=== PATIENT | male | born 1955 | race Caucasian/White ===

== ENCOUNTER → 2016-03-26 | Outpatient (CLI) | payer MEDICARE, MEDICAID ==
[~2016-03-26] MED LIST: /AMLO25TA PO; ADV250INH INH; ASPI81CH32 PO; ASPI81TA7 PO; ASPI81TA85 PO; ATOR40TA PO; AUGM875T27 PO; CEPH500C PO; CLOP75TA2 PO; FURO40TA2 PO; HYDR50TA PO; IMDU30TA PO; LISI10TA4 PO; LOPR100T PO; METF-414 PO; METF1000 PO; METO100T PO; NICO21DI26 TOP; NO HISTORICAL MEDS; NORCOTAB PO; TRAD5TAB PO; ZITH500T PO
--- NOTE | 2016-03-26 12:11 | REP ---
URINARY TRACT SONOGRAPHY: HISTORY: Chronic kidney disease. Comparison sonography April 24, 2014. Comparison CT study of the abdomen is from the same date. SONOGRAPHIC FINDINGS: Scanning at the level of the urinary bladder shows smooth bladder hernandez. No extravesical pelvic lesion is seen. Renal cortical echogenicity pattern is increased consistent with chronic medical renal disease. There is no evidence of hydronephrosis on either side. No mass is seen. Bilateral cysts are observed. There is a 1.4 cm cyst in the mid polar level of the right kidney. In the lower pole there is a 4.4 x 3.1 x 3.1 cm cyst. In the lower pole of the left kidney, there is a 2.4 x 1.9 x 2.1 cm cyst. In the upper pole of the left kidney, there is a 1.5 x 2.2 x 1.3 cm cyst. Right renal dimensions are 12.7 x 6.0 x 4.9 cm. The left kidney measures 13.0 x 5.8 x 6.1 cm. IMPRESSION: Increased renal cortical echogenicity pattern consistent with chronic medical renal disease. Small simple cyst bilaterally, the largest is in the lower pole on the right measuring 4.4 cm in greatest diameter. No other abnormality. Signed by Americo Arriaga MD 03/26/2016 01:19 P
== END ==
LOC: M RAD 10:58
PROVIDERS: ATTEND Physician Assistant Medical
DX: N18.3 Chronic kidney disease, stage 3 (moderate) (principal)

== ENCOUNTER 2016-04-24 22:03 | Emergency (ER) | payer MEDICARE, MEDICAID ==
--- NOTE | 2016-04-24 23:02 | EDDOCDS ---
Nurse's Notes [facility] Name: Shaji Cruz Age: 61 yrs Sex: Male : 1955 Arrival Date: 04/24/2016 Time: 22:03 Bed Triage 1 Private MD: Flor Beltran N. Diagnosis: Allergic rhinitis, unspecified Presentation: 04/24 22:07 Presenting complaint: Patient states: per pt about 1800 tonight after he ate dinner he tm5 checked his blood glucose & it was 114, he states that he ate some more & fingerstick was 125, but he states that his blood glucose should be doubled after he eats, denies any complaints. Adult Sepsis Screening: The patient does not have new or worsening altered mentation. Patient's respiratory rate is less than 22. Systolic blood pressure is greater than 100. Patient has a qSOFA score of 0- Negative Sepsis Screen. Suicide/Homicide risk assessment- the patient denies having any suicidal and/or homicidal ideations and does not present with any other emotional, behavioral or mental health complaints. 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 Transition of care: patient was not received from another setting of care. 22:07 Acuity: ANUPAM Level 4 tm5 22:07 Method Of Arrival: Walkin/Carried/Asstd tm5 Triage Assessment: 22:12 General: Appears in no apparent distress, Behavior is appropriate for age, cooperative. tm5 Pain: Denies pain. Pt Declines HIV testing. Neurological: Level of Consciousness is awake, alert, Oriented to person, place, time. Respiratory: Airway is patent Respiratory effort is even, unlabored, Respiratory pattern is regular, symmetrical. Derm: Skin is pink, warm & dry. Historical: - Allergies: no known allergies; - Home Meds: 1. aspirin 81 mg Oral TbEC once daily 2. atorvastatin 40 mg oral tab 1 tab once daily 3. lisinopril 10 mg Oral tab once daily 4. Lasix 20 mg Oral tab once daily 5. carvedilol 25 mg oral tab 2 times per day 6. digoxin 125 mcg Oral tab 1 tab once daily 7. Protonix 40 mg Oral TbEC once daily 8. Lantus 100 unit/mL Sub-Q soln 20 unit daily 9. nitroglycerin 0.4 mg SL subl as needed 10. Breo Ellipta 100-25 mcg/dose inhalation dsdv 2 puff once daily 11. Gabapentin Unknown Oral 3 times per day - PMHx: COPD; Diabetes - IDDM: controlled; Hypercholesterolemia; Hypertension; - PSHx: defibrillator; Cardiac stents; - Social history: Smoking status: Patient uses tobacco products, current every day smoker. No barriers to communication noted, The patient speaks fluent Mauritanian. - Family history: Not pertinent. - : The pt / caregiver states he / she is not on anticoagulants. Home medication list is obtained from [employer] import data. - Exposure Risk Screening:: None identified. Screenin:07 Infection Control. gr2 22:13 Screening information is obtained from the patient. Fall risk: No risks identified. tm5 Assistance ADL's: requires no assistance with activities of daily living. Abuse/DV Screen: The patient / caregiver reports he/she is: not in a situation that causes fear, pain or injury. Nutritional screening: No deficits noted. Advance Directives: Currently, there is a health care proxy, children . There is no active DNR order. home support is adequate. Assessment: 22:40 Adult Sepsis Screening: The patient does not have new or worsening altered mentation. lf1 Patient's respiratory rate is less than 22. Systolic blood pressure is greater than 100. Patient has a qSOFA score of 0- Negative Sepsis Screen. General: Appears in no apparent distress, comfortable, Behavior is cooperative. Pain: Denies pain. Neurological: Level of Consciousness is awake, alert, obeys commands, Oriented to person, place, time, Speech is normal. EENT: No deficits noted. Cardiovascular: Chest pain is denied. Respiratory: Respiratory effort is even, unlabored, Denies cough, shortness of breath. GI: Denies nausea, vomiting. Derm: Skin is normal. 22:42 General: Pt reports he checked his blood sugar numerous times tonight and it isn't as lf1 high as he thinks it should be in the evening. States he normally runs 177-250 at night and tonight it has been 125-140 and he is very concerned.. Vital Signs: 22:05 BP 188 / 110; Pulse 65; Resp 18 S; Temp 96.6(O); Pulse Ox 100% on R/A; Weight 89.36 kg gr2 (R); Height 5 ft. 11 in. (180.34 cm) (R); Pain 0/10; 22:14 BP 170 / 96 RA (man/); tm5 22:05 Body Mass Index 27.48 (89.36 kg, 180.34 cm) gr2 Vitals: 22:05 Log In Time: April 24, 2016 at 22:05. gr2 ED Course: 22:04 Patient visited by Alhaji Soto. gr2 22:04 Patient moved to Waiting gr2 22:05 Flor Beltran is Private Physician. gr2 22:06 Patient visited by Alhaji Soto. gr2 22:06 Patient moved to Pre RCE gr2 22:10 Triage Initiated tm5 22:19 Patient moved to Triage 1 lf1 22:40 Patient visited by Nieves Jay RN. lf1 22:40 The patient / caregiver is instructed regarding the plan of care and ED course. lf1 22:41 Miguel [facility]intosh [facility] cc10 22:42 Nicole Barfield MD is Attending Physician. cc10 22:42 Patient visited by Miguel Mcintosh PA-C. cc10 22:42 Patient visited by Miguel Mcintosh PA-C. cc10 22:57 Flor Beltran is Referral Physician. cc10 23:01 No IV's were initiated during this patient's visit. No procedures done that require lf1 assistance. Order Results: There are currently no results for this order. Outcome: 22:57 Discharge ordered by Provider. cc10 23:01 Discharge Assessment: Patient awake, alert and oriented x 3. No cognitive and/or lf1 functional deficits noted. Patient verbalized understanding of disposition instructions. Patient awake and alert. Oriented to person, place and time. Patient verbalized understanding of disposition instructions. Patient has no functional deficits. patient administered narcotics - no. The following High Risk Discharge criteria are identified: None. Discharged to home ambulatory. Condition: unchanged. Discharge instructions given to patient, Instructed on discharge instructions, follow up and referral plans. medication usage, Demonstrated understanding of instructions, medications, Pt was receptive of discharge instructions/ teaching. Prescriptions given X 1. No special radiology studies were completed. Property :Personal belongings accompany Pt. 23:02 Patient left the ED. lf1 Signatures: Nieves Jay RN RN lf1 Alhaji Soto gr2 Miguel Mcintosh PA-C PA-C cc10 Darryl,Diane,RN RN tm5 MTDD
--- NOTE | 2016-04-24 23:02 | EDDOCDS ---
Physician Documentation [facility] Name: Shaji Cruz Age: 61 yrs Sex: Male : 1955 Arrival Date: 04/24/2016 Time: 22:03 Bed Triage 1 Private MD: Flor Beltran N. Disposition: 04/24/16 22:57 Discharged to Home/Self Care. Impression: Allergic rhinitis, unspecified. - Condition is Stable. - Discharge Instructions: Allergies. - Prescriptions for Claritin 10 mg Oral Tablet - take 1 tablet by ORAL route once daily As needed; 30 tablet. - Medication Reconciliation form. - Follow up: Flor Beltran; When: Call to arrange an appointment; Reason: Wound/Symptom Recheck, Recheck today's complaints, Worsening of conditions, Continuance of care. - Problem is an ongoing problem. - Symptoms have improved. Historical: - Allergies: no known allergies; - Home Meds: 1. aspirin 81 mg Oral TbEC once daily 2. atorvastatin 40 mg oral tab 1 tab once daily 3. lisinopril 10 mg Oral tab once daily 4. Lasix 20 mg Oral tab once daily 5. carvedilol 25 mg oral tab 2 times per day 6. digoxin 125 mcg Oral tab 1 tab once daily 7. Protonix 40 mg Oral TbEC once daily 8. Lantus 100 unit/mL Sub-Q soln 20 unit daily 9. nitroglycerin 0.4 mg SL subl as needed 10. Breo Ellipta 100-25 mcg/dose inhalation dsdv 2 puff once daily 11. Gabapentin Unknown Oral 3 times per day - PMHx: COPD; Diabetes - IDDM: controlled; Hypercholesterolemia; Hypertension; - PSHx: defibrillator; Cardiac stents; - Social history: Smoking status: Patient uses tobacco products, current every day smoker. No barriers to communication noted, The patient speaks fluent French. - Family history: Not pertinent. - : The pt / caregiver states he / she is not on anticoagulants. Home medication list is obtained from [employer] import data. - Exposure Risk Screening:: None identified. Vital Signs: 04/24 22:05 BP 188 / 110; Pulse 65; Resp 18 S; Temp 96.6(O); Pulse Ox 100% on R/A; Weight 89.36 kg gr2 / 197.01 lbs (R); Height 5 ft. 11 in. (180.34 cm) (R); Pain 0/10; 22:14 BP 170 / 96 RA (man/); tm5 22:05 Body Mass Index 27.48 (89.36 kg, 180.34 cm) gr2 Signatures: Nieves Jay,RN RN lf1 Miguel Mcintosh, PA-C PA-C cc10 Diane Andrews RN RN tm5 MTDD
--- NOTE | 2016-04-27 00:02 | EDDOCDS ---
Physician Documentation [facility] Name: Shaji Cruz Age: 61 yrs Sex: Male : 1955 Arrival Date: 04/24/2016 Time: 22:03 Bed Triage 1 Private MD: Flor Beltran N. Disposition: 04/24/16 22:57 Discharged to Home/Self Care. Impression: Allergic rhinitis, unspecified. - Condition is Stable. - Discharge Instructions: Allergies. - Prescriptions for Claritin 10 mg Oral Tablet - take 1 tablet by ORAL route once daily As needed; 30 tablet. - Medication Reconciliation form. - Follow up: Flor Beltran; When: Call to arrange an appointment; Reason: Wound/Symptom Recheck, Recheck today's complaints, Worsening of conditions, Continuance of care. - Problem is an ongoing problem. - Symptoms have improved. Historical: - Allergies: no known allergies; - Home Meds: 1. aspirin 81 mg Oral TbEC once daily 2. atorvastatin 40 mg oral tab 1 tab once daily 3. lisinopril 10 mg Oral tab once daily 4. Lasix 20 mg Oral tab once daily 5. carvedilol 25 mg oral tab 2 times per day 6. digoxin 125 mcg Oral tab 1 tab once daily 7. Protonix 40 mg Oral TbEC once daily 8. Lantus 100 unit/mL Sub-Q soln 20 unit daily 9. nitroglycerin 0.4 mg SL subl as needed 10. Breo Ellipta 100-25 mcg/dose inhalation dsdv 2 puff once daily 11. Gabapentin Unknown Oral 3 times per day - PMHx: COPD; Diabetes - IDDM: controlled; Hypercholesterolemia; Hypertension; - PSHx: defibrillator; Cardiac stents; - Social history: Smoking status: Patient uses tobacco products, current every day smoker. No barriers to communication noted, The patient speaks fluent Kazakh. - Family history: Not pertinent. - : The pt / caregiver states he / she is not on anticoagulants. Home medication list is obtained from [employer] import data. - Exposure Risk Screening:: None identified. Vital Signs: 04/24 22:05 BP 188 / 110; Pulse 65; Resp 18 S; Temp 96.6(O); Pulse Ox 100% on R/A; Weight 89.36 kg gr2 / 197.01 lbs (R); Height 5 ft. 11 in. (180.34 cm) (R); Pain 0/10; 22:14 BP 170 / 96 RA (man/); tm5 22:05 Body Mass Index 27.48 (89.36 kg, 180.34 cm) gr2 MDM: 23:05 [facility] Payment Agreement was scanned into [employer] and attached to record. 5 23:05 Financial registration complete. 5 04/25 18:06 T-Sheet-- Draft Copy was scanned into [employer] and attached to record. klr Signatures: Nieves Jay,RN RN lf1 Miguel Mcintosh PAIngrisC PA-C cc10 Jace Albarado jp5 Tammi Merrillr Diane Andrews,RN RN tm5 The chart was reviewed and I authenticate all verbal orders and agree with the evaluation and treatment provided.Attachments: 04/24 23:05 [facility] Payment Agreement jp5 04/25 18:06 T-Sheet-- Draft Copy klr Chart Complete GIO
--- NOTE | 2016-04-27 00:02 | EDDOCDS ---
Nurse's Notes [facility] Name: Shaji Cruz Age: 61 yrs Sex: Male : 1955 Arrival Date: 04/24/2016 Time: 22:03 Bed Triage 1 Private MD: Flor Beltran N. Diagnosis: Allergic rhinitis, unspecified Presentation: 04/24 22:07 Presenting complaint: Patient states: per pt about 1800 tonight after he ate dinner he tm5 checked his blood glucose & it was 114, he states that he ate some more & fingerstick was 125, but he states that his blood glucose should be doubled after he eats, denies any complaints. Adult Sepsis Screening: The patient does not have new or worsening altered mentation. Patient's respiratory rate is less than 22. Systolic blood pressure is greater than 100. Patient has a qSOFA score of 0- Negative Sepsis Screen. Suicide/Homicide risk assessment- the patient denies having any suicidal and/or homicidal ideations and does not present with any other emotional, behavioral or mental health complaints. 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 Transition of care: patient was not received from another setting of care. 22:07 Acuity: ANUPAM Level 4 tm5 22:07 Method Of Arrival: Walkin/Carried/Asstd tm5 Triage Assessment: 22:12 General: Appears in no apparent distress, Behavior is appropriate for age, cooperative. tm5 Pain: Denies pain. Pt Declines HIV testing. Neurological: Level of Consciousness is awake, alert, Oriented to person, place, time. Respiratory: Airway is patent Respiratory effort is even, unlabored, Respiratory pattern is regular, symmetrical. Derm: Skin is pink, warm & dry. Historical: - Allergies: no known allergies; - Home Meds: 1. aspirin 81 mg Oral TbEC once daily 2. atorvastatin 40 mg oral tab 1 tab once daily 3. lisinopril 10 mg Oral tab once daily 4. Lasix 20 mg Oral tab once daily 5. carvedilol 25 mg oral tab 2 times per day 6. digoxin 125 mcg Oral tab 1 tab once daily 7. Protonix 40 mg Oral TbEC once daily 8. Lantus 100 unit/mL Sub-Q soln 20 unit daily 9. nitroglycerin 0.4 mg SL subl as needed 10. Breo Ellipta 100-25 mcg/dose inhalation dsdv 2 puff once daily 11. Gabapentin Unknown Oral 3 times per day - PMHx: COPD; Diabetes - IDDM: controlled; Hypercholesterolemia; Hypertension; - PSHx: defibrillator; Cardiac stents; - Social history: Smoking status: Patient uses tobacco products, current every day smoker. No barriers to communication noted, The patient speaks fluent Qatari. - Family history: Not pertinent. - : The pt / caregiver states he / she is not on anticoagulants. Home medication list is obtained from [employer] import data. - Exposure Risk Screening:: None identified. Screenin:07 Infection Control. gr2 22:13 Screening information is obtained from the patient. Fall risk: No risks identified. tm5 Assistance ADL's: requires no assistance with activities of daily living. Abuse/DV Screen: The patient / caregiver reports he/she is: not in a situation that causes fear, pain or injury. Nutritional screening: No deficits noted. Advance Directives: Currently, there is a health care proxy, children . There is no active DNR order. home support is adequate. Assessment: 22:40 Adult Sepsis Screening: The patient does not have new or worsening altered mentation. lf1 Patient's respiratory rate is less than 22. Systolic blood pressure is greater than 100. Patient has a qSOFA score of 0- Negative Sepsis Screen. General: Appears in no apparent distress, comfortable, Behavior is cooperative. Pain: Denies pain. Neurological: Level of Consciousness is awake, alert, obeys commands, Oriented to person, place, time, Speech is normal. EENT: No deficits noted. Cardiovascular: Chest pain is denied. Respiratory: Respiratory effort is even, unlabored, Denies cough, shortness of breath. GI: Denies nausea, vomiting. Derm: Skin is normal. 22:42 General: Pt reports he checked his blood sugar numerous times tonight and it isn't as lf1 high as he thinks it should be in the evening. States he normally runs 177-250 at night and tonight it has been 125-140 and he is very concerned.. Vital Signs: 22:05 BP 188 / 110; Pulse 65; Resp 18 S; Temp 96.6(O); Pulse Ox 100% on R/A; Weight 89.36 kg gr2 (R); Height 5 ft. 11 in. (180.34 cm) (R); Pain 0/10; 22:14 BP 170 / 96 RA (man/); tm5 22:05 Body Mass Index 27.48 (89.36 kg, 180.34 cm) gr2 Vitals: 22:05 Log In Time: April 24, 2016 at 22:05. gr2 ED Course: 22:04 Patient visited by Alhaji Soto. gr2 22:04 Patient moved to Waiting gr2 22:05 Flor Beltran is Private Physician. gr2 22:06 Patient visited by Alhaji Soto. gr2 22:06 Patient moved to Pre RCE gr2 22:10 Triage Initiated tm5 22:19 Patient moved to Triage 1 lf1 22:40 Patient visited by Nieves Jay RN. lf1 22:40 The patient / caregiver is instructed regarding the plan of care and ED course. lf1 22:41 Miguel Mcintosh PA-C is PHCP. cc10 22:42 Nicole Barfield MD is Attending Physician. cc10 22:42 Patient visited by Miguel Mcintosh PA-C. cc10 22:42 Patient visited by Miguel Mcintosh PA-C. cc10 22:57 Flor Beltran is Referral Physician. cc10 23:01 No IV's were initiated during this patient's visit. No procedures done that require lf1 assistance. 23:05 [facility] Payment Agreement was scanned into [employer] and attached to record. jp5 04/25 18:06 T-Sheet-- Draft Copy was scanned into [employer] and attached to record. klr Order Results: There are currently no results for this order. Outcome: 04/24 22:57 Discharge ordered by Provider. cc10 23:01 Discharge Assessment: Patient awake, alert and oriented x 3. No cognitive and/or lf1 functional deficits noted. Patient verbalized understanding of disposition instructions. Patient awake and alert. Oriented to person, place and time. Patient verbalized understanding of disposition instructions. Patient has no functional deficits. patient administered narcotics - no. The following High Risk Discharge criteria are identified: None. Discharged to home ambulatory. Condition: unchanged. Discharge instructions given to patient, Instructed on discharge instructions, follow up and referral plans. medication usage, Demonstrated understanding of instructions, medications, Pt was receptive of discharge instructions/ teaching. Prescriptions given X 1. No special radiology studies were completed. Property :Personal belongings accompany Pt. 23:02 Patient left the ED. lf1 Signatures: Nieves JayRN RN lf1 Alhaji Soto gr2 Miguel Mcintosh PA-C PAMeg cc10 Jace Albarado jp5 Tammi Merrill Tonya, RN RN tm5 Chart Complete MTDD
--- NOTE | 2016-04-27 00:02 | EDDOCDS ---
Physician Documentation [facility] Name: Shaji Cruz Age: 61 yrs Sex: Male : 1955 Arrival Date: 04/24/2016 Time: 22:03 Bed Triage 1 Private MD: Flor Beltran N. Disposition: 04/24/16 22:57 Discharged to Home/Self Care. Impression: Allergic rhinitis, unspecified. - Condition is Stable. - Discharge Instructions: Allergies. - Prescriptions for Claritin 10 mg Oral Tablet - take 1 tablet by ORAL route once daily As needed; 30 tablet. - Medication Reconciliation form. - Follow up: Flor Beltran; When: Call to arrange an appointment; Reason: Wound/Symptom Recheck, Recheck today's complaints, Worsening of conditions, Continuance of care. - Problem is an ongoing problem. - Symptoms have improved. Historical: - Allergies: no known allergies; - Home Meds: 1. aspirin 81 mg Oral TbEC once daily 2. atorvastatin 40 mg oral tab 1 tab once daily 3. lisinopril 10 mg Oral tab once daily 4. Lasix 20 mg Oral tab once daily 5. carvedilol 25 mg oral tab 2 times per day 6. digoxin 125 mcg Oral tab 1 tab once daily 7. Protonix 40 mg Oral TbEC once daily 8. Lantus 100 unit/mL Sub-Q soln 20 unit daily 9. nitroglycerin 0.4 mg SL subl as needed 10. Breo Ellipta 100-25 mcg/dose inhalation dsdv 2 puff once daily 11. Gabapentin Unknown Oral 3 times per day - PMHx: COPD; Diabetes - IDDM: controlled; Hypercholesterolemia; Hypertension; - PSHx: defibrillator; Cardiac stents; - Social history: Smoking status: Patient uses tobacco products, current every day smoker. No barriers to communication noted, The patient speaks fluent Vietnamese. - Family history: Not pertinent. - : The pt / caregiver states he / she is not on anticoagulants. Home medication list is obtained from [employer] import data. - Exposure Risk Screening:: None identified. Vital Signs: 04/24 22:05 BP 188 / 110; Pulse 65; Resp 18 S; Temp 96.6(O); Pulse Ox 100% on R/A; Weight 89.36 kg gr2 / 197.01 lbs (R); Height 5 ft. 11 in. (180.34 cm) (R); Pain 0/10; 22:14 BP 170 / 96 RA (man/); tm5 22:05 Body Mass Index 27.48 (89.36 kg, 180.34 cm) gr2 MDM: 23:05 [facility] Payment Agreement was scanned into [employer] and attached to record. 5 23:05 Financial registration complete. 5 04/25 18:06 T-Sheet-- Draft Copy was scanned into [employer] and attached to record. klr Signatures: Nieves Jay,RN RN lf1 Miguel Mcintosh PAIngrisC PA-C cc10 Jace Albarado jp5 Tammi Merrillr Daine Andrews,RN RN tm5 The chart was reviewed and I authenticate all verbal orders and agree with the evaluation and treatment provided.Attachments: 04/24 23:05 [facility] Payment Agreement jp5 04/25 18:06 T-Sheet-- Draft Copy klr Chart Complete GIO
== END 2016-04-24 23:02 | disposition home or self-care (01) ==
LOC: M ED 22:03
DX: J30.9 Allergic rhinitis, unspecified (principal); E11.9 Type 2 diabetes mellitus without complications; J44.9 Chronic obstructive pulmonary disease, unspecified; E78.00 Pure hypercholesterolemia, unspecified; I10 Essential (primary) hypertension; Z79.82 Long term (current) use of aspirin; Z79.4 Long term (current) use of insulin; Z79.899 Other long term (current) drug therapy; F17.210 Nicotine dependence, cigarettes, uncomplicated

== ENCOUNTER → 2016-04-29 | Outpatient (CLI) | payer MEDICARE, MEDICAID | LOC: M SLEEP 19:34 | PROVIDERS: ATTEND Internal Medicine Pulmonary Disease | DX: R40.0 Somnolence (principal) ==

== ENCOUNTER → 2016-06-13 | Outpatient (REF) | payer MEDICARE, MEDICAID ==
[2016-06-13 19:31] LABS: COMPLEMENT C4 30.7 MG/DL (10-40)
== END ==
LOC: M LAB REF 10:07
PROVIDERS: ATTEND Internal Medicine Nephrology
DX: N18.3 Chronic kidney disease, stage 3 (moderate) (principal); R80.9 Proteinuria, unspecified; R31.9 Hematuria, unspecified

== ENCOUNTER → 2016-07-09 | Outpatient (REF) | payer MEDICARE ==
[2016-07-09 20:37] LABS: BASO # 0.1 K/mm3 (0.0-0.2); BASO % 1.1 % (0.0-1.0); EOS # 0.3 K/mm3 (0.0-0.50); EOS % 2.8 % (0.0-3.0); LARGE UNSTAINED CELL # 0.2 K/mm3 (0.0-0.4); LARGE UNSTAINED CELL % 1.6 % (0.0-4.0); LYMPH # 1.6 K/mm3 (1.5-4.5); LYMPH % 14.8 % (24.0-44.0); MEAN CORPUSCULAR HEMOGLOBIN 29.1 pg (27.0-33.0); MEAN CORPUSCULAR HGB CONC 31.7 g/dl (32.0-36.5); MEAN CORPUSCULAR VOLUME 91.8 fl (80.0-96.0); MONO # 0.6 K/mm3 (0.0-0.8); MONO % 6.1 % (0.0-5.0); NEUTROPHILS # 7.4 K/mm3 (1.8-7.7); NEUTROPHILS % 73.6 % (36.0-66.0); PLATELET COUNT, AUTOMATED 177 k/mm3 (150-450); RED CELL DISTRIBUTION WIDTH 16.2 % (11.5-14.5)
[2016-07-09 21:13] LABS: ALBUMIN 3.4 GM/DL (3.2-5.2); ALBUMIN/GLOBULIN RATIO 0.92 (1.00-1.93); BILIRUBIN,TOTAL 0.6 MG/DL (0.2-1.0); CALCIUM LEVEL 8.7 MG/DL (8.8-10.2); CREATININE FOR GFR 1.58 MG/DL (0.70-1.30); GLOMERULAR FILTRATION RATE 47.9 (>49); POTASSIUM SERUM 4.4 MEQ/L (3.5-5.1); TOTAL PROTEIN 7.1 GM/DL (6.4-8.2)
== END ==
LOC: M SFHCADAM 12:59
PROVIDERS: ATTEND Physician Assistant Medical
DX: R31.9 Hematuria, unspecified (principal); E11.65 Type 2 diabetes mellitus with hyperglycemia; E78.4 Other hyperlipidemia; I12.9 Hypertensive chronic kidney disease with stage 1 through stage 4 chronic kidney disease, or unspecified chronic kidney disease; N18.3 Chronic kidney disease, stage 3 (moderate); I50.22 Chronic systolic (congestive) heart failure

== ENCOUNTER → 2016-07-16 | Outpatient (REF) | payer MEDICARE, MEDICAID | LOC: M SMT 13:21 | PROVIDERS: ATTEND Nurse Practitioner Family | DX: R31.9 Hematuria, unspecified (principal) | CPT/HCPCS: 81001; 87086; 88108; G0463 ==

== ENCOUNTER → 2016-07-31 | Outpatient (CLI) | payer MEDICARE, MEDICAID ==
[~2016-07-31] MED LIST changes: +ISOVUE-370 76% 100ML VIAL (Q9967) As Ordered ONE
--- NOTE | 2016-07-31 15:04 | REP ---
CT abdomen pelvis multiphase scanning for hematuria: Scanning is initially performed without IV contrast. This is followed by IV contrast enhanced scanning initially during the arterial phase of enhancement. This is followed by delayed equilibrium phase scanning. Comparison is 04/24/2014. There is a 9 mm renal cortical cyst in the mid pole right kidney there is an exophytic 5 cm renal cortical cyst arising from the lower pole of the right kidney. These are not significantly changed. There is an exophytic 13 mm cyst arising from the upper pole of the left kidney posteriorly. There is an exophytic cyst arising from the lower pole left kidney measuring 2.5 cm. These are not significantly changed. There is no hydronephrosis. There are no renal or ureteral calculi. No renal masses are identified. No bladder masses are identified. The visualized lung mulligan are unremarkable. The hepatic parenchyma is homogeneous on all phases of the study. The gallbladder is unremarkable. The pancreas and spleen are normal size unremarkable. The adrenals are unremarkable. Abdominal aorta is unremarkable except for occasional calcified atheroma. There is no bowel distension. The mesentery is unremarkable. Pelvis: The pelvic bowel loops are unremarkable. The appendix is unremarkable. There is no adenopathy or ascites. Impression: There are bilateral renal cysts as described. There is no hydronephrosis. There are no renal calculi or masses. 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 Otherwise, negative CT study of the abdomen and pelvis. Signed by Richi Allison MD 07/31/2016 02:56 P
== END ==
LOC: M RAD 13:25
PROVIDERS: ATTEND Nurse Practitioner Family
DX: R31.9 Hematuria, unspecified (principal); N28.1 Cyst of kidney, acquired; M51.36 Other intervertebral disc degeneration, lumbar region; M46.88 Other specified inflammatory spondylopathies, sacral and sacrococcygeal region
CPT/HCPCS: 74178; Q9967

== ENCOUNTER → 2016-08-20 | Outpatient (CLI) | payer MEDICARE, MEDICAID ==
[~2016-08-20] MED LIST changes: -ATOR40TA PO; +ATOR40TA75 PO; +AUGM875T28 PO; +BREO1INH PO; +BUME2TAB PO; +CARV25TA PO; +DIGO0.12 PO; +DOCQ100C PO; +GABA-282 PO; +HUMA100I3 SC; +INSULANT SQ; -ISOVUE-370 76% 100ML VIAL (Q9967) As Ordered ONE; -METO100T PO; +METO100T5 PO; +PANT40TA2 PO; +VITA1CAP40 PO
--- NOTE | 2016-08-20 15:45 | REP ---
HISTORY: Bladder disorder. COMPARISON: Innumerable round calcifications are seen throughout the lung mulligan most consistent with calcified granulomas. There is a dual chamber bipolar pacemaker device in place. There is mild cardiomegaly. There are no patchy opacities or pleural effusions. Chronic changes are seen involving the imaged spine. IMPRESSION: Findings and suspected findings as described above. There is no definite plain film evidence of acute cardiopulmonary disease. Signed by Memo Willoughby DO 08/20/2016 04:03 P
== END ==
LOC: M ADAMS 14:34
PROVIDERS: ATTEND Urology
DX: Z01.818 Encounter for other preprocedural examination (principal); N32.89 Other specified disorders of bladder; I25.10 Atherosclerotic heart disease of native coronary artery without angina pectoris; I12.9 Hypertensive chronic kidney disease with stage 1 through stage 4 chronic kidney disease, or unspecified chronic kidney disease; N18.3 Chronic kidney disease, stage 3 (moderate); E11.65 Type 2 diabetes mellitus with hyperglycemia; F17.210 Nicotine dependence, cigarettes, uncomplicated; E55.9 Vitamin D deficiency, unspecified; Z79.4 Long term (current) use of insulin; Z79.51 Long term (current) use of inhaled steroids; Z79.82 Long term (current) use of aspirin; Z79.899 Other long term (current) drug therapy

== ENCOUNTER → 2016-08-20 | Outpatient (REF) | payer MEDICARE, MEDICAID ==
[~2016-08-20] MED LIST changes: +ATOR40TA PO; -ATOR40TA75 PO; -AUGM875T28 PO; -HUMA100I3 SC; +METO100T PO; -METO100T5 PO; -VITA1CAP40 PO; +VITA50003 PO
[2016-08-20 20:53] LABS: MEAN CORPUSCULAR HEMOGLOBIN 29.7 pg (27.0-33.0); MEAN CORPUSCULAR HGB CONC 32.5 g/dl (32.0-36.5); MEAN CORPUSCULAR VOLUME 91.6 fl (80.0-96.0); RED CELL DISTRIBUTION WIDTH 16.6 % (11.5-14.5); WHITE BLOOD COUNT 9.9 K/mm3 (4.0-10.0)
[2016-08-20 21:08] LABS: CALCIUM LEVEL 8.7 MG/DL (8.8-10.2); CREATININE FOR GFR 1.77 MG/DL (0.70-1.30); INR 1.01; POTASSIUM SERUM 4.4 MEQ/L (3.5-5.1)
== END ==
LOC: M LABSMT 14:31
PROVIDERS: ATTEND Urology
DX: Z01.818 Encounter for other preprocedural examination (principal); N32.89 Other specified disorders of bladder; E11.65 Type 2 diabetes mellitus with hyperglycemia; Z79.4 Long term (current) use of insulin; Z79.51 Long term (current) use of inhaled steroids; Z79.82 Long term (current) use of aspirin; Z79.899 Other long term (current) drug therapy

== ENCOUNTER → 2016-09-18 | Day surgery (SDC) | payer MEDICAID, MEDICARE ==
[~2016-09-18] VITALS: Ht 180.3 cm; Wt 91.2 kg
[~2016-09-18] MED LIST changes: +ACETAMINOPHEN TAB 650MG DOSE (2X325MG) PO PRN; -ATOR40TA PO; +ATOR40TA75 PO; +AUGM875T28 PO; +GLYCOPYRROLATE INJ 0.2 MG/ML 2 ML VIAL As Ordered ONE; +HUMA100I3 SC; +HumaLOG INSULIN (NovoLOG) PER UNIT As Ordered ONE; +HumaLOG INSULIN (NovoLOG) PER UNIT SC ONE; +KETOROLAC 60 MG/2 ML VIAL (J1885) As Ordered ONE; +LIDOCAINE 2% INJ 100 MG/5 ML SDV (FOR ANES.) As Ordered ONE; +LR 1,000 ML IV ONE; +LR 1,000 ML IV SCH; +MEPERIDINE INJ 25 MG/ML VIAL (J2175) IV PRN; -METO100T PO; +METO100T5 PO; +METOCLOPRAMIDE INJ 10MG/2ML VIAL (J2765) IV PRN; +MIDAZOLAM INJ 2 MG/2 ML VIAL (J2250) As Ordered ONE; +NEOSTIGMINE 1MG/ML 5 ML SYRINGE (J2710) As Ordered ONE; +ONDANSETRON 4MG/2ML VIAL (J2405) As Ordered ONE; +ONDANSETRON 4MG/2ML VIAL (J2405) IV PRN; +PERCOCET 5MG/325MG TAB PO PRN; +PROPOFOL 200 MG/20 ML VIAL As Ordered ONE; +ROCURONIUM BROMIDE 50 MG/5 ML VIAL/SYRINGE As Ordered ONE; +VITA1CAP40 PO; -VITA50003 PO; +fentaNYL 100 MCG/2 ML INJECTION (J3010) As Ordered ONE; +fentaNYL 100 MCG/2 ML INJECTION (J3010) IV PRN
[2016-09-18 17:00] VITALS: BP 165/82
--- NOTE | 2016-09-19 11:36 | RO ---
DATE OF PROCEDURE: 09/18/2016 PREPROCEDURE DIAGNOSIS: Bladder mass. POSTPROCEDURE DIAGNOSIS: Bladder mass. OPERATIVE PROCEDURE: Cystoscopy, transurethral resection of bladder tumor (less than 2 cm), urethral meatal dilation, examination under anesthesia. SURGEON: Thierno Peterson MD STATE GAME WARDEN: None. ANESTHESIA: General. OPERATIVE INDICATIONS: This is a 61-year-old male who on recent cystoscopy was found to have an abnormal appearing mass on the posterior wall of his bladder. He was brought to the operating room today for the above listed procedure. DESCRIPTION OF PROCEDURE: The patient was brought to the operating room and general anesthesia was induced. Prophylactic antibiotics were infused. He was then placed in dorsal lithotomy position and a bimanual digital rectal examination under anesthesia was performed. It was negative for palpable prostate or bladder masses. The bladder was freely mobile. The patient was then prepped and draped in the usual sterile fashion. I then tried to insert a resectoscope into the urethral meatus. Of note, the ureteral meatus was too narrow. I therefore had to dilate the ureteral meatus to 30 [place]. After that point, I was able to insert the resectoscope using the digital obturator. Once within the bladder, it was thoroughly examined and the only abnormality seen was the small abnormal appearing mass on the posterior wall of the bladder. The resectoscope was then utilized to resect the mass completely. No other abnormalities were seen. The coagulation current was then utilized to obtain hemostasis. At this point, hemostasis was excellent. The specimen was then handed off and sent for pathologic analysis. The bladder was emptied of all fluid and this concluded the procedure. The patient was then taken out of the dorsal lithotomy position, awakened from anesthesia, and transported to the recovery room in stable condition. ESTIMATED BLOOD LOSS: 5 mL. COMPLICATIONS: None. SPECIMENS: Bladder mass. PLAN: The patient will followup in the clinic next week to discuss pathology results. GIO
== END | disposition home or self-care (01) ==
LOC: M SDC 12:40
PROVIDERS: ATTEND Urology
DX: N32.9 Bladder disorder, unspecified (principal); I25.10 Atherosclerotic heart disease of native coronary artery without angina pectoris; I25.2 Old myocardial infarction; I10 Essential (primary) hypertension; E11.9 Type 2 diabetes mellitus without complications; J44.9 Chronic obstructive pulmonary disease, unspecified; E78.5 Hyperlipidemia, unspecified; R06.83 Snoring; M19.049 Primary osteoarthritis, unspecified hand; M19.079 Primary osteoarthritis, unspecified ankle and foot; F17.200 Nicotine dependence, unspecified, uncomplicated; Z95.5 Presence of coronary angioplasty implant and graft; Z95.810 Presence of automatic (implantable) cardiac defibrillator; Z79.899 Other long term (current) drug therapy; Z79.82 Long term (current) use of aspirin; Z79.52 Long term (current) use of systemic steroids; Z79.4 Long term (current) use of insulin
CPT/HCPCS: 52234; 88307; J0690; J1885; J2250; J2405; J2710; J3010

== ENCOUNTER 2016-09-22 15:22 | Emergency (ER) | payer MEDICARE, MEDICAID ==
[~2016-09-22] VITALS: Ht 180.3 cm; Wt 92.8 kg
[~2016-09-22 15:22] MED LIST changes: -ACETAMINOPHEN TAB 650MG DOSE (2X325MG) PO PRN; -GLYCOPYRROLATE INJ 0.2 MG/ML 2 ML VIAL As Ordered ONE; -HUMA100I3 SC; -HumaLOG INSULIN (NovoLOG) PER UNIT As Ordered ONE; -HumaLOG INSULIN (NovoLOG) PER UNIT SC ONE; -KETOROLAC 60 MG/2 ML VIAL (J1885) As Ordered ONE; -LIDOCAINE 2% INJ 100 MG/5 ML SDV (FOR ANES.) As Ordered ONE; -LR 1,000 ML IV ONE; -LR 1,000 ML IV SCH; -MEPERIDINE INJ 25 MG/ML VIAL (J2175) IV PRN; -METOCLOPRAMIDE INJ 10MG/2ML VIAL (J2765) IV PRN; -MIDAZOLAM INJ 2 MG/2 ML VIAL (J2250) As Ordered ONE; -NEOSTIGMINE 1MG/ML 5 ML SYRINGE (J2710) As Ordered ONE; -ONDANSETRON 4MG/2ML VIAL (J2405) As Ordered ONE; -ONDANSETRON 4MG/2ML VIAL (J2405) IV PRN; -PERCOCET 5MG/325MG TAB PO PRN; -PROPOFOL 200 MG/20 ML VIAL As Ordered ONE; -ROCURONIUM BROMIDE 50 MG/5 ML VIAL/SYRINGE As Ordered ONE; -fentaNYL 100 MCG/2 ML INJECTION (J3010) As Ordered ONE; -fentaNYL 100 MCG/2 ML INJECTION (J3010) IV PRN
[2016-09-22] MEDS ORDERED: HUMA100I3 SC (15:35)
[2016-09-22 17:58] VITALS: BP 136/70
--- NOTE | 2016-09-22 21:19 | REP ---
BLADDER ULTRASOUND: Real-time sonographic evaluation of the urinary bladder is performed. Bladder is well distended with no mass or calculus. Volume is 454 mL. Ureteral jets could not be seen in the urinary bladder with Doppler color evaluation. There is post void residual of 141 mL which is 31% of the original volume. IMPRESSION: No bladder mass, calculus or clot. Signed by Richi Mejia MD 09/23/2016 01:07 P
== END 2016-09-22 18:19 | disposition home or self-care (01) ==
LOC: M ED 15:22
DX: N99.820 Postprocedural hemorrhage of a genitourinary system organ or structure following a genitourinary system procedure (principal); R33.8 Other retention of urine; R31.9 Hematuria, unspecified; I25.10 Atherosclerotic heart disease of native coronary artery without angina pectoris; I50.9 Heart failure, unspecified; E11.9 Type 2 diabetes mellitus without complications; I11.0 Hypertensive heart disease with heart failure; F32.9 Major depressive disorder, single episode, unspecified; Z98.61 Coronary angioplasty status; F17.210 Nicotine dependence, cigarettes, uncomplicated; Z79.82 Long term (current) use of aspirin; Z79.4 Long term (current) use of insulin; Z79.899 Other long term (current) drug therapy

== ENCOUNTER → 2017-02-03 | Outpatient (REF) | payer MEDICARE ==
[~2017-02-03] MED LIST changes: +ASPI1TAB15 PO; +HUMA100I3 SC; +SPIR25TA2 PO
[2017-02-03 19:40] LABS: ALBUMIN 3.5 GM/DL (3.2-5.2); ALBUMIN/GLOBULIN RATIO 0.9 (1.00-1.93); BILIRUBIN,TOTAL 0.9 MG/DL (0.2-1.0); CALCIUM LEVEL 8.8 MG/DL (8.8-10.2); CREATININE FOR GFR 1.91 MG/DL (0.70-1.30); GLOMERULAR FILTRATION RATE 38.5 (>49); MAGNESIUM LEVEL 2.2 MG/DL (1.8-2.4); POTASSIUM SERUM 4.4 MEQ/L (3.5-5.1); TOTAL PROTEIN 7.4 GM/DL (6.4-8.2)
[2017-02-03 19:43] LABS: FOLATE 12.6 NG/ML
[2017-02-03 20:04] LABS: BASO # 0.1 10^3/uL (0.0-0.2); BASO % 1.2 % (0.0-1.0); EOS # 0.3 10^3/uL (0.0-0.50); EOS % 2.8 % (0.0-3.0); IMMATURE GRANULOCYTE % 0.9 % (0-0); LYMPH # 1.6 10^3/uL (1.5-4.5); MEAN CORPUSCULAR HEMOGLOBIN 30.5 pg (27.0-33.0); MEAN CORPUSCULAR HGB CONC 32.9 g/dl (32.0-36.5); MEAN CORPUSCULAR VOLUME 92.9 fl (80.0-96.0); MONO # 0.8 10^3/uL (0.0-0.8); MONO % 7.6 % (0.0-5.0); NEUTROPHILS # 7.5 10^3/uL (1.8-7.7); NEUTROPHILS % 72.5 % (36.0-66.0); PLATELET COUNT, AUTOMATED 168 10^3/uL (150-450); RED CELL DISTRIBUTION WIDTH 13.9 % (11.5-14.5); WHITE BLOOD COUNT 10.4 10^3/uL (4.0-10.0)
== END ==
LOC: M SFHCADAM 13:22
PROVIDERS: ATTEND Physician Assistant Medical
DX: E11.65 Type 2 diabetes mellitus with hyperglycemia (principal); I12.9 Hypertensive chronic kidney disease with stage 1 through stage 4 chronic kidney disease, or unspecified chronic kidney disease; N18.3 Chronic kidney disease, stage 3 (moderate); Z23 Encounter for immunization
CPT/HCPCS: 80053; 80061; 82306; 82607; 82746; 83036; 83735; 84443; 85025; 90686; G0008; G0463

== ENCOUNTER → 2017-02-05 | Outpatient (CLI) | payer MEDICAID, MEDICARE ==
[~2017-02-05] MED LIST changes: -ASPI1TAB15 PO; -SPIR25TA2 PO
--- NOTE | 2017-02-05 19:14 | REP ---
Bilateral lower extremity arterial Doppler: 02/05/2017. I do not have prior studies. Clinical history: Peripheral artery disease, right femoral popliteal bypass in 2016. Right lower extremity: Brachial artery velocity 160 cm/s Dorsalis pedis 170 cm cm/s CUSTOMS COMPLIANCE ANALYST 190 cm/s. RACHELLE 1.2. Right LE peak systole phasicity. CIVIL ENGINEERING TEACHER proximal to bypass 105 cm/s triphasic Profunda 50 cm/s biphasic SFA occluded. SFA bypass proximal 116 cm/s triphasic SFA mid bypass 84 cm/s triphasic SFA distal bypass 88 cm/S triphasic Popliteal 64 cm/S triphasic SIMONA proximal 73 cm/S triphasic Tibioperoneal trunk 54 cm/S biphasic CUSTOMS COMPLIANCE ANALYST proximal 42 cm/S triphasic CUSTOMS COMPLIANCE ANALYST distal 36 cm/S biphasic SIMONA distal 57 cm/S biphasic Left LE peak systole phasicity. CIVIL ENGINEERING TEACHER 68 cm/s Profunda 100 cm/s SFA proximal occluded. SFA mid occluded. SFA distal 8 cm/s monophasic Popliteal 12 cm/s monophasic AT proximal 12 cm/S monophasic Tibioperoneal trunk 16 cm/S monophasic CUSTOMS COMPLIANCE ANALYST proximal 14 cm/S monophasic CUSTOMS COMPLIANCE ANALYST distal 12 cm/S monophasic SIMONA distal 12 cm/S monophasic. Study suggest patent well-functioning right femoral popliteal bypass graft. There is a SFA occlusion proximally with revascularization distally by collaterals most likely trabecular arteries. Very slow flow in the lower leg and distally from the popliteal artery down to the ankle. Some plaque visible there. The ankle brachial index suggests adequate collateral flow. Signed by Cipriano Ruano MD 02/05/2017 08:03 P
== END ==
LOC: M RAD 11:36
PROVIDERS: ATTEND Surgery Vascular Surgery
DX: I73.9 Peripheral vascular disease, unspecified (principal)

== ENCOUNTER → 2017-02-07 | Outpatient (CLI) | payer MEDICARE ==
--- NOTE | 2017-02-07 14:01 | REP ---
Low-dose lung screening CT: Comparison is 02/06/2016. The studies performed without IV contrast and presented at lung windows only. There are multiple calcified granulomas as previously. There are no noncalcified lung nodules. This is unchanged. There are no infiltrates or effusions. There are calcified granulomas in mediastinal and hilar nodes. This is unchanged. Impression: There are no noncalcified nodules. Calcified granulomas are again identified, as previously, unchanged. Category 1 low-dose screening chest CT. Probability malignancy is less than 1%. Routine annual low-dose screening chest CT is recommended for follow up. Signed by Richi Allison MD 02/07/2017 01:52 P
== END ==
LOC: M RAD 10:38
PROVIDERS: ATTEND Internal Medicine Pulmonary Disease
DX: F17.218 Nicotine dependence, cigarettes, with other nicotine-induced disorders (principal)

== ENCOUNTER 2017-02-20 15:03 | Inpatient (IN) | payer MEDICARE ==
[~2017-02-20] VITALS: Ht 180.3 cm; Wt 88.6 kg
[2017-02-20 16:16] LABS: BASO # 0.1 10^3/uL (0.0-0.2); BASO % 1.1 % (0.0-1.0); EOS # 0.4 10^3/uL (0.0-0.50); EOS % 3.6 % (0.0-3.0); IMMATURE GRANULOCYTE % 0.4 % (0-0); LYMPH # 1.5 10^3/uL (1.5-4.5); LYMPH % 12.8 % (24.0-44.0); MEAN CORPUSCULAR HEMOGLOBIN 30.6 pg (27.0-33.0); MEAN CORPUSCULAR HGB CONC 33.3 g/dl (32.0-36.5); MEAN CORPUSCULAR VOLUME 91.9 fl (80.0-96.0); MONO % 8.9 % (0.0-5.0); NEUTROPHILS # 8.6 10^3/uL (1.8-7.7); NEUTROPHILS % 73.2 % (36.0-66.0); PLATELET COUNT, AUTOMATED 165 10^3/uL (150-450); RED CELL DISTRIBUTION WIDTH 13.9 % (11.5-14.5); WHITE BLOOD COUNT 11.7 10^3/uL (4.0-10.0)
--- NOTE | 2017-02-20 16:19 | REP ---
Head CT without contrast: History: Trauma. No comparison study. Findings: Preliminary digital signal manager radiograph is unremarkable. Bone window settings demonstrate an intact bony calvarium. No fractures seen. No bony destructive lesion is noted. Visualized paranasal sinuses are clear. No intraorbital abnormality is observed. Vascular calcification is noted in the distal carotid arteries bilaterally. No significant scalp hematoma is seen. On soft tissue window settings, there is diffuse mild cerebral atrophy. There are minimal small vessel changes. No hemorrhage, mass, extra-axial fluid collection or midline shift is seen. There is a zone of low-density in the anterior limb of the internal capsule on the right which may be a tiny lacunar infarct. This is age indeterminate. No other evidence of acute infarction is appreciated. Impression: No skull fracture or intracranial injury seen. A 6 mm area of low density in the anterior limb of the right internal capsule may be a lacunar infarct, age indeterminate. Vascular calcification and diffuse atrophy. Some small vessel changes. Otherwise negative. Signed by Americo Arriaga MD 02/20/2017 05:11 P
--- NOTE | 2017-02-20 16:20 | REP ---
CT cervical spine without contrast: History: Trauma. Technique: Helical scanning is acquired. 2 mm axial images are generated and viewed at bone and soft tissue algorithms. Coronal and sagittal multiplanar reformation images are generated and reviewed. CT findings: Digital lateral shrimper radiograph is unremarkable. Axial CT images show no evidence of skull base fracture. Vascular calcification is noted. There is no evidence of cervical spine element fracture on axial high resolution images. There are degenerative spondylosis changes, moderate in degree diffusely. Degenerative disc disease is most pronounced at C6-7 and C7-T1. Discogenic spurring is seen at C4-5 and C5-6 and to a lesser extent C3-4. There is osteoarthritic facet hypertrophy bilaterally at multiple levels. No malalignment is seen. There is an area of dystrophic ossification in the posterior extra spinal soft tissues at mid cervical spine level. No intraspinal or paraspinal hematoma is appreciated. Impression: Degenerative spondylosis changes. Vascular calcification. No traumatic abnormality. Signed by Americo Arriaga MD 02/20/2017 05:12 P
[2017-02-20 16:27] LABS: INR 0.99
[2017-02-20 16:30] LABS: SPECIFIC GRAVITY UR AUTO RFX 1.006 (1.002-1.035); SQUAM EPITHELIAL CELL UR AURFX 0 /HPF (0-6)
[2017-02-20 16:46] LABS: METHADONE URINE NEGATIVE (NEGATIVE)
[2017-02-20 16:50] LABS: CALCIUM LEVEL 8.3 MG/DL (8.8-10.2); CREATININE FOR GFR 2.01 MG/DL (0.70-1.30); FREE T4 1.41 NG/DL (0.76-1.46); GLOMERULAR FILTRATION RATE 36.3 (>49); MAGNESIUM LEVEL 2.1 MG/DL (1.8-2.4); PHOSPHORUS LEVEL 3.3 MG/DL (2.5-4.9); POTASSIUM SERUM 4.6 MEQ/L (3.5-5.1)
--- NOTE | 2017-02-20 16:59 | REP ---
Chest x-ray: Three views presented. History: Syncope. Comparison chest x-ray: August 20, 2016. Findings: The lungs are well inflated and free of infiltrate. A multi lead pacemaker is seen in the right heart via the left side. There are numerous pulmonary parenchymal granulomatous calcifications again seen unchanged. Heart is not enlarged. The aorta is somewhat tortuous. Pulmonary vasculature is not increased. There are degenerative changes in the thoracic spine as before. No acute infiltrate is seen. No evidence of pleural effusion or pulmonary edema is seen. Impression: Old granulomatous calcifications. A multi lead pacemaker. Otherwise no acute disease. Signed by Americo Arriaga MD 02/20/2017 05:13 P
[2017-02-20] MEDS ORDERED: NS 500 ML IV ONE (18:00)
[2017-02-20] MEDS ORDERED: SPIR25TA2 PO (18:06)
[2017-02-20] MEDS ORDERED: ASPI1TAB15 PO (18:06)
[2017-02-20 19:07] LABS: DIGOXIN LEVEL 1.3 NG/ML (0.5-2.0)
[2017-02-20] MEDS ORDERED: NS 1,000 ML IV SCH (20:29)
[2017-02-20] MEDS ORDERED: ONDANSETRON 4MG/2ML VIAL (J2405) IV PRN (20:30)
[2017-02-20] MEDS ORDERED: ACETAMINOPHEN TAB 650MG DOSE (2X325MG) PO PRN (20:30)
[2017-02-20] MEDS ORDERED: DEXTROSE 50% 50 ML SYRINGE IV PRN (20:45)
[2017-02-20] MEDS ORDERED: DOCUSATE SODIUM 100 MG CAP PO PRN (20:45)
[2017-02-20] MEDS ORDERED: GLUCOSE 4 GM CHEW TABLET PO PRN (20:45)
[2017-02-20] MEDS ORDERED: GLUCAGON FOR INJ 1 MG VIAL (J1610) SC PRN (20:45)
[2017-02-20] MEDS ORDERED: NICOTINE 21MG/24HR 1 EA TRANSDERMAL TD PRN (21:00)
[2017-02-20] MEDS ORDERED: HumaLOG INSULIN (NovoLOG) PER UNIT SC SCH (21:00)
[2017-02-20] MEDS ORDERED: ALBUTEROL SULFATE 2.5 MG/0.5 ML INH NEB SOLN INH PRN (21:00)
[2017-02-20] MEDS ORDERED: LEVEMIR (INSULIN DETEMIR) 1 UNITS/0.01ML SQ SCH (21:00)
[2017-02-20 21:53] VITALS: BP 181/84
[2017-02-20 21:54] VITALS: BP 158/60
[2017-02-20] MEDS: GABAPENTIN 300 MG CAP PO SCH (22:22)
[2017-02-20] MEDS: ATORVASTATIN 20 MG TAB PO SCH (22:22)
[2017-02-20] MEDS: DIGOXIN 0.125 MG TAB PO SCH (22:22)
[2017-02-21 04:00] VITALS: BP 151/82
[2017-02-21 05:43] LABS: MEAN CORPUSCULAR HEMOGLOBIN 30.6 pg (27.0-33.0); MEAN CORPUSCULAR HGB CONC 32.9 g/dl (32.0-36.5); MEAN CORPUSCULAR VOLUME 93.1 fl (80.0-96.0); PLATELET COUNT, AUTOMATED 163 10^3/uL (150-450); RED CELL DISTRIBUTION WIDTH 13.7 % (11.5-14.5); WHITE BLOOD COUNT 10.2 10^3/uL (4.0-10.0)
[2017-02-21 06:12] LABS: CALCIUM LEVEL 8.2 MG/DL (8.8-10.2); CREATININE FOR GFR 1.81 MG/DL (0.70-1.30); GLOMERULAR FILTRATION RATE 40.9 (>49); MAGNESIUM LEVEL 2.3 MG/DL (1.8-2.4); POTASSIUM SERUM 4.3 MEQ/L (3.5-5.1)
[2017-02-21] MEDS: HumaLOG INSULIN (NovoLOG) PER UNIT SC SCH ×2 (07:30→08:28)
[2017-02-21] MEDS: IPRATROPIUM 0.5MG/ALBUTEROL 2.5MG INH SOL UD 3ML (DUONEB)(J7620) NEB SCH ×4 (07:31→20:46)
--- NOTE | 2017-02-21 07:41 | HPE ---
DATE OF ADMISSION: 02/20/2017 This is a patient of Flor Beltran. Bar Useful Or Busser is from [facility] on [facility]. CHIEF COMPLAINT: "I passed out." SUMMARY OF PRESENTATION: This is a 61-year-old who was shopping in [place] today. He was walking toward the bank, and he developed generalized shaking in both arms. He became vertiginous but not lightheaded. [place] as though the room was spinning and fell onto his lady friend and did end up hitting the floor. Hit the back of his head. Apparently was on the floor and unresponsive for 2 minutes, according to his clothing presser. He woke up slowly. He had no incontinence of bowel or bladder. He did not bite his tongue. He has recently had no medication changes. No chest pain. No shortness of breath. He has been feeling well. Fingersticks at the scene was apparently in the 170s. Right now he feels fantastic and feels as though he could jump out of bed. There is no family history of seizures. He has had no history of seizures. He does have an extensive cardiac history though. PAST MEDICAL HISTORY: Notable for: 1. Coronary artery disease with an anterior wall myocardial infarction (LA). 2. Type 2 diabetes. 3. Hypertension. 4. Hyperlipidemia. 5. Tobacco use, ongoing. 6. Echocardiogram showing large anterior apical infarct, ejection fraction less than 30%. He has an automatic implantable cardioverter-defibrillator (AICD). 7. Bilateral lower extremity diabetic neuropathy. 8. Ischemic cardiomyopathy. 9. Peripheral arterial disease. 10. Gastroesophageal reflux disease (GERD). 11. Chronic kidney disease, stage III. 12. Vitamin D deficiency. 13. Chronic obstructive pulmonary disease (COPD). ALLERGIES: He has no known drug allergies. SURGICAL HISTORY: Notable for: 1. Cardiac catheterization. 2. Amputation of a toe on the right foot. 3. Thrombectomy from stent thrombosis. 4. Defibrillator placement. 5. Femoral-popliteal bypass. SOCIAL HISTORY: He continues to smoke. He does not use any alcohol. He lives by himself. FAMILY HISTORY: Notable for no history of seizure disorder. HOME MEDICATIONS: Listed as: - Coreg 25 mg by mouth twice a day - insulin - lisinopril 10 mg by mouth twice a day - spironolactone 25 mg daily - 81 mg daily - atorvastatin 40 mg by mouth every evening - bumetanide 2 mg by mouth daily - Plavix 75 mg daily - digoxin 0.125 mg by mouth every evening - Colace 100 mg twice daily - Neurontin 300 mg three times a day - Lantus 20 units subcutaneous at bedtime - Protonix 40 mg by mouth daily REVIEW OF SYSTEMS: Notable for no visual changes, no runny nose, no sore throat. He does have some tenderness at the posterior aspect of his head. No neck pain. No chest pain. No orthopnea. No paroxysmal nocturnal dyspnea . No lower extremity edema. He says that his medications have been keeping his edema down. No abdominal pain. No change in bowel or bladder habits. PHYSICAL EXAMINATION: Temperature is 97.5, pulse 68, respiratory rate 16, blood pressure 177/93, 93% on room air. Body mass index 27.5. He is awake appropriately interactive. A good historian. Sinuses are nontender. Posterior left occiput has a small area of swelling, which is mildly tender. There is no bleeding. Neck is supple. There is full range of motion. Nontender to palpation. He is edentulous. Mucous membranes are moist. Breathing is symmetrical. Inspiratory to expiratory (I-to-E) ratio is 1:4. Coarse airway sounds throughout. No wheezes, rales, or rhonchi. No costovertebral angle (CVA) tenderness. No sacral edema. Heart is in a regular rate and rhythm. Abdomen soft, doughy, nontender. There is a relatively large AICD in the left upper chest. There is no lower extremity edema. He is moving all four extremities. Cranial nerves II-XII are grossly intact. He has normal mood and somewhat variable affect. White cell count 11.7, hemoglobin 15.5, and platelets of 165. INR 0.99. BUN 38, creatinine 2.01, which appears to be close to his baseline. CK 220, troponin I 0.09. TSH 3.39, free T4 of 1.41. Toxicology screen negative. Urinalysis (UA) is notable for 25 red cells. Chest x-ray shows no acute disease. CT of the cervical spine shows no traumatic abnormality. Head CT showed no skull fracture. Intracranial imaging: There is a 6 mm area of low density in the anterior limb of right internal capsule, which may be a cranial infarct, age indeterminate. ASSESSMENT: This is a 61-year-old with syncopal event. Patient will be admitted to the family medicine service for further workup. PLAN: 1. Syncope. Possibility of orthostasis occurs to me, as the patient is orthostatic in the emergency department. He had shaking activity, which he was aware of prior to his fall. He did, although, have a relatively slow recovery and was unresponsive for 2 minutes, if bystanders can be believed. Will order an inpatient electroencephalogram (EEG), repeat CT scan tomorrow, as he does have a finding in the internal capsule, which is probably old. Neurology has been made aware of the case in the emergency department. Patient may benefit from . 2. Patient has significant cardiac illness. Will cycle troponins. Monitor the patient on telemetry. Continue his home medications with the exception of his Coreg, lisinopril, spironolactone this evening. Can reassess orthostatics in the morning. It may be that he requires a medication change. 3. Patient has diabetes. He will be maintained on insulin during his stay, long acting with sliding scale. 4. Patient has hyperlipidemia. 5. Patient has ongoing tobacco use. Will make a nicotine patch available to him. 6. Deep vein thrombosis (DVT) prophylaxis is ordered. 7. Patient has chronic kidney disease, stage III. Appears to be at about baseline.
[2017-02-21] MEDS: GABAPENTIN 300 MG CAP PO SCH ×3 (08:27→20:37)
[2017-02-21] MEDS: ASPIRIN 81 MG ENTERIC TAB PO SCH (08:27)
[2017-02-21] MEDS: CLOPIDOGREL 75 MG TAB PO SCH (08:27)
[2017-02-21] MEDS: ENOXAPARIN 40 MG/0.4 ML SYRINGE (J1650) SC SCH (08:28)
[2017-02-21] MEDS: PANTOPRAZOLE 40MG TAB (PROTONIX) PO SCH (08:28)
--- NOTE | 2017-02-21 08:32 | REP ---
CT BRAIN WITHOUT CONTRAST: HISTORY: Syncope. Comparison study February 20, 2017. FINDINGS: There is no evidence of intracranial hemorrhage. No new infarction is seen. Mild small vessel changes and diffuse atrophy are again noted. There is a tiny area of low density in the anterior limb of the right internal capsule again noted unchanged. No extra-axial fluid collection or mass is seen. Vascular calcification is again noted. IMPRESSION: Stable findings unchanged from the February 20, 2017 study. Vascular calcification, mild diffuse atrophy, and small vessel changes. Small area of low density in the anterior limb of the right internal capsule again seen unchanged. Signed by Americo Arriaga MD 02/21/2017 08:49 A
[2017-02-21] MEDS ORDERED: BUMETANIDE 1 MG TAB PO SCH (09:00)
--- NOTE | 2017-02-21 09:07 | IPNPDOC ---
Subjective Date Seen The patient was seen on 02/21/17. Subjective Chief Complaint/HPI The patient is a 61-year-old male admitted with a reason for visit of Syncope. Events since last encounter Pt this morning states that he is feeling fine. He isn't sure what led to his syncopal event yesterday. He was feeling well up until just a moment before it occurred. He states that he did eat just before going to the store at [facility]. He has been feeling tired and worn down, states that he has been doing a lot for other people in the last few days, and not really taking care of himself. General: Denies: Fatigue Constitutional: Denies: Chills, Fever ENT: Denies: Head Aches Pulmonary: Denies: Dyspnea, Cough Cardiovascular: Denies: Chest Pain, Palpitations, Lt Headedness Gastrointestinal: Denies: Nausea, Vomiting, Diarrhea Genitourinary: Denies: Dysuria Musculoskeletal: Denies: Neck Pain Neurological: Denies: Weakness Psych: Denies: Mood Normal Objective Physical Examination General Exam: Positive: Alert, Cooperative, No Acute Distress ENT Exam: Positive: Mucous membr. moist/pink Neck Exam: Positive: Supple Chest Exam: Positive: Clear to auscultation, Diminished Heart Exam: Positive: Rate Normal, Normal S1, Normal S2 Abdomen Exam: Positive: Normal bowel sounds, Soft, Negative: Tenderness Extremity Exam: Negative: Edema Psych Exam: Positive: Mental status NL, Mood NL Assessment /Plan Problems (1) Syncope Status: Acute Response to Treatment: Stable Problem Specific Plan: Monitor Clinically Problem Text: CT suggests possible lacunar infarct. EEG pending. (he continues to have systolic hypertension that will likely require restarting some of his BP control meds. with his creatinine hovering near 2, consider permanent discontinuation of JARRELL-i. might tolerate ARB better with respect to preservation of creatinine. beta blockers (with labetalol and carvedilol as possible exceptions) are less likely to provoke orthostatic hypotension events, but can decrease renal blood flow which is already compromised. dihydropyridine class calcium channel antagonists are particularly useful for systolic pressure control but may be more likely to worsen orthostasis) Pt was orthostatic on presentation to the ER, and this certainly could have contributed to his syncopal event. Consider MRI brain. (2) CAD S/P percutaneous coronary angioplasty Status: Chronic Response to Treatment: Stable Problem Specific Plan: Monitor Clinically Problem Text: Trop 0.09 on admission, peaked at 0.25, then trended back down to 0.20. Cont telemetry. Asked nursing to repeat orthostatics this morning. Cont home meds, except Spironolactone held on admission. (3) Diabetes Status: Chronic Response to Treatment: Stable Problem Specific Plan: Monitor Clinically Problem Text: Pt has in the last 4-6 weeks, made significant changes to his diet, which has helped bring his sugars down into control. He should cont on SSI while inpt, he refused Levemir last night, and his FSBS was 154 this morning , will therefore d/c levemir. Plan/VTE VTE Prophylaxis Ordered?: Yes VS, I&O, 24H, Fishbone Vital Signs/I&O Vital Signs Date Time Temp Pulse Resp B/P (MAP) Pulse Ox O2 Delivery O2 Flow Rate FiO2 02/21/17 04:00 98.2 68 20 151/82 (105) 93 Room Air I&O- Last 24 Hours up to 6 AM 02/21/17 06:00 Intake Total 1160 ml Output Total 1450 ml Balance -290 ml Laboratory Data 24H LABS Laboratory Tests 2 02/20/17 16:06: Immature Granulocyte % (Auto) 0.4H, White Blood Count 11.7H, Red Blood Count 5.07, Hemoglobin 15.5, Hematocrit 46.6, Mean Corpuscular Volume 91.9, Mean Corpuscular Hemoglobin 30.6, Mean Corpuscular Hemoglobin Concent 33.3, Red Cell Distribution Width 13.9, Platelet Count 165, Neutrophils (%) (Auto) 73.2H, Lymphocytes (%) (Auto) 12.8L, Monocytes (%) (Auto) 8.9H, Eosinophils (%) (Auto) 3.6H, Basophils (%) (Auto) 1.1H, Neutrophils # (Auto) 8.6H, Lymphocytes # (Auto ) 1.5, Monocytes # (Auto) 1.0H, Eosinophils # (Auto) 0.4, Basophils # (Auto) 0.1 , Immature Granulocyte # (Auto) 0.1H, Nucleated Red Blood Cells % (auto) 0.0, Prothrombin Time 13.2, Prothromb Time International Ratio 0.99, Activated Partial Thromboplast Time 32.0, Urine Color STRAW, Urine Appearance CLEAR, Urine pH 6.0, Urine Specific [place] 1.006, Urine Protein 2+H, Urine Glucose (UA ) NEGATIVE, Urine Ketones NEGATIVE, Urine Blood 2+H, Urine Nitrite NEGATIVE, Urine Bilirubin NEGATIVE, Urine Urobilinogen 0.2, Urine Leukocyte Esterase NEGATIVE, Urine WBC (Auto) 0, Urine RBC (Auto) 25H, Urine Hyaline Casts (Auto) 0 , Urine Bacteria (Auto) NEGATIVE, Urine Squamous Epithelial Cells 0, Urine Sperm (Auto) , Anion Gap 6L, Glomerular Filtration Rate 36.3L, Blood Urea Nitrogen 38H, Creatinine 2.01H, Sodium Level 139, Potassium Level 4.6, Chloride Level 100, Carbon Dioxide Level 33H, Calcium Level 8.3L, Phosphorus Level 3.3, Magnesium Level 2.1, Total Creatine Kinase 220, Creatine Kinase MB 6.9H, Creatine Kinase MB Relative Index 3.13, Troponin I 0.09, Thyroid Stimulating Hormone (TSH) 3.390, Free Thyroxine 1.41, Digoxin Level 1.3, Urine Amphetamines Screen NEGATIVE, Urine Benzodiazepines Screen NEGATIVE, Urine Opiates Screen NEGATIVE, Urine Methadone Screen NEGATIVE, Urine Barbiturates Screen NEGATIVE, Urine Phencyclidine Screen NEGATIVE, Urine Cocaine Metabolite Screen NEGATIVE, Urine Cannabinoids Screen NEGATIVE 02/20/17 21:52: Bedside Glucose (Misc Panel) 149H 02/20/17 22:03: Total Creatine Kinase 217, Creatine Kinase MB 5.2H, Creatine Kinase MB Relative Index 2.39, Troponin I 0.25#H 02/21/17 05:21: Nucleated Red Blood Cells % (auto) 0.0, Anion Gap 3L, Glomerular Filtration Rate 40.9L, Blood Urea Nitrogen 34H, Creatinine 1.81H, Sodium Level 142, Potassium Level 4.3, Chloride Level 106, Carbon Dioxide Level 33H, Calcium Level 8.2L, Magnesium Level 2.3, Total Creatine Kinase 197, Creatine Kinase MB 4.6H, Creatine Kinase MB Relative Index 2.33, Troponin I 0.20H CBC/BMP Laboratory Tests 02/20/17 16:06 Red Blood Count 5.07, Mean Corpuscular Volume 91.9, Mean Corpuscular Hemoglobin 30.6, Mean Corpuscular Hemoglobin Concent 33.3, Red Cell Distribution Width 13.9 , Neutrophils (%) (Auto) 73.2 H, Lymphocytes (%) (Auto) 12.8 L, Monocytes (%) ( Auto) 8.9 H, Eosinophils (%) (Auto) 3.6 H, Basophils (%) (Auto) 1.1 H, Neutrophils # (Auto) 8.6 H, Lymphocytes # (Auto) 1.5, Monocytes # (Auto) 1.0 H, Eosinophils # (Auto) 0.4, Basophils # (Auto) 0.1, Calcium Level 8.3 L 02/21/17 05:21 Red Blood Count 4.64, Mean Corpuscular Volume 93.1, Mean Corpuscular Hemoglobin 30.6, Mean Corpuscular Hemoglobin Concent 32.9, Red Cell Distribution Width 13.7 , Calcium Level 8.2 L, Total Creatine Kinase 197 BEBETO NEVES PA-C Feb 21, 2017 09:07 Jose Chadwick MD Feb 21, 2017 12:30
[2017-02-21 10:22] VITALS: BP_SYST 138; BP_SYST 162; BP_SYST 163; BP_DIAS 81; BP_DIAS 85; BP_DIAS 89
[2017-02-21 12:25] VITALS: BP 153/76
[2017-02-21] MEDS ORDERED: LEVEMIR (INSULIN DETEMIR) 1 UNITS/0.01ML SC ONE (12:45)
[2017-02-21 16:18] VITALS: BP 160/92
--- NOTE | 2017-02-21 16:45 | ECGEPIP ---
Stationary ECG Study [facility] - ED Test Date: 2017-02-20 Pat Name: MASON OLIVER Department: Room: - Gender: M Tax Form Preparer: jamaal : [id number] Requested By: AROLDO Merino Order Number: [id number] Reading MD: Kylee Bradford Measurements Intervals [place] Rate: 69 P: 63 UT: 163 QRS: 216 QRSD: 185 T: 79 QT: 428 QTc: 459 Interpretive Statements ELECTRONIC VENTRICULAR PACEMAKER ABNORMAL RHYTHM ECG SINUS RHYTHM Electronically Signed On 02-21-2017 16:45:09 EST by Kylee Bradford
[2017-02-21 20:00] VITALS: BP_SYST 169; BP_SYST 175; BP_SYST 179; BP_DIAS 87; BP_DIAS 92; BP_DIAS 95
--- NOTE | 2017-02-21 20:11 | EEG ---
DATE OF PROCEDURE: 02/21/2017 REFERRING PHYSICIAN: Dr. Ramone Mcfarlane EEG NUMBER: [id number] DIAGNOSIS: Syncope. HISTORY: Patient is a 61-year-old man who was admitted at [facility] due to passing out spell. This EEG was done to rule out epileptic potential. He is currently taking aspirin, Lipitor, Plavix gabapentin, digoxin, Protonix, etc. TECHNICAL DESCRIPTION: This digital EEG was recorded by 21 scalp, ear and two EKG electrodes and was reviewed in bipolar and referential montages following reformatting in 10-20 international electrode placement system. INTERPRETATION: The patient was noted to be in awake and drowsy states during this EEG. Resting awake background rhythm consisted of 11 Hz alpha activity measuring 15-40 microvolts in amplitude, which was symmetric and reactive to eye opening. Attenuation of posterior dominant rhythm was seen during transition into drowsiness. Anteriorly low voltage and mixed frequency activity was noted. No sleep was achieved. Hyperventilation remained unremarkable. Photic stimulation remained unremarkable. EKG revealed normal sinus rhythm. EKG was affected by artifact. No focal, lateralizing or epileptiform abnormalities were seen. No clinical or electrographic seizures were recorded. CONCLUSION: This EEG in awake and drowsy states is within normal limits.
[2017-02-21] MEDS: DIGOXIN 0.125 MG TAB PO SCH (20:37)
[2017-02-21] MEDS: ATORVASTATIN 20 MG TAB PO SCH (20:37)
[2017-02-22] VITALS: BP 160/95
[2017-02-22 04:00] VITALS: BP 165/80
[2017-02-22 05:14] LABS: MEAN CORPUSCULAR HEMOGLOBIN 30.5 pg (27.0-33.0); MEAN CORPUSCULAR HGB CONC 32.9 g/dl (32.0-36.5); MEAN CORPUSCULAR VOLUME 92.5 fl (80.0-96.0); PLATELET COUNT, AUTOMATED 152 10^3/uL (150-450); RED CELL DISTRIBUTION WIDTH 13.6 % (11.5-14.5); WHITE BLOOD COUNT 15.4 10^3/uL (4.0-10.0)
[2017-02-22 05:31] LABS: CALCIUM LEVEL 8.2 MG/DL (8.8-10.2); CREATININE FOR GFR 1.45 MG/DL (0.70-1.30); GLOMERULAR FILTRATION RATE 52.8 (>49); MAGNESIUM LEVEL 2.2 MG/DL (1.8-2.4); POTASSIUM SERUM 4.4 MEQ/L (3.5-5.1)
[2017-02-22 08:00] VITALS: BP_SYST 158; BP_SYST 159; BP_SYST 169; BP_DIAS 82; BP_DIAS 87; BP_DIAS 97
--- NOTE | 2017-02-22 08:02 | IPNPDOC ---
Subjective Date Seen The patient was seen on 02/22/17. Subjective Chief Complaint/HPI The patient is a 61-year-old male admitted with a reason for visit of Syncope. Events since last encounter Patient examined this morning. He states that he feels well enough to go home today. Patient is eating well. No complaints of CP, SOB, syncopal episodes since admission. NO fevers Constitutional: Denies: Chills, Fever, Night Sweats Pulmonary: Denies: Dyspnea, Cough Cardiovascular: Denies: Chest Pain, Palpitations, Orthopnea, Paroxysmal Noc. Dyspnea, Lt Headedness Gastrointestinal: Denies: Nausea, Vomiting, Abdominal Pain, Diarrhea, Constipation Objective Physical Examination General Exam: Positive: Alert, Cooperative, No Acute Distress ENT Exam: Positive: Mucous membr. moist/pink Neck Exam: Positive: Supple Chest Exam: Positive: Clear to auscultation, Diminished Heart Exam: Positive: Rate Normal, Normal S1, Normal S2 Abdomen Exam: Positive: Normal bowel sounds, Soft, Negative: Tenderness Extremity Exam: Negative: Edema Psych Exam: Positive: Mental status NL, Mood NL Assessment /Plan Problems (1) Syncope Status: Acute Response to Treatment: Stable Problem Specific Plan: Monitor Clinically Problem Text: 02/22 Patient remains orthostatic this morning with a drop in diastolic pressure of 10 with sitting to standing position. 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 Will have pacer interrogated 02/21 CT suggests possible lacunar infarct. EEG pending. (he continues to have systolic hypertension that will likely require restarting some of his BP control meds. with his creatinine hovering near 2, consider permanent discontinuation of JARRELL-i. might tolerate ARB better with respect to preservation of creatinine. beta blockers (with labetalol and carvedilol as possible exceptions) are less likely to provoke orthostatic hypotension events, but can decrease renal blood flow which is already compromised. dihydropyridine class calcium channel antagonists are particularly useful for systolic pressure control but may be more likely to worsen orthostasis) Pt was orthostatic on presentation to the ER, and this certainly could have contributed to his syncopal event. Consider MRI brain. (2) Diabetes Status: Chronic Response to Treatment: Stable Problem Specific Plan: Monitor Clinically Problem Text: 02/22 encouraged patient to start on SSI. Patient did not want to take because the regimen was different from his home regimen. His FSBS remain elevated throughout the day. 02/21 Pt has in the last 4-6 weeks, made significant changes to his diet, which has helped bring his sugars down into control. He should cont on SSI while inpt , he refused Levemir last night, and his FSBS was 154 this morning, will therefore d/c levemir. (3) Leukocytosis Problem Text: has some worsening leukocytosis today. Had a measured low grade fever. No infectious source so far. Will check blood cultures. (4) CAD S/P percutaneous coronary angioplasty Status: Chronic Response to Treatment: Stable Problem Specific Plan: Monitor Clinically Problem Text: Trop 0.09 on admission, peaked at 0.25, then trended back down to 0.20. Cont telemetry. Cont home meds, except Spironolactone held on admission. (5) GRIFFIN (acute kidney injury) Status: Resolved Problem Text: Patient Cr returns to baseline today, 1.45. Above 2 on admission Plan/VTE VTE Prophylaxis Ordered?: Yes VS, I&O, 24H, [facility] Vital Signs/I&O Vital Signs Date Time Temp Pulse Resp B/P (MAP) Pulse Ox O2 Delivery O2 Flow Rate FiO2 02/22/17 04:00 99.4 76 18 165/80 (108) 95 Room Air I&O- Last 24 Hours up to 6 AM 02/22/17 06:00 Intake Total 2040 ml Output Total 450 ml Balance 1590 ml Laboratory Data 24H LABS Laboratory Tests 2 02/21/17 11:45: Bedside Glucose (Misc Panel) 212H 02/21/17 15:53: Bedside Glucose (Misc Panel) 167H 02/22/17 04:57: Nucleated Red Blood Cells % (auto) 0.0, Anion Gap 4L, Glomerular Filtration Rate 52.8, Blood Urea Nitrogen 30H, Creatinine 1.45H, Sodium Level 141, Potassium Level 4.4, Chloride Level 106, Carbon Dioxide Level 31, Calcium Level 8.2L, Magnesium Level 2.2 CBC/BMP Laboratory Tests 02/22/17 04:57 Red Blood Count 4.56, Mean Corpuscular Volume 92.5, Mean Corpuscular Hemoglobin 30.5, Mean Corpuscular Hemoglobin Concent 32.9, Red Cell Distribution Width 13.6 , Calcium Level 8.2 L GME ATTESTATION GME ATTESTATION My faculty preceptor for this patient encounter was physically present during the encounter and was fully available. All aspects of the patient interview, examination, medical decision making process, and medical care plan development were reviewed and approved by the faculty preceptor. The faculty preceptor is aware and concurs with the plan as stated in the body of this note and will attest to such by his/her cosignature. FRANKI KAUFFMAN DO Feb 22, 2017 08:02
[2017-02-22] MEDS: IPRATROPIUM 0.5MG/ALBUTEROL 2.5MG INH SOL UD 3ML (DUONEB)(J7620) NEB SCH ×4 (08:09→20:30)
[2017-02-22] MEDS: ENOXAPARIN 40 MG/0.4 ML SYRINGE (J1650) SC SCH (09:41)
[2017-02-22] MEDS: CLOPIDOGREL 75 MG TAB PO SCH (09:41)
[2017-02-22] MEDS: PANTOPRAZOLE 40MG TAB (PROTONIX) PO SCH (09:41)
[2017-02-22] MEDS: HumaLOG INSULIN (NovoLOG) PER UNIT SC SCH ×3 (09:41→17:43)
[2017-02-22] MEDS: ASPIRIN 81 MG ENTERIC TAB PO SCH (09:41)
[2017-02-22] MEDS: GABAPENTIN 300 MG CAP PO SCH ×3 (09:42→20:27)
[2017-02-22 12:00] VITALS: BP 160/76
--- NOTE | 2017-02-22 13:28 | CR ---
DATE OF CONSULTATION: 02/22/2017 REFERRING PHYSICIAN: Dr. Darrion Chand REASON FOR CONSULTATION: Syncope versus seizure. Shaji Cruz is a 61-year-old right-handed male who has a longstanding history of cardiovascular disease with a pacemaker, automatic implantable cardioverter-defibrillator (AICD), coronary artery disease with anterior wall myocardial infarction, type 2 diabetes, hypertension, hyperlipidemia, ongoing tobacco abuse, and ischemic cardiomyopathy, presenting with a chief complaint of experiencing an episode of losing consciousness while walking into [employer]. The patient states that when he started walking to [employer], he started to have a shaking episode of both of his arms. The patient states he recalls having this event and then suddenly lost consciousness. The patient was then able to awake. His significant other states that he was out for maybe about 2 minutes. The patient awoke and felt slightly dazed and confused for a few minutes only. He did not have any prolonged postictal state. He did not having any tongue biting or incontinence. The patient was brought to [facility]. He states that he felt dizzy as the event was occurring but clarified that he did not experience any actual room spinning. He states that he felt dizzy in his head. The patient denies any focal weakness at the time other than baseline left lower extremity weakness, which is attributed to his prior cerebral infarction, which is noted on his current head CT. PAST MEDICAL HISTORY Coronary artery disease with anterior wall myocardial infarction. Type 2 diabetes. Hypertension. Hyperlipidemia. Tobacco abuse. Echocardiogram, ejection fraction (EF) 30%. Automatic implantable cardioverter-defibrillator. Bilateral lower extremity diabetic neuropathy. Ischemic cardiomegaly. Peripheral arterial disease. Gastroesophageal reflux disease. Chronic kidney disease stage III. Vitamin D deficiency. Chronic obstructive pulmonary disease. ALLERGIES: None. PAST SURGICAL HISTORY: Cardiac catheterization. Amputation of right big toe. Thrombectomy from stent thrombosis Defibrillator placement. Femoral popliteal bypass. SOCIAL HISTORY: The patient is smoking tobacco every day. He denies use of any alcohol or illicit drugs. FAMILY HISTORY: Noncontributory. HOME MEDICATIONS: - Coreg 25 mg by mouth twice a day - insulin - lisinopril 10 mg by mouth twice a day - spironolactone 25 mg by mouth every day - aspirin 81 mg by mouth every day - atorvastatin 40 mg by mouth every day - bumetanide 2 mg by mouth every day - Plavix 75 mg by mouth every day - digoxin 0.125 mg by mouth nightly - Colace 100 mg by mouth twice a day - Neurontin 300 mg by mouth three times a day - Lantus 20 units subcutaneous nightly - Protonix 40 mg by mouth every day LABORATORY WORK: Shows negative urinalysis, negative toxicology. Troponin was at first 0.09 and then increased to 0.25 and 0.20. TSH 3.390, BUN is 34, and creatinine 1.81 slightly elevated, glucose was [address] scan of the head shows 6 mm anterior right internal capsule lacunar infarct of indeterminate age and diffuse atrophy. CT cervical spine shows degenerative disc disease of spine without any cord compression. PHYSICAL EXAMINATION: Blood pressure is 151/82, pulse rate is 68, respiratory rate is 20, oxygenation 93% on room air, temperature is 98.2 point degrees Fahrenheit. The patient is awake, alert, oriented to person, place, and time. Speech, language, comprehension, and repetition are intact. Pupils are 8 mm, round, reactive to light. Extraocular movements are intact in all directions without nystagmus. Sensation to V1, V2, and V3 is intact to light touch. No facial asymmetry to activation. Palate elevates symmetrically. Tongue is midline. No weakness of sternocleidomastoids bilaterally. Hearing is subjectively equal to finger rub. There is no pronator drift. Strength is 5/5 in bilateral deltoids, triceps, biceps, handgrip, iliopsoas is slightly weaker on the left compared to the right grade 4+. Quadriceps 5/5, tibialis anterior is 5/5. Romberg testing is negative. Sensory is intact to light touch in all four extremities. Deep tendon reflexes are decreased throughout ASSESSMENT: 1. Episode of losing consciousness with shaking of bilateral upper extremities prior to losing consciousness, likely convulsive syncope, less likely seizure due to the patient not having a prolonged postictal state, less likely transient ischemic attack (TIA). 2. MRI of brain not possible due to the patient having an AICD. 3. Continue aspirin and Plavix. Continue workup for syncope, including telemetry monitoring. Continue following up elevated troponins, as per primary team. 4. Obtain electroencephalogram (EEG). No need to start any antiepileptic medications at this time. Would recommend the patient avoid driving, operating heavy machinery, and climbing ladders. Recommend for the next 6 months unless cleared by cardiology if a known cause of syncope is identified.
--- NOTE | 2017-02-22 14:53 | IPN ---
DATE OF SERVICE: 02/22/2017 REFERRING PHYSICIAN: Dr. Horacio Frye. INDICATION: Syncope. HISTORY OF PRESENT ILLNESS: Mr. Cruz is somewhat known to me. I used to see him on regular basis, but he eventually transferred his care to Dr. Brian Borden, who has been following him, according to the patient, for at least 2 or 3 years. He has known ischemic cardiomyopathy and has a defibrillator placed. He has been doing lately actually very well. He tells me that he has not had any episodes of chest discomfort or shortness of breath, and his overall condition has improved since several years ago. While walking in a [employer], he suddenly became very dizzy and lightheaded and briefly lost consciousness. On presentation to emergency room, his vital signs were stable, but he was quite orthostatic; and consequently, it was felt that it was that the event was orthostatic in nature. He has been monitored on telemetry now for 48 hours, and there have not been any arrhythmias. The patient has been able to ambulate and feels well. He would like to be discharged home. I was asked to see him because of the syncopal event. The patient tells me that he has not had any syncopal events before. He denies any implantable cardioverter-defibrillator (ICD) discharges, and he denies any presyncopal sensations prior to the event or since the event. PAST MEDICAL HISTORY: 1. Coronary artery disease with ischemic cardiomyopathy, details not available. 2. Type 2 diabetes. 3. Hypertension. 4. Dyslipidemia. 5. Peripheral neuropathy. 6. Peripheral vascular disease, followed by Dr. Ventura. 7. Gastroesophageal reflux disease (GERD). 8. Chronic renal insufficiency. 9. Chronic obstructive pulmonary disease (COPD). No allergies. SURGICAL HISTORY: Is positive for right foot toe amputation, defibrillator placement, and femoral-popliteal bypass graft. SOCIAL HISTORY: The patient lives alone. Denies use of alcohol. He continues to smoke. FAMILY HISTORY: Positive for coronary artery disease. HOME MEDICATIONS: According to nursing notes, his home medications including: - albuterol - Atrovent - allopurinol 300 a day - apixaban 5 twice a day - aspirin 81 a day - calcium polycarbophil fiber 625 a day - Coreg 12.5 twice a day - vitamin B12 - digoxin 125 mcg a day - iron sulfate - Breo Ellipta - gabapentin 600 three times a day - hydroxyzine 50 mg twice a day - insulin - magnesium oxide 400 a day - omeprazole 20 a day - pravastatin 20 a day - ropinirole 1 mg a day - sertraline 25 mg at bedtime - zonisamide 50 mg a day On the review of systems, he denies any recent fever, chills, nausea, vomiting, diarrhea. No bleeding problems. No prior syncope, near syncope. No chest pain. No shortness of breath. No peripheral edema. PHYSICAL EXAMINATION: Mr. Cruz is an elderly man who appears older than his calendar age. His last set of vital signs reveal blood pressure 159/82, heart rate has been mostly in 60s and 70s predominantly ventricular paced, saturation is 92% on room air. He is afebrile. His fluid balance yesterday was about 640 positive. Documented weight is 86.8 kg. He is alert and oriented and appropriate. His jugular venous pressure (JVP) is not up. Lungs are clear to auscultation. Heart: Examination reveals regular rhythm. I appreciate only fairly faint murmur at the apex, not more than 1 or 2 out of 6 intensity. Abdomen is soft, nontender. I do not appreciate hepatosplenomegaly. Peripheral pulses are palpable but of poor quality. There is missing toe on his right foot. Neurologically, he is intact, alert, and oriented, and appropriate; and I do not appreciate any focal weakness. Laboratory-reyes, as of today, basic metabolic panel reveals potassium 4.4, BUN 30, creatinine 1.4, for GFR 53, glucose 207. He had four sets of cardiac enzymes. The initial one was normal. The second one revealed mildly elevated troponin at 0.25 with negative relative index. Total CK 217 and CK-MB 5.2. TSH was 3.3, and free T4 was 1.4. CBC: Hemoglobin 13.9, hematocrit 42, platelet count 152,000, elevated WBC count 15. Digoxin level is 1.3, and his urine toxicology screen was negative. Urinalysis is 2+ positive for protein. Imaging reveals appropriate position of defibrillator leads. There is no evidence for acute intracranial event based on the CT. No congestive heart failure based on a chest x-ray, either. An electrocardiogram performed on admission reveals presence of sinus rhythm with a biventricular pacing. The ICD interrogation today reveals appropriately functioning [facility] biventricular defibrillator. The thresholds and impedances are intact. The event of loss of consciousness corresponds to treated ventricular tachycardia/fibrillation that was resolved with single shock. There have not been any arrhythmias since or before since his last interrogation. The impedance measurements are within normal limits, and he does not have any episodes of atrial fibrillation, either. ASSESSMENT AND PLAN: Mr. Cruz is a 61-year-old man who has ischemic cardiomyopathy and has known severe left ventricle (LV) systolic dysfunction with biventricular defibrillator. He presented with a syncopal event that corresponds to an episode of ventricular tachycardia, treated successfully by his ICD. The small troponin elevation is probably related to the event. He does not have anything in his history to suggest that he had a thrombotic ischemic event. He certainly will need a further evaluation. As he follows with Dr. Brian Borden now, I believe that it can be all mediated through him. He has a scheduled followup on 03/05/2017. At this point, I think he can be slowly restarted on all of his appropriate medications, but from my perspective, he can be discharged home shortly. I instructed the patient to immediately go back to hospital if he has any recurrent events. In that case, he might need to be started on antiarrhythmics, but I do not believe it is appropriate to do it immediately.
[2017-02-22 16:00] VITALS: BP_SYST 160; BP_SYST 163; BP_SYST 170; BP_DIAS 87; BP_DIAS 88; BP_DIAS 95
[2017-02-22 20:00] VITALS: BP 162/90
--- NOTE | 2017-02-22 20:16 | ECGEPIP ---
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
[2017-02-22] MEDS: DIGOXIN 0.125 MG TAB PO SCH (20:28)
[2017-02-22] MEDS: ATORVASTATIN 20 MG TAB PO SCH (20:28)
[2017-02-22] MEDS ORDERED: LISINOPRIL 10 MG TAB PO SCH (21:00)
[2017-02-22] MEDS ORDERED: HumaLOG INSULIN (NovoLOG) PER UNIT SC SCH (21:00)
[2017-02-23] VITALS: BP_SYST 130; BP_SYST 154; BP_SYST 156; BP_DIAS 66; BP_DIAS 73; BP_DIAS 74
[2017-02-23 04:00] VITALS: BP 168/83
[2017-02-23 04:57] LABS: MEAN CORPUSCULAR HEMOGLOBIN 30.5 pg (27.0-33.0); MEAN CORPUSCULAR HGB CONC 32.8 g/dl (32.0-36.5); PLATELET COUNT, AUTOMATED 139 10^3/uL (150-450); RED CELL DISTRIBUTION WIDTH 13.7 % (11.5-14.5); WHITE BLOOD COUNT 10.8 10^3/uL (4.0-10.0)
[2017-02-23 05:17] LABS: CALCIUM LEVEL 8.2 MG/DL (8.8-10.2); CREATININE FOR GFR 1.39 MG/DL (0.70-1.30); GLOMERULAR FILTRATION RATE 55.5 (>49); POTASSIUM SERUM 4.4 MEQ/L (3.5-5.1)
[2017-02-23] MEDS: IPRATROPIUM 0.5MG/ALBUTEROL 2.5MG INH SOL UD 3ML (DUONEB)(J7620) NEB SCH ×2 (07:46→11:23)
[2017-02-23 08:00] VITALS: BP 177/81
[2017-02-23] MEDS ORDERED: FUROSEMIDE 20 MG TAB PO SCH (09:00)
[2017-02-23] MEDS ORDERED: SPIRONOLACTONE 25 MG TAB PO SCH (09:00)
[2017-02-23] MEDS: ENOXAPARIN 40 MG/0.4 ML SYRINGE (J1650) SC SCH (10:20)
[2017-02-23] MEDS: PANTOPRAZOLE 40MG TAB (PROTONIX) PO SCH (10:20)
[2017-02-23] MEDS: GABAPENTIN 300 MG CAP PO SCH (10:20)
[2017-02-23] MEDS: ASPIRIN 81 MG ENTERIC TAB PO SCH (10:20)
[2017-02-23] MEDS: CLOPIDOGREL 75 MG TAB PO SCH (10:21)
[2017-02-23] MEDS: HumaLOG INSULIN (NovoLOG) PER UNIT SC SCH ×2 (10:21→12:12)
[2017-02-23 10:27] VITALS: BP 177/81
[2017-02-23] MEDS ORDERED: CARVedilol 12.5 MG TAB PO SCH (10:30)
[2017-02-23 12:00] VITALS: BP 141/68
--- NOTE | 2017-02-23 13:31 | IPN ---
DATE: 02/23/2017 Mr. Cruz is feeling good. He has no complaints today. I saw him walking around the progressive care unit (PCU) at a fairly fast clip with no difficulty. There have been no arrhythmias. His blood pressure remains somewhat elevated 168/83 this morning, heart rate in 60s and 70s is predominantly sinus rhythm with BiV pacing. Saturation is in mid 90s on room air. His fluid balance yesterday was slightly positive, weight is documented 80.6. jugular venous pulse (JVP) though is not up. Lungs are clear. I do not appreciate any gallop or rub on heart exam. There is no peripheral edema. Neurologically he is intact. CBC is normal but for mild thrombocytopenia at 140,000. Basic metabolic panel potassium 4.4, BUN 23, creatinine 1.4 for GFR 55 and glucose is 134. ASSESSMENT/PLAN: Mr. Cruz is a 61-year-old man who has ischemic cardiomyopathy. He came in after a syncopal event that occurred in a [employer] store. Even though the presumptive diagnosis was orthostatic hypotension the ICD interrogation revealed that he received appropriate shock for very fast ventricular tachycardia / fibrillation. He has not had an arrhythmia since. There was a trivial troponin elevation consequently even with fairly johnson walking around PCU he has no anginal symptoms and he is not in clinical congestive heart failure. Consequently, I believe he can be discharged home, we told him to followup with his primary environmental systems coordinator, he already has a scheduled appointment next week. I told him if there should be any problems in the interim to come back to the hospital. Otherwise I believe his medications are appropriate, but the dose of lisinopril can probably be titrated up. I do not see beta-rekha on his list and I will make sure that it gets put back.
--- NOTE | 2017-02-23 20:50 | DS.PDOC ---
Discharge Summary General Date of Admission Feb 21, 2017 at 14:38 Date of Discharge 02/23/17 Primary Care Physician: BEBETO NEVES PA-C Attending Physician: RONALD MIRANDA DO Specialist/Consultants Involve: SHAMA LUCAS MD Discharge Summary Consults: Dr. Shama Lucas Neurology Dr. Nabila Pena of Cardiology Discharge diagnosis: Syncope secondary to cardiac ventricular arrhythmia: ventricular tachycardia treated successfully with biventricular defibrillator. Elevated cardiac markers. Leukocytosis Acute Kidney Injury--Resolved back to baseline Creatinine Secondary diagnosis: Ischemic Cardiomyopathy Coronary artery disease with an anterior wall myocardial infarction (NE) Type 2 diabetes Hypertension Hyperlipidemia Ongoing tobacco use disorder Echocardiogram showing large anterior apical infarct, ejection fraction <30%. Has automatic implantable cardioverter-defibrillator (AICD). Bilateral lower extremity diabetic neuropathy Peripheral arterial disease Gastroesophageal Reflux Disease (GERD) Chronic Kidney Disease Stage III, baseline creatinine 1.45. Vitamin D Deficiency Chronic Obstructive Pulmonary Disease (COPD) Hospital course: This is a 61 year old gentleman who presented to [facility] ED on 02/20/17, and was admitted to the Family Medicine Inpatient Service for evaluation for a syncopal episode that had occurred when shopping at [employer] [place]. Was walking in store, developed generalized shaking in both arms, had room spinning dizziness, fell onto a ladyfriend, hit the floor, hit back of his head, and was reportedly unresponsive on the floor for approximately 2 minutes. Denied bowel/bladder incontinence. Denied tongue biting, visual changes, orthopnea, PND, lower extremity edema, runny nose, sore throat, or abdominal pain. Denied recent medication changes, chest pain, SOB. Fingerstick was in the 170s when event occurred. Denied family hx of seizures and personal hx of seizures. Admits to extensive cardiac hx. Please refer to diagnoses listed above. Patient was found to be orthostatic in the ED. Orthostatics were monitored which improved and are negative to date. EKG on the showed electronic ventricular pacemaker, abnormal rhythm EKG, sinus rhythm. EKG on 02/22 had shown electronic ventricular pacemaker, underlying rhythm is sinus. CXR showed no acute disease. CT of the C-spine showed no traumatic abnormality. Head CT showed no skull fracture and a 6 mm area of low density in the anterior limb of the R internal capsule. A repeat CT scan of the head showed stable findings from original Head CT study with vascular calcification, mild diffuse atrophy, small vessel changes, and a small area of low density in the anterior limb of the R internal capsule that was again unchanged. Dr. Lucas of Neurology was consulted for neurological evaluation. An EEG was done which was WNL. Workup proved to be insignificant for a neurological etiology of patient's syncopal event. Dr. Lucas thought patient had convulsive syncope but not a seizure due to not having a prolonged postictal state. TIA was less likely. Patient was unable to have MRI of brain due to his AICD. Dr. Lucas recommended to continue aspirin and plavix and to continue telemetry monitoring. Troponins were cycled and patient was monitored on telemetry. Patient was continued on his home medications aside from coreg. lisinopril, and sprinolactone antihypertensives initially due to his orthostasis in the beginning.. Dr. Pena of Cardiology was consulted. Patient's ICD was interrogated, which revealed appropriately functioning [facility] biventricular defibrillator. It was found patient's loss of consciousness/syncopal event was due to treated ventricular tachycardia/fibrillation that resolved with a single shock. There were no episodes of atrial fibrillation either. Patient has ischemic cardiomyopathy, known severe left ventricular systolic dysfunction with biventricular defibrillator. The syncopal event was found to be due to an episode of ventricular tachycardia/fibrillation treated with his ICD successfully. Small troponin elevation was thought be due to this as well. There was nothing in his hx to suggest a thrombotic ischemic event. There were no other arrhythmias seen during hospitalization since. Dr. Pena recommended for patient to be restarted again on all of his home medications, and sent home ILANA. Patient also presented with dehydration and GRIFFIN which had resolved back to baseline. Was administered IVF NS at 80 mLs/hr. Patient was found to have leukocytosis during hospital stay which fluctuated from 11.7 to 10.2 to 15.4, and back down to 10.8 today. H&H remained stable and at 13.9 today and yesterday. Patient remained afebrile throughout hospital stay and blood cx taken yesterday showed NGTD x 24 hours. No source of infection was identified. Patient was given DVT prophylaxis with lovenox. Progress note on date of discharge 02/23/17: Subjective: Patient was seen and examined at bedside. Patient denied fevers, chills, chest pain, SOB, dizziness, lightheadedness, nausea, vomiting, abdominal pain, diarrhea, constipation. There were no other acute complaints reported. Objective: Vitals at 8 AM: T 98 P 68 RR 17 BP 177/81 Pulse Ox: 93% room air Vitals at 12 PM: T 97.8 P 68 RR 19 BP 141/68 Pulse Ox: 93% room air General: Awake, alert and oriented, verbal and able to answer questions appropriately. He does not appear to be in any acute distress. Was seen walking around hallway without dizziness or gait imbalance. HEENT: Normocephalic atraumatic. Sclera nonicteric. Grossly normal hearing bilaterally. Neck: Supple. No JVD. Heart: Regular rate and rhythm, normal S1-S2. No murmurs, rubs, clicks or gallops. Lungs: Clear to auscultation bilaterally. No wheezes, rales or rhonchi. Abdomen: Active bowel sounds, soft, nontender, no masses to palpation. Extremities: No clubbing, cyanosis, or edema to palpation. Psychiatric: Appropriate mood & affect. Labs: Please see below. Assessment: 61 yo M presented status-post syncopal episode presumably due to ventricular fibrillation/tachycardia, which was corrected with a single shock of his biventricular defibrillator/ICD. Initially, patient was also found to be orthostatic likely due to dehydration which was resolved. Patient was found to have leukocytosis as well as acute kidney injury. Leukocytosis seems to be resolving with decreasing WBC. GRIFFIN has resolved back to patient's baseline creatinine, and patient has hx of CKD Stage 3. Patient's chronic conditions such as Diabetes and CAD status-post percutaneous coronary angioplasty were treated with sliding scale insulin and home medications respectively. There were no further arrhythmias detected on telemetry or syncopal events throughout hospital stay. Patient states he is ready to go home. He is being discharged today in clinically and hemodynamically stable condition. Disposition: Discharge to home. Follow-up: Patient was instructed to call on FridayFebruary 25 to make his follow up appointments: With Farm Assistant Dr. Brian Borden within 1-2 weeks. With PCP Bebeto Neevs PA-C. Activity: As tolerated. Diet: Consistent carbohydrates. Low sodium. Medications on discharge: Please see below. Cc: Dr. Brian Neves PA-C Time spent on discharge: 35 minutes. Vital Signs/I&Os Vital Signs Date Time Temp Pulse Resp B/P (MAP) Pulse Ox O2 Delivery O2 Flow Rate FiO2 02/23/17 12:00 97.8 68 19 141/68 (92) 92 Room Air I&O- Last 24 Hours up to 6 AM 02/23/17 06:00 Intake Total 940 ml Output Total 0 ml Balance 940 ml Laboratory Data Labs 24H Laboratory Tests 2 02/22/17 17:11: Bedside Glucose (Misc Panel) 164H 02/22/17 20:32: Bedside Glucose (Misc Panel) 166H 02/23/17 04:48: Nucleated Red Blood Cells % (auto) 0.0, Anion Gap 5L, Glomerular Filtration Rate 55.5, Blood Urea Nitrogen 23H, Creatinine 1.39H, Sodium Level 141, Potassium Level 4.4, Chloride Level 107, Carbon Dioxide Level 29, Calcium Level 8.2L, Magnesium Level 2.0 02/23/17 12:08: Bedside Glucose (Misc Panel) 215H CBC/BMP Laboratory Tests 02/23/17 04:48 Red Blood Count 4.56, Mean Corpuscular Volume 93.0, Mean Corpuscular Hemoglobin 30.5, Mean Corpuscular Hemoglobin Concent 32.8, Red Cell Distribution Width 13.7 , Calcium Level 8.2 L FSBS Laboratory Tests Test 02/22/17 17:11 02/22/17 20:32 02/23/17 12:08 Range/Units Bedside Glucose (Misc Panel) 164 166 215 80-115 MG/DL Microbiology Microbiology 02/22/17 Blood Culture - Preliminary, Resulted No growth after 24 hours . All specim... Discharge Medications Scheduled Aspirin (Aspirin) 81 Mg Tab, 81 MG PO DAILY, (Reported) Atorvastatin Calcium (Atorvastatin Calcium) 40 Mg Tab, 40 MG PO QPM, (Reported) Bumetanide (Bumetanide) 2 Mg Tab, 2 MG PO DAILY, (Reported) Carvedilol (Carvedilol) 25 Mg Tab, 25 MG PO BID, (Reported) Clopidogrel Bisulfate (Clopidogrel) 75 Mg Tab, 75 MG PO DAILY, (Reported) Digoxin (Digoxin) 0.125 Mg Tab, 0.125 MG PO QPM, (Reported) Fluticasone/Vilanterol (Breo Ellipta 100-25 Mcg/INH) 1 Inh Inh, 1 PUFF PO DAILY, (Reported) Gabapentin (Gabapentin) 300 Mg Cap, 300 MG PO TID, (Reported) Insulin Glargine (Lantus) 1 Units/0.01 Ml Susp, 20 UNITS SQ QHS, (Reported) Insulin Human Lispro (Humalog) 100 Unit/Ml Inj, 1 DOSE SC ACHS, (Reported) PER SLIDING SCALE Lisinopril (Lisinopril) 10 Mg Tab, 10 MG PO BID, (Reported) Pantoprazole Sodium (Pantoprazole Sodium) 40 Mg Tab, 40 MG PO DAILY, (Reported) Spironolactone (Spironolactone) 25 Mg Tab, 25 MG PO DAILY, (Reported) Scheduled PRN (Docqlace) 100 Mg Cap, 100 MG PO BID PRN for CONSTIPATION, (Reported) Allergies Coded Allergies: No Known Allergies (Unverified , 08/02/12) GME ATTESTATION GME ATTESTATION My faculty preceptor for this patient encounter was Dr. Ronald Villavicencio , and was physically present during the encounter and was fully available. All aspects of the patient interview, examination, medical decision making process, and medical care plan development were reviewed and approved by the faculty preceptor. The faculty preceptor is aware and concurs with the plan as stated in the body of this note and will attest to such by his/her cosignature. GRICELDA BROWN OGME-1 Feb 23, 2017 16:37
== END 2017-02-23 15:45 | disposition home or self-care (01) | DRG 309 ==
LOC: M ED 15:03 → EDBD 15:03 → M ED INP 20:29 → M PCU 21:46 → OBSVTOIN 02-21 14:38
PROVIDERS: ADMIT Internal Medicine; ATTEND Family Medicine
DX: I49.01 Ventricular fibrillation (principal); N17.9 Acute kidney failure, unspecified; I25.10 Atherosclerotic heart disease of native coronary artery without angina pectoris; I12.9 Hypertensive chronic kidney disease with stage 1 through stage 4 chronic kidney disease, or unspecified chronic kidney disease; E78.5 Hyperlipidemia, unspecified; K21.9 Gastro-esophageal reflux disease without esophagitis; N18.3 Chronic kidney disease, stage 3 (moderate); E11.40 Type 2 diabetes mellitus with diabetic neuropathy, unspecified; J44.9 Chronic obstructive pulmonary disease, unspecified; F17.200 Nicotine dependence, unspecified, uncomplicated; I25.2 Old myocardial infarction; E11.51 Type 2 diabetes mellitus with diabetic peripheral angiopathy without gangrene; Z95.810 Presence of automatic (implantable) cardiac defibrillator; Z89.421 Acquired absence of other right toe(s); Z95.828 Presence of other vascular implants and grafts; Z79.4 Long term (current) use of insulin; Z79.82 Long term (current) use of aspirin; Z79.02 Long term (current) use of antithrombotics/antiplatelets; Z98.61 Coronary angioplasty status

== ENCOUNTER → 2017-02-28 | Outpatient (REF) | payer MEDICARE ==
[2017-02-28 19:50] LABS: BASO # 0.1 10^3/uL (0.0-0.2); BASO % 1.1 % (0.0-1.0); EOS # 0.3 10^3/uL (0.0-0.50); EOS % 2.7 % (0.0-3.0); IMMATURE GRANULOCYTE % 0.3 % (0-0); LYMPH # 1.9 10^3/uL (1.5-4.5); LYMPH % 16.8 % (24.0-44.0); MEAN CORPUSCULAR HEMOGLOBIN 30.5 pg (27.0-33.0); MEAN CORPUSCULAR HGB CONC 32.5 g/dl (32.0-36.5); MEAN CORPUSCULAR VOLUME 93.9 fl (80.0-96.0); MONO % 8.7 % (0.0-5.0); NEUTROPHILS % 70.4 % (36.0-66.0); PLATELET COUNT, AUTOMATED 207 10^3/uL (150-450); RED CELL DISTRIBUTION WIDTH 13.7 % (11.5-14.5); WHITE BLOOD COUNT 11.3 10^3/uL (4.0-10.0)
[2017-02-28 19:57] LABS: ANION GAP 2 MEQ/L (8-16); BLOOD UREA NITROGEN 34 MG/DL (7-18); CALCIUM LEVEL 8.4 MG/DL (8.8-10.2); CARBON DIOXIDE LEVEL 35 MEQ/L (21-32); CHLORIDE LEVEL 101 MEQ/L (98-107); CREATININE FOR GFR 1.81 MG/DL (0.70-1.30); GLOMERULAR FILTRATION RATE 40.9 (>49); GLUCOSE, FASTING 158 MG/DL (80-110); POTASSIUM SERUM 4.8 MEQ/L (3.5-5.1); SODIUM LEVEL 138 MEQ/L (136-145)
== END ==
LOC: M SFHCADAM 16:04
DX: N18.3 Chronic kidney disease, stage 3 (moderate) (principal); E11.65 Type 2 diabetes mellitus with hyperglycemia
CPT/HCPCS: 80048

== ENCOUNTER → 2017-03-06 | Outpatient (REF) | payer MEDICARE ==
[2017-03-06 13:17] LABS: ANION GAP 3 MEQ/L (8-16); BLOOD UREA NITROGEN 35 MG/DL (7-18); CALCIUM LEVEL 8.7 MG/DL (8.8-10.2); CARBON DIOXIDE LEVEL 35 MEQ/L (21-32); CHLORIDE LEVEL 101 MEQ/L (98-107); CREATININE FOR GFR 1.87 MG/DL (0.70-1.30); GLOMERULAR FILTRATION RATE 39.4 (>49); GLUCOSE, FASTING 149 MG/DL (80-110); POTASSIUM SERUM 4.6 MEQ/L (3.5-5.1); SODIUM LEVEL 139 MEQ/L (136-145)
== END ==
LOC: M SFHCADAM 10:52
DX: I12.9 Hypertensive chronic kidney disease with stage 1 through stage 4 chronic kidney disease, or unspecified chronic kidney disease (principal); N18.3 Chronic kidney disease, stage 3 (moderate)
CPT/HCPCS: 80048

== ENCOUNTER 2017-03-23 17:22 | Observation (INO) | payer MEDICARE, MEDICAID ==
[2017-03-23] MEDS: NS 500 ML IV ×2 (17:45)
[2017-03-23 19:06] LABS: BASO # 0.1 10^3/uL (0.0-0.2); BASO % 0.9 % (0.0-1.0); EOS # 0.4 10^3/uL (0.0-0.50); EOS % 3.5 % (0.0-3.0); HEMATOCRIT 44.8 % (42.0-52.0); HEMOGLOBIN 14.7 g/dl (14.0-18.0); IMMATURE GRANULOCYTE # 0.1 10^3/uL (0-0); IMMATURE GRANULOCYTE % 0.4 % (0-0); LYMPH # 1.6 10^3/uL (1.5-4.5); LYMPH % 13.7 % (24.0-44.0); MEAN CORPUSCULAR HEMOGLOBIN 30.6 pg (27.0-33.0); MEAN CORPUSCULAR HGB CONC 32.8 g/dl (32.0-36.5); MEAN CORPUSCULAR VOLUME 93.1 fl (80.0-96.0); MONO % 8.4 % (0.0-5.0); NEUTROPHILS # 8.6 10^3/uL (1.8-7.7); NEUTROPHILS % 73.1 % (36.0-66.0); PLATELET COUNT, AUTOMATED 140 10^3/uL (150-450); RED BLOOD COUNT 4.81 10^6/uL (4.30-6.10); RED CELL DISTRIBUTION WIDTH 13.3 % (11.5-14.5); WHITE BLOOD COUNT 11.8 10^3/uL (4.0-10.0)
[2017-03-23 19:10] LABS: KETONE, URINE AUTO RFX NEGATIVE (NEGATIVE); LEUKOCYTE ESTERASE UR AUTO RFX NEGATIVE (NEGATIVE); NITRITE, URINE AUTO RFX NEGATIVE (NEGATIVE); RBC, URINE AUTO RFX 10 /HPF (0-3); SPECIFIC GRAVITY UR AUTO RFX 1.005 (1.002-1.035); SQUAM EPITHELIAL CELL UR AURFX 0 /HPF (0-6); WBC, URINE AUTO RFX 0 /HPF (0-3)
[2017-03-23 19:20] LABS: LACTIC ACID SEPSIS PROTOCOL 1.3 MMOL/L (0.4-2.0)
[2017-03-23 19:23] LABS: ANION GAP 3 MEQ/L (8-16); BLOOD UREA NITROGEN 33 MG/DL (7-18); CALCIUM LEVEL 8.2 MG/DL (8.8-10.2); CARBON DIOXIDE LEVEL 33 MEQ/L (21-32); CHLORIDE LEVEL 100 MEQ/L (98-107); CREATININE FOR GFR 1.84 MG/DL (0.70-1.30); GLUCOSE, FASTING 202 MG/DL (80-110); POTASSIUM SERUM 4.9 MEQ/L (3.5-5.1); SODIUM LEVEL 136 MEQ/L (136-145)
[2017-03-23 19:26] LABS: CPK CREATINE PHOSPHOKINASE 165 U/L (39-308); TROPONIN I 0.09 NG/ML (< 0.10)
[2017-03-23 19:32] LABS: MB/CK RELATIVE INDEX 3.03 (< OR =4)
[2017-03-23] MEDS: LEVEMIR (INSULIN DETEMIR) 1 UNITS/0.01ML SQ ×2 (21:00)
[2017-03-23] MEDS ORDERED: BREO ELIPTA INH ×2 (21:00)
[2017-03-23] MEDS ORDERED: GLUCAGON FOR INJ 1 MG VIAL (J1610) SC ×2 (21:00)
[2017-03-23] MEDS ORDERED: DEXTROSE 50% 50 ML SYRINGE IV ×2 (21:00)
[2017-03-23] MEDS ORDERED: ONDANSETRON 4MG/2ML VIAL (J2405) IV ×2 (21:00)
[2017-03-23] MEDS ORDERED: GLUCOSE 4 GM CHEW TABLET PO ×2 (21:00)
[2017-03-23] MEDS ORDERED: DOCUSATE SODIUM 100 MG CAP PO ×2 (21:00)
[2017-03-23] MEDS: HumaLOG INSULIN (NovoLOG) PER UNIT SC ×2 (21:00)
[2017-03-24 00:22] LABS: BEDSIDE GLUCOSE 116 MG/DL (80-115)
[2017-03-24] MEDS: GABAPENTIN 300 MG CAP PO ×8 (00:23→21:31)
[2017-03-24] MEDS: DOCUSATE SODIUM 100 MG CAP PO ×6 (00:23→20:23)
[2017-03-24] MEDS: ATORVASTATIN 20 MG TAB PO ×4 (00:23→17:48)
[2017-03-24] MEDS: CARVedilol 12.5 MG TAB PO ×6 (00:24→21:32)
[2017-03-24] MEDS: LISINOPRIL 10 MG TAB PO ×6 (00:25→21:31)
[2017-03-24] MEDS: ACETAMINOPHEN TAB 650MG DOSE (2X325MG) PO ×2 (00:25)
[2017-03-24] MEDS: ENOXAPARIN 30 MG/0.3 ML SYR (J1650) SC ×4 (00:26→21:32)
[2017-03-24] MEDS: DIGOXIN 0.125 MG TAB PO ×4 (00:26→17:48)
[2017-03-24 00:41] LABS: CK-MB VALUE MASS 6.2 NG/ML (0.0-3.6); CPK CREATINE PHOSPHOKINASE 170 U/L (39-308); MB/CK RELATIVE INDEX 3.64 (< OR =4); TROPONIN I 0.62 NG/ML (< 0.10)
[2017-03-24 04:18] LABS: BEDSIDE GLUCOSE 155 MG/DL (80-115)
[2017-03-24 05:24] LABS: HEMATOCRIT 42.5 % (42.0-52.0); MEAN CORPUSCULAR HEMOGLOBIN 30.2 pg (27.0-33.0); MEAN CORPUSCULAR HGB CONC 32.9 g/dl (32.0-36.5); MEAN CORPUSCULAR VOLUME 91.8 fl (80.0-96.0); PLATELET COUNT, AUTOMATED 145 10^3/uL (150-450); RED BLOOD COUNT 4.63 10^6/uL (4.30-6.10); RED CELL DISTRIBUTION WIDTH 13.4 % (11.5-14.5); WHITE BLOOD COUNT 11.2 10^3/uL (4.0-10.0)
[2017-03-24 05:42] LABS: ANION GAP 3 MEQ/L (8-16); BLOOD UREA NITROGEN 31 MG/DL (7-18); CALCIUM LEVEL 8.2 MG/DL (8.8-10.2); CARBON DIOXIDE LEVEL 32 MEQ/L (21-32); CHLORIDE LEVEL 105 MEQ/L (98-107); CREATININE FOR GFR 1.77 MG/DL (0.70-1.30); GLOMERULAR FILTRATION RATE 41.8 (>49); GLUCOSE, FASTING 195 MG/DL (80-110); POTASSIUM SERUM 4.1 MEQ/L (3.5-5.1); SODIUM LEVEL 140 MEQ/L (136-145)
[2017-03-24] MEDS: HumaLOG INSULIN (NovoLOG) PER UNIT SC ×8 (08:48→20:21)
[2017-03-24] MEDS: ASPIRIN 81 MG ENTERIC TAB PO ×2 (08:51)
[2017-03-24] MEDS: PANTOPRAZOLE 40MG TAB (PROTONIX) PO ×2 (08:51)
[2017-03-24] MEDS: SPIRONOLACTONE 25 MG TAB PO ×2 (08:51)
[2017-03-24] MEDS: CLOPIDOGREL 75 MG TAB PO ×2 (08:52)
[2017-03-24 10:15] LABS: CK-MB VALUE MASS 4.4 NG/ML (0.0-3.6); CPK CREATINE PHOSPHOKINASE 141 U/L (39-308); MB/CK RELATIVE INDEX 3.12 (< OR =4); TROPONIN I 0.47 NG/ML (< 0.10)
[2017-03-24] MEDS: BUMETANIDE 1 MG TAB PO ×2 (10:28)
[2017-03-24 12:13] LABS: BEDSIDE GLUCOSE 119 MG/DL (80-115)
[2017-03-24 17:46] LABS: BEDSIDE GLUCOSE 246 MG/DL (80-115)
[2017-03-24] MEDS: LEVEMIR (INSULIN DETEMIR) 1 UNITS/0.01ML SQ ×2 (20:22)
[2017-03-24 20:33] LABS: BEDSIDE GLUCOSE 197 MG/DL (80-115)
[2017-03-24] MEDS: AMIODARONE HCL 150 MG in APPROPRIATE DILUENT 1 EA IV (21:31)
[2017-03-25 06:09] LABS: HEMATOCRIT 41.9 % (42.0-52.0); HEMOGLOBIN 13.8 g/dl (14.0-18.0); MEAN CORPUSCULAR HEMOGLOBIN 30.5 pg (27.0-33.0); MEAN CORPUSCULAR HGB CONC 32.9 g/dl (32.0-36.5); MEAN CORPUSCULAR VOLUME 92.7 fl (80.0-96.0); PLATELET COUNT, AUTOMATED 130 10^3/uL (150-450); RED BLOOD COUNT 4.52 10^6/uL (4.30-6.10); RED CELL DISTRIBUTION WIDTH 13.4 % (11.5-14.5); WHITE BLOOD COUNT 10.5 10^3/uL (4.0-10.0)
[2017-03-25 06:56] LABS: ANION GAP 6 MEQ/L (8-16); BLOOD UREA NITROGEN 31 MG/DL (7-18); CALCIUM LEVEL 8.5 MG/DL (8.8-10.2); CARBON DIOXIDE LEVEL 31 MEQ/L (21-32); CHLORIDE LEVEL 105 MEQ/L (98-107); CREATININE FOR GFR 1.82 MG/DL (0.70-1.30); DIGOXIN LEVEL 1.2 NG/ML (0.5-2.0); GLOMERULAR FILTRATION RATE 40.5 (>49); GLUCOSE, FASTING 138 MG/DL (70-100); POTASSIUM SERUM 4.6 MEQ/L (3.5-5.1); SODIUM LEVEL 142 MEQ/L (136-145)
[2017-03-25] MEDS: HumaLOG INSULIN (NovoLOG) PER UNIT SC ×4 (07:30→12:26)
[2017-03-25] MEDS: CARVedilol 12.5 MG TAB PO ×2 (08:12)
[2017-03-25] MEDS: ASPIRIN 81 MG ENTERIC TAB PO ×2 (08:12)
[2017-03-25] MEDS: CLOPIDOGREL 75 MG TAB PO ×2 (08:13)
[2017-03-25] MEDS: LISINOPRIL 10 MG TAB PO ×2 (08:13)
[2017-03-25] MEDS: DOCUSATE SODIUM 100 MG CAP PO ×2 (08:13)
[2017-03-25] MEDS: PANTOPRAZOLE 40MG TAB (PROTONIX) PO ×2 (08:13)
[2017-03-25] MEDS: GABAPENTIN 300 MG CAP PO ×2 (08:14)
[2017-03-25] MEDS: SPIRONOLACTONE 25 MG TAB PO ×2 (08:14)
[2017-03-25] MEDS: BUMETANIDE 1 MG TAB PO ×2 (08:14)
[2017-03-25 13:23] LABS: BEDSIDE GLUCOSE 137 MG/DL (80-115)
[2017-03-25 14:09] LABS: BEDSIDE GLUCOSE 185 MG/DL (80-115)
== END 2017-03-25 14:15 | disposition short-term general hospital (02) ==
LOC: M PCU 03-24 00:02 → M ED 17:22 → M ED INP 20:47
DX: I25.5 Ischemic cardiomyopathy (principal); R55 Syncope and collapse; S00.03XA Contusion of scalp, initial encounter; W19.XXXA Unspecified fall, initial encounter; Y92.481 Parking lot as the place of occurrence of the external cause; N17.9 Acute kidney failure, unspecified; E11.22 Type 2 diabetes mellitus with diabetic chronic kidney disease; I12.9 Hypertensive chronic kidney disease with stage 1 through stage 4 chronic kidney disease, or unspecified chronic kidney disease; E78.5 Hyperlipidemia, unspecified; I73.9 Peripheral vascular disease, unspecified; K21.9 Gastro-esophageal reflux disease without esophagitis; N18.3 Chronic kidney disease, stage 3 (moderate); E55.9 Vitamin D deficiency, unspecified; J44.9 Chronic obstructive pulmonary disease, unspecified; J84.10 Pulmonary fibrosis, unspecified; I25.2 Old myocardial infarction; E11.40 Type 2 diabetes mellitus with diabetic neuropathy, unspecified; F17.210 Nicotine dependence, cigarettes, uncomplicated; Z95.810 Presence of automatic (implantable) cardiac defibrillator; Z79.899 Other long term (current) drug therapy; Z79.82 Long term (current) use of aspirin; Z79.02 Long term (current) use of antithrombotics/antiplatelets; Z79.4 Long term (current) use of insulin
CPT/HCPCS: 96365

== ENCOUNTER 2017-03-30 12:01 | Observation (INO) | payer MEDICARE, MEDICAID ==
[2017-03-30 13:07] LABS: BASO # 0.1 10^3/uL (0.0-0.2); BASO % 0.8 % (0.0-1.0); EOS # 0.3 10^3/uL (0.0-0.50); EOS % 2.6 % (0.0-3.0); HEMATOCRIT 46.6 % (42.0-52.0); HEMOGLOBIN 15.5 g/dl (14.0-18.0); IMMATURE GRANULOCYTE # 0.1 10^3/uL (0-0); IMMATURE GRANULOCYTE % 0.4 % (0-0); LYMPH # 1.8 10^3/uL (1.5-4.5); LYMPH % 14.6 % (24.0-44.0); MEAN CORPUSCULAR HEMOGLOBIN 31.2 pg (27.0-33.0); MEAN CORPUSCULAR HGB CONC 33.3 g/dl (32.0-36.5); MEAN CORPUSCULAR VOLUME 93.8 fl (80.0-96.0); MONO % 8.3 % (0.0-5.0); NEUTROPHILS % 73.3 % (36.0-66.0); PLATELET COUNT, AUTOMATED 154 10^3/uL (150-450); RED BLOOD COUNT 4.97 10^6/uL (4.30-6.10); RED CELL DISTRIBUTION WIDTH 13.2 % (11.5-14.5); WHITE BLOOD COUNT 12.2 10^3/uL (4.0-10.0)
[2017-03-30 13:19] LABS: INR 1.02; PARTIAL THROMBOPLASTIN TIME 32.2 SECONDS (26.8-37.9); PROTHROMBIN TIME 13.5 SECONDS (12.4-14.5)
[2017-03-30 13:29] LABS: ANION GAP 6 MEQ/L (8-16); BLOOD UREA NITROGEN 37 MG/DL (7-18); CALCIUM LEVEL 8.6 MG/DL (8.8-10.2); CARBON DIOXIDE LEVEL 33 MEQ/L (21-32); CHLORIDE LEVEL 100 MEQ/L (98-107); GLOMERULAR FILTRATION RATE 34.4 (>49); GLUCOSE, FASTING 138 MG/DL (70-100); MAGNESIUM LEVEL 2.3 MG/DL (1.8-2.4); POTASSIUM SERUM 4.7 MEQ/L (3.5-5.1); SODIUM LEVEL 139 MEQ/L (136-145)
[2017-03-30 13:33] LABS: CK-MB VALUE MASS 3.8 NG/ML (0.0-3.6); CPK CREATINE PHOSPHOKINASE 108 U/L (39-308); MB/CK RELATIVE INDEX 3.51 (< OR =4); TROPONIN I 0.03 NG/ML (< 0.10)
[2017-03-30 13:35] LABS: LACTIC ACID SEPSIS PROTOCOL 1.6 MMOL/L (0.4-2.0)
[2017-03-30] MEDS: NS 500 ML IV (14:42)
[2017-03-30] MEDS ORDERED: ACETAMINOPHEN TAB 650MG DOSE (2X325MG) PO (16:30)
[2017-03-30] MEDS ORDERED: DOCUSATE SODIUM 100 MG CAP PO (16:30)
[2017-03-30] MEDS ORDERED: DEXTROSE 50% 50 ML SYRINGE IV (16:45)
[2017-03-30] MEDS ORDERED: GLUCAGON FOR INJ 1 MG VIAL (J1610) SC (16:45)
[2017-03-30] MEDS ORDERED: GLUCOSE 4 GM CHEW TABLET PO (16:45)
[2017-03-30] MEDS: GABAPENTIN 300 MG CAP PO ×2 (18:29→21:00)
[2017-03-30 18:30] LABS: BEDSIDE GLUCOSE 127 MG/DL (80-115)
[2017-03-30] MEDS: NS 1,000 ML IV (18:30)
[2017-03-30] MEDS: HumaLOG INSULIN (NovoLOG) PER UNIT SC ×2 (18:30→21:00)
[2017-03-30] MEDS: AMIODARONE 200 MG TAB (PACERONE) PO ×2 (18:30→21:00)
[2017-03-30] MEDS: MULTIVITAMINS/MINERALS THERAP 1 TAB PO (21:00)
[2017-03-30] MEDS: CARVedilol 12.5 MG TAB PO (21:00)
[2017-03-30] MEDS: ATORVASTATIN 20 MG TAB PO (21:00)
[2017-03-30] MEDS: LISINOPRIL 10 MG TAB PO (21:00)
[2017-03-30] MEDS: ADVAIR HFA 115/21MCG INHALER INH (21:48)
[2017-03-30 22:58] LABS: BEDSIDE GLUCOSE 179 MG/DL (80-115)
[2017-03-31] MEDS: NS 1,000 ML IV ×2 (02:11→08:24)
[2017-03-31 06:12] LABS: HEMATOCRIT 46.2 % (42.0-52.0); HEMOGLOBIN 14.9 g/dl (14.0-18.0); MEAN CORPUSCULAR HEMOGLOBIN 30.4 pg (27.0-33.0); MEAN CORPUSCULAR HGB CONC 32.3 g/dl (32.0-36.5); MEAN CORPUSCULAR VOLUME 94.3 fl (80.0-96.0); PLATELET COUNT, AUTOMATED 150 10^3/uL (150-450); RED CELL DISTRIBUTION WIDTH 13.1 % (11.5-14.5); WHITE BLOOD COUNT 10.3 10^3/uL (4.0-10.0)
[2017-03-31 06:36] LABS: ALBUMIN/GLOBULIN RATIO 0.81 (1.00-1.93); ALKALINE PHOSPHATASE 116 U/L (45-117); ALT/SGPT 17 U/L (12-78); ANION GAP 3 MEQ/L (8-16); AST/SGOT 17 U/L (7-37); BILIRUBIN,TOTAL 0.6 MG/DL (0.2-1.0); BLOOD UREA NITROGEN 31 MG/DL (7-18); CALCIUM LEVEL 8.5 MG/DL (8.8-10.2); CARBON DIOXIDE LEVEL 34 MEQ/L (21-32); CHLORIDE LEVEL 104 MEQ/L (98-107); CREATININE FOR GFR 2.02 MG/DL (0.70-1.30); GLOMERULAR FILTRATION RATE 35.9 (>49); GLUCOSE, FASTING 178 MG/DL (70-100); MAGNESIUM LEVEL 2.2 MG/DL (1.8-2.4); POTASSIUM SERUM 4.6 MEQ/L (3.5-5.1); SODIUM LEVEL 141 MEQ/L (136-145); TOTAL PROTEIN 6.7 GM/DL (6.4-8.2)
[2017-03-31] MEDS: HumaLOG INSULIN (NovoLOG) PER UNIT SC (08:39)
[2017-03-31] MEDS: PANTOPRAZOLE 40MG TAB (PROTONIX) PO (08:40)
[2017-03-31] MEDS: CARVedilol 12.5 MG TAB PO (08:40)
[2017-03-31] MEDS: LISINOPRIL 10 MG TAB PO (08:40)
[2017-03-31] MEDS: CLOPIDOGREL 75 MG TAB PO (08:40)
[2017-03-31] MEDS: AMIODARONE 200 MG TAB (PACERONE) PO (08:41)
[2017-03-31] MEDS: ASPIRIN 81 MG ENTERIC TAB PO (08:41)
[2017-03-31] MEDS: GABAPENTIN 300 MG CAP PO (08:41)
[2017-03-31] MEDS: ADVAIR HFA 115/21MCG INHALER INH (08:45)
[2017-03-31] MEDS ORDERED: LISINOPRIL 10 MG TAB PO (09:00)
[2017-03-31] MEDS ORDERED: DIGOXIN 0.125 MG TAB PO (09:00)
== END 2017-03-31 09:30 | disposition home or self-care (01) ==
LOC: M ED 12:01 → M ED INP 16:19 → M MSPAV 18:08
DX: I95.1 Orthostatic hypotension (principal); R55 Syncope and collapse; J44.9 Chronic obstructive pulmonary disease, unspecified; I25.5 Ischemic cardiomyopathy; Z95.810 Presence of automatic (implantable) cardiac defibrillator; K21.9 Gastro-esophageal reflux disease without esophagitis; Z79.84 Long term (current) use of oral hypoglycemic drugs; Z79.82 Long term (current) use of aspirin; Z79.899 Other long term (current) drug therapy; F17.210 Nicotine dependence, cigarettes, uncomplicated; E11.40 Type 2 diabetes mellitus with diabetic neuropathy, unspecified
CPT/HCPCS: 71045

== ENCOUNTER 2017-04-01 14:46 | Emergency (ER) | payer MEDICARE ==
[2017-04-01 15:34] LABS: BASO # 0.1 10^3/uL (0.0-0.2); BASO % 0.9 % (0.0-1.0); EOS # 0.3 10^3/uL (0.0-0.50); EOS % 2.8 % (0.0-3.0); HEMATOCRIT 46.1 % (42.0-52.0); IMMATURE GRANULOCYTE # 0.1 10^3/uL (0-0); IMMATURE GRANULOCYTE % 0.5 % (0-0); LYMPH # 1.5 10^3/uL (1.5-4.5); LYMPH % 14.6 % (24.0-44.0); MEAN CORPUSCULAR HEMOGLOBIN 30.7 pg (27.0-33.0); MEAN CORPUSCULAR HGB CONC 32.5 g/dl (32.0-36.5); MEAN CORPUSCULAR VOLUME 94.5 fl (80.0-96.0); MONO # 0.8 10^3/uL (0.0-0.8); MONO % 7.5 % (0.0-5.0); NEUTROPHILS # 7.4 10^3/uL (1.8-7.7); NEUTROPHILS % 73.7 % (36.0-66.0); PLATELET COUNT, AUTOMATED 166 10^3/uL (150-450); RED BLOOD COUNT 4.88 10^6/uL (4.30-6.10); RED CELL DISTRIBUTION WIDTH 13.1 % (11.5-14.5); WHITE BLOOD COUNT 10.1 10^3/uL (4.0-10.0)
[2017-04-01 15:38] LABS: ACETAMINOPHEN LEVEL < 2.0 UG/ML (10.0-30.0); ALBUMIN 3.4 GM/DL (3.2-5.2); ALKALINE PHOSPHATASE 123 U/L (45-117); ALT/SGPT 20 U/L (12-78); ANION GAP 3 MEQ/L (8-16); AST/SGOT 22 U/L (7-37); BILIRUBIN,DIRECT 0.2 MG/DL (0.0-0.2); BILIRUBIN,TOTAL 0.6 MG/DL (0.2-1.0); BLOOD UREA NITROGEN 28 MG/DL (7-18); CALCIUM LEVEL 8.3 MG/DL (8.8-10.2); CARBON DIOXIDE LEVEL 32 MEQ/L (21-32); CHLORIDE LEVEL 103 MEQ/L (98-107); CREATININE FOR GFR 1.94 MG/DL (0.70-1.30); ETHYL ALCOHOL (ETHANOL) 0.004 % (0.000-0.010); GLOMERULAR FILTRATION RATE 37.6 (>49); GLUCOSE, FASTING 283 MG/DL (70-100); POTASSIUM SERUM 4.8 MEQ/L (3.5-5.1); SALICYLATE LEVEL 3.9 MG/DL (5.0-30.0); SODIUM LEVEL 138 MEQ/L (136-145); TOTAL PROTEIN 6.8 GM/DL (6.4-8.2)
== END 2017-04-01 16:36 | disposition short-term general hospital (02) ==
LOC: M ED 14:46
DX: S06.360A Traumatic hemorrhage of cerebrum, unspecified, without loss of consciousness, initial encounter (principal); S02.32XA Fracture of orbital floor, left side, initial encounter for closed fracture; W19.XXXA Unspecified fall, initial encounter; Y92.098 Other place in other non-institutional residence as the place of occurrence of the external cause; J44.9 Chronic obstructive pulmonary disease, unspecified; K21.9 Gastro-esophageal reflux disease without esophagitis; I25.5 Ischemic cardiomyopathy; Z95.810 Presence of automatic (implantable) cardiac defibrillator; Z79.899 Other long term (current) drug therapy; Z79.02 Long term (current) use of antithrombotics/antiplatelets; Z79.4 Long term (current) use of insulin; Z79.82 Long term (current) use of aspirin
CPT/HCPCS: 70450

== ENCOUNTER 2018-09-21 13:09 | Observation (INO) | payer MEDICARE, MEDICAID ==
[~2018-09-21] VITALS: Ht 180.3 cm; Wt 96.8 kg
[~2018-09-21 13:09] MED LIST changes: -/AMLO25TA PO; +AMIO200T PO; +ASPI1TAB15 PO; -ASPI81CH32 PO; +ASPI81CH33 PO; +BREO1INH INH; -BUME2TAB PO; +BUME2TAB3 PO; -DOCQ100C PO; +DOCQ100C5 PO; -GABA-282 PO; +GABA-843 PO; +HYDR-4267 PO; -HYDR50TA PO; +NITR4TASL SL; +NORV2TAB PO; -PANT40TA2 PO; +PANT40TA3 PO; +SPIR-10 PO; -VITA1CAP40 PO; +VITA50005 PO; +VITMTA PO
[2018-09-21] MEDS ORDERED: LEVO88TA3 PO (13:19)
[2018-09-21 16:44] LABS: BASO # 0.1 10^3/uL (0.0-0.2); BASO % 0.7 % (0.0-1.0); EOS # 0.2 10^3/uL (0.0-0.50); EOS % 1.6 % (0.0-3.0); HEMATOCRIT 46.2 % (42.0-52.0); HEMOGLOBIN 14.6 g/dl (13.5-17.5); LYMPH # 1.1 10^3/uL (1.5-4.5); LYMPH % 8.4 % (24.0-44.0); MEAN CORPUSCULAR HEMOGLOBIN 29.2 pg (27.0-33.0); MEAN CORPUSCULAR HGB CONC 31.6 g/dl (32.0-36.5); MEAN CORPUSCULAR VOLUME 92.4 fl (80.0-96.0); MONO # 1.2 10^3/uL (0.0-0.8); MONO % 8.9 % (0.0-5.0); NEUTROPHILS # 10.7 10^3/uL (1.8-7.7); NEUTROPHILS % 79.9 % (36.0-66.0); PLATELET COUNT, AUTOMATED 173 10^3/uL (150-450); WHITE BLOOD COUNT 13.4 10^3/uL (4.0-10.0)
[2018-09-21 17:03] LABS: CALCIUM LEVEL 8.9 MG/DL (8.8-10.2); CK-MB VALUE MASS 4.5 NG/ML (<3.6); CREATININE FOR GFR 3.1 MG/DL (0.70-1.30); GLOMERULAR FILTRATION RATE 21.8 (>49); MB/CK RELATIVE INDEX 3.12 (< OR =4); POTASSIUM SERUM 4.6 MEQ/L (3.5-5.1); TROPONIN I 0.02 NG/ML (< 0.10)
[2018-09-21] MEDS ORDERED: NS 1,000 ML IV ONE (18:00)
[2018-09-21] MEDS ORDERED: LISI-1046 PO (19:04)
[2018-09-21] MEDS ORDERED: CARV3.12 PO (19:04)
[2018-09-21] MEDS ORDERED: OFLO3OPSO OS (19:10)
[2018-09-21] MEDS ORDERED: PREDOPD OS (19:10)
[2018-09-21] MEDS ORDERED: MAALOX 30 ML SUSP *UDC PO PRN (20:15)
[2018-09-21] MEDS ORDERED: ACETAMINOPHEN TAB 650MG DOSE (2X325MG) PO PRN (20:15)
[2018-09-21] MEDS ORDERED: MOM 30ML SUSPENSION UDC PO PRN (20:15)
--- NOTE | 2018-09-21 20:15 | ECGEPIP ---
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
--- NOTE | 2018-09-21 20:38 | HPEPDOC ---
General Date of Admission 09/21/18 Date of Service: Sep 21, 2018 Chief Complaint The patient is a 63-year-old male admitted with a reason for visit of ftt. Source: Patient Exam Limitations: No limitations Timing/Duration: Day(s) Severity: Moderate Associated Symptoms: Other Home Medications Scheduled Amiodarone HCl (Amiodarone HCl) 200 Mg Tab, 200 MG PO BID, (Reported) Atorvastatin Calcium (Atorvastatin Calcium) 40 Mg Tab, 40 MG PO QHS, (Reported) Bumetanide (Bumetanide) 2 Mg Tab, 2 MG PO BID, (Reported) TAKES AT 0800 AND 1200 Carvedilol (Carvedilol) 3.125 Mg Tablet, 3.125 MG PO BID, (Reported) HOLD FOR SBP < 160 Gabapentin (Gabapentin) 300 Mg Cap, 300 MG PO TID, (Reported) Levothyroxine Sodium (Levothyroxine Sodium) 88 Mcg Tablet, 88 MCG PO DAILY, (Reported) Lisinopril (Lisinopril) 2.5 Mg Tablet, 2.5 MG PO DAILY, (Reported) Ofloxacin (Ofloxacin) 0.3% 5ML Drops, 1 DROP OS QID, (Reported) TO START 3 DAYS PRIOR TO SURGURY. PHARMACY STATES PATIENT HAS NOT PICKED UP SINCE MAY. Prednisolone Acetate (Prednisolone Acetate 1% Opth Susp) 5 Ml Drops.susp, 1 DROP OS QID, (Reported) TO START 3 DAYS PRIOR TO SURGURY. PHARMACY STATES PATIENT HAS NOT PICKED UP SINCE MAY. Allergies Coded Allergies: No Known Allergies (Unverified , 08/02/12) Past Medical History Medical History 63 years old white male with past medical history of CAD status post cardiac cath 2 with 2 stents, pacemaker, AICD, last cardiac echo was done on March 2017. History of bladder mass amputation tip of the toe diabetic neuropathy. MRSA of right foot. 7:15 and in a.m. 6:15, came to ER with chief complaints of bilateral leg pain and back pain. Has difficulty ambulating. Patient was found to have a high BUN/creatinine and we were advised to admit patient for HPI. Patient afebrile, no urinary obstruction or symptoms. . No chest pain, no shortness of breath, no nausea, vomiting, no syncope Family History Significant Family History: No pertinent family hx Social History * Smoker: Denies Alcohol: Denies Drugs: denies A-FIB/CHADSVASC A-FIB History Current/History of A-Fib/PAF?: No Review of Systems Constitutional: Denies: Chills, Fever, Malaise, Night Sweats, Weakness, Fatigue, Weight Loss, Lethargy, Other Eyes: Denies: Pain, Vision change, Conjunctivae inflammation, Eyelid inflammation, Redness, Other ENT: Denies: Head Aches, Ear Pain, Dysphagia, Sinus Congestion, Post Nasal Drip , Sore Throat, Epistaxis, Other Symptoms Skin: Denies: Rash, Lesions, Jaundice, Bruising, Itching, Dry, Breakdown, Nail Changes, Other Pulmonary: Denies: Dyspnea, Cough, Pleuritic Chest Pain, Other Symptoms Cardiovascular: Denies: Chest Pain, Palpitations, Orthopnea, Paroxysmal Noc. Dyspnea, Edema, Lt Headedness, Other Symptoms Gastrointestinal: Denies: Nausea, Vomiting, Abdominal Pain, Diarrhea, Constipation, Melena, Hematochezia, Other Symptoms Genitourinary: Denies: Dysuria, Frequency, Incontinence, Hematuria, Retention, Other Symptoms Hematologic: Denies: Bruising, Bleeding Excessively, Petecchia, Purpura, Enlarged Lymph Nodes, Other Hematologic Endocrine: Denies: Polydipsia, Polyphagia, Polyuria, Heat Intolerance, Cold Intolerance, Other Endocrine Sx Musculoskeletal: Reports: Back Pain, Leg Pain Neurological: Denies: Weakness, Numbness, Incoordination, Change in speech, Confusion, Seizures, Other Symptoms Psych: Denies: Mood Normal, Anxiety, Depression, Memory Issues, Thoughts of Self Harm, Anger, Thoughts of Harming Other, Other Psych Physical Examination General Exam: Positive: Alert, Cooperative Eye Exam: Positive: PERRLA ENT Exam: Positive: Atraumatic, Mucous membr. moist/pink Neck Exam: Positive: Supple Chest Exam: Positive: Clear to auscultation, Normal air movement Heart Exam: Positive: Rate Normal, Normal S1, Normal S2 Abdomen Exam: Positive: Normal bowel sounds Extremity Exam: Positive: Normal pulses Skin Exam: Positive: Nl turgor and temperature Neuro Exam: Positive: Normal Gait Psych Exam: Positive: Mental status NL, Mood NL Vital Signs Vital Signs Date Time Temp Pulse Resp B/P (MAP) Pulse Ox O2 Delivery O2 Flow Rate FiO2 09/21/18 19:37 97.6 09/21/18 13:24 67 18 102/59 (73) 96 Room Air Laboratory Data Labs 24H Laboratory Tests 2 09/21/18 16:31: Immature Granulocyte % (Auto) 0.5, White Blood Count 13.4H, Red Blood Count 5.00, Hemoglobin 14.6, Hematocrit 46.2, Mean Corpuscular Volume 92.4, Mean Corpuscular Hemoglobin 29.2, Mean Corpuscular Hemoglobin Concent 31.6L, Red Cell Distribution Width 15.0H, Platelet Count 173, Neutrophils (%) (Auto) 79.9H, Lymphocytes (%) (Auto) 8.4L, Monocytes (%) (Auto) 8.9H, Eosinophils (%) (Auto) 1.6, Basophils (%) (Auto) 0.7, Neutrophils # (Auto) 10.7H, Lymphocytes # (Auto) 1.1L, Monocytes # (Auto) 1.2H, Eosinophils # (Auto) 0.2, Basophils # (Auto) 0.1, Nucleated Red Blood Cells % (auto) 0.0, Anion Gap 3L, Glomerular Filtration Rate 21.8L, Blood Urea Nitrogen 61H, Creatinine 3.10H, Sodium Level 139, Potassium Level 4.6, Chloride Level 103, Carbon Dioxide Level 33H, Calcium Level 8.9, Total Creatine Kinase 144, Creatine Kinase MB 4.5H, Creatine Kinase MB Relative Index 3.12, Troponin I 0.02 CBC/BMP Laboratory Tests 09/21/18 16:31 Red Blood Count 5.00, Mean Corpuscular Volume 92.4, Mean Corpuscular Hemoglobin 29.2, Mean Corpuscular Hemoglobin Concent 31.6 L, Red Cell Distribution Width 15.0 H, Neutrophils (%) (Auto) 79.9 H, Lymphocytes (%) (Auto) 8.4 L, Monocytes (%) (Auto) 8.9 H, Eosinophils (%) (Auto) 1.6, Basophils (%) (Auto) 0.7, Neutrophils # (Auto) 10.7 H, Lymphocytes # (Auto) 1.1 L, Monocytes # (Auto) 1.2 H, Eosinophils # (Auto) 0.2, Basophils # (Auto) 0.1, Calcium Level 8.9, Total Creatine Kinase 144 Problems (1) Acute renal failure Status: Acute Problem Text: Admit patient to medical floor IV fluids normal saline 80 mL per hour Strict I and O's Repeat labs in a.m. Nephrology consult with Dr. Casas Continue home meds DVT prophylaxis with bilateral SCDs 2 g sodium diet Activity as tolerated (2) Back pain Problem Text: Most likely musculoskeletal in nature Physical therapy evaluation in a.. Social work consult for possible placement Plan / VTE VTE Prophylaxis Ordered?: Yes KIRILL SCOTT MD Sep 21, 2018 20:38
[2018-09-21] MEDS: DOCUSATE SODIUM 100 MG CAP PO SCH ×2 (21:00→22:01)
[2018-09-21] MEDS: ATORVASTATIN 20 MG TAB PO SCH ×2 (21:00→22:01)
[2018-09-21] MEDS: CARVedilol 3.125 MG TAB PO SCH ×2 (21:00→22:02)
[2018-09-21] MEDS: prednisoLONE ACET 1% OPHTH SUSP 5ML OS SCH (21:00)
[2018-09-21] MEDS: GABAPENTIN 300 MG CAP PO SCH ×2 (21:00→22:01)
[2018-09-21] MEDS: AMIODARONE 200 MG TAB (PACERONE) PO SCH ×2 (21:00→22:01)
[2018-09-21] MEDS: OFLOXACIN 0.3 % (OCUFLOX) OPTH SOL 5ML OS SCH (21:00)
[2018-09-21 21:47] VITALS: BP 119/63
[2018-09-21] MEDS: NS 1,000 ML IV SCH (22:01)
[2018-09-22] MEDS: LEVOTHYROXINE 88MCG TABLET (0.088 MG) PO SCH (05:58)
[2018-09-22 06:00] VITALS: BP 169/74
[2018-09-22] MEDS: GABAPENTIN 300 MG CAP PO SCH ×3 (08:33→21:53)
[2018-09-22] MEDS: AMIODARONE 200 MG TAB (PACERONE) PO SCH ×2 (08:33→21:53)
[2018-09-22] MEDS: DOCUSATE SODIUM 100 MG CAP PO SCH ×2 (08:33→21:53)
[2018-09-22] MEDS: CARVedilol 3.125 MG TAB PO SCH ×2 (08:33→21:54)
[2018-09-22] MEDS: BUMETANIDE 1 MG TAB PO SCH ×2 (08:34→12:48)
[2018-09-22] MEDS: prednisoLONE ACET 1% OPHTH SUSP 5ML OS SCH ×4 (08:34→21:56)
[2018-09-22] MEDS: OFLOXACIN 0.3 % (OCUFLOX) OPTH SOL 5ML OS SCH ×4 (08:34→21:56)
[2018-09-22] MEDS ORDERED: LISINOPRIL *2.5 MG* TAB PO SCH (09:00)
[2018-09-22 09:22] VITALS: BP 170/92
--- NOTE | 2018-09-22 09:22 | REP ---
REASON: History of renal failure. COMPARISON: Multiple, the latest 03/30/2017. There is global cardiomegaly status quo. There is a dual-chamber bipolar pacemaker device status quo. There are numerable calcified densities seen throughout the lung parenchyma consistent with calcified granuloma status quo. The pleural angles are again seen to be sharp. No acute patchy parenchymal opacities or pleural effusions have developed. There is thoracic aortic tortuosity which is unchanged. The technique utilized in obtaining the radiograph has magnified the cardiac silhouette and accentuated the interstitial markings. The osseous structures are stable and intact. IMPRESSION: Stable chronic changes. There is no evidence of acute cardiopulmonary disease. Electronically Signed by Memo Willoughby DO 09/22/2018 10:04 A
--- NOTE | 2018-09-22 11:54 | IPNPDOC ---
Subjective Date Seen The patient was seen on 09/22/18. Subjective Chief Complaint/HPI ARF Events since last encounter admitted overnight for ARF. States back and leg pain is resolved. He denies any c/o today. Recently DC'd from [facility] after a rehab stay from a fall and TBI. Constitutional: Denies: Chills, Fever, Night Sweats Pulmonary: Denies: Dyspnea, Cough Cardiovascular: Denies: Chest Pain, Palpitations, Orthopnea, Paroxysmal Noc. Dyspnea, Lt Headedness Gastrointestinal: Denies: Nausea, Vomiting, Abdominal Pain, Diarrhea, Constipation Genitourinary: Denies: Dysuria, Frequency, Incontinence, Retention Objective Physical Examination General Exam: Positive: Alert, Cooperative Eye Exam: Positive: PERRLA ENT Exam: Positive: Atraumatic, Mucous membr. moist/pink Neck Exam: Positive: Supple Chest Exam: Positive: Clear to auscultation, Normal air movement Heart Exam: Positive: Rate Normal, Normal S1, Normal S2 Abdomen Exam: Positive: Normal bowel sounds Extremity Exam: Positive: Normal pulses Skin Exam: Positive: Nl turgor and temperature Neuro Exam: Positive: Normal Gait Psych Exam: Positive: Mental status NL, Mood NL Assessment /Plan Problems (1) GRIFFIN (acute kidney injury) Problem Text: GRIFFIN 2 09/22 cr down to 2.4 (3.1) baseline cr ~1.8 favor 2 dehydration, bumet 2 BID, lisin 2.5-STILL receiving on admission 09/22 held above, check renal US, UA/UCX NS at 80H (2) Back pain Problem Text: Most likely musculoskeletal in nature Physical therapy evaluation in a.m. Social work consult for possible placement (3) CAD S/P percutaneous coronary angioplasty Status: Chronic Problem Text: Continue Atorvastatin. patient has stopped taking plavix for unknown reason (4) Diabetes Status: Chronic Problem Specific Plan: Monitor Clinically Problem Text: patient has not been evaluated by PCP in years. Last hgba1c 2017. Check Hgba1c. FS AC and HS with RISS ordered.Previously on Lantus, patient not taking currently. (5) Hypercholesteremia Status: Chronic (6) Closed head injury Status: Chronic Response to Treatment: Stable Problem Text: s/p rehab stay at [facility]. Patient requesting home care upon DC. Plan/VTE VTE Prophylaxis Ordered?: Yes VS, I&O, 24H, Fishbone Vital Signs/I&O Vital Signs Date Time Temp Pulse Resp B/P (MAP) Pulse Ox O2 Delivery O2 Flow Rate FiO2 09/22/18 09:22 160 19 170/92 (118) 81 09/22/18 06:00 97.6 09/21/18 13:24 Room Air I&O- Last 24 Hours up to 6 AM 09/22/18 06:00 Intake Total 1278 ml Output Total 1100 ml Balance 178 ml Laboratory Data 24H LABS Laboratory Tests 2 09/21/18 16:31: Immature Granulocyte % (Auto) 0.5, White Blood Count 13.4H, Red Blood Count 5.00, Hemoglobin 14.6, Hematocrit 46.2, Mean Corpuscular Volume 92.4, Mean Corpuscular Hemoglobin 29.2, Mean Corpuscular Hemoglobin Concent 31.6L, Red Cell Distribution Width 15.0H, Platelet Count 173, Neutrophils (%) (Auto) 79.9H, Lymphocytes (%) (Auto) 8.4L, Monocytes (%) (Auto) 8.9H, Eosinophils (%) (Auto) 1.6, Basophils (%) (Auto) 0.7, Neutrophils # (Auto) 10.7H, Lymphocytes # (Auto) 1.1L, Monocytes # (Auto) 1.2H, Eosinophils # (Auto) 0.2, Basophils # (Auto) 0.1, Nucleated Red Blood Cells % (auto) 0.0, Anion Gap 3L, Glomerular Filtration Rate 21.8L, Blood Urea Nitrogen 61H, Creatinine 3.10H, Sodium Level 139, Potassium Level 4.6, Chloride Level 103, Carbon Dioxide Level 33H, Calcium Level 8.9, Total Creatine Kinase 144, Creatine Kinase MB 4.5H, Creatine Kinase MB Relative Index 3.12, Troponin I 0.02 09/22/18 11:17: CBC/BMP Laboratory Tests 09/21/18 16:31 Red Blood Count 5.00, Mean Corpuscular Volume 92.4, Mean Corpuscular Hemoglobin 29.2, Mean Corpuscular Hemoglobin Concent 31.6 L, Red Cell Distribution Width 15.0 H, Neutrophils (%) (Auto) 79.9 H, Lymphocytes (%) (Auto) 8.4 L, Monocytes (%) (Auto) 8.9 H, Eosinophils (%) (Auto) 1.6, Basophils (%) (Auto) 0.7, Neutrophils # (Auto) 10.7 H, Lymphocytes # (Auto) 1.1 L, Monocytes # (Auto) 1.2 H, Eosinophils # (Auto) 0.2, Basophils # (Auto) 0.1, Calcium Level 8.9, Total Creatine Kinase 144 Agueda Raines Sep 22, 2018 11:54 Corby Duncan M.D. Sep 22, 2018 18:46
[2018-09-22 11:56] LABS: HEMATOCRIT 42.8 % (42.0-52.0); HEMOGLOBIN 13.5 g/dl (13.5-17.5); MEAN CORPUSCULAR HEMOGLOBIN 29.6 pg (27.0-33.0); MEAN CORPUSCULAR HGB CONC 31.5 g/dl (32.0-36.5); MEAN CORPUSCULAR VOLUME 93.9 fl (80.0-96.0); PLATELET COUNT, AUTOMATED 146 10^3/uL (150-450); RED BLOOD COUNT 4.56 10^6/uL (4.30-6.10); WHITE BLOOD COUNT 9.2 10^3/uL (4.0-10.0)
[2018-09-22] MEDS ORDERED: GLUCOSE 4 GM CHEW TABLET PO PRN (12:00)
[2018-09-22] MEDS ORDERED: DEXTROSE 50% 50 ML SYRINGE IV PRN (12:00)
[2018-09-22] MEDS ORDERED: GLUCAGON FOR INJ 1 MG VIAL (J1610) SC PRN (12:00)
[2018-09-22] MEDS: NS 1,000 ML IV SCH ×2 (12:11→22:00)
[2018-09-22 12:30] LABS: ALBUMIN 2.9 GM/DL (3.2-5.2); BILIRUBIN,TOTAL 0.4 MG/DL (0.2-1.0); CALCIUM LEVEL 8.5 MG/DL (8.8-10.2); CREATININE FOR GFR 2.39 MG/DL (0.70-1.30); GLOMERULAR FILTRATION RATE 29.5 (>49); POTASSIUM SERUM 4.7 MEQ/L (3.5-5.1); TOTAL PROTEIN 6.8 GM/DL (6.4-8.2)
[2018-09-22] MEDS: HumaLOG INSULIN (NovoLOG) PER UNIT SC SCH ×3 (12:47→21:00)
[2018-09-22 13:41] LABS: HEMOGLOBIN A1c 7.8 %
[2018-09-22 14:00] VITALS: BP 123/78
--- NOTE | 2018-09-22 20:18 | REP ---
Renal ultrasound: Comparison is 08/09/2012. The right kidney measures 11.5 x 6.7 x 5.2 cm. Left kidney measures 4.1 x 4.1 x 6.0 cm. The kidneys are normal size. Renal cortical echogenicity is normal bilaterally. There is no hydronephrosis on the right on the left. There are no renal calculi. There are no renal solid masses. There is a right renal upper pole Bosniak type 1 simple cyst measuring 1.0 cm in diameter. There is a right renal lower pole Bosniak type 1 simple cyst measuring 4.6 cm in diameter. There is a left renal lower pole Bosniak type 1 simple cyst measuring 2.0 cm in diameter. Both lower pole cyst are slightly larger than on the prior study. The right renal upper pole cyst is unchanged. Bladder: The bladder is adequately distended. No bladder wall polyps or masses are identified. Impression: Bilateral renal cysts as described. Otherwise, negative renal ultrasound. Electronically Signed by Richi Allison MD 09/22/2018 08:09 P
[2018-09-22] MEDS: ATORVASTATIN 20 MG TAB PO SCH (21:54)
[2018-09-22 22:00] VITALS: BP 129/73
--- NOTE | 2018-09-22 23:49 | CR ---
DATE OF CONSULTATION: 09/22/2018 REQUESTING PHYSICIAN: Sal Heredia MD CONSULTING PHYSICIAN: Kwadwo Swan MD REASON FOR CONSULTATION: Management of acute renal failure. CHIEF COMPLAINT: The patient presented to the hospital yesterday with generalized back pain and leg pain. HISTORY OF PRESENT ILLNESS: Mr. Shaji Cruz is a 63-year-old male with past medical history of chronic kidney disease stage III with a breast baseline creatinine of around 1.5 as of 2017 when he was last seen in the nephrology clinic. He has been terminated from nephrology clinic because of noncompliance and no followup. He also has history of diabetes mellitus type 2, peripheral vascular disease and other comorbidities as mentioned below. He presented to the hospital yesterday with bilateral leg pain and back pain and difficulty to ambulate. Further lab evaluation in the emergency room showed that the patient was in acute renal failure. He had a creatinine of 3.1 on arrival. The patient was taking diuretics and lisinopril as outpatient. He was admitted under the hospitalist service last night. He was started on gentle IV fluid hydration. Nephrology service was called to further help in the management of this patient with acute renal failure. I saw and evaluated the patient today morning at the bedside. The patient reports that he is feeling better today as compared with yesterday. He denies any fever, chills, rigors, dysuria, hematuria, nausea or vomiting. PAST MEDICAL HISTORY: Past medical history of chronic kidney disease stage III, history of diabetes mellitus type 2 with diabetic nephropathy, coronary artery disease status post cardiac stent, history of congestive heart failure status post automatic implantable cardioverted defibrillator (AICD) and pacemaker, history of peripheral vascular disease. PAST SURGICAL HISTORY: Status post cardiac stents x2, status post pacemaker and AICD placement, status post right leg bypass surgery. ALLERGIES: No known drug allergies. FAMILY HISTORY: No significant family history of end-stage renal disease requiring hemodialysis. SOCIAL HISTORY: The patient lives at home. Denies any smoking, drug abuse or alcohol abuse. REVIEW OF SYSTEMS: CONSTITUTIONAL: He denies any fevers and chills. EYES: He denies any blurry vision, double vision. ENT: Denies any dysphagia, odynophagia, ear discharge. CARDIOVASCULAR: He denies any chest pain or palpitation. RESPIRATORY: He denies any shortness of breath, cough or phlegm. GI: Denies any nausea or vomiting. GENITOURINARY: He denies any dysuria or hematuria. MUSCULOSKELETAL: Reports lower back pain and leg pain. BLOCKERS SKIVER: He denies any strokes or seizures. SKIN: He denies any rashes or ulcers. ENDOCRINE: He denies any history of hyperthyroidism or hypothyroidism. HEMATOLOGY/ONCOLOGY: He denies any easy bleeding or bruising. All other review of systems is negative. PHYSICAL EXAMINATION: General: The patient is awake, alert, oriented x3, laying in bed in no apparent distress. Vital signs: Temperature is 97.8 degrees Fahrenheit, blood pressure 123/78, pulse is 68, respiratory of 16, saturating 93% on room air. Intake and output: Urine output recorded when I saw the patient was less than 1 liter. Head and neck exam: Extraocular muscles intact. Pupils equally round and reactive to light. Mucous membranes are moist. Neck is supple. There is no jugular venous distension (JVD). Cardiovascular: S1, S2 regular rate. No murmur, rub and gallop. Respiratory: Chest is clear to auscultation bilaterally. Bilateral equal air entry. No rales or rhonchi. Abdomen: Soft. Positive bowel sounds. Nontender. Musculoskeletal: No clubbing or cyanosis. Pulses are 2+ cm. He has a right leg surgical scar. BLOCKERS SKIVER: No focal deficit. Power is 5/5 in all extremities. Skin: No rashes or ulcers. LABORATORY REVIEW: Complete blood count (CBC) showed white blood count (WBC) of 9.2, hemoglobin 13.5, platelets of 146. Urinalysis not available. Basic metabolic panel (BMP) done on arrival showed sodium 139, potassium 4.6, chloride 103, bicarbonate 33, BUN 61, creatinine is 3.1, glucose 132, A1c 7.8, albumin is 2.9. Microbiology: No cultures are available. IMAGING STUDIES: A renal ultrasound was done today which showed right kidney measures 11.5 cm. Left kidney 4.1 cm. Bilateral simple Bosniak type 1 renal cyst. CURRENT INPATIENT MEDICATIONS: The patient is currently on normal saline at 80 mL an hour, Tylenol as needed, Mylanta as needed, amiodarone 200 mg by mouth twice a day, Lipitor 40 mg at bedtime (q.h.s.). He was getting Bumex 2 mg by mouth twice a day which has been stopped. He is on Coreg 3.125 mg by mouth twice a day, Colace 100 mg by mouth twice a day, gabapentin 300 mg by mouth three times a day, insulin sliding scale, levothyroxine 88 mcg by mouth daily. He was on lisinopril 2.5 mg by mouth daily, which has been stopped, Milk of Magnesium as needed. HOME MEDICATIONS: The patient's home medications include amiodarone 200 mg by mouth twice a day, Lipitor 40 mg at bedtime (q.h.s.), Bumex 2 mg by mouth twice a day, Coreg 3.125 mg by mouth twice a day, gabapentin 300 mg by mouth three times, levothyroxine 88 mcg by mouth daily, lisinopril 2.5 mg by mouth daily ASSESSMENT: 63-year-old male with past medical history of diabetes mellitus type 2, history of chronic kidney disease stage III, baseline creatinine of 1.5 as of 2 years ago, most likely has systolic congestive heart failure because the patient has automatic implantable cardioverted defibrillator (AICD) and pacemaker and he is on diuretics, beta-rekha and JARRELL inhibitor and amiodarone, admitted at this time because of acute renal failure. PLAN: 1. Acute renal failure. This is most likely secondary to dehydration, volume depletion and use of JARRELL inhibitor and loop diuretic as outpatient. Diuretics and JARRELL inhibitors has already been stopped by primary team. Continue IV fluid hydration with normal saline at 80 mL an hour. The patient is having good urine output. He is expected to improve recovery back to his baseline. 2. Chronic congestive heart failure. Echocardiogram result is not available. Most likely the patient has systolic congestive heart failure. Continue beta rekha at this time. However, hold the JARRELL inhibitors because of acute renal failure. Continue home dose of amiodarone. 3. Diabetes mellitus type 2. Avoid use of metformin. Okay to use insulin sliding scale. Hemoglobin A1c is within the acceptable range. 4. Chronic hypothyroidism. Continue home dose of levothyroxine 88 mcg by mouth daily. Thank you for involving me in the care of this patient. I shall be happy to follow the patient along with you tomorrow morning.
[2018-09-23 01:50] LABS: APPEARANCE, URINE CLEAR (CLEAR); BACTERIA, URINE AUTO NEGATIVE (NEGATIVE); BILIRUBIN, URINE AUTO NEGATIVE (NEGATIVE); BLOOD, URINE BLOOD 1+ (NEGATIVE); COLOR, URINE STRAW (YELLOW); GLUCOSE, URINE (UA) AUTO 1+ mg/dL (NEGATIVE); KETONE, URINE AUTO NEGATIVE (NEGATIVE); LEUKOCYTE ESTERASE, URINE AUTO NEGATIVE (NEGATIVE); NITRITE, URINE AUTO NEGATIVE (NEGATIVE); PROTEIN, URINE AUTO NEGATIVE (NEGATIVE); RBC, URINE AUTO 1 /HPF (0-3); SPECIFIC GRAVITY URINE AUTO 1.008 (1.002-1.035); SQUAMOUS EPITHELIAL CELL UR AU 0 /HPF (0-6); UROBILINOGEN, URINE AUTO 0.2 mg/dL (0.0-2.0); WBC, URINE AUTO 0 /HPF (0-3)
[2018-09-23 06:00] VITALS: BP 133/75
[2018-09-23] MEDS: LEVOTHYROXINE 88MCG TABLET (0.088 MG) PO SCH (06:16)
[2018-09-23 06:19] LABS: BASO # 0.1 10^3/uL (0.0-0.2); BASO % 0.9 % (0.0-1.0); EOS # 0.3 10^3/uL (0.0-0.50); EOS % 3.5 % (0.0-3.0); HEMATOCRIT 41.6 % (42.0-52.0); LYMPH # 1.1 10^3/uL (1.5-4.5); LYMPH % 12.7 % (24.0-44.0); MEAN CORPUSCULAR HEMOGLOBIN 29.6 pg (27.0-33.0); MEAN CORPUSCULAR HGB CONC 31.3 g/dl (32.0-36.5); MEAN CORPUSCULAR VOLUME 94.8 fl (80.0-96.0); NEUTROPHILS # 6.3 10^3/uL (1.8-7.7); NEUTROPHILS % 71.1 % (36.0-66.0); PLATELET COUNT, AUTOMATED 142 10^3/uL (150-450); RED BLOOD COUNT 4.39 10^6/uL (4.30-6.10); WHITE BLOOD COUNT 8.9 10^3/uL (4.0-10.0)
[2018-09-23 06:48] LABS: ALBUMIN 2.8 GM/DL (3.2-5.2); BILIRUBIN,TOTAL 0.4 MG/DL (0.2-1.0); CALCIUM LEVEL 8.6 MG/DL (8.8-10.2); CREATININE FOR GFR 2.12 MG/DL (0.70-1.30); GLOMERULAR FILTRATION RATE 33.9 (>49); POTASSIUM SERUM 4.4 MEQ/L (3.5-5.1); TOTAL PROTEIN 6.6 GM/DL (6.4-8.2)
[2018-09-23] MEDS: prednisoLONE ACET 1% OPHTH SUSP 5ML OS SCH ×4 (08:20→20:37)
[2018-09-23] MEDS: GABAPENTIN 300 MG CAP PO SCH ×3 (08:20→20:36)
[2018-09-23] MEDS: OFLOXACIN 0.3 % (OCUFLOX) OPTH SOL 5ML OS SCH ×4 (08:20→20:37)
[2018-09-23] MEDS: CARVedilol 3.125 MG TAB PO SCH ×2 (08:20→20:36)
[2018-09-23] MEDS: AMIODARONE 200 MG TAB (PACERONE) PO SCH ×2 (08:20→20:35)
[2018-09-23] MEDS: DOCUSATE SODIUM 100 MG CAP PO SCH ×2 (08:20→20:35)
[2018-09-23] MEDS: HumaLOG INSULIN (NovoLOG) PER UNIT SC SCH ×4 (08:21→21:00)
--- NOTE | 2018-09-23 11:40 | IPNPDOC ---
Subjective Date Seen The patient was seen on 09/23/18. Subjective Chief Complaint/HPI GRIFFIN. Denies c/o. Lisinopril and Bumex are held. B stable. Blood sugars stable. Tolerating po. Constitutional: Denies: Chills, Fever, Night Sweats ENT: Denies: Head Aches, Ear Pain, Dysphagia Pulmonary: Denies: Dyspnea, Cough Cardiovascular: Denies: Chest Pain, Palpitations, Orthopnea, Paroxysmal Noc. Dyspnea, Lt Headedness Gastrointestinal: Denies: Nausea, Vomiting, Abdominal Pain, Diarrhea, Constipation Objective Physical Examination General Exam: Positive: Alert, Cooperative Eye Exam: Positive: PERRLA ENT Exam: Positive: Atraumatic, Mucous membr. moist/pink Neck Exam: Positive: Supple Chest Exam: Positive: Clear to auscultation, Normal air movement Heart Exam: Positive: Rate Normal, Normal S1, Normal S2 Abdomen Exam: Positive: Normal bowel sounds Extremity Exam: Positive: Normal pulses Skin Exam: Positive: Nl turgor and temperature Neuro Exam: Positive: Normal Gait Psych Exam: Positive: Mental status NL, Mood NL Assessment /Plan Problems (1) GRIFFIN (acute kidney injury) Problem Text: 09/23/18: continues to improve. Cr. 2.1. Plan on DC home in am. GRIFFIN 2 09/22 cr down to 2.4 (3.1) baseline cr ~1.8 favor 2 dehydration, bumet 2 BID, lisin 2.5-STILL receiving on admission 09/22 held above, check renal US, UA/UCX NS at 80H (2) Back pain Problem Text: 09/23/18: PT eval pending. Home with services vs assisted living. Most likely musculoskeletal in nature Physical therapy evaluation in a.m. Social work consult for possible placement (3) CAD S/P percutaneous coronary angioplasty Status: Chronic Problem Text: echo pending. Continue Atorvastatin. patient has stopped taking plavix for unknown reason (4) Diabetes Status: Chronic Problem Specific Plan: Monitor Clinically Problem Text: patient has not been evaluated by PCP in years. Last hgba1c 2016. Check Hgba1c. FS AC and HS with RISS ordered.Previously on Lantus, patient not taking currently. (5) Hypercholesteremia Status: Chronic (6) Closed head injury Status: Chronic Response to Treatment: Stable Problem Text: s/p rehab stay at [facility]. Patient requesting home care upon DC. Plan/VTE VTE Prophylaxis Ordered?: Yes VS, I&O, 24H, Fishbone Vital Signs/I&O Vital Signs Date Time Temp Pulse Resp B/P (MAP) Pulse Ox O2 Delivery O2 Flow Rate FiO2 09/23/18 08:20 75 133/75 09/23/18 06:00 97.3 18 96 2.0 09/21/18 13:24 Room Air I&O- Last 24 Hours up to 6 AM 09/23/18 06:00 Intake Total 2190 ml Output Total 3800 ml Balance -1610 ml Laboratory Data 24H LABS Laboratory Tests 2 09/22/18 11:42: Nucleated Red Blood Cells % (auto) 0.0, Anion Gap 0L, Glomerular Filtration Rate 29.5L, Estimated Mean Plasma Glucose 177H, Hemoglobin A1c 7.8, Blood Urea Nitrogen 47H, Creatinine 2.39H, Sodium Level 139, Potassium Level 4.7, Chloride Level 105, Carbon Dioxide Level 34H, Calcium Level 8.5L, Aspartate Amino Transf (AST/SGOT) 19, Alanine Aminotransferase (ALT/SGPT) 23, Alkaline Phosphatase 106, Total Bilirubin 0.4, Total Protein 6.8, Albumin 2.9L, Albumin/Globulin Ratio 0.74L 09/22/18 12:17: Bedside Glucose (Misc Panel) 191H 09/22/18 17:12: Bedside Glucose (Misc Panel) 153H 09/22/18 20:54: Bedside Glucose (Misc Panel) 241H 09/23/18 01:30: Urine Appearance CLEAR, Urine Color STRAW, Urine pH 6.0, Urine Specific [place] 1.008, Urine Protein NEGATIVE, Urine Glucose (UA) 1+H, Urine Ketones NEGATIVE, Urine Urobilinogen 0.2, Urine Bilirubin NEGATIVE, Urine Leukocyte Esterase NEGATIVE, Urine Blood 1+H, Urine Nitrite NEGATIVE, Urine WBC (Auto) 0, Urine RBC (Auto) 1, Urine Hyaline Casts (Auto) 0, Urine Bacteria (Auto) NEGATIVE, Urine Squamous Epithelial Cells 0, Urine Sperm (Auto) 09/23/18 06:02: Immature Granulocyte % (Auto) 0.8, White Blood Count 8.9, Red Blood Count 4.39, Hemoglobin 13.0L, Hematocrit 41.6L, Mean Corpuscular Volume 94.8, Mean Corpuscular Hemoglobin 29.6, Mean Corpuscular Hemoglobin Concent 31.3L, Red Cell Distribution Width 15.0H, Platelet Count 142L, Neutrophils (%) (Auto) 71.1H, Lymphocytes (%) (Auto) 12.7L, Monocytes (%) (Auto) 11.0H, Eosinophils (%) (Auto) 3.5H, Basophils (%) (Auto) 0.9, Neutrophils # (Auto) 6.3, Lymphocytes # (Auto) 1.1L, Monocytes # (Auto) 1.0H, Eosinophils # (Auto) 0.3, Basophils # (Auto) 0.1, Nucleated Red Blood Cells % (auto) 0.0, Anion Gap 1L, Glomerular Filtration Rate 33.9L, Blood Urea Nitrogen 41H, Creatinine 2.12H, Sodium Level 142, Potassium Level 4.4, Chloride Level 109H, Carbon Dioxide Level 32, Calcium Level 8.6L, Aspartate Amino Transf (AST/SGOT) 23, Alanine Aminotransferase (ALT/SGPT) 24, Alkaline Phosphatase 106, Total Bilirubin 0.4, Total Protein 6.6, Albumin 2.8L, Albumin/Globulin Ratio 0.74L 09/23/18 11:22: Bedside Glucose (Misc Panel) 198H CBC/BMP Laboratory Tests 09/22/18 11:42 Red Blood Count 4.56, Mean Corpuscular Volume 93.9, Mean Corpuscular Hemoglobin 29.6, Mean Corpuscular Hemoglobin Concent 31.5 L, Red Cell Distribution Width 15.1 H, Calcium Level 8.5 L, Aspartate Amino Transf (AST/SGOT) 19, Alanine Aminotransferase (ALT/SGPT) 23, Alkaline Phosphatase 106, Total Bilirubin 0.4, Total Protein 6.8, Albumin 2.9 L 09/23/18 06:02 Red Blood Count 4.39, Mean Corpuscular Volume 94.8, Mean Corpuscular Hemoglobin 29.6, Mean Corpuscular Hemoglobin Concent 31.3 L, Red Cell Distribution Width 15.0 H, Calcium Level 8.6 L, Aspartate Amino Transf (AST/SGOT) 23, Alanine Aminotransferase (ALT/SGPT) 24, Alkaline Phosphatase 106, Total Bilirubin 0.4, Total Protein 6.6, Albumin 2.8 L, Neutrophils (%) (Auto) 71.1 H, Lymphocytes (%) (Auto) 12.7 L, Monocytes (%) (Auto) 11.0 H, Eosinophils (%) (Auto) 3.5 H, Basophils (%) (Auto) 0.9, Neutrophils # (Auto) 6.3, Lymphocytes # (Auto) 1.1 L, Monocytes # (Auto) 1.0 H, Eosinophils # (Auto) 0.3, Basophils # (Auto) 0.1 Microbiology Microbiology 09/23/18 Urine Culture, Received Pending Agueda Raines [facility] Sep 23, 2018 11:40
--- NOTE | 2018-09-23 18:48 | IPN ---
DATE: 09/23/2018 SUBJECTIVE: The patient was seen and examined the bedside today morning. He is afebrile, hemodynamically stable. He has a very good urine output. His renal function is improving. Creatinine is down to 2.1 today. The patient denies any active complaints. He reports his back pain is better. OBJECTIVE: Vital signs: Temperature is 97.3 degrees Fahrenheit, blood pressure 133/75, pulse is 75, respiratory rate of 18, saturating 96% on 2 liters via nasal cannula. Intake and output: Urine output recorded is 3.7 liters yesterday, 800 mL so far today since overnight. Weight in the bed scale is not available. PHYSICAL EXAMINATION: GENERAL: The patient is awake, alert, oriented times three, lying in bed in no apparent distress. HEAD AND NECK: Extraocular muscles intact. Pupils equally round and reactive to light. Mucous membranes are moist. Neck is supple. There is no jugular venous distention (JVD). CARDIOVASCULAR: S1, S2, regular rate. No edema of the bilateral lower extremities. RESPIRATORY: Chest is clear to auscultation bilaterally. Bilateral equal air entry. No rales or rhonchi. Left-sided automatic implantable cardioverter-defibrillator (AICD/pacemaker is palpable. ABDOMEN: Soft. Positive bowel sounds. Nontender. No organomegaly. MUSCULOSKELETAL: No clubbing or cyanosis. Pulses are 2+. The patient has old surgical scar on the right leg. CENTRAL NERVOUS SYSTEM: No focal deficit. Power is 5/5 in all extremities. LABORATORY REVIEW: CBC showed WBC 8.9, hemoglobin is 13, platelets are 142. Urinalysis done today showed 1+ glucose. No protein. Blood 1+. BMP today showed sodium 142, potassium 4.4, chloride 109, bicarbonate 32, BUN 41, creatinine is 2.1; it was 2.3 yesterday. Calcium 8.6, albumin is 2.8. CURRENT INPATIENT MEDICATIONS: The patient's medications were all reviewed by me. I have stopped the intravenous (IV) fluids. No other change in the medications today as compared with yesterday. ASSESSMENT AND PLAN: 1. Acute renal failure superimposed on chronic kidney disease, stage III. The patient is getting IV fluid. He is having very good urine output. Renal function is improving. Because of history of congestive heart failure, I am stopping the IV fluids. Continue to encourage oral hydration. Renal function is expected to improve to baseline by tomorrow morning. 2. Chronic congestive heart failure. Most likely the patient has systolic congestive heart failure. Angiotensin-converting enzyme (JARRELL) inhibitors and diuretic is on hold because of acute renal failure. Continue current dose of Coreg 3.125 mg by mouth twice a day. 3. Diabetes mellitus, type 2. Continue insulin sliding scale. Avoid use of metformin. 4. Bilateral renal cysts. The patient has a simple Bosniak type 1 renal cyst bilaterally. No further investigation is required at this at this time.
[2018-09-23] MEDS: ATORVASTATIN 20 MG TAB PO SCH (20:36)
[2018-09-23 22:00] VITALS: BP 152/84
[2018-09-24 06:00] VITALS: BP 158/86
[2018-09-24] MEDS ORDERED: **hydrALAZINE** 10 MG TAB PO SCH (06:00)
[2018-09-24 06:06] LABS: BASO # 0.1 10^3/uL (0.0-0.2); BASO % 0.9 % (0.0-1.0); EOS # 0.3 10^3/uL (0.0-0.50); EOS % 3.3 % (0.0-3.0); HEMATOCRIT 42.3 % (42.0-52.0); HEMOGLOBIN 13.2 g/dl (13.5-17.5); LYMPH # 1.1 10^3/uL (1.5-4.5); LYMPH % 11.9 % (24.0-44.0); MEAN CORPUSCULAR HEMOGLOBIN 29.3 pg (27.0-33.0); MEAN CORPUSCULAR HGB CONC 31.2 g/dl (32.0-36.5); MONO # 0.9 10^3/uL (0.0-0.8); MONO % 9.1 % (0.0-5.0); NEUTROPHILS # 6.9 10^3/uL (1.8-7.7); NEUTROPHILS % 74.3 % (36.0-66.0); PLATELET COUNT, AUTOMATED 137 10^3/uL (150-450); WHITE BLOOD COUNT 9.3 10^3/uL (4.0-10.0)
[2018-09-24] MEDS: LEVOTHYROXINE 88MCG TABLET (0.088 MG) PO SCH (06:16)
[2018-09-24 06:32] LABS: ALBUMIN 2.7 GM/DL (3.2-5.2); BILIRUBIN,TOTAL 0.2 MG/DL (0.2-1.0); CALCIUM LEVEL 8.5 MG/DL (8.8-10.2); CREATININE FOR GFR 1.76 MG/DL (0.70-1.30); POTASSIUM SERUM 4.3 MEQ/L (3.5-5.1); TOTAL PROTEIN 6.6 GM/DL (6.4-8.2)
[2018-09-24] MEDS: HumaLOG INSULIN (NovoLOG) PER UNIT SC SCH ×2 (08:08→12:30)
[2018-09-24] MEDS: prednisoLONE ACET 1% OPHTH SUSP 5ML OS SCH (08:08)
[2018-09-24 08:09] VITALS: BP 158/86
[2018-09-24] MEDS: OFLOXACIN 0.3 % (OCUFLOX) OPTH SOL 5ML OS SCH (08:09)
[2018-09-24] MEDS: GABAPENTIN 300 MG CAP PO SCH (08:09)
[2018-09-24] MEDS: CARVedilol 3.125 MG TAB PO SCH (08:09)
[2018-09-24] MEDS: AMIODARONE 200 MG TAB (PACERONE) PO SCH (08:10)
[2018-09-24] MEDS: DOCUSATE SODIUM 100 MG CAP PO SCH (08:10)
[2018-09-24] MEDS ORDERED: HYDR10TAB PO (11:13)
--- NOTE | 2018-09-24 16:25 | IPN ---
DATE: 09/24/2018 SUBJECTIVE: The patient was seen and examined at the bedside today morning. He is afebrile, hemodynamically stable. His IV fluids were stopped yesterday. His renal function is stable. Creatinine has come down to 1.7 now. The patient denies any active complaints at this time. OBJECTIVE: VITAL SIGNS: Temperature is 97.7 degrees Fahrenheit, blood pressure 158/86, pulse is 59, respiratory rate of 18, saturating 95% on room air. INTAKE AND OUTPUT: Urine output recorded is 1.7 liters today since overnight. Weight in the bed scale is not available. PHYSICAL EXAMINATION: GENERAL: The patient is awake, alert, oriented times three, laying in bed in no apparent distress. HEAD AND NECK EXAM: Extraocular muscles intact. Pupils equally round and reactive to light. Mucous membranes are moist. Neck is supple. There is no JVD. CARDIOVASCULAR: S1, S2, regular rate. No edema of the bilateral lower extremities. RESPIRATORY: Chest is clear to auscultation bilaterally. Bilateral equal air entry. No rales or rhonchi. He has left-sided AICD / pacemaker. ABDOMEN: Soft. Positive bowel sounds. Nontender. No organomegaly. MUSCULOSKELETAL: No clubbing or cyanosis. Pulses are 2+. Old surgical scar in the right leg. SOFTWARE TEST ENGINEER: No focal deficit, power is 5/5 in all extremities. LABORATORY REVIEW: CBC showed WBC 9.3, hemoglobin 13.2, platelets are 137. BMP showed sodium 140, potassium 4.3, chloride 109, bicarbonate 28, BUN 39, creatinine is 1.7, it was 2.1 yesterday, calcium 8.5, albumin is 2.7. Microbiology: Urine culture from yesterday is negative. CURRENT INPATIENT MEDICATIONS: The patient's medications were all reviewed by me. There is no change in the medications today as compared with yesterday. ASSESSMENT/PLAN: 1. Acute renal failure superimposed on chronic kidney disease stage III. Patient's renal function is improving. Diuretics are on hold. Creatinine is down to 1.7 which is close to his baseline. 2. Chronic congestive heart failure. Lisinopril was held. Continue current dose of Coreg. No need of diuretics. He will be evaluated as outpatient for any need to restart the diuretics as outpatient. 3. Diabetes mellitus type 2. Okay to continue sliding scale. Okay to use sulfonylurea. Avoid use of metformin. DISPOSITION: It is okay to discharge the patient from nephrology standpoint. He needs to followup with nephrology within 2 weeks after discharge from the hospital.
--- NOTE | 2018-09-24 19:01 | DSES ---
DATE OF ADMISSION: 09/21/2018 DATE OF DISCHARGE: 09/24/2018 PRIMARY CARE PHYSICIAN: Flor Beltran ATTENDING PHYSICIAN: Dr. Corby Duncan RISK MANAGEMENT CONSULTANT: Dr. Kwadwo Swan HISTORY OF PRESENT ILLNESS: A 63-year-old male who presented to the emergency department at [facility] with chief complaints of bilateral leg and back pain with difficulty ambulating. On workup in the emergency department (ED), patient was noted to have an elevated BUN and creatinine, and he was subsequently admitted and assigned to the family medicine service. HOSPITAL COURSE: Patient's BUN and creatinine on admission 51 and 3.1. Patient was subsequently hydrated. Nephrology was consulted, and patient had some medication changes, including stopping his Bumex and lisinopril. Today's creatinine is 1.76. Patient feels well. He has been cleared by physical therapy. He is tolerating a regular diet. He has had normal bowel movements and is anxious to return home. PHYSICAL EXAMINATION: Blood pressure is stable at 158/86, oxygen saturation 95% on room air, respiratory rate 18, heart rate 69, temperature is 97.7. HEENT: Neck is supple without lymphadenopathy or jugular venous distention (JVD). CARDIOVASCULAR: Heart rate and rhythm are regular. PULMONARY: Lungs are clear to auscultation bilaterally. ABDOMEN: Soft and nontender. IMAGIN. Renal ultrasound, which proved positive for bilateral renal cysts, otherwise negative ultrasound. 2. Chest x-ray, which shows stable chronic change and no acute cardiopulmonary disease. ASSESSMENT: 1. Acute on chronic kidney injury. 2. Hypertension. 3. Diabetes. 4. History of traumatic brain injury (TBI). 5. Hypercholesterolemia. PLAN: Patient will be discharged to home with assistance of [facility]. He will followup with his primary care physician (PCP) within the next 5-7 days. He will followup with nephrology within the next 2 weeks. Diet is consistent carbohydrate. Activity is as tolerated. Patient does have a past medical history of coronary artery disease (CAD) with automatic implantable cardioverter-defibrillator (AICD) and pacemaker. He should have a followup placed with cardiology as well as an updated echocardiogram. MEDICATIONS: - hydralazine 10 mg one by mouth every 8 hours - amiodarone 200 mg by mouth twice a day - atorvastatin 40 mg daily at bedtime - carvedilol 3.125 mg by mouth twice a day - gabapentin 300 mg by mouth three times a day - levothyroxine 88 mcg one by mouth daily - ofloxacin drops left eye four times a day - prednisolone drops left eye four times a day. The eyedrops are presurgery. STOPPED MEDICATIONS: Bumetanide and lisinopril. Patient is discharged in stable and satisfactory condition with no further questions at time of discharge.
== END 2018-09-24 13:30 | disposition home or self-care (01) ==
LOC: EDBD 13:09 → M ED 13:09 → M ED INP 20:13 → M MS5PR 21:20
PROVIDERS: ADMIT Internal Medicine; ATTEND Family Medicine
DX: N17.9 Acute kidney failure, unspecified (principal); N18.3 Chronic kidney disease, stage 3 (moderate); I11.0 Hypertensive heart disease with heart failure; E11.40 Type 2 diabetes mellitus with diabetic neuropathy, unspecified; E11.22 Type 2 diabetes mellitus with diabetic chronic kidney disease; Z87.820 Personal history of traumatic brain injury; E78.00 Pure hypercholesterolemia, unspecified; I50.9 Heart failure, unspecified; I25.10 Atherosclerotic heart disease of native coronary artery without angina pectoris; I73.9 Peripheral vascular disease, unspecified; E03.9 Hypothyroidism, unspecified; N28.1 Cyst of kidney, acquired; M54.9 Dorsalgia, unspecified; M79.604 Pain in right leg; M79.605 Pain in left leg; Z95.810 Presence of automatic (implantable) cardiac defibrillator; Z79.899 Other long term (current) drug therapy; Z95.5 Presence of coronary angioplasty implant and graft
CPT/HCPCS: 36415; 71045; 76775; 80048; 80053; 81001; 82550; 82553; 83036; 84484; 85025; 85027; 87086; 87641; 93005; 93041; 96360; 96361; 97161; 99285; G0378

== ENCOUNTER 2018-09-25 08:03 | Emergency (ER) | payer MEDICARE, MEDICAID ==
[~2018-09-25] VITALS: Ht 180.3 cm; Wt 95.5 kg
[~2018-09-25 08:03] MED LIST changes: +CARV3.12 PO; +HYDR10TAB PO; +LEVO88TA3 PO; +LISI-1046 PO; +OFLO3OPSO OS; +PREDOPD OS
[2018-09-25 09:45] LABS: BASO # 0.1 10^3/uL (0.0-0.2); BASO % 1.2 % (0.0-1.0); EOS # 0.2 10^3/uL (0.0-0.50); EOS % 2.4 % (0.0-3.0); HEMOGLOBIN 14.5 g/dl (13.5-17.5); LYMPH % 11.1 % (24.0-44.0); MEAN CORPUSCULAR HEMOGLOBIN 29.8 pg (27.0-33.0); MEAN CORPUSCULAR HGB CONC 31.5 g/dl (32.0-36.5); MEAN CORPUSCULAR VOLUME 94.7 fl (80.0-96.0); MONO # 0.9 10^3/uL (0.0-0.8); MONO % 9.7 % (0.0-5.0); PLATELET COUNT, AUTOMATED 146 10^3/uL (150-450); RED BLOOD COUNT 4.86 10^6/uL (4.30-6.10); WHITE BLOOD COUNT 9.4 10^3/uL (4.0-10.0)
--- NOTE | 2018-09-25 10:11 | REP ---
CHEST, TWO VIEWS: Two views of the chest are performed and compared to prior studies most recently 09/21/2018. Once again there are multiple tiny calcified granulomas bilaterally. No acute infiltrate is seen. There is mild bibasilar fibrotic scarring. The heart is not enlarged and appears to be at the upper limits of normal in size. There is mild calcification and tortuosity of the thoracic aorta. The mediastinal silhouette is unchanged. There are degenerative changes of the spine. IMPRESSION; Chronic changes as above. No evidence of acute infiltrate. Electronically Signed by Richi Mejia MD 09/29/2018 05:22 P
[2018-09-25 10:16] LABS: CALCIUM LEVEL 8.8 MG/DL (8.8-10.2); CK-MB VALUE MASS 4.8 NG/ML (<3.6); CREATININE FOR GFR 1.66 MG/DL (0.70-1.30); GLOMERULAR FILTRATION RATE 44.9 (>49); MB/CK RELATIVE INDEX 4.25 (< OR =4); POTASSIUM SERUM 4.6 MEQ/L (3.5-5.1); THYROID STIMULATING HORMONE 5.71 uIU/ML (0.358-3.740); TROPONIN I 0.04 NG/ML (< 0.10)
[2018-09-25] MEDS ORDERED: NS 1,000 ML IV ONE (10:30)
[2018-09-25 14:54] VITALS: BP 190/105
--- NOTE | 2018-09-26 09:28 | ECGEPIP ---
[facility] - ED Test Date: 2018-09-25 Pat Name: MASON OLIVER Department: Room: - Gender: Male Pacs Administrator: : [id number] Requested By: POLLY MCCONNELL Order Number: [id number] Reading MD: Kylee Bradford Measurements Intervals [place] Rate: 73 P: 63 TX: 156 QRS: 205 QRSD: 197 T: 67 QT: 448 QTc: 495 Interpretive Statements ELECTRONIC VENTRICULAR PACEMAKER ABNORMAL RHYTHM ECG similar to prior EKG 09/21/18 Electronically Signed on 09-26-2018 9:28:31 EDT by Kylee Bradford
== END 2018-09-25 15:01 | disposition home or self-care (01) ==
LOC: M ED 08:03 → EDBD 08:03 → EEVIPCON 08:03 → M ED 15:01
DX: R53.1 Weakness (principal); Z95.0 Presence of cardiac pacemaker; R94.31 Abnormal electrocardiogram [ECG] [EKG]; I50.9 Heart failure, unspecified; I25.2 Old myocardial infarction; E11.9 Type 2 diabetes mellitus without complications; I10 Essential (primary) hypertension; J45.909 Unspecified asthma, uncomplicated; F32.9 Major depressive disorder, single episode, unspecified; Z95.5 Presence of coronary angioplasty implant and graft; Z87.891 Personal history of nicotine dependence

== ENCOUNTER → 2018-10-01 | Outpatient (REF) | payer MEDICARE, MEDICAID ==
[~2018-10-01] MED LIST changes: +BASA100I; +CRES40TA PO; +ELIQ5TAB; +ELIQ5TAB PO; +FLOM0.4C39 PO; +GABA-1171; +GABA-1171 PO; +MEXI200C; +MEXI200C PO; +ROSU40TA4; +SYMB80INH INH; +TAMS1CAP17; +TRAZ-252; +TRAZ-252 PO
[2018-10-01 19:54] LABS: CHOLESTEROL RISK RATIO 2.725 (<5)
== END ==
LOC: M SFHCADAM 11:28
PROVIDERS: ATTEND Physician Assistant Medical
DX: E11.65 Type 2 diabetes mellitus with hyperglycemia (principal)

== ENCOUNTER → 2019-01-15 | Outpatient (REF) | payer MEDICARE ==
[~2019-01-15] MED LIST changes: -BASA100I; -CRES40TA PO; -ELIQ5TAB; -ELIQ5TAB PO; -FLOM0.4C39 PO; -GABA-1171; -GABA-1171 PO; -MEXI200C; -MEXI200C PO; -ROSU40TA4; -SYMB80INH INH; -TAMS1CAP17; -TRAZ-252; -TRAZ-252 PO
[2019-01-15 19:01] LABS: BASO # 0.1 10^3/uL (0.0-0.2); BASO % 0.9 % (0.0-1.0); EOS # 0.2 10^3/uL (0.0-0.5); EOS % 2.3 % (0.0-3.0); HEMATOCRIT 44.3 % (42.0-52.0); HEMOGLOBIN 13.5 g/dl (13.5-17.5); LYMPH # 1.2 10^3/uL (1.5-5.0); LYMPH % 12.6 % (24.0-44.0); MEAN CORPUSCULAR HGB CONC 30.5 g/dl (32.0-36.5); MEAN CORPUSCULAR VOLUME 95.1 fl (80.0-96.0); MONO # 0.8 10^3/uL (0.0-0.8); MONO % 8.7 % (0.0-5.0); NEUTROPHILS % 75.1 % (36.0-66.0); PLATELET COUNT, AUTOMATED 180 10^3/uL (150-450); RED BLOOD COUNT 4.66 10^6/uL (4.30-6.10); WHITE BLOOD COUNT 9.3 10^3/uL (4.0-10.0)
[2019-01-15 19:16] LABS: ALBUMIN 3.3 GM/DL (3.2-5.2); BILIRUBIN,TOTAL 0.4 MG/DL (0.2-1.0); CREATININE FOR GFR 1.92 MG/DL (0.70-1.30); POTASSIUM SERUM 4.2 MEQ/L (3.5-5.1); THYROID STIMULATING HORMONE 5.94 uIU/ML (0.358-3.740); TOTAL PROTEIN 6.5 GM/DL (6.4-8.2)
[2019-01-15 19:19] LABS: HEMOGLOBIN A1c 7.5 %
== END ==
LOC: M SFHCADAM 15:39
PROVIDERS: ATTEND Physician Assistant Medical
DX: E11.65 Type 2 diabetes mellitus with hyperglycemia (principal); I73.9 Peripheral vascular disease, unspecified; E78.2 Mixed hyperlipidemia; I25.10 Atherosclerotic heart disease of native coronary artery without angina pectoris

== ENCOUNTER 2019-01-29 09:52 | Emergency (ER) | payer MEDICARE, MEDICAID ==
[2019-01-29] MEDS ORDERED: ROSU40TA4 (10:02)
[2019-01-29] MEDS ORDERED: GABA-1171 (10:02)
[2019-01-29] MEDS ORDERED: ELIQ5TAB (10:02)
[2019-01-29] MEDS ORDERED: TAMS1CAP17 (10:02)
[2019-01-29] MEDS ORDERED: BASA100I (10:02)
[2019-01-29] MEDS ORDERED: TRAZ-252 (10:02)
[2019-01-29 10:03] VITALS: BP 184/94
[2019-01-29] MEDS ORDERED: DERMABOND TOPICAL SKIN ADHESIVE TOP ONE (10:15)
== END 2019-01-29 11:08 | disposition home or self-care (01) ==
LOC: M ED 09:52 → EDBD 09:52 → M ED 11:08
DX: T82.838A Hemorrhage due to vascular prosthetic devices, implants and grafts, initial encounter (principal); I50.9 Heart failure, unspecified; I25.2 Old myocardial infarction; E11.9 Type 2 diabetes mellitus without complications; I10 Essential (primary) hypertension; E78.5 Hyperlipidemia, unspecified; N18.9 Chronic kidney disease, unspecified; F32.9 Major depressive disorder, single episode, unspecified; Z85.51 Personal history of malignant neoplasm of bladder; J45.909 Unspecified asthma, uncomplicated; J44.9 Chronic obstructive pulmonary disease, unspecified; Z95.5 Presence of coronary angioplasty implant and graft

== ENCOUNTER 2019-02-07 14:49 | Emergency (ER) | payer MEDICARE, MEDICAID ==
[~2019-02-07] VITALS: Ht 180.3 cm; Wt 71.4 kg
[~2019-02-07 14:49] MED LIST changes: +BASA100I; +ELIQ5TAB; +GABA-1171; +ROSU40TA4; +TAMS1CAP17; +TRAZ-252
[2019-02-07 15:28] LABS: BASO # 0.1 10^3/uL (0.0-0.2); BASO % 0.8 % (0.0-1.0); EOS # 0.2 10^3/uL (0.0-0.5); EOS % 1.6 % (0.0-3.0); HEMATOCRIT 44.4 % (42.0-52.0); HEMOGLOBIN 13.7 g/dl (13.5-17.5); LYMPH % 8.2 % (24.0-44.0); MEAN CORPUSCULAR HEMOGLOBIN 29.1 pg (27.0-33.0); MEAN CORPUSCULAR HGB CONC 30.9 g/dl (32.0-36.5); MEAN CORPUSCULAR VOLUME 94.3 fl (80.0-96.0); MONO % 8.9 % (0.0-5.0); NEUTROPHILS # 9.3 10^3/uL (1.5-8.5); NEUTROPHILS % 80.2 % (36.0-66.0); PLATELET COUNT, AUTOMATED 164 10^3/uL (150-450); RED BLOOD COUNT 4.71 10^6/uL (4.30-6.10); WHITE BLOOD COUNT 11.6 10^3/uL (4.0-10.0)
[2019-02-07 15:51] LABS: CALCIUM LEVEL 8.2 MG/DL (8.8-10.2); CREATININE FOR GFR 1.95 MG/DL (0.70-1.30); GLOMERULAR FILTRATION RATE 37.3 (>49); MAGNESIUM LEVEL 2.1 MG/DL (1.8-2.4); POTASSIUM SERUM 4.4 MEQ/L (3.5-5.1)
[2019-02-07 16:00] VITALS: BP 150/90
--- NOTE | 2019-02-08 07:29 | REP ---
AP CHEST: 02/07/2019 COMPARISON: PA lateral chest 09/25/2018, AP chest 09/21/2018. CLINICAL HISTORY: Implantable defibrillator firing. FINDINGS: A multilead pacer defibrillator noted over the left upper chest with leads in the right atrium, right ventricle and an epicardial lead again seen. The pacer defibrillator unit is projecting over the left upper chest. The aorta is mildly tortuous and calcified. Heart has left ventricular configuration. There are innumerable small scattered nodules in the parenchyma unchanged and representing old granulomatous disease. No effusion, lateral pleural thickening or apical scarring on these two views. Prominence of pulmonary arteries on both sides consistent with COPD. No dense consolidation. There is some minor linear fibrotic change in the left base. Degenerative changes in the spine and shoulders are noted. No free air. IMPRESSION: 1. COPD, fibrosis with some heavier basilar fibrotic changes and pulmonary artery hypertension. 2. Multiple calcified granuloma in both lung mulligan. No edema or effusion. 3. Prominence of the left ventricle and a pacer defibrillator unit over the left upper chest with leads as described, unchanged. Electronically Signed by Cipriano Ruano MD 02/08/2019 07:45 A
--- NOTE | 2019-02-08 16:42 | ECGEPIP ---
[facility] - ED Test Date: 2019-02-07 Pat Name: MASON OLIVER Department: Room: - Gender: Male Hris Developer: SKIP : [id number] Requested By: Kylee Bradford Order Number: [id number] Reading MD: Kylee Bradford Measurements Intervals [place] Rate: 65 P: 65 VT: 168 QRS: 259 QRSD: 195 T: 88 QT: 501 QTc: 524 Interpretive Statements ELECTRONIC VENTRICULAR PACEMAKER ABNORMAL RHYTHM ECG DECREASED RATE 09/25/18 Electronically Signed on 02-08-2019 16:41:47 EST by Kylee Bradford
== END 2019-02-07 16:37 | disposition home or self-care (01) ==
LOC: M ED 14:49 → EDBD 14:49 → M ED 16:37
DX: I11.9 Hypertensive heart disease without heart failure (principal); E78.5 Hyperlipidemia, unspecified; E11.51 Type 2 diabetes mellitus with diabetic peripheral angiopathy without gangrene; J44.9 Chronic obstructive pulmonary disease, unspecified; I73.9 Peripheral vascular disease, unspecified; N28.9 Disorder of kidney and ureter, unspecified; Z95.810 Presence of automatic (implantable) cardiac defibrillator; Z87.891 Personal history of nicotine dependence; Z95.5 Presence of coronary angioplasty implant and graft; Z79.899 Other long term (current) drug therapy; Z79.01 Long term (current) use of anticoagulants; Z79.4 Long term (current) use of insulin

== ENCOUNTER 2019-02-16 22:28 | Observation (INO) | payer MEDICARE, MEDICAID ==
[~2019-02-16] VITALS: Ht 180.3 cm; Wt 85.5 kg
[~2019-02-16 22:28] MED LIST changes: +lisinopriL 20 MG TAB PO SCH
[2019-02-16] MEDS ORDERED: MEXI200C (22:53)
[2019-02-16 23:03] LABS: BASO # 0.1 10^3/uL (0.0-0.2); BASO % 0.9 % (0.0-1.0); EOS # 0.1 10^3/uL (0.0-0.5); EOS % 1.7 % (0.0-3.0); HEMATOCRIT 43.8 % (42.0-52.0); HEMOGLOBIN 13.6 g/dl (13.5-17.5); LYMPH % 12.9 % (24.0-44.0); MEAN CORPUSCULAR HEMOGLOBIN 29.1 pg (27.0-33.0); MEAN CORPUSCULAR HGB CONC 31.1 g/dl (32.0-36.5); MEAN CORPUSCULAR VOLUME 93.6 fl (80.0-96.0); MONO # 1.1 10^3/uL (0.0-0.8); MONO % 13.6 % (0.0-5.0); NEUTROPHILS # 5.5 10^3/uL (1.5-8.5); NEUTROPHILS % 69.7 % (36.0-66.0); PLATELET COUNT, AUTOMATED 177 10^3/uL (150-450); RED BLOOD COUNT 4.68 10^6/uL (4.30-6.10); WHITE BLOOD COUNT 7.8 10^3/uL (4.0-10.0)
[2019-02-16] MEDS ORDERED: LABETALOL HCL 100 MG/20 ML VIAL IV STA (23:08)
[2019-02-16 23:15] LABS: INR 1.27; PROTHROMBIN TIME 15.6 SECONDS (11.8-14.0)
[2019-02-16 23:16] LABS: PARTIAL THROMBOPLASTIN TIME 36.2 SECONDS (25.0-38.4)
--- NOTE | 2019-02-16 23:36 | REPVR ---
PROCEDURE INFORMATION: Exam: CT Head Without Contrast Exam date and time: 02/16/2019 10:57 PM Age: 63 years old Clinical indication: Injury or trauma; Injury history: Tv fell on PT; Initial encounter; Blunt trauma (contusions or hematomas); Additional info: Dizziness/takes anticoag tv fell on head TECHNIQUE: Imaging protocol: Computed tomography of the head without contrast. Radiation optimization: All CT scans at this facility use at least one of these dose optimization techniques: automated exposure control; mA and/or kV adjustment per patient size (includes targeted exams where dose is matched to clinical indication); or iterative reconstruction. COMPARISON: CT Head without contrast 04/01/2017 3:09 PM FINDINGS: Brain: There are moderate periventricular and subcortical lucencies consistent with chronic microvascular ischemic changes.The caldwell-white differentiation is maintained. No hemorrhage. No edema. Ventricles: Ventricles and sulci are prominent consistent with age appropriate parenchymal volume loss. Bones/joints: Unremarkable. No acute fracture. Sinuses: Visualized sinuses are unremarkable. No fluid levels. Mastoid air cells: Visualized mastoid air cells are well aerated. Soft tissues: Unremarkable. IMPRESSION: No acute intracranial abnormality. Chronic microvascular ischemic changes. Electronically signed by: Soren Anderson On 02/16/2019 23:36:26 PM
--- NOTE | 2019-02-16 23:55 | REPVR ---
PROCEDURE INFORMATION: Exam: XR Chest, 2 Views Exam date and time: 02/16/2019 11:27 PM Age: 63 years old Clinical indication: Other: Dizzy; Additional info: Dizziness TECHNIQUE: Imaging protocol: XR of the chest Views: 2 views. COMPARISON: CR Chest, 1 view 02/07/2019 3:23 PM FINDINGS: Tubes, catheters and devices: A left approach pacemaker/defibrillator. Lungs: Multiple calcified granulomas in bilateral lungs. Pleural space: Unremarkable. No pleural effusion. No pneumothorax. Heart/Mediastinum: Unremarkable. No cardiomegaly. Bones/joints: Degenerative changes of the spine. IMPRESSION: No acute abnormality. Electronically signed by: Soren Anderson On 02/16/2019 23:55:19 PM
[2019-02-17 00:01] LABS: ALBUMIN 2.9 GM/DL (3.2-5.2); BILIRUBIN,DIRECT 0.2 MG/DL (0.0-0.2); BILIRUBIN,TOTAL 0.5 MG/DL (0.2-1.0); CALCIUM LEVEL 8.3 MG/DL (8.8-10.2); CK-MB VALUE MASS 4.2 NG/ML (<3.6); CREATININE FOR GFR 1.88 MG/DL (0.70-1.30); GLOMERULAR FILTRATION RATE 38.9 (>49); MB/CK RELATIVE INDEX 2.82 (< OR =4); POTASSIUM SERUM 4.2 MEQ/L (3.5-5.1); THYROID STIMULATING HORMONE 5.61 uIU/ML (0.358-3.740); TOTAL PROTEIN 6.3 GM/DL (6.4-8.2); TROPONIN I 0.03 NG/ML (< 0.10)
[2019-02-17] MEDS ORDERED: MECLIZINE 25 MG TABLET PO ONE (00:15)
[2019-02-17] MEDS ORDERED: NS 1,000 ML IV ONE (00:45)
[2019-02-17] MEDS ORDERED: FLOM0.4C39 PO (01:21)
[2019-02-17] MEDS ORDERED: TRAZ-252 PO (01:21)
[2019-02-17] MEDS ORDERED: GABA-1171 PO (01:21)
[2019-02-17] MEDS ORDERED: CRES40TA PO (01:21)
[2019-02-17] MEDS ORDERED: MEXI200C PO (01:21)
[2019-02-17] MEDS ORDERED: ELIQ5TAB PO (01:21)
[2019-02-17] MEDS ORDERED: NITR4TASL SL (01:22)
[2019-02-17] MEDS ORDERED: SYMB80INH INH (01:22)
[2019-02-17 02:19] LABS: AMPHETAMINES LEVEL URINE POSITIVE (NEGATIVE); BARBITURATES URINE NEGATIVE (NEGATIVE); BENZODIAZEPINES URINE NEGATIVE (NEGATIVE); CANNABINOIDS URINE NEGATIVE (NEGATIVE); COCAINE METABOLITE URINE NEGATIVE (NEGATIVE); METHADONE URINE NEGATIVE (NEGATIVE); OPIATES URINE NEGATIVE (NEGATIVE); PHENCYCLIDINE URINE NEGATIVE (NEGATIVE)
[2019-02-17] MEDS ORDERED: MECLIZINE 25 MG TABLET PO PRN (03:15)
[2019-02-17] MEDS ORDERED: NITROGLYCERIN 0.4 MG SUBL TABLET SL PRN (03:15)
[2019-02-17] MEDS ORDERED: hydrALAZINE INJ 20 MG/ML VIAL IV PRN (03:15)
[2019-02-17] MEDS ORDERED: traZODone 50 MG TAB PO PRN (03:15)
--- NOTE | 2019-02-17 04:11 | HPEPDOC ---
[facility] Medical History & Physical Date of Admission Feb 17, 2019 Date of Service: Feb 17, 2019 Attending Physician: GILDARDO FERNÁNDEZ DO History and Physical CHIEF COMPLAINT: Dizziness HISTORY OF PRESENT ILLNESS: Patient is 61-year-old male with past medical history significant for left middle cerebral artery CVA, coronary artery disease with percutaneous intervention and stent placement in 2013 and 2014, diabetes mellitus type 2, Hypertension, and peripheral vascular disease presented to [facility] were spent with complaint of dizziness. The patient stated that on Friday he developed some dizziness. Patient stated that his dizziness has persisted for the past few days, which prompted him to present to the [place]. The patient states that he has not had any nausea or vomiting. Patient has a history of a stroke, however, denies any changes in his gait or speech. The patient also denies any weakness. He does state that a few days ago his AICD had gone off. He currently denies any chest pain or shortness of breath. In the emergency department, the patient was found to be hypertensive with a blood pressure of 186/114. . He was given IV labetalol by ER staff resulting in a drop in blood pressure to 106/65. Patient received a head CT, which demonstrated no acute abnormalities, but chronic microvascular ischemic changes. A chest x-ray performed demonstrate no acute abnormalities. The patient had received meclizine and noted improvement in his dizziness. Hospitalist service was consulted for further evaluation and management. The patient PAST MEDICAL HISTORY: 1. History of history of ventricular fibrillation with pacemaker\defibrillator placement. 2. Coronary artery disease with stents placement in 2013 and 2014 3. Left middle cerebral artery, circumflex vascular accident. 4. Diabetes mellitus type 2 5. Hypertension 6. Peripheral vascular disease PAST SURGICAL HISTORY: 1. Femoral bypass grafting of left leg. 2. Percutaneous intervention with stent placement 2 3. Catheter directed thrombolysis of MCA territory. SOCIAL HISTORY: Patient lives alone at home. He is a former smoker. He quit smoking last year. He smoked for approximately 50 years one pack per day. Denies any alcohol use. Denies any IV or illicit drug use. FAMILY HISTORY: Patient's mother had diabetes and from cancer. Patient's father was an alcoholic and had from an [place]. Patient has 2 children who are alive and well ALLERGIES: Please see below. REVIEW OF SYSTEMS: CONSTITUTIONAL: Patient denies unintentional weight loss or weight gain. Denies any night sweats, fevers, chills, or changes in appetite. HEENT: Patient denies any headaches, change in vision or difficulty swallowing. He denies any pain on swallowing. CARDIOVASCULAR:. Patient denies any chest pain or pressure. He admits to occasional feelings of palpitations. RESPIRATORY:. Patient currently denies any shortness of breath, wheezing, coughing or sputum production. GASTROINTESTINAL: Patient denies any abdominal pain, nausea, vomiting, diarrhea or constipation. GENITOURINARY:. Denies any dysuria, increased frequency or urgency. SKIN:. Patient admits to a scab on the right side of his head from the TV falling on him over week ago. He denies any other rash or lesions MUSCULOSKELETAL:. Patient denies any muscle pain or weakness. NEUROLOGICAL:. Patient missed a history of stroke. Patient admits to some changes in his speech since his previous stroke. He admits to peripheral neuropathy in his legs bilaterally. He denies any changes in his gait. He denies any confusion PSYCHIATRIC: Patient denies any depression or anxiety. ENDOCRINE:. Denies any heat intolerance or cold intolerance. He admits to history of diabetes and hypothyroidism. HEMATOLOGIC/LYMPHATIC: Patient denies any easy bruising or bleeding. HOME MEDICATIONS: Please see below. PHYSICAL EXAMINATION: VITAL SIGNS: Temperature 97.1, pulse, 67, respiratory rate 14, blood pressure 172/92, pulse oximetry 94 % on room air. GENERAL APPEARANCE:. Patient is awake, alert and oriented. He does not appear to be any acute distress. He is lying in bed comfortably. HEENT: Atraumatic, normocephalic Eyes are nonicteric. Trachea is midline.. Dentition is fair, Mallampati class 4 CARDIOVASCULAR: Normal S1, S2, regular rate and rhythm. No clicks, rubs or murmurs. LUNGS:. Clear vesicular breath sounds bilaterally with good respiratory effort. There is no wheezes, rhonchi or rales ABDOMEN:. Soft, nondistended, nontender, no rebound tenderness or guarding. Normoactive bowel sounds throughout. No palpable masses MUSCULOSKELETAL:, 5 out of 5 bilateral upper and lower extremities. EXTREMITIES: No edema. Full and equal pulses in bilateral upper and lower extremities. NEUROLOGICAL: Cranial nerves II through XII grossly intact. Cerebellar testing is normal. Muscle strength testing is 5 out of 5 bilateral upper and lower extremities PSYCHIATRIC: Mood and affect appear appropriate. LABORATORY DATA: See below. IMAGING: PROCEDURE INFORMATION: Exam: CT Head Without Contrast Exam date and time: 02/16/2019 10:57 PM Age: 63 years old Clinical indication: Injury or trauma; Injury history: Tv fell on PT; Initial encounter; Blunt trauma (contusions or hematomas); Additional info: Dizziness/takes anticoag tv fell on head TECHNIQUE: Imaging protocol: Computed tomography of the head without contrast. Radiation optimization: All CT scans at this facility use at least one of these dose optimization techniques: automated exposure control; mA and/or kV adjustment per patient size (includes targeted exams where dose is matched to clinical indication); or iterative reconstruction. COMPARISON: CT Head without contrast 04/01/2017 3:09 PM FINDINGS: Brain: There are moderate periventricular and subcortical lucencies consistent with chronic microvascular ischemic changes.The caldwell-white differentiation is maintained. No hemorrhage. No edema. Ventricles: Ventricles and sulci are prominent consistent with age appropriate parenchymal volume loss. Bones/joints: Unremarkable. No acute fracture. Sinuses: Visualized sinuses are unremarkable. No fluid levels. Mastoid air cells: Visualized mastoid air cells are well aerated. Soft tissues: Unremarkable. IMPRESSION: No acute intracranial abnormality. Chronic microvascular ischemic changes. Electronically signed by: Soren Anderson On 02/16/2019 23:36:26 PM PROCEDURE INFORMATION: Exam: XR Chest, 2 Views Exam date and time: 02/16/2019 11:27 PM Age: 63 years old Clinical indication: Other: Dizzy; Additional info: Dizziness TECHNIQUE: Imaging protocol: XR of the chest Views: 2 views. COMPARISON: CR Chest, 1 view 02/07/2019 3:23 PM FINDINGS: Tubes, catheters and devices: A left approach pacemaker/defibrillator. Lungs: Multiple calcified granulomas in bilateral lungs. Pleural space: Unremarkable. No pleural effusion. No pneumothorax. Heart/Mediastinum: Unremarkable. No cardiomegaly. Bones/joints: Degenerative changes of the spine. IMPRESSION: No acute abnormality. Electronically signed by: Soren Anderson On 02/16/2019 23:55:19 PM MICROBIOLOGY: Please see below. ASSESSMENT: Patient is a 63-year-old male with muscle comorbid conditions who presented to [facility] emergency department with complaint of dizziness. Given the patient's history of coronary artery disease, peripheral vascular disease as well as a fairly recent left middle cerebral artery stroke. The Patient was admitted for observation due to hypertensive emergency.\Urgency. PLAN: 1. Hypertensive urgency\Urgency -Patient presented these are to [facility] emergency department with complaint of dizziness, was found to have elevated blood pressures. He has a history of CVA involving the left middle cerebral artery territory. In the ER, the patient received labetalol IV resulting in a subsequent drop in the patient's blood pressure. He currently denies any dizziness -Patient will need blood pressure control with a goal of 150-160. He will have when necessary hydralazine for systolic blood pressure greater than 170 -Will start lisinopril 20 mg daily at bedtime for hypertension in setting of diabetes -Will add meclizine for dizziness -CT imaging is negative for any acute findings. Unable to have MRI as he has a pacemaker/defibrillator 2. History of CVA -Patient has a history of a left middle cerebral artery stroke for which he had received catheter directed thrombolysis at [facility]. His only residual effect of a stroke is slightly slurred speech. He presented today with dizziness and elevated blood pressures. He currently has IV hydralazine ordered for systolic blood pressures greater than 170. -Will continue patient's Crestor. Will add aspirin 81 mg. -Patient states he does not have a history of atrial fibrillation however, was started on Eliquis after his initial stroke. Will need to obtain records from [facility] to establish whether patient had a thromboembolic stroke previously from atrial fibrillation 3. History of ventricular arrhythmias -Patient has a history of ventricular arrhythmias with pacemaker\AICD placement. - Patient is currently ventricularly paced -Continue amiodarone 200 mg daily by mouth 4. History of CAD -Continue statin, Coreg, aspirin 5. Diabetes Mellitus Type 2 -ACHS sliding scale coverage 6. Hypothyroidism -Patient has elevated TSH. Patient may need increase in his levothyroxine. -Will check a free T4 6. DVT prophylaxis -Patient is chronically anticoagulated with eliquis IGildardo, have independently examined this patient and performed my own physical exam, as well as reviewed the documentation and edited where necessary. I have discussed in detail with the resident / student the findings and plan of treatment as documented by the resident / student and edited their note. I agree with their findings and treatment plan and have edited their documentation. I will continue to follow the patient during this hospital stay. Vital Signs Vital Signs Date Time Temp Pulse Resp B/P (MAP) Pulse Ox O2 Delivery O2 Flow Rate FiO2 02/17/19 03:00 67 14 172/92 (118) 94 Room Air 02/16/19 22:38 97.1 Laboratory Data Labs 24H Laboratory Tests 2 02/16/19 22:51: Immature Granulocyte % (Auto) 1.2, Neutrophils (%) (Auto) 69.7H, Lymphocytes (%) (Auto) 12.9L, Monocytes (%) (Auto) 13.6H, Eosinophils (%) (Auto) 1.7, Basophils (%) (Auto) 0.9, Neutrophils # (Auto) 5.5, Lymphocytes # (Auto) 1.0L, Monocytes # (Auto) 1.1H, Eosinophils # (Auto) 0.1, Basophils # (Auto) 0.1, Nucleated Red Blood Cells % (auto) 0.0, Prothrombin Time 15.6H, Prothromb Time International Ratio 1.27, Activated Partial Thromboplast Time 36.2, Anion Gap 7L, Glomerular Filtration Rate 38.9L, Calcium Level 8.3L, Total Bilirubin 0.5, Direct Bilirubin 0.2, Aspartate Amino Transf (AST/SGOT) 39H, Alanine Aminotransferase (ALT/SGPT) 54, Alkaline Phosphatase 103, Ammonia 24, Total Creatine Kinase 149, Creatine Kinase MB 4.2H, Creatine Kinase MB Relative Index 2.82, Troponin I 0.03, Total Protein 6.3L, Albumin 2.9L, Albumin/Globulin Ratio 0.85L, Thyroid Stimulating Hormone (TSH) 5.610H 02/17/19 01:49: Urine Color YELLOW, Urine Appearance CLOUDYH, Urine pH 6.0, Urine Specific [place] 1.014, Urine Protein 3+H, Urine Glucose (UA) NEGATIVE, Urine Ketones NEGATIVE, Urine Blood 2+H, Urine Nitrite NEGATIVE, Urine Bilirubin NEGATIVE, Urine Urobilinogen 0.2, Urine Leukocyte Esterase 2+H, Urine WBC (Auto) 168H, Urine RBC (Auto) 11H, Urine Hyaline Casts (Auto) 0, Urine Bacteria (Auto) 3+H, Urine Squamous Epithelial Cells 0, Urine Sperm (Auto) , Urine Opiates Screen NEGATIVE, Urine Methadone Screen NEGATIVE, Urine Barbiturates Screen NEGATIVE, Urine Phencyclidine Screen NEGATIVE, Urine Amphetamines Screen POSITIVEH, Urine Benzodiazepines Screen NEGATIVE, Urine Cocaine Metabolite Screen NEGATIVE, Urine Cannabinoids Screen NEGATIVE CBC/BMP Laboratory Tests 02/16/19 22:51 Microbiology Microbiology 02/17/19 Urine Culture, Received Pending 02/17/19 Blood Culture, Received Pending 02/16/19 Blood Culture, Received Pending Home Medications Scheduled Amiodarone HCl (Amiodarone HCl) 200 Mg Tab, 200 MG PO DAILY Apixaban (Eliquis) 5 Mg Tablet, 5 MG PO DAILY Budesonide/Formoterol (Symbicort 80-4.5 Mcg Inhaler) 6.9 Gm Hfa.aer.ad, 2 PUFF INH BID Carvedilol (Carvedilol) 3.125 Mg Tablet, 3.125 MG PO BID HOLD FOR SBP < 160 Gabapentin (Gabapentin) 100 Mg Capsule, 100 MG PO DAILY Levothyroxine Sodium (Levothyroxine Sodium) 88 Mcg Tablet, 88 MCG PO DAILY Mexiletine HCl (Mexiletine HCl) 200 Mg Capsule, 200 MG PO BID Rosuvastatin Calcium (Crestor) 40 Mg Tablet, 40 MG PO DAILY Tamsulosin HCl (Flomax) 0.4 Mg Capsule, 0.4 MG PO DAILY Scheduled PRN Nitroglycerin (Nitrostat) 0.4 Mg Tab.subl, 0.4 MG SL NITRO PRN for CHEST PAIN Trazodone HCl (Trazodone HCl) 50 Mg Tablet, 50 MG PO QHS PRN for SLEEP Allergies Coded Allergies: No Known Allergies (Unverified , 08/02/12) A-FIB/CHADSVASC A-FIB History Current/History of A-Fib/PAF?: Yes Current PO Anticoag Therapy: Yes YOVANY GAO DO Feb 17, 2019 04:11 GILDARDO FERNÁNDEZ DO Feb 19, 2019 06:34
[2019-02-17] MEDS ORDERED: DEXTROSE 50% 50 ML SYRINGE IV PRN (04:15)
[2019-02-17] MEDS ORDERED: GLUCAGON FOR INJ 1 MG VIAL (J1610) SC PRN (04:15)
[2019-02-17] MEDS ORDERED: GLUCOSE 4 GM CHEW TABLET PO PRN (04:15)
[2019-02-17 06:00] VITALS: BP 109/68
[2019-02-17] MEDS ORDERED: LEVOTHYROXINE 88MCG TABLET (0.088 MG) PO SCH (06:00)
[2019-02-17] MEDS ORDERED: HumaLOG INSULIN (NovoLOG) PER UNIT SC SCH ×2 (07:30→21:00)
[2019-02-17 07:51] LABS: CALCIUM LEVEL 8.4 MG/DL (8.8-10.2); CREATININE FOR GFR 2.02 MG/DL (0.70-1.30); FREE T4 1.66 NG/DL (0.76-1.46); GLOMERULAR FILTRATION RATE 35.8 (>49); POTASSIUM SERUM 3.7 MEQ/L (3.5-5.1)
[2019-02-17] MEDS ORDERED: SYMBICORT 80/4.5MCG INHALER 6GM INH SCH (08:00)
--- NOTE | 2019-02-17 08:13 | ECGEPIP ---
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
[2019-02-17 08:28] VITALS: BP 109/68
[2019-02-17] MEDS ORDERED: ROSUVASTATIN 10 MG TAB (CRESTOR) PO SCH (09:00)
[2019-02-17] MEDS ORDERED: GABAPENTIN 100 MG CAP PO SCH (09:00)
[2019-02-17] MEDS ORDERED: ASPIRIN 81 MG ENTERIC TAB PO SCH (09:00)
[2019-02-17] MEDS ORDERED: AMIODARONE 200 MG TAB (PACERONE) PO SCH (09:00)
[2019-02-17] MEDS ORDERED: CARVedilol 3.125 MG TAB PO SCH (09:00)
[2019-02-17] MEDS ORDERED: TAMSULOSIN 0.4 MG CAP PO SCH (09:00)
[2019-02-17] MEDS ORDERED: APIXABAN 5 MG TAB (ELIQUIS) PO SCH (09:00)
--- NOTE | 2019-02-17 09:20 | DSES ---
DATE OF ADMISSION: 02/16/2019 DATE OF DISCHARGE: PRINCIPAL DIAGNOSIS: Attack of vertigo, probably vestibular neuronitis. SECONDARY DIAGNOSES: 1. Hypertensive urgency. 2. History of recent left middle cerebral artery stroke. 3. History ventricular arrhythmias with automatic implantable cardioverter defibrillator (AICD). 4. Type 2 diabetes. 5. Coronary artery disease. 6. Hypothyroidism. HISTORY: Shaji Cruz presented with dizziness. He was having positional vertigo for several days, worse if he turned his head. He was not able to walk. He came to the emergency room. He was found to have be hypertensive in the emergency room. Blood pressure 186/114. This was treated with intravenous (IV) labetalol in the hospitalization. HOSPITAL COURSE: By the next morning his blood pressure was down to 109/68. He was having less positional vertigo, which is distinctly vestibular - could precipitate it by rotating his head left to right while supine, and he was seen by physical therapy and cleared to go home. This morning he is eager for discharge. He says his vertigo is better and "if I don't turn my head quick I'm okay." He does not have any focal neurological deficits and his exam was otherwise unremarkable. DISPOSITION: The patient is discharged home improved and stable condition. I am not changing any of the medicines he was taking prior to admission. His blood pressure was elevated in the emergency room, which is not uncommon with vestibular attack. He will followup with Flor Beltran, his primary care provider, in a week.
== END 2019-02-17 10:20 | disposition home or self-care (01) ==
LOC: EDBD 22:28 → EDSEX 22:28 → M ED 22:28 → EEVIPCON 22:29 → M ED INP 22:29 → M MS4PR 02-17 05:56
PROVIDERS: ADMIT Internal Medicine; ATTEND Family Medicine
DX: R42 Dizziness and giddiness (principal); I16.0 Hypertensive urgency; Z86.73 Personal history of transient ischemic attack (TIA), and cerebral infarction without residual deficits; Z95.810 Presence of automatic (implantable) cardiac defibrillator; E03.9 Hypothyroidism, unspecified; I73.9 Peripheral vascular disease, unspecified; Z98.61 Coronary angioplasty status; Z87.891 Personal history of nicotine dependence; Z79.899 Other long term (current) drug therapy; Z79.01 Long term (current) use of anticoagulants
CPT/HCPCS: 36415; 70450; 71046; 80048; 80053; 80307; 81001; 82140; 82248; 82550; 82553; 84439; 84443; 84484; 85025; 85610; 85730; 87040; 87088; 87186; 93005; 93041; 94640; 94760; 96361; 96374; 96375; 97161; 99285; G0378

== ENCOUNTER 2019-04-17 13:10 | Emergency (ER) | payer MEDICAID, MEDICARE ==
[~2019-04-17] VITALS: Ht 180.3 cm; Wt 79.6 kg
[~2019-04-17 13:10] MED LIST changes: +CRES40TA PO; +ELIQ5TAB PO; +FLOM0.4C39 PO; +GABA-1171 PO; +MEXI200C; +MEXI200C PO; +SYMB80INH INH; +TRAZ-252 PO; -lisinopriL 20 MG TAB PO SCH
[2019-04-17 14:09] LABS: BASO % 0.5 % (0.0-1.0); EOS # 0.1 10^3/uL (0.0-0.5); EOS % 1.9 % (0.0-3.0); HEMATOCRIT 46.3 % (42.0-52.0); HEMOGLOBIN 14.4 g/dl (13.5-17.5); LYMPH # 0.9 10^3/uL (1.5-5.0); LYMPH % 14.6 % (24.0-44.0); MEAN CORPUSCULAR HEMOGLOBIN 28.6 pg (27.0-33.0); MEAN CORPUSCULAR HGB CONC 31.1 g/dl (32.0-36.5); MEAN CORPUSCULAR VOLUME 91.9 fl (80.0-96.0); MONO # 0.7 10^3/uL (0.0-0.8); MONO % 11.2 % (0.0-5.0); NEUTROPHILS # 4.1 10^3/uL (1.5-8.5); NEUTROPHILS % 71.1 % (36.0-66.0); PLATELET COUNT, AUTOMATED 120 10^3/uL (150-450); RED BLOOD COUNT 5.04 10^6/uL (4.30-6.10); WHITE BLOOD COUNT 5.8 10^3/uL (4.0-10.0)
[2019-04-17 14:43] LABS: ALBUMIN 3.1 GM/DL (3.2-5.2); ALT/SGPT 538 U/L (12-78); BILIRUBIN,DIRECT 0.2 MG/DL (0.0-0.2); BILIRUBIN,TOTAL 0.5 MG/DL (0.2-1.0); BLOOD UREA NITROGEN 28 MG/DL (7-18); CALCIUM LEVEL 8.5 MG/DL (8.8-10.2); CARBON DIOXIDE LEVEL 31 MEQ/L (21-32); CHLORIDE LEVEL 101 MEQ/L (98-107); CK-MB VALUE MASS 5.8 NG/ML (<3.6); CPK CREATINE PHOSPHOKINASE 166 U/L (39-308); GLOMERULAR FILTRATION RATE 40.8 (>49); GLUCOSE, FASTING 117 MG/DL (70-100); LIPASE 357 U/L (73-393); MB/CK RELATIVE INDEX 3.49 (< OR =4); POTASSIUM SERUM 4.1 MEQ/L (3.5-5.1); SODIUM LEVEL 138 MEQ/L (136-145); TOTAL PROTEIN 6.6 GM/DL (6.4-8.2); TROPONIN I 0.04 NG/ML (< 0.10)
--- NOTE | 2019-04-17 16:02 | REP ---
Clinical: Epigastric and abdominal pain. Technique: Upright view of the chest with supine and upright views of the abdomen and pelvis. Findings: Frontal upright view of the chest demonstrates diffuse small calcified nodules. No acute cardiopulmonary process or free air below the diaphragm to suspect pneumoperitoneum. Supine and upright views of the abdomen and pelvis demonstrate nonspecific bowel gas pattern without obstruction or perforation. No organomegaly. No abnormal calcifications. Skeletal structures normal for age. Impression: Nonspecific bowel gas pattern. Chronic pulmonary findings. Electronically Signed by Frandy Lopez MD 04/17/2019 03:54 P
--- NOTE | 2019-04-17 17:05 | REP ---
Clinical: Right upper quadrant pain with elevated liver function test. Technique: Real time caldwell scale ultrasound examination using curved array transducer. Findings: Liver demonstrates coarsened echotexture with mildly prominent portal triads. No focal hepatic lesion identified. Pancreas is incompletely evaluated due to interposed bowel gas. Gallbladder is normal without gallstones, wall thickening, or pericholecystic fluid. No biliary ductal dilatation is appreciated and the common bile duct measures 3.5 mm diameter. The right kidney measures 13.1 x 6.4 x 5.8 cm and includes multiple cysts including 5.3 cm lower pole simple cyst. No hydronephrosis or nephrolithiasis noted. Impression: 1. Coarsened hepatic echotexture is nonspecific. Underlying hepatocellular disease and hepatitis cannot be excluded. 2. Multiple renal cysts including 5.3 cm simple cyst at the lower pole. Electronically Signed by Frandy Lopez MD 04/17/2019 04:56 P
[2019-04-17 17:44] VITALS: BP 128/80
--- NOTE | 2019-04-18 05:42 | ECGEPIP ---
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
[2019-04-19 10:30] LABS: HEPATITIS B SURFACE ANTIGEN NEGATIVE (NEGATIVE)
[2019-04-19 10:58] LABS: HEPATITIS B CORE ANTIBODY IGM NEGATIVE (NEGATIVE)
[2019-04-19 11:00] LABS: HEPATITIS A ANTIBODY IGM NEGATIVE (NEGATIVE)
== END 2019-04-17 17:51 | disposition home or self-care (01) ==
LOC: EDBD 13:10 → M ED 13:10
DX: R11.0 Nausea (principal); R10.13 Epigastric pain; K29.70 Gastritis, unspecified, without bleeding; R94.5 Abnormal results of liver function studies; I25.10 Atherosclerotic heart disease of native coronary artery without angina pectoris; E11.9 Type 2 diabetes mellitus without complications; I10 Essential (primary) hypertension; K21.9 Gastro-esophageal reflux disease without esophagitis; J44.9 Chronic obstructive pulmonary disease, unspecified; N28.1 Cyst of kidney, acquired; Z79.899 Other long term (current) drug therapy

== ENCOUNTER → 2019-05-06 | Outpatient (REF) | payer MEDICARE, MEDICAID ==
[2019-05-06 15:46] LABS: BASO # 0.1 10^3/uL (0.0-0.2); BASO % 0.7 % (0.0-1.0); EOS # 0.1 10^3/uL (0.0-0.5); EOS % 1.4 % (0.0-3.0); HEMATOCRIT 43.4 % (42.0-52.0); HEMOGLOBIN 13.2 g/dl (13.5-17.5); LYMPH # 1.1 10^3/uL (1.5-5.0); LYMPH % 12.6 % (24.0-44.0); MEAN CORPUSCULAR HGB CONC 30.4 g/dl (32.0-36.5); MEAN CORPUSCULAR VOLUME 95.4 fl (80.0-96.0); NEUTROPHILS # 6.4 10^3/uL (1.5-8.5); NEUTROPHILS % 73.8 % (36.0-66.0); PLATELET COUNT, AUTOMATED 151 10^3/uL (150-450); RED BLOOD COUNT 4.55 10^6/uL (4.30-6.10); WHITE BLOOD COUNT 8.7 10^3/uL (4.0-10.0)
[2019-05-06 15:55] LABS: ALBUMIN 3.1 GM/DL (3.2-5.2); ALT/SGPT 26 U/L (12-78); BILIRUBIN,TOTAL 0.5 MG/DL (0.2-1.0); BLOOD UREA NITROGEN 22 MG/DL (7-18); CALCIUM LEVEL 8.3 MG/DL (8.8-10.2); CARBON DIOXIDE LEVEL 28 MEQ/L (21-32); CHLORIDE LEVEL 105 MEQ/L (98-107); CHOLESTEROL LEVEL 93 MG/DL (<200); CHOLESTEROL RISK RATIO 2.162 (<5); CREATININE FOR GFR 2.09 MG/DL (0.70-1.30); GLOMERULAR FILTRATION RATE 34.3 (>49); GLUCOSE, FASTING 226 MG/DL (70-100); HDL CHOLESTEROL 43 MG/DL (>40); LDL CHOLESTEROL 23 MG/DL (<100); NON-HDL-C 50 MG/DL; POTASSIUM SERUM 4.6 MEQ/L (3.5-5.1); SODIUM LEVEL 139 MEQ/L (136-145); TOTAL PROTEIN 6.6 GM/DL (6.4-8.2); TRIGLYCERIDES LEVEL 133 MG/DL (<150)
[2019-05-07 10:24] LABS: HEPATITIS B SURFACE ANTIGEN NEGATIVE (NEGATIVE)
[2019-05-07 10:50] LABS: HEPATITIS C VIRUS ABY INDEX < 0.0 INDEX (<0.8)
[2019-05-07 10:51] LABS: HEPATITIS B CORE ANTIBODY IGM NEGATIVE (NEGATIVE)
[2019-05-07 10:53] LABS: HEPATITIS A ANTIBODY IGM NEGATIVE (NEGATIVE)
== END ==
LOC: M SFHCADAM 10:58
PROVIDERS: ATTEND Physician Assistant Medical
DX: R94.5 Abnormal results of liver function studies (principal); E03.9 Hypothyroidism, unspecified; E11.65 Type 2 diabetes mellitus with hyperglycemia
CPT/HCPCS: 80053; 80061; 83036; 84443; 85025; 86705; 86709; 86803; 87340; G0463

== ENCOUNTER 2019-06-03 19:02 | Emergency (ER) | payer MEDICAID, MEDICARE ==
[~2019-06-03] VITALS: Ht 180.3 cm; Wt 84.8 kg
[2019-06-03] MEDS ORDERED: AMIODARONE 200 MG TAB (PACERONE) PO ONE (19:45)
[2019-06-03 20:13] LABS: BASO # 0.1 10^3/uL (0.0-0.2); BASO % 0.8 % (0.0-1.0); EOS # 0.2 10^3/uL (0.0-0.5); EOS % 2.4 % (0.0-3.0); HEMATOCRIT 39.6 % (42.0-52.0); HEMOGLOBIN 12.2 g/dl (13.5-17.5); LYMPH # 1.1 10^3/uL (1.5-5.0); LYMPH % 11.2 % (24.0-44.0); MEAN CORPUSCULAR HEMOGLOBIN 28.2 pg (27.0-33.0); MEAN CORPUSCULAR HGB CONC 30.8 g/dl (32.0-36.5); MEAN CORPUSCULAR VOLUME 91.7 fl (80.0-96.0); MONO # 0.8 10^3/uL (0.0-0.8); MONO % 8.4 % (0.0-5.0); NEUTROPHILS # 7.7 10^3/uL (1.5-8.5); NEUTROPHILS % 76.9 % (36.0-66.0); PLATELET COUNT, AUTOMATED 162 10^3/uL (150-450); RED BLOOD COUNT 4.32 10^6/uL (4.30-6.10); WHITE BLOOD COUNT 9.9 10^3/uL (4.0-10.0)
[2019-06-03 20:44] LABS: CALCIUM LEVEL 8.7 MG/DL (8.8-10.2); CREATININE FOR GFR 1.61 MG/DL (0.70-1.30); GLOMERULAR FILTRATION RATE 46.4 (>49); MAGNESIUM LEVEL 2.1 MG/DL (1.8-2.4); POTASSIUM SERUM 4.4 MEQ/L (3.5-5.1)
[2019-06-03 21:30] VITALS: BP 149/80
--- NOTE | 2019-06-04 14:26 | ECGEPIP ---
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
== END 2019-06-03 21:31 | disposition home or self-care (01) ==
LOC: M ED 20:16
DX: T82.897A Other specified complication of cardiac prosthetic devices, implants and grafts, initial encounter (principal); X58.XXXA Exposure to other specified factors, initial encounter; Y92.89 Other specified places as the place of occurrence of the external cause; E11.51 Type 2 diabetes mellitus with diabetic peripheral angiopathy without gangrene; I10 Essential (primary) hypertension; N28.9 Disorder of kidney and ureter, unspecified; K21.9 Gastro-esophageal reflux disease without esophagitis; I73.9 Peripheral vascular disease, unspecified; Z79.899 Other long term (current) drug therapy; Z79.01 Long term (current) use of anticoagulants; F17.210 Nicotine dependence, cigarettes, uncomplicated

== ENCOUNTER 2019-06-15 08:12 | Observation (INO) | payer MEDICAID, MEDICARE ==
[~2019-06-15] VITALS: Ht 180.3 cm; Wt 85.1 kg
[~2019-06-15 08:12] MED LIST changes: +SYMBICORT 80/4.5MCG INHALER 6GM INH SCH
[2019-06-15 09:00] LABS: BASO # 0.1 10^3/uL (0.0-0.2); BASO % 0.9 % (0.0-1.0); EOS # 0.3 10^3/uL (0.0-0.5); EOS % 3.2 % (0.0-3.0); HEMATOCRIT 44.2 % (42.0-52.0); HEMOGLOBIN 13.3 g/dl (13.5-17.5); LYMPH # 0.9 10^3/uL (1.5-5.0); LYMPH % 11.2 % (24.0-44.0); MEAN CORPUSCULAR HEMOGLOBIN 27.9 pg (27.0-33.0); MEAN CORPUSCULAR HGB CONC 30.1 g/dl (32.0-36.5); MEAN CORPUSCULAR VOLUME 92.9 fl (80.0-96.0); MONO # 0.7 10^3/uL (0.0-0.8); MONO % 9.4 % (0.0-5.0); NEUTROPHILS # 5.8 10^3/uL (1.5-8.5); PLATELET COUNT, AUTOMATED 166 10^3/uL (150-450); RED BLOOD COUNT 4.76 10^6/uL (4.30-6.10); WHITE BLOOD COUNT 7.8 10^3/uL (4.0-10.0)
[2019-06-15] MEDS ORDERED: APIXABAN 5 MG TAB (ELIQUIS) PO SCH (09:00)
[2019-06-15] MEDS ORDERED: AMIODARONE 200 MG TAB (PACERONE) PO SCH (09:00)
[2019-06-15] MEDS ORDERED: ROSUVASTATIN 10 MG TAB (CRESTOR) PO SCH (09:00)
[2019-06-15] MEDS ORDERED: MEXILETINE 150 MG CAP PO SCH (09:00)
[2019-06-15] MEDS ORDERED: CARVedilol 3.125 MG TAB PO SCH (09:00)
[2019-06-15 09:17] LABS: CALCIUM LEVEL 8.4 MG/DL (8.8-10.2); CREATININE FOR GFR 1.65 MG/DL (0.70-1.30); GLOMERULAR FILTRATION RATE 45.1 (>49); POTASSIUM SERUM 4.2 MEQ/L (3.5-5.1)
[2019-06-15] MEDS ORDERED: ROSU40TA4 PO (09:36)
[2019-06-15] MEDS ORDERED: traZODone 50 MG TAB PO PRN (11:45)
[2019-06-15 11:59] LABS: CK-MB VALUE MASS 4.3 NG/ML (<3.6); MB/CK RELATIVE INDEX 4.48 (< OR =4); TROPONIN I 0.03 NG/ML (< 0.10)
[2019-06-15 12:20] VITALS: BP 147/103
[2019-06-15 14:00] VITALS: BP 160/94
[2019-06-15] MEDS: GABAPENTIN 100 MG CAP PO SCH (14:30)
[2019-06-15] MEDS: TAMSULOSIN 0.4 MG CAP PO SCH (14:30)
[2019-06-15] MEDS ORDERED: PILL CUTTER 1 EACH XX PRN (14:30)
[2019-06-15] MEDS: ROSUVASTATIN 10 MG TAB (CRESTOR) PO SCH (14:30)
[2019-06-15] MEDS: APIXABAN 5 MG TAB (ELIQUIS) PO SCH (14:31)
[2019-06-15] MEDS: CARVedilol 3.125 MG TAB PO SCH ×2 (14:31→20:20)
[2019-06-15] MEDS: SYMBICORT 80/4.5MCG INHALER 6GM INH SCH ×2 (15:02→20:46)
[2019-06-15] MEDS: MEXILETINE 150 MG CAP PO SCH ×2 (15:58→20:20)
[2019-06-15] MEDS: AMIODARONE 200 MG TAB (PACERONE) PO SCH (15:58)
[2019-06-15 16:00] VITALS: BP 150/100
[2019-06-15] MEDS: LEVOTHYROXINE 88MCG TABLET (0.088 MG) PO SCH (16:13)
[2019-06-15 16:25] LABS: FREE THYROXINE INDEX 3.3 % (1.4-3.8); THYROID STIMULATING HORMONE 4.31 uIU/ML (0.358-3.740); THYROXINE (T4) 8.9 UG/DL (4.5-12.0)
[2019-06-15 16:26] LABS: CK-MB VALUE MASS 4.1 NG/ML (<3.6); MB/CK RELATIVE INDEX 4.36 (< OR =4); TROPONIN I 0.03 NG/ML (< 0.10)
--- NOTE | 2019-06-15 17:08 | HPEPDOC ---
General Date of Admission Jun 15, 2019 at 08:13 Date of Service: Jun 15, 2019 Primary Care Physician: BEBETO NEVES PA-C Other Providers Cardio: Dr. Pena Nephro: Dr. Long Attending Physician: NEHEMIAH RED MD Chief Complaint The patient is a 64-year-old male admitted with a reason for visit of Defibrillator Discharge. History of Present Illness HPI: This is a 64-year-old male with extensive past medical history, especially cardiac history, as noted below, bringing himself and due to being unable to take care of himself at home. He is a limited historian due to poor insight to his health and history of noncompliance. Per reports, his PCP has tried to get him placement for quite some time now, and patient has refused in the past, but now patient reports he received a phone call from his operational risk manager that the AICD/PPM monitor shows he has been shocked multiple times in the past few months, specifically 8-9x in the past 3 months per the patient. He reports he never felt the shocks and has no complaint whatsoever, including no chest pain, lightheadedness, dizziness, shortness of breath, cough, leg swelling, or pain. The patients main concern is that he is no longer able to manage his medications, is unsure of what to take and how often. He states is able to feed himself, bathe, ambulate, but no higher complex care independently. When examined at bedside, he is hemodynamically stable and has no complaints and resting comfortably and fully interactive. 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 Traumatic subarachnoid hemorrhage Osteomyelitis second digit right foot s/P amputation Peripheral vascular disease S/P femoropopliteal bypass GERD Chronic kidney disease stage III Vitamin D deficiency COPD MIGUE on nocturnal O2 BPH Insomnia Past Surgical Hx: 2014 transurethral resection of bladder tumor, urethral meatus dilation Partial second toe amputation of right foot 2013 Cardiac cath 08/2013 and again 10/2013-bare metal stent 2015: Defibrillator, stent thrombosis, thrombectomy, balloon angioplasty 2016: Right Femoropopliteal bypass AICD placement 2016 Pacemaker left chest 2019 Family Hx: Asked & noncontributory Social Hx: Long-term smoker quit few years ago Denies alcohol or drug use ROS: Constitutional: Denies fever, chills, night sweats, weight loss HEENT: Denies headache, dysphagia Skin: Denies any rashes or lesions Pulmonary: Denies dyspnea, cough, wheezing Cardiac: Denies chest pain, palpitations, orthopnea, PND, edema, lightheadedness. Admits to pacemaker shocking him 8-9x in past 3 months GI: Denies nausea, vomiting, abdominal pain, diarrhea, constipation, melena, hem atochezia : Denies dysuria, hematuria, retention MSK: Denies new pains or weakness Neurologic: Denies new numbness/tingling PHYSICAL: General exam: A&Ox-3, NAD, resting comfortably HEENT: NCAT, EOMI, neck supple, no JVD Cardiac: RRR, 2/6 systolic murmur, PPM/AICD left upper chest wall Respiratory: CTAB, good air exchange, no w/r/r Abdomen: soft, NT, ND, normoactive bowel sounds Extremity: 2+ radial pulses, no edema or calf tenderness Skin: [place], warm, dry, b/l LE scabs Msk: strength 5/5 x4, normal tone Neuro: normal speech, no focal deficits LABORATORY DATA, MICROBIOLOGY: Please see below. ASSESSMENT AND PLAN: This is a 64yo with extensive PMH as noted above, coming in due to being unable to care for himself alone and requesting placement. He reports he was told by his operational risk manager that his defibrillator activated 8-9x in the past 3 months, but he was asymptomatic and has no complaints on admission. Hemodynamically stable. 1. AICD activated - pt reports he was told he was shocked 8-9x in the past 3 months per operational risk manager and monitor techs - pt asymptomatic and denies all cardiac symptoms, reports he never felt a shock - hemodynamically stable on admission - monitor on tele, trend cardiac markers, initial set negative - Cardio consulted, appreciate Dr. Serrano input 2. Social living situation, debility - unable to care for self or manage meds, requesting placement - PFS consulted - PT/OT For the remainder of his extensive chronic medical conditions noted above, resume home meds with hold parameters for blood pressure & heart rate. DVT prophylaxis: chronic Eliquis DISPOSITION: admit to hospital. Monitor tele, PT/OT/PFS placement, to be seen by Cardio. Home Medications Scheduled Amiodarone HCl (Amiodarone HCl) 200 Mg Tab, 300 MG PO DAILY, (Reported) Apixaban (Eliquis) 5 Mg Tablet, 5 MG PO DAILY, (Reported) Budesonide/Formoterol (Symbicort 80-4.5 Mcg Inhaler) 6.9 Gm Hfa.aer.ad, 2 PUFF INH BID, (Reported) Carvedilol (Carvedilol) 3.125 Mg Tablet, 3.125 MG PO BID, (Reported) Gabapentin (Gabapentin) 100 Mg Capsule, 100 MG PO DAILY, (Reported) Levothyroxine Sodium (Levothyroxine Sodium) 88 Mcg Tablet, 88 MCG PO DAILY, ( Reported) Mexiletine HCl (Mexiletine HCl) 200 Mg Capsule, 200 MG PO BID, (Reported) Rosuvastatin Calcium (Rosuvastatin Calcium) 40 Mg Tablet, 40 MG PO DAILY, (Reported) Tamsulosin HCl (Flomax) 0.4 Mg Capsule, 0.4 MG PO DAILY, (Reported) Scheduled PRN Nitroglycerin (Nitrostat) 0.4 Mg Tab.subl, 0.4 MG SL NITRO PRN for CHEST PAIN, (Reported) Trazodone HCl (Trazodone HCl) 50 Mg Tablet, 50 MG PO QHS PRN for SLEEP, (Reported) Allergies Coded Allergies: No Known Allergies (Unverified , 08/02/12) A-FIB/CHADSVASC A-FIB History Current/History of A-Fib/PAF?: No Vital Signs Vital Signs Date Time Temp Pulse Resp B/P (MAP) Pulse Ox O2 Delivery O2 Flow Rate FiO2 06/15/19 14:31 80 160/94 06/15/19 14:00 97.6 16 96 Room Air Laboratory Data Labs 24H Laboratory Tests 2 06/15/19 08:43: Immature Granulocyte % (Auto) 0.3, Neutrophils (%) (Auto) 75.0H, Lymphocytes (%) (Auto) 11.2L, Monocytes (%) (Auto) 9.4H, Eosinophils (%) (Auto) 3.2H, Basophils (%) (Auto) 0.9, Neutrophils # (Auto) 5.8, Lymphocytes # (Auto) 0.9L, Monocytes # (Auto) 0.7, Eosinophils # (Auto) 0.3, Basophils # (Auto) 0.1, Nucleated Red Blood Cells % (auto) 0.0, Anion Gap 5L, Glomerular Filtration Rate 45.1L, Calcium Level 8.4L, Total Creatine Kinase 96, Creatine Kinase MB 4.3H, Creatine Kinase MB Relative Index 4.48H, Troponin I 0.03 06/15/19 15:49: Total Creatine Kinase 94, Creatine Kinase MB 4.1H, Creatine Kinase MB Relative Index 4.36H, Troponin I 0.03, Magnesium Level 2.0, Thyroid Stimulating Hormone (TSH) 4.310H, Free Thyroxine Index 3.3, Thyroxine (T4) 8.9, Triiodothyronine (T3) Uptake 37 CBC/BMP Laboratory Tests 06/15/19 08:43 Plan / VTE VTE Prophylaxis Ordered?: Yes GME ATTESTATION GME ATTESTATION My faculty preceptor for this patient encounter was physically present during the encounter and was fully available. All aspects of the patient interview, examination, medical decision making process, and medical care plan development were reviewed and approved by the faculty preceptor. The faculty preceptor is aware and concurs with the plan as stated in the body of this note and will attest to such by his/her cosignature. ATTENDING NOTE I, Nehemiah Red, have independently examined this patient and performed my own physical exam, as well as reviewed the documentation and edited where necessary. I have discussed in detail with the resident / student the findings and plan of treatment as documented by the resident / student and edited their note. I agree with their findings and treatment plan and have ed ited their documentation. We admitted Mr. Cruz for failure to care for self to the extent that he cannot reliably administer his own medications and his operational risk manager had noted frequent ICD firing episodes likely from amio, mexitine and beta rekha non compliance. He otherwise feels well. We consulted Dr. Pena after he developed tracing anomalies that he ultimately determined to be artifact and we agreed on starting his home cardiac meds and pursue placement with discharge planning team. I will continue to follow the patient during this hospital stay. EVAN KNIGHT DO Jun 15, 2019 17:08 NEHEMIAH RED MD Jun 15, 2019 19:22
[2019-06-15 20:00] VITALS: BP 110/62
[2019-06-15 22:45] LABS: CK-MB VALUE MASS 4.2 NG/ML (<3.6); MB/CK RELATIVE INDEX 4.67 (< OR =4); TROPONIN I 0.03 NG/ML (< 0.10)
[2019-06-16] VITALS (7 sets, daily range): BP systolic 123–156; BP diastolic 71–86
[2019-06-16] MEDS: LEVOTHYROXINE 88MCG TABLET (0.088 MG) PO SCH (05:19)
[2019-06-16 06:07] LABS: HEMATOCRIT 39.8 % (42.0-52.0); HEMOGLOBIN 12.4 g/dl (13.5-17.5); MEAN CORPUSCULAR HEMOGLOBIN 28.9 pg (27.0-33.0); MEAN CORPUSCULAR HGB CONC 31.2 g/dl (32.0-36.5); MEAN CORPUSCULAR VOLUME 92.8 fl (80.0-96.0); PLATELET COUNT, AUTOMATED 161 10^3/uL (150-450); RED BLOOD COUNT 4.29 10^6/uL (4.30-6.10); WHITE BLOOD COUNT 9.2 10^3/uL (4.0-10.0)
[2019-06-16 06:30] LABS: ALBUMIN 2.7 GM/DL (3.2-5.2); BILIRUBIN,TOTAL 0.4 MG/DL (0.2-1.0); CALCIUM LEVEL 8.4 MG/DL (8.8-10.2); CREATININE FOR GFR 1.66 MG/DL (0.70-1.30); GLOMERULAR FILTRATION RATE 44.8 (>49); POTASSIUM SERUM 4.3 MEQ/L (3.5-5.1); TOTAL PROTEIN 5.8 GM/DL (6.4-8.2)
[2019-06-16] MEDS: SYMBICORT 80/4.5MCG INHALER 6GM INH SCH ×2 (07:23→20:38)
[2019-06-16] MEDS: GABAPENTIN 100 MG CAP PO SCH (08:59)
[2019-06-16] MEDS: ROSUVASTATIN 10 MG TAB (CRESTOR) PO SCH (09:00)
[2019-06-16] MEDS: AMIODARONE 200 MG TAB (PACERONE) PO SCH (09:00)
[2019-06-16] MEDS: APIXABAN 5 MG TAB (ELIQUIS) PO SCH (09:01)
[2019-06-16] MEDS: CARVedilol 3.125 MG TAB PO SCH ×2 (09:01→20:24)
[2019-06-16] MEDS: TAMSULOSIN 0.4 MG CAP PO SCH (09:01)
[2019-06-16] MEDS: MEXILETINE 150 MG CAP PO SCH ×2 (09:02→20:24)
--- NOTE | 2019-06-16 10:13 | CR.PDOC ---
[facility] Cardiology Consultation Date of Consultation 06/16/19 Cadiology Consultation REFERRING PHYSICIAN: Dr. Jessica Barton REASON FOR REFERRAL: Recently activated AICD/PPM HISTORY OF PRESENT ILLNESS: Shaji is a pleasant 64-year-old male with an extensive cardiovascular history (detailed below in past medical history section) who presented to the emergency department by himself yesterday (06/14) after being called by his c ardiologist in [place] (Dr. Hall) and informed his [facility] AICD/PPM readings had shown he was shocked multiple times in the last 3 months. When contacted by his oyster farmer, he reported never having felt the shocks and had no related complaints such as chest pain, shortness of breath, dizziness, leg swelling, lightheadedness, or loss of consciousness. He does say that since that conversation, he did have an episode on Friday this week (06/13) where he did feel a shock while standing but had no lingering symptoms. He was admitted yesterday by the hospitalist service and cardiology was consulted to evaluate recent AICD activation and oversee his overall cardiovascular state during stay. His listed home medications are amiodarone, Eliquis, Coreg, mexiletine, rosuvastatin, tamsulosin, Symbicort, levothyroxin, gabapentin and prn nitroglycerin and trazodone. He states that he has been haphazardly taking his medications for an extended period of time, with no consistency and not following the directed dosing frequency. He states he last saw his oyster farmer in the office a few months ago. Upon our visit this morning, he has no complaints, specifically denying denying any chest pain, chest pressure, palpitations, shortness of breath, cough, pleuritic chest pain, increased work of breathing, orthopnea, dizziness, or recent unintentional weight change or leg swelling. In addition, he feels he can no longer safely take care of himself at home and is requesting placement to an assisted living facility. He has children in the area, but lives alone and after resisting placement previously by his PCP, he now recognizes the need for supervision and assistance. PAST MEDICAL HISTORY: -Coronary artery disease, status post anterior wall ID with apical thrombus and subsequent PCI to left circumflex coronary artery with bare metal stent (placed 2013) and a subsequent in-stent restenosis in December 2014 with a plain old balloon angioplasty and thrombectomy; also has known left anterior descending coronary artery occlusion. Underwent a cardiac catheterization on 01/27/19 which showed unchanged disease in the left circumflex coronary artery with recent negative. I have far, large anterior O apical scar, which is likely causing recurrent arrhythmias. -Ischemic cardiomyopathy -Recurrent arrhythmias with a [facility] [facility] AICD placement in 2016. In addition of pacemaker in 2018 -Moderate pulmonary hypertension with high pulmonary vascular resistance and normal filling pressures -HFrEF (EF 35%. April 2014) -Grade 2 diastolic dysfunction -Peripheral vascular disease, status post femoral popliteal bypass -Poorly controlled type 2 diabetes mellitus with diabetic neuropathy and nep hropathy. -. Hypercholesterolemia Traumatic subarachnoid hemorrhage. Osteomyelitis, right foot second digit, status post AB dictation. GERD -Former smoker having quit a year and a half ago after smoking for about 40 years -History of poor medical compliance SURGICAL HISTORY: -TURP, 2014 -Amputation of second digit on right foot, 2012 -Known cardiac catheterizations in August 2013, October 2013 with bare metal stent placement, and January 2019 -2015: Stent thrombosis, thrombectomy, and plain old balloon angioplasty of left circumflex coronary artery -2016: Right femoral popliteal bypass FAMILY HISTORY: Father, mother, and brother: Diabetes mellitus. Sister in good health 2 children with history of brittle bone disease (maternal) SOCIAL HISTORY: and lives alone. Has 2 children who are twins. 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 No significant alcohol use history. Patient smoked for proximally 40 years and reports he successfully quit a year and a half ago. REVIEW OF SYSTEMS: Pertinent positives and negatives are discussed in the history of present illness section with all other 10 point review of systems questions negative. PHYSICAL EXAMINATION: VITAL SIGNS: Please see below. GENERAL APPEARANCE: Pleasant and cooperative male with somewhat disheveled appearance, who was resting comfortably seated upright in bed at time of exam. Alert and oriented 3, in no apparent acute distress. On remote telemetry. HEENT: Normocephalic, atraumatic. Wearing eyeglasses. Collection of yellow colored substance over left eye eyelashes. Anicteric, noninjected sclera. NEUROLOGIC/PSYCHOLOGIC: Alert and oriented 3. Non-dysarthric speech. No focal neurological deficits appreciated. Responds appropriately to questions and commands. HEART: On remote telemetry. Rate and rhythm were both regular. There is an AICD/PPM in place over left superior anterior chest wall. No distinct murmurs, rubs or gallops are appreciated. NECK: JVP present roughly 6cm above sternal angle. Neck is supple. Trachea midline. No lymphadenopathy appreciated. RESPIRATORY: Clear to auscultation bilaterally, anteriorly and posteriorly. No rhonchi, crackles or wheezes appreciated. Symmetric chest expansion with adequate tidal volume. Speaking in full sentences and breathing on room air. ARTERIAL PULSES: 2+ radial and posterior tibial pulses palpated bilaterally. LOWER EXTREMITY EDEMA: No lower extremity edema or swelling appreciated. ABDOMEN: Soft, nondistended and nontender. ALLERGIES: Please see below. HOME MEDICATIONS: Please see below. CURRENT MEDICATIONS: Please see below. Electrocardiogram: Not performed LABORATORY DATA: Please see below. IMAGING: . ASSESSMENT/PLAN: Shaji is a 64-year-old male with an extensive medical history, spe cifically cardiovascular, and a history of poor medical compliance. We used the [employer] writing instructor to read recent reports from his [facility] [facility] defibrillator. Since 04/27/19, he has had 21, total episodes of ventricular fibrillation with 4 being nonsustained. Of the 17 that were sustained, tachycardic pacing was delivered. All 17 times with 2 instances where follow-up shocks were delivered. The 2 delivered shocks occurred on 06/13 and 06/02. At this point, the focus will be on medical management to improve patient's cardiovascular status. Since he is been relatively noncompliant for extended per iod time taking medications. If, after this point, he is still experiencing ventricular arrhythmias, a consultation to electrophysiology may be warranted. Moving forward, we will double his carvedilol dose to 6.25 mg po bid with hold parameter of systolic blood pressure less than 105 mmHg. he will remain on all current medications, and since there is no known history of bleeding in his medical record, a daily baby aspirin will be added. It is important to continue to monitor his electrolytes moving forward as well. Thank you kindly for asking our cardiology service to participate in the care of your patient. Vital Signs/I&O Vital Signs Date Time Temp Pulse Resp B/P (MAP) Pulse Ox O2 Delivery O2 Flow Rate FiO2 06/16/19 09:01 71 143/74 06/16/19 07:47 98.0 18 97 Room Air I&O- Last 24 Hours up to 6 AM 06/16/19 06:00 Intake Total 1620 ml Output Total 675 ml Balance 945 ml Laboratory Data Labs 24H Laboratory Tests 2 06/15/19 15:49: Magnesium Level 2.0, Total Creatine Kinase 94, Creatine Kinase MB 4.1H, Creatine Kinase MB Relative Index 4.36H, Troponin I 0.03, Thyroid Stimulating Hormone (TSH) 4.310H, Free Thyroxine Index 3.3, Thyroxine (T4) 8.9, Triiodothyronine (T3) Uptake 37 06/15/19 18:16: Bedside Glucose (Misc Panel) 148H 06/15/19 22:07: Total Creatine Kinase 90, Creatine Kinase MB 4.2H, Creatine Kinase MB Relative Index 4.67H, Troponin I 0.03 06/16/19 05:13: Nucleated Red Blood Cells % (auto) 0.0, Anion Gap 3L, Glomerular Filtration Rate 44.8L, Calcium Level 8.4L, Total Bilirubin 0.4, Aspartate Amino Transf (AST/SGOT) 16, Alanine Aminotransferase (ALT/SGPT) 16, Alkaline Phosphatase 115, Total Protein 5.8L, Albumin 2.7L, Albumin/Globulin Ratio 0.87L CBC/BMP Laboratory Tests 06/16/19 05:13 FSBS Laboratory Tests Test 06/15/19 18:16 Range/Units Bedside Glucose (Misc Panel) 148 80-115 MG/DL Home Medications Scheduled Amiodarone HCl (Amiodarone HCl) 200 Mg Tab, 300 MG PO DAILY, (Reported) Apixaban (Eliquis) 5 Mg Tablet, 5 MG PO DAILY, (Reported) Aspirin (Aspirin EC) 81 Mg Tablet.dr, 81 MG PO DAILY Budesonide/Formoterol (Symbicort 80-4.5 Mcg Inhaler) 6.9 Gm Hfa.aer.ad, 2 PUFF INH BID, (Reported) Carvedilol (Carvedilol) 3.125 Mg Tablet, 6.25 MG PO BID Gabapentin (Gabapentin) 100 Mg Capsule, 100 MG PO DAILY, (Reported) Levothyroxine Sodium (Levothyroxine Sodium) 88 Mcg Tablet, 88 MCG PO DAILY, (Reported) Mexiletine HCl (Mexiletine HCl) 200 Mg Capsule, 200 MG PO BID, (Reported) Rosuvastatin Calcium (Rosuvastatin Calcium) 40 Mg Tablet, 40 MG PO DAILY, (Reported) Tamsulosin HCl (Flomax) 0.4 Mg Capsule, 0.4 MG PO DAILY, (Reported) Scheduled PRN Nitroglycerin (Nitrostat) 0.4 Mg Tab.subl, 0.4 MG SL NITRO PRN for CHEST PAIN, (Reported) Trazodone HCl (Trazodone HCl) 50 Mg Tablet, 50 MG PO QHS PRN for SLEEP, (Reported) Current Medications Current Medications Medications (Trade) Dose Ordered Sig/Lucia Route PRN Reason Start Time Stop Time Status Last Admin Dose Admin Amiodarone HCl (Pacerone, Cordarone) 300 mg DAILY PO 06/15/19 09:00 06/15/19 14:14 DC Amiodarone HCl (Pacerone, Cordarone) 300 mg DAILY PO 06/15/19 09:00 06/16/19 09:00 Apixaban (Eliquis) 5 mg DAILY PO 06/15/19 09:00 06/15/19 14:14 DC Apixaban (Eliquis) 5 mg DAILY PO 06/15/19 09:00 06/16/19 09:01 Budesonide/ Formoterol Fumarate (Symbicort 80/ 4.5mcg) 2 puff RBID INH 06/15/19 08:00 06/15/19 14:14 DC Budesonide/ Formoterol Fumarate (Symbicort 80/ 4.5mcg) 2 puff RBID INH 06/15/19 08:00 06/16/19 07:23 Carvedilol (COReg) 3.125 mg BID PO 06/15/19 09:00 06/15/19 14:14 DC Carvedilol (COReg) 3.125 mg BID PO 06/15/19 14:00 06/16/19 09:01 Gabapentin (Neurontin) 100 mg DAILY PO 06/15/19 09:00 06/16/19 08:59 Home Med (Med Rec Complete!) ASDIRECTED XX 06/15/19 09:45 06/15/19 09:38 DC Levothyroxine Sodium (Synthroid) 88 mcg DAILY@0600 PO 06/15/19 06:00 06/16/19 05:19 Mexiletine HCl (Mexitil) 150 mg BID PO 06/15/19 09:00 06/15/19 14:14 DC Mexiletine HCl (Mexitil) 150 mg BID PO 06/15/19 14:00 06/16/19 09:02 Rosuvastatin Calcium (Crestor) 40 mg DAILY PO 06/15/19 09:00 06/15/19 14:14 DC Rosuvastatin Calcium (Crestor) 40 mg DAILY PO 06/15/19 09:00 06/16/19 09:00 Tamsulosin HCl (Flomax) 0.4 mg DAILY PO 06/15/19 09:00 06/16/19 09:01 Trazodone HCl (Desyrel) 50 mg QHS PRN PO SLEEP 06/15/19 11:45 Allergies Allergies: Coded Allergies: No Known Allergies (Unverified , 08/02/12) Attending Note I have seen and examined the patient and we discussed the management with . I agree with his note above. Briefly patient is a 64yo man with extensive vascular disease including CAD and history of numerous coronary interventions. He was reportedly called by who is his electr ophysiologist and follows his ICD and was instructed to come to hospital because of multiple ICD discharges. I interrogated his ICD and it indeed reveals over 20 episodes of VT/VFib in last few weeks. Most of them self-terminated or were treated by antitachycardia pacing but he received 2 shocks. Patient freely admits that he has been non-compliant with his medications. He is trying but is confused as to when and what to take and insists that he is not able to manage it on his own. I am hoping that just restarting his chronic medications will stabilize his situation. We are going to advance the dose of Coreg but no other changes were made. Patient will need some form of assistance with his m edications and possibly other help as well. HEBERT NUNEZ D.O. Jun 16, 2019 10:13 Nabila Pena MD Jun 20, 2019 09:14
[2019-06-16] MEDS: ASPIRIN 81 MG ENTERIC TAB PO SCH (11:06)
--- NOTE | 2019-06-16 14:50 | ECGEPIP ---
[facility] - ED Test Date: 2019-06-15 Pat Name: MASON OLIVER Department: Room: - Gender: Male Crematorium Operator: JNarcisa : [id number] Requested By: AROLDO Merino Order Number: [id number] Reading MD: Kylee Bradford Measurements Intervals [place] Rate: 76 P: 57 VA: 149 QRS: 197 QRSD: 204 T: 57 QT: 455 QTc: 515 Interpretive Statements ELECTRONIC VENTRICULAR PACEMAKER ABNORMAL RHYTHM ECG UNDERLYING SINUS RHYTHM DECREASED RATE 06/03/19 Electronically Signed on 06-16-2019 14:49:42 EDT by Kylee Bradford
--- NOTE | 2019-06-16 17:36 | IPNPDOC ---
Text Note Date of Service The patient was seen on 06/16/19. NOTE Subjective: Pt examined at bedside .No reported events overnight or events on tele. Is noted to be paced in the 70s. Pt reports he is feeling well, no cp/sob/n/v/abd pain/dizziness. PHYSICAL: General exam: A&Ox-3, NAD, laying comfortably HEENT: NCAT, EOMI, neck supple, no JVD Cardiac: RRR, 2/6 systolic murmur, PPM/AICD left upper chest wall Respiratory: CTAB, good air exchange, no w/r/r Abdomen: soft, NT, ND, normoactive bowel sounds Extremity: 2+ radial pulses, no edema or calf tenderness Skin: Ai, warm, dry, b/l LE scabs Msk: strength 5/5 x4, normal tone Neuro: normal speech, no focal deficits LABORATORY DATA, MICROBIOLOGY: Please see below. ASSESSMENT AND PLAN: This is a 64yo with extensive PMH as noted below, including Ischemic cardiomyopathy, CAD with anterior wall ID & stent, baloon angioplasty, thrombectomy, chronic systolic & diastolic CHF, arrythmias s/p AICD/PPM, coming in due to being unable to care for himself alone and requesting placement. He reports he was told by his head machine feeder that his defibrillator activated 8-9x in the past 3 months, which he attributes to being unable to care for himself or manage his medications. Per pt, he was asymptomatic during the shocks, and has no complaints on admission. Hemodynamically stable. 1. AICD activated - pt reports he was told he was shocked 8-9x in the past 3 months per head machine feeder and monitor techs - pt asymptomatic and denies all cardiac symptoms, reports he never felt a shock - continues to be hemodynamically stable and no events on telemetry - cardiac markers negative x3 - Cardio consulted, appreciate Dr. Serrano input: pt reportedly had 21 episodes of Vfib since 04/27/19, 17 were sustained leading to tachycardic pacing. Was shocked 2x, on 06/02 & 06/13 - Per Cardio, continue medical management with home cardiac meds. If persistent arrhythmias, will need stockroom selector - Per Cardio: Coreg bid dose doubled to 6.25mg, and started ASA 81mg 2. Social living situation, debility - unable to care for self or manage meds, requesting placement - PFS consulted - PT/OT For the remainder of his extensive chronic medical conditions below, continue home meds with hold parameters for blood pressure & heart rate. 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 VS,Fishbone, I+O VS, Fishbone, I+O Laboratory Tests 06/16/19 05:13 Vital Signs Date Time Temp Pulse Resp B/P (MAP) Pulse Ox O2 Delivery O2 Flow Rate FiO2 06/16/19 15:46 97.9 70 18 156/86 (109) 95 Room Air I&O- Last 24 Hours up to 6 AM 06/16/19 06:00 Intake Total 1620 ml Output Total 675 ml Balance 945 ml GME ATTESTATION GME ATTESTATION My faculty preceptor for this patient encounter was physically present during the encounter and was fully available. All aspects of the patient interview, examination, medical decision making process, and medical care plan development were reviewed and approved by the faculty preceptor. The faculty preceptor is aware and concurs with the plan as stated in the body of this note and will attest to such by his/her cosignature. ATTENDING NOTE I, Jessica Red, have independently examined this patient and performed my own physical exam, as well as reviewed the documentation and edited where necessary. I have discussed in detail with the resident / student the findings and plan of treatment as documented by the resident / student and edited their note. I agree with their findings and treatment plan and have edited their documentation. Mr. Cruz continues to do very well today without new tele events. We are hopeful that he will be able to be discharged home with services to help with medication compliance as he reports having a dispenser that would require VNA for management. We will continue to follow the patient during this hospital stay. EVAN KNIGHT DO Jun 16, 2019 17:36 JESSICA RED MD Jun 17, 2019 08:47
[2019-06-17] VITALS: BP 137/80
[2019-06-17 04:00] VITALS: BP 139/82
[2019-06-17] MEDS: LEVOTHYROXINE 88MCG TABLET (0.088 MG) PO SCH (05:25)
[2019-06-17 05:34] LABS: HEMATOCRIT 38.4 % (42.0-52.0); HEMOGLOBIN 11.7 g/dl (13.5-17.5); MEAN CORPUSCULAR HEMOGLOBIN 28.1 pg (27.0-33.0); MEAN CORPUSCULAR HGB CONC 30.5 g/dl (32.0-36.5); MEAN CORPUSCULAR VOLUME 92.3 fl (80.0-96.0); PLATELET COUNT, AUTOMATED 143 10^3/uL (150-450); RED BLOOD COUNT 4.16 10^6/uL (4.30-6.10)
[2019-06-17 06:06] LABS: CALCIUM LEVEL 8.5 MG/DL (8.8-10.2); CREATININE FOR GFR 1.62 MG/DL (0.70-1.30); POTASSIUM SERUM 4.4 MEQ/L (3.5-5.1)
[2019-06-17] MEDS: SYMBICORT 80/4.5MCG INHALER 6GM INH SCH (07:13)
[2019-06-17 08:00] VITALS: BP 154/78
[2019-06-17] MEDS: ROSUVASTATIN 10 MG TAB (CRESTOR) PO SCH (08:38)
[2019-06-17] MEDS: MEXILETINE 150 MG CAP PO SCH (08:38)
[2019-06-17] MEDS: CARVedilol 3.125 MG TAB PO SCH (08:39)
[2019-06-17] MEDS: APIXABAN 5 MG TAB (ELIQUIS) PO SCH (08:39)
[2019-06-17] MEDS: ASPIRIN 81 MG ENTERIC TAB PO SCH (08:39)
[2019-06-17] MEDS: GABAPENTIN 100 MG CAP PO SCH (08:39)
[2019-06-17] MEDS: TAMSULOSIN 0.4 MG CAP PO SCH (08:40)
[2019-06-17] MEDS: AMIODARONE 200 MG TAB (PACERONE) PO SCH (08:40)
--- NOTE | 2019-06-17 10:18 | IPNPDOC ---
[facility] Cardiology Progress Note Date of Service/Time The patient was seen on 06/17/19 at 0825. Cardiology Progress Note SUBJECTIVE: Shaji was seen and examined this morning by the cardiology service while resting comfortably lying upright in bed. He reports no adverse events overnight and denies experiencing any defibrillator shocks. He was able to successfully ambulate around the medical/surgical floor yesterday with the assistance of a walker. He denied any associated chest pain, dyspnea, or instability while ambulating. He again expresses his desire to be placed in assisted living facility due to concerns over providing self-care solely on his own. At this time, he denies any dizziness, shortness of breath, chest pain, chest pressure, palpitations, or syncope. OBJECTIVE: PHYSICAL EXAMINATION: VITAL SIGNS: Please see below. GENERAL APPEARANCE: Pleasant male resting comfortably seated upright in bed at time of exam. In no acute distress. Alert and oriented 3. On remote telemetry. HEENT: Normocephalic, atraumatic. Wearing eyeglasses. Anicteric, noninjected sclera. NEUROLOGIC/PSYCHOLOGIC: Alert and oriented 3. Non-dysarthric speech. No focal neurological deficits appreciated. Responding appropriately to questions and commands. HEART: On remote telemetry. Rate and rhythm were both regular. There is an AICD/PPM in place over left superior anterior chest wall. No distinct murmurs, rubs or gallops are appreciated. NECK: JVP present roughly 3 cm above sternal angle. Neck is supple. Trachea midline. RESPIRATORY: Mild bibasilar crackles auscultated on inspiration posteriorly. No distinct rhonchi or wheezes appreciated. Symmetric chest expansion with adequate tidal volume. Speaking in full sentences. Breathing on room air. ARTERIAL PULSES: 2+ radial and posterior tibial pulses bilaterally. LOWER EXTREMITY EDEMA: No lower extremity edema or swelling appreciated. ABDOMEN: Soft, nondistended and nontender. LABORATORY WORK: Please see below. ASSESSMENT AND PLAN: On review of Shaji's telemetry overnight, his rate and rhythm appear to be regular and well controlled. He remains hemodynamically stable and relatively asymptomatic. There were no sustained events of ventricular tachycardia that necessitated defibrillator delivered shocks overnight. From an inpatient cardiology perspective, Shaji seems to be stable with his greatest issue being medical noncompliance. It is felt that adhering to his medication regimen moving forward should be sufficient. We will sign off on his inpatient care at this point. He will need to follow-up with his operations support analyst who also oversees his defibrillator (Dr. Borden) once he is discharged. Thank you for allowing the cardiology team to participate in Shaji/s care. Paddy grimaldo questions or concerns arise related to his cardiovascular health prior to discharge, please feel free to contact us. Vital Signs/I&O VS/I&O Vital Signs Date Time Temp Pulse Resp B/P (MAP) Pulse Ox O2 Delivery O2 Flow Rate FiO2 06/17/19 08:00 97.5 67 19 154/78 (103) 96 Room Air I&O- Last 24 Hours up to 6 AM 06/17/19 06:00 Intake Total 1820 ml Output Total 800 ml Balance 1020 ml Laboratory Data 24H LABS Laboratory Tests 2 06/16/19 11:14: Methicillin-Resist S.aureus DNA PCR NOT DETECTED 06/17/19 05:15: Nucleated Red Blood Cells % (auto) 0.0, Anion Gap 2L, Glomerular Filtration Rate 46.0L, Calcium Level 8.5L CBC/BMP Laboratory Tests 06/17/19 05:15 Attending Note I have seen and examined the patient with . I agree with his note. HEBERT NUNEZ D.O. Jun 17, 2019 10:18 Nabila Pena MD Jun 20, 2019 09:15
[2019-06-17] MEDS ORDERED: CARV3.12 PO (10:55)
[2019-06-17] MEDS ORDERED: ASPI81TAEC PO (10:55)
[2019-06-17 12:00] VITALS: BP 140/80
--- NOTE | 2019-06-17 18:48 | DS.PDOC ---
Discharge Summary General Date of Admission Jun 15, 2019 at 08:13 Date of Discharge 06/17/19 Primary Care Physician: BEBETO NEVES PA-C Attending Physician: NEHEMIAH RED MD Specialist/Consultants Involve: Nabila Pena MD Discharge Summary PROCEDURES PERFORMED DURING STAY: None. DISCHARGE DIAGNOSES: 1. AICD activated 2. Social living situation, debility 3. Hypothyroidism 4. Ischemic cardio myopathy S/P biventricular AICD chronically on Eliquis 5. Systolic heart failure with EF 35% 04/2014 6. Grade 2 diastolic dysfunction 7. CAD/anterior wall AK with apical thrombus 2013 s/p stent 8. 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 Traumatic subarachnoid hemorrhage 10. Osteomyelitis second digit right foot s/P amputation 11. Peripheral vascular disease S/P femoropopliteal bypass 12. GERD 13. Chronic kidney disease stage III 14. Vitamin D deficiency 15. COPD 16. MIGUE on nocturnal O2 17. BPH 18. Insomnia HISTORY OF PRESENT ILLNESS: This is a 64-year-old male with extensive past medical history, especially cardiac history, as noted below, bringing himself and due to being unable to take care of himself at home. He is a limited historian due to poor insight to his health and history of noncompliance. Per reports, his PCP has tried to get him placement for quite some time now, and patient has refused in the past, but now patient reports he received a phone call from his harvest crew supervisor that the AICD/PPM monitor shows he has been shocked multiple times in the past few months, specifically 8-9x in the past 3 months per the patient. He reports he never felt the shocks and has no complaint whatsoever, including no chest pain, lightheadedness, dizziness, shortness of breath, cough, leg swelling, or pain. The patients main concern is that he is no longer able to manage his medications, is unsure of what to take and how often. He states is able to feed himself, bathe, ambulate, but no higher complex care independently. When examined at bedside, he is hemodynamically stable and has no complaints and resting comfortably and fully interactive. HOSPITAL COURSE: Patient was admitted for PT and OT and social work assisted in setting up home services. Cardiology was consulted and reviewed patients AICD data: reportedly had 21 episodes of Vfib since 04/27/19, 17 were sustained leading to tachycardic pacing. Was shocked 2x, on 06/02 & 06/13. Per cardio, chl oride twice a day dose was doubled up to 6.25 MG, and he was started on aspirin 81 mg. Per cartilage recommendations, patient is cleared to go home on this regimen and if he has persistent arrhythmias ,will need an material handler. During his stay, he had no events on telemetry and was otherwise hemodynamically stable, had an uneventful stay. Cardiac markers negative. Will be discharged home stable and with home services and on the new drug regimen, to follow-up outpatient with cardiology and his primary physician. DISCHARGE MEDICATIONS: Please see below. ALLERGIES: Please see below. PHYSICAL EXAMINATION ON DISCHARGE: VITAL SIGNS: Please see below. General exam: A&Ox-3, NAD, laying in bed comfortably HEENT: NCAT, EOMI, neck supple, no JVD Cardiac: RRR, 2/6 systolic murmur, PPM/AICD left upper chest wall Respiratory: CTAB, good air exchange, no w/r/r Abdomen: soft, NT, ND, normoactive bowel sounds Extremity: 2+ radial pulses, no edema or calf tenderness Skin: [place], warm, dry, b/l LE scabs Msk: strength 5/5 x4, normal tone Neuro: normal speech, no acute deficits LABORATORY DATA: Please see below. IMAGING: None PROGNOSIS: Fair ACTIVITY: As tolerated. DIET: 2g sodium DISPOSITION: home DISCHARGE INSTRUCTIONS: 1. Follow-up with PCP within a week, Cardio 1-2 weeks 2. Return to ER for emergency DISCHARGE CONDITION: Stable. TIME SPENT ON DISCHARGE: Greater than 35 minutes. Vital Signs/I&Os Vital Signs Date Time Temp Pulse Resp B/P (MAP) Pulse Ox O2 Delivery O2 Flow Rate FiO2 06/17/19 12:00 98.3 60 20 140/80 (100) 95 Room Air I&O- Last 24 Hours up to 6 AM 06/17/19 06:00 Intake Total 1820 ml Output Total 800 ml Balance 1020 ml Laboratory Data Labs 24H Laboratory Tests 2 06/17/19 05:15: Nucleated Red Blood Cells % (auto) 0.0, Anion Gap 2L, Glomerular Filtration Rate 46.0L, Calcium Level 8.5L CBC/BMP Laboratory Tests 06/17/19 05:15 Discharge Medications Scheduled Amiodarone HCl (Amiodarone HCl) 200 Mg Tab, 300 MG PO DAILY, (Reported) Apixaban (Eliquis) 5 Mg Tablet, 5 MG PO DAILY, (Reported) Aspirin (Aspirin EC) 81 Mg Tablet.dr, 81 MG PO DAILY Budesonide/Formoterol (Symbicort 80-4.5 Mcg Inhaler) 6.9 Gm Hfa.aer.ad, 2 PUFF INH BID, (Reported) Carvedilol (Carvedilol) 3.125 Mg Tablet, 6.25 MG PO BID Gabapentin (Gabapentin) 100 Mg Capsule, 100 MG PO DAILY, (Reported) Levothyroxine Sodium (Levothyroxine Sodium) 88 Mcg Tablet, 88 MCG PO DAILY, (Reported) Mexiletine HCl (Mexiletine HCl) 200 Mg Capsule, 200 MG PO BID, (Reported) Rosuvastatin Calcium (Rosuvastatin Calcium) 40 Mg Tablet, 40 MG PO DAILY, (Reported) Tamsulosin HCl (Flomax) 0.4 Mg Capsule, 0.4 MG PO DAILY, (Reported) Scheduled PRN Nitroglycerin (Nitrostat) 0.4 Mg Tab.subl, 0.4 MG SL NITRO PRN for CHEST PAIN, (Reported) Trazodone HCl (Trazodone HCl) 50 Mg Tablet, 50 MG PO QHS PRN for SLEEP, (Reported) Allergies Coded Allergies: No Known Allergies (Unverified , 08/02/12) GME ATTESTATION GME ATTESTATION My faculty preceptor for this patient encounter was physically present during the encounter and was fully available. All aspects of the patient interview, examination, medical decision making process, and medical care plan development were reviewed and approved by the faculty preceptor. The faculty preceptor is aware and concurs with the plan as stated in the body of this note and will attest to such by his/her cosignature. ATTENDING NOTE I, Nehemiah Red, have independently examined this patient and performed my own physical exam, as well as reviewed the documentation and edited where necessary. I have discussed in detail with the resident / student the findings and plan of treatment as documented by the resident / student and edited their note. I agree with their findings and plan to discharge him home at this time with his baseline medications and home services in an effort to improve medication compliance. EVAN KNIGHT DO Jun 17, 2019 18:48 NEHEMIAH RED MD Jun 17, 2019 19:38
[2019-06-18 14:06] LABS: AMIODARONE (CORDARONE) 0.5 ug/mL (1.0-2.5); NORAMIODARONE LEVEL 0.4 ug/mL (1.0-2.5)
== END 2019-06-17 13:49 | disposition home or self-care (01) ==
LOC: M ED 08:12 → EDBD 08:12 → M ED INP 08:13 → ENRESERVTM 11:48 → ENRESERVDT 11:48 → M MSPAV 12:19
PROVIDERS: ADMIT Internal Medicine; ATTEND Internal Medicine
DX: I49.01 Ventricular fibrillation (principal); Z95.810 Presence of automatic (implantable) cardiac defibrillator; R54 Age-related physical debility; E03.9 Hypothyroidism, unspecified; I25.5 Ischemic cardiomyopathy; I50.40 Unspecified combined systolic (congestive) and diastolic (congestive) heart failure; I25.10 Atherosclerotic heart disease of native coronary artery without angina pectoris; Z98.61 Coronary angioplasty status; Z79.01 Long term (current) use of anticoagulants; Z79.899 Other long term (current) drug therapy; E11.21 Type 2 diabetes mellitus with diabetic nephropathy; N18.3 Chronic kidney disease, stage 3 (moderate); E11.40 Type 2 diabetes mellitus with diabetic neuropathy, unspecified; K21.9 Gastro-esophageal reflux disease without esophagitis; Z79.82 Long term (current) use of aspirin; E55.9 Vitamin D deficiency, unspecified; J44.9 Chronic obstructive pulmonary disease, unspecified; G47.33 Obstructive sleep apnea (adult) (pediatric); N40.0 Benign prostatic hyperplasia without lower urinary tract symptoms; Z87.891 Personal history of nicotine dependence
CPT/HCPCS: 36415; 80048; 80053; 80299; 82550; 82553; 83735; 84436; 84443; 84479; 84484; 85025; 85027; 87641; 93005; 94640; 96125; 97161; 97165; 99285; G0378

== ENCOUNTER → 2019-07-02 | Outpatient (REF) | payer MEDICARE, MEDICAID ==
[~2019-07-02] MED LIST changes: +ASPI81TAEC PO; +ROSU40TA4 PO; -SYMBICORT 80/4.5MCG INHALER 6GM INH SCH
== END ==
LOC: M SFHCADAM 17:22
PROVIDERS: ATTEND Physician Assistant Medical
DX: R05 Cough (principal)

== ENCOUNTER 2019-07-30 17:04 | Emergency (ER) | payer MEDICARE, MEDICAID ==
[~2019-07-30] VITALS: Ht 180.3 cm; Wt 81.8 kg
[~2019-07-30 17:04] MED LIST changes: -LISI-1046 PO; +LISI2.5T2 PO
[2019-07-30 18:07] LABS: BASO # 0.1 10^3/uL (0.0-0.2); BASO % 0.9 % (0.0-1.0); EOS # 0.3 10^3/uL (0.0-0.5); EOS % 4.4 % (0.0-3.0); HEMOGLOBIN 10.8 g/dl (13.5-17.5); LYMPH # 0.9 10^3/uL (1.5-5.0); LYMPH % 13.6 % (24.0-44.0); MEAN CORPUSCULAR HEMOGLOBIN 27.9 pg (27.0-33.0); MONO # 0.7 10^3/uL (0.0-0.8); MONO % 9.8 % (0.0-5.0); NEUTROPHILS # 4.9 10^3/uL (1.5-8.5); NEUTROPHILS % 70.7 % (36.0-66.0); PLATELET COUNT, AUTOMATED 171 10^3/uL (150-450); RED BLOOD COUNT 3.87 10^6/uL (4.30-6.10); WHITE BLOOD COUNT 6.9 10^3/uL (4.0-10.0)
--- NOTE | 2019-07-30 18:16 | REPVR ---
PROCEDURE INFORMATION: Exam: US Duplex Left Lower Extremity Veins, Limited Exam date and time: 07/30/2019 6:08 PM Age: 64 years old Clinical indication: Swelling (edema) of limb; Lower extremity, left; Prior surgery; Surgery type: PT unsure of what surgery he had done, stated he had no flow to the left leg; Additional info: R/O dvt TECHNIQUE: Imaging protocol: Real-time Duplex ultrasound of the Left Lower Extremity with 2-D caldwell scale, color Doppler flow and spectral waveform analysis with image documentation. Limited exam focused on the left lower extremity veins. COMPARISON: US Duplex, Ext,LOWER veins,unilat 05/23/2015 2:37 PM FINDINGS: Left deep veins: Unremarkable. The common femoral, femoral, proximal profunda femoral and popliteal veins are patent without thrombus. Normal Doppler waveforms. Normal compressibility and/or augmentation response. Left superficial veins: Unremarkable. Saphenofemoral junction is patent without thrombus. Soft tissues: Edema lower leg. IMPRESSION: Edema lower leg. No DVT. Electronically signed by: Horacio Seals On 07/30/2019 18:15:37 PM
[2019-07-30 18:34] LABS: ALBUMIN 2.9 GM/DL (3.2-5.2); BILIRUBIN,DIRECT 0.2 MG/DL (0.0-0.2); BILIRUBIN,TOTAL 0.5 MG/DL (0.2-1.0); C REACTIVE PROTEIN QUANTITATIV 0.54 MG/DL (0.00-0.30); CREATININE FOR GFR 1.72 MG/DL (0.70-1.30); POTASSIUM SERUM 4.5 MEQ/L (3.5-5.1); TOTAL PROTEIN 6.4 GM/DL (6.4-8.2)
[2019-07-30 19:02] LABS: ERYTHROCYTE SEDIMENTATION RATE 24 mm/hr (0-20)
[2019-07-30] MEDS ORDERED: KEFL500C17 PO (19:25)
[2019-07-30] MEDS ORDERED: CEPHALEXIN 500 MG CAP PO ONE (19:30)
[2019-07-30 19:37] VITALS: BP 144/71
== END 2019-07-30 19:38 | disposition home or self-care (01) ==
LOC: M ED 17:04
DX: L03.116 Cellulitis of left lower limb (principal); M79.89 Other specified soft tissue disorders; I50.9 Heart failure, unspecified; I25.2 Old myocardial infarction; E11.40 Type 2 diabetes mellitus with diabetic neuropathy, unspecified; I11.0 Hypertensive heart disease with heart failure; J44.9 Chronic obstructive pulmonary disease, unspecified; K21.9 Gastro-esophageal reflux disease without esophagitis; N18.3 Chronic kidney disease, stage 3 (moderate); F32.9 Major depressive disorder, single episode, unspecified; Z87.820 Personal history of traumatic brain injury; Z79.82 Long term (current) use of aspirin; Z79.899 Other long term (current) drug therapy

== ENCOUNTER 2019-09-20 12:13 | Inpatient (IN) | payer MEDICARE, MEDICAID ==
[~2019-09-20] VITALS: Ht 180.3 cm; Wt 95.6 kg
[~2019-09-20 12:13] MED LIST changes: +KEFL500C17 PO
[2019-09-20 13:43] LABS: BASO # 0.1 10^3/uL (0.0-0.2); BASO % 0.6 % (0.0-1.0); EOS # 0.1 10^3/uL (0.0-0.5); EOS % 0.5 % (0.0-3.0); HEMATOCRIT 37.6 % (42.0-52.0); HEMOGLOBIN 11.5 g/dl (13.5-17.5); MEAN CORPUSCULAR HEMOGLOBIN 26.7 pg (27.0-33.0); MEAN CORPUSCULAR HGB CONC 30.6 g/dl (32.0-36.5); MEAN CORPUSCULAR VOLUME 87.4 fl (80.0-96.0); MONO # 1.5 10^3/uL (0.0-0.8); MONO % 10.1 % (0.0-5.0); NEUTROPHILS # 11.9 10^3/uL (1.5-8.5); NEUTROPHILS % 80.6 % (36.0-66.0); PLATELET COUNT, AUTOMATED 155 10^3/uL (150-450); WHITE BLOOD COUNT 14.8 10^3/uL (4.0-10.0)
[2019-09-20 13:50] LABS: INR 1.7; PROTHROMBIN TIME 19.7 SECONDS (11.8-14.0)
[2019-09-20 13:51] LABS: PARTIAL THROMBOPLASTIN TIME 36.6 SECONDS (25.0-38.4)
[2019-09-20 14:19] LABS: ALBUMIN 2.7 GM/DL (3.2-5.2); BILIRUBIN,DIRECT 0.4 MG/DL (0.0-0.2); BILIRUBIN,TOTAL 0.7 MG/DL (0.2-1.0); TOTAL PROTEIN 6.2 GM/DL (6.4-8.2)
[2019-09-20] MEDS ORDERED: NS 500 ML IV ONE ×2 (15:00→18:45)
[2019-09-20] MEDS ORDERED: NS 1,000 ML IV SCH (20:00)
[2019-09-20] MEDS ORDERED: ONDANSETRON 4MG/2ML VIAL IV PRN (20:00)
--- NOTE | 2019-09-20 20:08 | HPEPDOC ---
General Date of Admission 09/20/2019 Date of Service: Sep 20, 2019 Chief Complaint The patient is a 64-year-old male who presented to the ER with nausea and vomiting History of Present Illness Patient is a 64 year old male with a PMHx of CAD (Hx of VT), Systolic CHF (s/p AICD) 2/2 Ischemic cardiomyopathy, PAD, HTN, DLP, DM2, CKD3, Neuropathy, Vitamin D deficiency, GERD, presented to the emergency room with complaints of nausea and vomiting for the last 3-4 days. Patient reports that over the course of 3-4 days hes been experiencing nausea and has vomited 2 times a day on average. Patient describes the vomitus as julee- colored without any blood. Also reports associated diarrhea that he describes as watery, occurring 2 times a day without any blood. Denies any abdominal pain. Hodges s not expense any fevers or chills. Patient reports that her appetite has been poor the last few days. Denies any change in her weight. Patient denies any chest pain, shortness of breath, palpitations, cough. Denies any worsening of lower extremity swelling. Home Medications Scheduled Amiodarone HCl (Amiodarone HCl) 200 Mg Tab, 300 MG PO DAILY, (Reported) Apixaban (Eliquis) 5 Mg Tablet, 5 MG PO DAILY, (Reported) Aspirin (Aspirin EC) 81 Mg Tablet.dr, 81 MG PO DAILY Budesonide/Formoterol (Symbicort 80-4.5 Mcg Inhaler) 6.9 Gm Hfa.aer.ad, 2 PUFF INH BID, (Reported) Carvedilol (Carvedilol) 3.125 Mg Tablet, 6.25 MG PO BID Gabapentin (Gabapentin) 100 Mg Capsule, 100 MG PO DAILY, (Reported) Levothyroxine Sodium (Levothyroxine Sodium) 88 Mcg Tablet, 88 MCG PO DAILY, (Rep orted) Mexiletine HCl (Mexiletine HCl) 200 Mg Capsule, 200 MG PO BID, (Reported) Rosuvastatin Calcium (Rosuvastatin Calcium) 40 Mg Tablet, 40 MG PO DAILY, (Reported) Tamsulosin HCl (Flomax) 0.4 Mg Capsule, 0.4 MG PO DAILY, (Reported) Scheduled PRN Nitroglycerin (Nitrostat) 0.4 Mg Tab.subl, 0.4 MG SL NITRO PRN for CHEST PAIN, (Reported) Trazodone HCl (Trazodone HCl) 50 Mg Tablet, 50 MG PO QHS PRN for SLEEP, (Reported) Allergies Coded Allergies: No Known Allergies (Unverified , 08/02/12) Past Medical History Medical History CAD (Hx of VT), Systolic CHF (s/p AICD) 2/2 Ischemic cardiomyopathy, PAD, HTN, DLP, DM2, CKD3, Neuropathy, Vitamin D deficiency, GERD Surgical History Amputation of right second digit of fluid Thrombectomy of the left leg stent thrombosis Defibrillator placement Femoral-popliteal bypass Family History - Family history was reviewed and noncontributory to this hospitalization Social History - Patient reports that he quit smoking 50 years ago. 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 Review of Systems Other systems 10 point review of systems complete, all negative otherwise stated in HPI Vital Signs - Vitals: BP [144/91], HR [60], RR [20], Sat [90%RA], Temp [98.1F] - General: Lying in bed, Speaking in full sentences, AAOx3 - HEENT: NC, AT, PERRLA - CVS: +S1S2 - Lungs: Fair air entry bilaterally, No appreciable wheezing / rales / rhonchi - Abdomen: Soft, Non-distended, Non-tender - Extremities: 2+ pitting edema bilaterally, No calf tenderness - Neuro: No focal motor or sensory deficit - Skin: No visible rashes Laboratory Data Labs 24H Laboratory Tests 2 09/20/19 13:25: Prothrombin Time 19.7H, Prothromb Time International Ratio 1.70, Activated Partial Thromboplast Time 36.6 09/20/19 13:26: Immature Granulocyte % (Auto) 1.2, Neutrophils (%) (Auto) 80.6H, Lymphocytes (%) (Auto) 7.0L, Monocytes (%) (Auto) 10.1H, Eosinophils (%) (Auto) 0.5, Basophils (%) (Auto) 0.6, Neutrophils # (Auto) 11.9H, Lymphocytes # (Auto) 1.0L, Monocytes # (Auto) 1.5H, Eosinophils # (Auto) 0.1, Basophils # (Auto) 0.1, Nucleated Red Blood Cells % (auto) 0.0, Lactic Acid Level 1.9, Total Bilirubin 0.7, Direct Bilirubin 0.4H, Aspartate Amino Transf (AST/SGOT) 139H, Alanine Aminotransferase (ALT/SGPT) 102H, Alkaline Phosphatase 128H, Total Protein 6.2L, Albumin 2.7L, Albumin/Globulin Ratio 0.8, Amylase Level 47, Lipase 103 09/20/19 14:34: POC Glucose (Misc Panel) 160H, POC Sodium (Misc Panel) 138, POC Potassium (Misc Panel) 4.8, POC Chloride (Misc Panel) 104, POC Total CO2 (Misc Panel) 24.0, POC Blood Urea Nitrogen (Misc Panel 47H, POC Ionized Calcium (Misc Panel) 4.8, POC Creatinine (Misc Panel) 3.0H, POC Hematocrit (Misc Panel) 39.0 09/20/19 15:07: Urine Color YELLOW, Urine Appearance CLEAR, Urine pH 5.0, Urine Specific [place] 1.018, Urine Protein 2+H, Urine Glucose (UA) NEGATIVE, Urine Ketones NEGATIVE, Urine Blood 1+H, Urine Nitrite NEGATIVE, Urine Bilirubin NEGATIVE, Urine Uro bilinogen 4.0H, Urine Leukocyte Esterase NEGATIVE, Urine WBC (Auto) 1, Urine RBC (Auto) 2, Urine Hyaline Casts (Auto) 4, Urine Bacteria (Auto) NEGATIVE, Urine Squamous Epithelial Cells 0, Urine Sperm (Auto) CBC/BMP Laboratory Tests 09/20/19 13:26 Plan / VTE VTE Prophylaxis Ordered?: Yes Plan Plan Nausea, vomiting and diarrhea - Patient was a currently, his symptoms have subsided - Patient is hemodynamically stable and afebrile - Physical is unrevealing - Leukocytosis of 14 with neutrophil predominance / No lactic acidosis - Lipase normal - Elevated AST and ALT; normal bilirubin - Will get CT abdomen / pelvis and Liver US - Will check Hepatitis profile / GI panel / Blood cultures / Procalcitonin - Will start IV fluid hydration and symptomatic control with Zofran Acute kidney injury on CKD3 - Baseline creatinine of approximately 1.6-2.0 - Creatinine on admission of 3.0 - Will avoid nephrotoxic medications and hold diuresis - Will check urine electrolytes and renal US - Start IV fluid hydration CAD (Hx of VT) - Patient denies any chest pain, shortness of breath or palpitations at this time - c/w ASA and Rosuvastatin Systolic CHF (s/p AICD) 2/2 Ischemic cardiomyopathy - Lower extremities reveal pitting edema bilaterally - Will check CT chest - Will hold diuresis for now A. fib - Will c/w Amiodarone and Carvedilol - c/w Eliquis PAD - c/w ASA HTN - c/w Carvedilol with holding parameters DLP - c/w Rosuvastatin DM2 - Will start ISS Hypothyroidism - c/w Levothyroxine Neuropathy - c/w Gabapentin BPH - c/w Tamsulosin Vitamin D deficiency GERD - Will start Protonix DVT prophylaxis - Will c/w full anticoagulation with eloquent was BLAINE HILL MD Sep 20, 2019 20:08
[2019-09-20] MEDS ORDERED: DEXTROSE 50% 50 ML SYRINGE IV PRN (20:15)
[2019-09-20] MEDS ORDERED: GLUCOSE 4GM CHEW TABLET PO PRN (20:15)
[2019-09-20] MEDS ORDERED: GLUCAGON INJ 1MG VIAL SC PRN (20:15)
[2019-09-20] MEDS ORDERED: ACETAMINOPHEN TAB 650MG DOSE (2X325MG) PO PRN (20:15)
--- NOTE | 2019-09-20 20:27 | REPVR ---
PROCEDURE INFORMATION: Exam: CT Chest Without Contrast Exam date and time: 09/20/2019 8:02 PM Age: 64 years old Clinical indication: Shortness of breath; Additional info: SOB TECHNIQUE: Imaging protocol: Computed tomography of the chest without contrast. Radiation optimization: All CT scans at this facility use at least one of these dose optimization techniques: automated exposure control; mA and/or kV adjustment per patient size (includes targeted exams where dose is matched to clinical indication); or iterative reconstruction. COMPARISON: CT Chest without contrast 04/01/2017 3:14 PM FINDINGS: Lungs: [id number] centrilobular emphysematous changes most pronounced in the upper lung zones. Coarse mixed airspace and interstitial infiltrate in the posterior segment of the left upper lobe and posterior aspect of the lingular lobe. Findings consistent with acute pneumonitis. There is moderate circumferential narrowing of the segmental bronchus to the lingular lobe. Scarring versus infiltrative mass to be considered clinically. Pleural space: Unremarkable. No pneumothorax. No pleural effusion. Heart: Cardiomegaly. There is moderate atherosclerotic calcification of the coronary arteries. Aorta: Unremarkable. No aortic aneurysm. Lymph nodes: Multiple calcified hilar and mediastinal lymph nodes. Mediastinal lymphadenopathy measures up to 1.6 cm in the retrocaval pretracheal area. Bones/joints: The spine demonstrates moderate degenerative changes. Soft tissues: Multiple bilateral calcified granulomata. IMPRESSION: 1. Pqce-wh-jhbulpuu centrilobular emphysematous changes most pronounced in the upper lung zones. 2. Coarse mixed airspace and interstitial infiltrate in the posterior segment of the left upper lobe and posterior aspect of the lingular lobe. Findings consistent with acute pneumonitis. There is moderate circumferential narrowing of the segmental bronchus to the lingular lobe. Scarring versus infiltrative mass to be considered clinically. 3. Cardiomegaly. 4. Mediastinal lymphadenopathy measures up to 1.6 cm in the retrocaval pretracheal area. 5. Findings consistent with remote intrathoracic granulomatous infection. Electronically signed by: Horacio Seals On 09/20/2019 20:26:20 PM
--- NOTE | 2019-09-20 20:31 | REPVR ---
PROCEDURE INFORMATION: Exam: CT Abdomen And Pelvis Without Contrast Exam date and time: 09/20/2019 8:02 PM Age: 64 years old Clinical indication: Nausea and vomiting; Additional info: N TECHNIQUE: Imaging protocol: Computed tomography of the abdomen and pelvis without contrast. Radiation optimization: All CT scans at this facility use at least one of these dose optimization techniques: automated exposure control; mA and/or kV adjustment per patient size (includes targeted exams where dose is matched to clinical indication); or iterative reconstruction. COMPARISON: CT ABD PELVIS W/O CONTRAST 04/01/2017 3:14 PM FINDINGS: Liver: Examination of the liver demonstrates a lobular surface contour, and enlargement of the left and caudate lobes, findings which may be consistent with cirrhosis in the appropriate clinical setting. Gallbladder and bile ducts: Normal. No calcified stones. No ductal dilation. Pancreas: Normal. No ductal dilation. Spleen: Normal. No splenomegaly. Adrenals: There is bilateral adrenal hyperplasia. Kidneys and ureters: Bilateral simple appearing renal cysts measure up to 5.5 cm in the right kidney. No follow-up suggested. Stomach and bowel: Unremarkable. No obstruction. No mucosal thickening. Appendix: No evidence of appendicitis. Intraperitoneal space: There is a small amount of free intraperitoneal fluid present. Vasculature: The aorta demonstrates mild atherosclerotic calcification. Lymph nodes: Unremarkable. No enlarged lymph nodes. Bladder: Unremarkable as visualized. Reproductive: The prostate gland demonstrates mild hyperplasia. Bones/joints: Sclerosis and mild age indeterminate compression deformity of L1. Clinical correlation to exclude acute fracture suggested. Notably, the finding was not demonstrated in 2018. Mild central spinal stenosis L2-L3, severe central spinal stenosis L3-L4 and L4-L5. Calcified posterior disc protrusion at L5-S1 results in a moderate central spinal stenosis and may impinge on the exiting S1 nerve roots. Soft tissues: There is soft tissue edema demonstrated in the abdominal wall, flanks and buttock regions consistent with anasarca. IMPRESSION: 1. Sclerosis and mild age indeterminate compression deformity of L1. Clinical correlation to exclude acute fracture suggested. Notably, the finding was not demonstrated in 2018. 2. There is a small amount of free intraperitoneal fluid present. 3. Examination of the liver demonstrates a lobular surface contour, and enlargement of the left and caudate lobes, findings which may be consistent with cirrhosis in the appropriate clinical setting. 4. There is bilateral adrenal hyperplasia. 5. Bilateral simple appearing renal cysts measure up to 5.5 cm in the right kidney. No follow-up suggested. 6. Mild prostatic hyperplasia. 7. Anasarca. COMMENTS: Consistent with the [employer]'s Incidental Findings Committee white paper (J Am Geraldo Radiol 2018): Any incidental renal lesion less than 1.0 cm or classified as too small to characterize, or any incidental cystic renal lesion characterized as simple-appearing, is likely benign. No follow-up imaging is recommended for these lesions per consensus recommendations based on imaging criteria. Electronically signed by: Horacio Seals On 09/20/2019 20:31:33 PM
[2019-09-20] MEDS ORDERED: CARV6.25 PO (20:47)
[2019-09-20 20:57] LABS: CK-MB VALUE MASS 5.7 NG/ML (<3.6); MB/CK RELATIVE INDEX 2.08 (< OR =4); TROPONIN I 0.45 NG/ML (< 0.10)
[2019-09-20] MEDS: HumaLOG INSULIN (NovoLOG) PER UNIT SC SCH (21:00)
[2019-09-20] MEDS: PANTOPRAZOLE 40MG VIAL (C9113 PER 1) IV SCH (21:10)
[2019-09-20 22:03] LABS: CK-MB VALUE MASS 5.9 NG/ML (<3.6); CPK CREATINE PHOSPHOKINASE 247 U/L (39-308); MB/CK RELATIVE INDEX 2.39 (< OR =4); TROPONIN I 0.48 NG/ML (< 0.10)
[2019-09-20 22:37] LABS: OSMOLALITY SERUM 302 MOSM/KG (280-301)
--- NOTE | 2019-09-21 00:43 | REPVR ---
PROCEDURE INFORMATION: Exam: US Abdomen Complete Exam date and time: 09/21/2019 12:16 AM Age: 64 years old Clinical indication: Abnormal findings; Abnormal lab test; Abnormal kidney function lab tests and elevated liver enzymes; Additional info: German / elevated liver enzymes TECHNIQUE: Imaging protocol: Real-time ultrasound of the abdomen with image documentation. COMPARISON: GALLBLADDER US 04/17/2019 4:50 PM FINDINGS: Liver: The liver demonstrates no focal defects. Gallbladder: The gallbladder demonstrates wall thickening measuring 5 mm. No stones are seen. The pancreas is obscured by gas shadowing. Common bile duct: The CBD measures 3-4 mm. Pancreas: See "Gallbladder" finding. Right kidney: The right kidney demonstrates no hydronephrosis and measures 11.9 cm. There is a lower pole simple cyst measuring 4.7 x 4.7 x 3.8 cm and a smaller upper renal cyst measuring 13 mm. No follow-up recommended. Left kidney: The left kidney demonstrates a cyst measuring 2.6 x 2.9 x 2.5 cm. The left kidney measures 12.4 cm with no hydronephrosis. Spleen: The spleen measures 10.1 cm. Aorta: The aorta is not seen due to gas shadowing. Inferior vena cava: Normal. Intraperitoneal space: Trace ascites around the liver and spleen. IMPRESSION: 1. Bilateral renal cysts measuring up to 4.7 cm on the right. 2. Trace ascites. 3. Mild gallbladder wall thickening measuring 5 mm with no stones. 4. Otherwise negative abdominal sonogram. COMMENTS: Consistent with the [employer]'s Incidental Findings Committee white paper (J Am Geraldo Radiol 2018): Any incidental renal lesion less than 1.0 cm or classified as too small to characterize, or any incidental cystic renal lesion characterized as simple-appearing, is likely benign. No follow-up imaging is recommended for these lesions per consensus recommendations based on imaging criteria. Electronically signed by: Zak Mcallister On 09/21/2019 00:42:40 AM
[2019-09-21 01:35] VITALS: BP 150/88
--- NOTE | 2019-09-21 02:15 | REPVR ---
PROCEDURE INFORMATION: Exam: CT Head Without Contrast Exam date and time: 09/21/2019 1:46 AM Age: 64 years old Clinical indication: Altered mental status/memory loss; Confusion or disorientation TECHNIQUE: Imaging protocol: Computed tomography of the head without contrast. Radiation optimization: All CT scans at this facility use at least one of these dose optimization techniques: automated exposure control; mA and/or kV adjustment per patient size (includes targeted exams where dose is matched to clinical indication); or iterative reconstruction. COMPARISON: CT Head without contrast 02/16/2019 10:54 PM FINDINGS: Brain: There is mild prominence of the peripheral sulci and mild patchy low attenuation of deep white matter. Ventricles: There is moderate prominence of the central ventricular system. Bones/joints: Unremarkable. No acute fracture. Sinuses: Visualized sinuses are unremarkable. No fluid levels. Mastoid air cells: Visualized mastoid air cells are well aerated. Auditory system: Debris in the external auditory canals bilaterally. Soft tissues: Unremarkable. IMPRESSION: 1. Mild chronic ischemic white matter change and moderate atrophy for age which is similar to 02/16/2019. 2. Otherwise negative noncontrast head CT. Electronically signed by: Zak Mcallister On 09/21/2019 02:14:46 AM
[2019-09-21 02:51] LABS: CK-MB VALUE MASS 6.4 NG/ML (<3.6); MB/CK RELATIVE INDEX 2.71 (< OR =4); TROPONIN I 0.51 NG/ML (< 0.10)
[2019-09-21 04:00] VITALS: BP 137/85
[2019-09-21 05:44] LABS: BASO # 0.1 10^3/uL (0.0-0.2); BASO % 0.6 % (0.0-1.0); EOS # 0.1 10^3/uL (0.0-0.5); EOS % 0.8 % (0.0-3.0); HEMATOCRIT 36.2 % (42.0-52.0); HEMOGLOBIN 10.9 g/dl (13.5-17.5); LYMPH # 0.9 10^3/uL (1.5-5.0); LYMPH % 6.8 % (24.0-44.0); MEAN CORPUSCULAR HGB CONC 30.1 g/dl (32.0-36.5); MEAN CORPUSCULAR VOLUME 86.4 fl (80.0-96.0); MONO # 1.3 10^3/uL (0.0-0.8); MONO % 10.2 % (0.0-5.0); NEUTROPHILS # 10.3 10^3/uL (1.5-8.5); NEUTROPHILS % 81.2 % (36.0-66.0); PLATELET COUNT, AUTOMATED 156 10^3/uL (150-450); RED BLOOD COUNT 4.19 10^6/uL (4.30-6.10); WHITE BLOOD COUNT 12.7 10^3/uL (4.0-10.0)
[2019-09-21 06:08] LABS: CALCIUM LEVEL 8.2 MG/DL (8.8-10.2); CREATININE FOR GFR 2.41 MG/DL (0.70-1.30); GLOMERULAR FILTRATION RATE 29.1 (>49); MAGNESIUM LEVEL 2.2 MG/DL (1.8-2.4); POTASSIUM SERUM 4.3 MEQ/L (3.5-5.1)
[2019-09-21 07:27] VITALS: BP 169/94
--- NOTE | 2019-09-21 07:58 | ECGEPIP ---
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
[2019-09-21] MEDS: PANTOPRAZOLE 40MG VIAL (C9113 PER 1) IV SCH ×2 (09:02→21:53)
[2019-09-21] MEDS: HumaLOG INSULIN (NovoLOG) PER UNIT SC SCH ×4 (09:02→21:00)
[2019-09-21] MEDS ORDERED: amLODIPine 5 MG TAB PO ONE (10:15)
[2019-09-21] MEDS ORDERED: SLF 3 ML SYR IV PRN (10:30)
[2019-09-21 12:00] VITALS: BP 176/96
[2019-09-21] MEDS ORDERED: metOLazone 5 MG TAB PO ONE (13:00)
[2019-09-21] MEDS: SPIRONOLACTONE 25 MG TAB PO SCH (14:40)
[2019-09-21] MEDS: **hydrALAZINE HCL** 25 MG TAB PO SCH ×2 (14:41→21:03)
[2019-09-21] MEDS: CARVedilol 6.25 MG TAB PO SCH ×2 (14:41→21:53)
[2019-09-21] MEDS: FUROSEMIDE 100MG/10ML VIAL (J1940) IV SCH ×3 (14:42→23:47)
[2019-09-21] MEDS: SLF 3 ML SYR IV SCH ×2 (14:43→21:54)
--- NOTE | 2019-09-21 15:03 | IPNPDOC ---
Text Note Date of Service The patient was seen on 09/21/19. NOTE Subjective: Objective: Vitals: (see below) General: No acute distress, laying comfortably in bed. HEENT: Moist mucous membranes. Neck: No JVD or lymphadenopathy Cardiac: RRR, No murmurs Pulm: Clear to auscultation b/l. No wheezing, rhonchi Abd: NT/ND + BS Ext: No edema or cyanosis Labs (see below) Images: Assessment/Plan 1. GRIFFIN on CKD - improving. Baseline Cr 1.6-2.0. Nephro consulted. Avoid nephrotoxins 2. HTN uncontrolled. Started on hydralazine per nephro 3. Acute gastroenteritis resolved. Pt would like to advance diet. No further n/v/diarrhea 4. Acute Decompensated Systolic HF -(H/o AICD) restarted on diuretics by nephro. IVF d/c. 5. H/o CAD cont home meds 6. AF on Amiodarone and coreg, eliquis 7. PAD on ASA 8. HTN on BB 9. HLD on statin 10. Hypothyroidism on synthroid 11. BPH on flomax 12. GERD on PPI 13. Transaminitis - no abd pain; check hepatitis panel, abd u/s. Trend in am. DVT prophy: Eliquis VS,Fishbone, I+O VS, Fishbone, I+O Laboratory Tests 09/21/19 05:30 Vital Signs Date Time Temp Pulse Resp B/P (MAP) Pulse Ox O2 Delivery O2 Flow Rate FiO2 09/21/19 14:41 176/96 09/21/19 14:41 79 09/21/19 12:00 97.6 18 92 Room Air I&O- Last 24 Hours up to 6 AM 09/21/19 06:00 Intake Total 1500 ml Output Total 400 ml Balance 1100 ml SILVANO CASTILLO MD Sep 21, 2019 15:03
[2019-09-21 16:00] VITALS: BP 137/84
[2019-09-21 20:00] VITALS: BP 126/74
[2019-09-21] MEDS: APIXABAN 5 MG TAB (ELIQUIS) PO SCH (21:53)
[2019-09-21] MEDS: cefTRIAXone SOD 1 GM in D5W MINI-BAG PLUS 50 ML IV SCH (21:54)
--- NOTE | 2019-09-21 23:08 | CR ---
DATE OF CONSULTATION: 09/21/2019 REQUESTING PHYSICIAN: Dr. Thai Gilbert CONSULTING PHYSICIAN: Dr. Kwadwo Swan REASON FOR CONSULTATION: Management of fluid overload and acute kidney injury superimposed on chronic kidney disease stage III. CHIEF COMPLAINT: The patient presented to the hospital yesterday with nausea and vomiting. HISTORY OF PRESENT ILLNESS: Shaji Cruz is a 64-year-old male, past medical history of chronic kidney disease stage III, baseline creatinine of around 1.7 as of July 2019, history of chronic systolic congestive heart failure, status post automatic implantable cardioverter defibrillator (AICD), diabetes mellitus type 2, multiple other comorbidities as mentioned below. He presented to the emergency room with nausea, vomiting for the last 3-4 days. He was unable to keep anything down. He also reported occasional diarrhea. He also reported poor appetite, but he denies any fevers or chills. He was admitted under the hospitalist service and started on IV fluid hydration. However, the patient was found to have acute kidney injury superimposed on chronic kidney disease. His creatinine on arrival was 2.4, so nephrology service was called for further help in the management of this patient. I saw and evaluated the patient today morning at the bedside. He reported that his nausea was slightly better. However, he did report shortness of breath and wheezing. He did report lower extremity edema as well. PAST MEDICAL HISTORY: Past medical history of coronary artery disease, history of myocardial infarction (SC) in the past, chronic systolic congestive heart failure, status post AICD secondary to ischemic cardiomyopathy, peripheral vascular disease, hypertension, hyperlipidemia and diabetes mellitus type 2, chronic kidney disease stage III, baseline creatinine of 1.7, peripheral neuropathy, vitamin D deficiency, gastroesophageal reflux disease. PAST SURGICAL HISTORY: Status post amputation of the right second digit, status post thrombectomy of the left leg, status post AICD placement, status post femoral-popliteal (fem-pop) bypass. ALLERGIES: No known drug allergies. FAMILY HISTORY: No significant family history of end-stage renal disease requiring hemodialysis. SOCIAL HISTORY: The patient is an ex-smoker. He denies any drug abuse or alcohol abuse. He lives alone. REVIEW OF SYSTEMS: Constitutional: He does report feeling weak and tired. Eyes: He denies any blurry vision, double vision. Ears, Nose and Throat (ENT): Denies any dysphagia, odynophagia. Cardiovascular: He does report lower extremity edema. Respiratory: He does report shortness of breath and wheezing. Gastrointestinal (GI): He reports nausea and vomiting on arrival. Genitourinary: He denies any dysuria or hematuria. Musculoskeletal: Reports no extremity edema. Skin: He denies any rashes or ulcers. Psychiatric: He denies any depression or anxiety. Central nervous system (DIET TECH): He denies any strokes or seizures. Hematology/Oncology: He denies any easy bleeding or bruising. All other review of systems is negative. PHYSICAL EXAMINATION: General: The patient is awake, alert, oriented times three, laying in bed. Vital signs: Temperature is 97.6 degrees Fahrenheit, blood pressure 176/96, pulse is 79, respiratory rate of 18, saturating 92% on room air. Head and neck exam: Extraocular muscles intact. Pupils equally round and reactive to light. Mucous membranes are moist. Neck is supple. He has significantly elevated jugular venous distention (JVD). His EJ is also dilated. Cardiovascular: S1, S2, 2+ edema of the bilateral lower extremities. Respiratory: Decreased breath sounds at the bases and mild expiratory rhonchi bilaterally from the bases all the way up to the mid lung zones. Abdomen is soft and distended. Mild amount of edema is noted in the flanks. No organomegaly was noted. Musculoskeletal: No clubbing or cyanosis. 2+ edema of the bilateral lower extremities. LAB REVIEW: CBC showed a WBC of 12.7, hemoglobin 10.9, platelets are 156, INR is 1.7. Urinalysis showed 2+ protein, urobilinogen is 4. BMP showed sodium 138, potassium is 4.3, chloride 108, bicarbonate 27, BUN 46, creatinine is 2.4, calcium 8.2, magnesium is 2.2, Pro-BNP is 14,563. Microbiology: Cultures are pending so far. IMAGING: A CT of the chest was done, which showed emphysema, coarse mixed airspace and interstitial infiltrates in the posterior segment of the left upper lobe and posterior aspect of the lingular lobe consistent with acute pneumonitis. Cardiomegaly. CURRENT INPATIENT MEDICATIONS: The patient's medications were all reviewed by myself. He was getting normal saline at 80 mL an hour, which was stopped. He is on amlodipine 5 mg by mouth daily, which I have stopped now. I have started him on Coreg 6.25 mg by mouth twice a day. I have also started the patient on Lasix 60 mg IV every 6 hours. He has been started on hydralazine 25 mg by mouth every 8 hours. He is on insulin sliding scale. The patient was also given a dose of metolazone 5 mg by mouth times one dose. He is on Protonix 40 mg IV twice a day, and he has also been started on spironolactone 25 mg by mouth daily. ASSESSMENT: 64-year-old male with past medical history of chronic systolic congestive heart failure, chronic kidney disease stage III, coronary artery disease, atrial fibrillation, admitted at this time with nausea, vomiting and acute decompensated systolic congestive heart failure with anasarca. PLAN: 1. Acute decompensated systolic congestive heart failure. The patient has significant volume overload on imaging and on clinical exam as well. I have started him on Lasix 60 mg IV every 6 hours with a net negative goal of 2.5 liters in 24 hours. He was also given a dose of metolazone for sequential nephron blockade, and he was given a dose of spironolactone 25 mg by mouth daily. The rest of the diuretic management will be done tomorrow. 2. Acute kidney injury superimposed on chronic kidney disease stage III. The patient does not look dehydrated. He is actually volume overloaded. Apparently his creatinine on admission was 3. His baseline is around 1.7. At this point, I am inclined more towards managing his acute congestive heart failure, and the patient most likely can be cardiorenal. Okay to continue diuretics at this time. No need of IV fluid hydration. 3. Hypertension. The patient was started on amlodipine because of systolic heart failure and edema. I would avoid using amlodipine. I have started the patient on Coreg and hydralazine. Angiotensin-converting enzyme (JARRELL) inhibitors or angiotensin blockers are on hold because of acute renal failure. 4. Atrial fibrillation. Okay to continue amiodarone and Eliquis at this time. 5. Hypothyroidism. Restart home dose of levothyroxine 88 mcg by mouth daily. 6. Pneumonitis on the imaging of the chest. I have empirically started the patient on IV ceftriaxone. Thank you for involving me in the care of this patient. I shall be happy to follow the patient along with you tomorrow morning. [facility]
[2019-09-22] VITALS: BP 104/62
[2019-09-22 04:00] VITALS: BP 135/82
[2019-09-22] MEDS: LEVOTHYROXINE 88MCG TABLET (0.088 MG) PO SCH (05:40)
[2019-09-22] MEDS: SLF 3 ML SYR IV SCH ×3 (05:41→21:06)
[2019-09-22] MEDS: FUROSEMIDE 100MG/10ML VIAL (J1940) IV SCH ×3 (05:42→17:15)
[2019-09-22] MEDS: **hydrALAZINE HCL** 25 MG TAB PO SCH ×3 (05:42→21:06)
[2019-09-22 06:04] LABS: BASO # 0.1 10^3/uL (0.0-0.2); BASO % 0.6 % (0.0-1.0); EOS # 0.1 10^3/uL (0.0-0.5); EOS % 0.8 % (0.0-3.0); HEMATOCRIT 35.3 % (42.0-52.0); HEMOGLOBIN 10.9 g/dl (13.5-17.5); LYMPH # 0.7 10^3/uL (1.5-5.0); MEAN CORPUSCULAR HEMOGLOBIN 26.1 pg (27.0-33.0); MEAN CORPUSCULAR HGB CONC 30.9 g/dl (32.0-36.5); MEAN CORPUSCULAR VOLUME 84.7 fl (80.0-96.0); MONO # 1.1 10^3/uL (0.0-0.8); MONO % 9.9 % (0.0-5.0); NEUTROPHILS # 9.4 10^3/uL (1.5-8.5); PLATELET COUNT, AUTOMATED 157 10^3/uL (150-450); RED BLOOD COUNT 4.17 10^6/uL (4.30-6.10); WHITE BLOOD COUNT 11.5 10^3/uL (4.0-10.0)
[2019-09-22 06:24] LABS: ALBUMIN 2.5 GM/DL (3.2-5.2); BILIRUBIN,TOTAL 0.9 MG/DL (0.2-1.0); CALCIUM LEVEL 8.5 MG/DL (8.8-10.2); CREATININE FOR GFR 2.26 MG/DL (0.70-1.30); GLOMERULAR FILTRATION RATE 31.4 (>49); POTASSIUM SERUM 3.9 MEQ/L (3.5-5.1); TOTAL PROTEIN 6.4 GM/DL (6.4-8.2)
[2019-09-22 07:51] VITALS: BP 131/66
[2019-09-22 08:14] LABS: TROPONIN I 0.24 NG/ML (< 0.10)
[2019-09-22] MEDS: SPIRONOLACTONE 25 MG TAB PO SCH (08:44)
[2019-09-22] MEDS: HumaLOG INSULIN (NovoLOG) PER UNIT SC SCH ×4 (08:44→21:00)
[2019-09-22] MEDS: PANTOPRAZOLE 40MG VIAL (C9113 PER 1) IV SCH ×2 (08:44→21:05)
[2019-09-22] MEDS: APIXABAN 5 MG TAB (ELIQUIS) PO SCH ×2 (08:45→21:05)
[2019-09-22] MEDS: CARVedilol 6.25 MG TAB PO SCH ×2 (08:49→21:05)
[2019-09-22] MEDS ORDERED: amLODIPine 5 MG TAB PO SCH (09:00)
[2019-09-22] MEDS ORDERED: POTASSIUM CHLORIDE 10 MEQ SR TABLET PO ONE (10:00)
[2019-09-22 10:44] LABS: HEPATITIS B SURFACE ANTIGEN NEGATIVE (NEGATIVE)
[2019-09-22 11:12] LABS: HEPATITIS B CORE ANTIBODY IGM NEGATIVE (NEGATIVE); HEPATITIS C VIRUS ABY INDEX 0.2 INDEX (<0.8)
[2019-09-22 11:14] LABS: HEPATITIS A ANTIBODY IGM NEGATIVE (NEGATIVE)
[2019-09-22 12:00] VITALS: BP 120/66
[2019-09-22 13:00] VITALS: BP 112/64
[2019-09-22 16:00] VITALS: BP 141/80
--- NOTE | 2019-09-22 16:13 | IPNPDOC ---
Text Note Date of Service The patient was seen on 09/22/19. NOTE Subjective: Dyspnea improving. No CP/SOB/palpitations. Objective: Vitals: (see below) General: No acute distress, laying comfortably in bed. HEENT: Moist mucous membranes. Neck: No JVD or lymphadenopathy Cardiac: RRR, No murmurs Pulm: Clear to auscultation b/l. No wheezing, rhonchi Abd: NT/ND + BS Ext: No edema or cyanosis Labs (see below) Images: Assessment/Plan 1. GRIFFIN on CKD - improving. Baseline Cr 1.6-2.0. Nephro consulted. Avoid nephrotoxins 2. HTN controlled. Started on hydralazine per nephro 3. Acute gastroenteritis resolved. Pt would like to advance diet. No further n/v/diarrhea 4. Acute Decompensated Systolic HF -(H/o AICD) restarted on diuretics by nephro. IVF d/c. Echo pending. 5. H/o CAD cont home meds 6. AF on Amiodarone and coreg, eliquis 7. PAD on ASA 8. HTN on BB 9. HLD on statin 10. Hypothyroidism on synthroid 11. BPH on flomax 12. GERD on PPI 13. Transaminitis - no abd pain; hepatitis panel negative. Trend in am. improving. ?2/2 HF 14. Renal cysts - f/u with urology outpt. 15. Hypokalemia replaced DVT prophy: Eliquis VS,Fishbone, I+O VS, Fishbone, I+O Laboratory Tests 09/22/19 05:38 Vital Signs Date Time Temp Pulse Resp B/P (MAP) Pulse Ox O2 Delivery O2 Flow Rate FiO2 09/22/19 13:08 112/60 09/22/19 08:49 76 09/22/19 07:51 97.4 16 90 Room Air I&O- Last 24 Hours up to 6 AM 09/22/19 06:00 Intake Total 1650 ml Output Total 4745 ml Balance -3095 ml SILVANO CASTILLO MD Sep 22, 2019 16:13
[2019-09-22] MEDS: cefTRIAXone SOD 1 GM in D5W MINI-BAG PLUS 50 ML IV SCH (21:05)
[2019-09-23] VITALS: BP 139/82
[2019-09-23 04:00] VITALS: BP 135/69
[2019-09-23 05:34] LABS: BASO % 0.4 % (0.0-1.0); EOS # 0.2 10^3/uL (0.0-0.5); EOS % 1.6 % (0.0-3.0); HEMATOCRIT 34.3 % (42.0-52.0); HEMOGLOBIN 10.6 g/dl (13.5-17.5); LYMPH # 0.9 10^3/uL (1.5-5.0); LYMPH % 9.4 % (24.0-44.0); MEAN CORPUSCULAR HEMOGLOBIN 25.9 pg (27.0-33.0); MEAN CORPUSCULAR HGB CONC 30.9 g/dl (32.0-36.5); MEAN CORPUSCULAR VOLUME 83.7 fl (80.0-96.0); MONO # 1.3 10^3/uL (0.0-0.8); MONO % 14.1 % (0.0-5.0); NEUTROPHILS # 6.9 10^3/uL (1.5-8.5); NEUTROPHILS % 74.1 % (36.0-66.0); PLATELET COUNT, AUTOMATED 149 10^3/uL (150-450); WHITE BLOOD COUNT 9.3 10^3/uL (4.0-10.0)
[2019-09-23 05:56] LABS: ALBUMIN 2.4 GM/DL (3.2-5.2); BILIRUBIN,TOTAL 0.6 MG/DL (0.2-1.0); CALCIUM LEVEL 8.2 MG/DL (8.8-10.2); CREATININE FOR GFR 2.09 MG/DL (0.70-1.30); GLOMERULAR FILTRATION RATE 34.3 (>49); POTASSIUM SERUM 3.9 MEQ/L (3.5-5.1); TOTAL PROTEIN 5.8 GM/DL (6.4-8.2)
[2019-09-23] MEDS: LEVOTHYROXINE 88MCG TABLET (0.088 MG) PO SCH (06:47)
[2019-09-23] MEDS: **hydrALAZINE HCL** 25 MG TAB PO SCH (06:47)
[2019-09-23] MEDS: SLF 3 ML SYR IV SCH (06:48)
[2019-09-23] MEDS: FUROSEMIDE 100MG/10ML VIAL (J1940) IV SCH ×2 (06:48)
[2019-09-23 08:00] VITALS: BP 138/65
[2019-09-23] MEDS: HumaLOG INSULIN (NovoLOG) PER UNIT SC SCH ×2 (08:24→11:38)
[2019-09-23] MEDS: PANTOPRAZOLE 40MG VIAL (C9113 PER 1) IV SCH (08:24)
[2019-09-23] MEDS: APIXABAN 5 MG TAB (ELIQUIS) PO SCH (08:24)
[2019-09-23 08:25] VITALS: BP 138/65
[2019-09-23] MEDS: CARVedilol 6.25 MG TAB PO SCH (08:25)
[2019-09-23] MEDS: SPIRONOLACTONE 25 MG TAB PO SCH (08:36)
--- NOTE | 2019-09-23 09:18 | IPN ---
DATE: 09/22/2019 SUBJECTIVE The patient was seen and examined at the bedside today morning. The patient is afebrile, hemodynamically stable. He denies any more nausea, vomiting. He reports his shortness of breath and wheezing are significantly better. He was started on IV Lasix yesterday. He diuresed very well. His lower extremity edema is improving as well. Despite aggressive diuresis, his renal function is actually getting better, creatinine is down to 2.2 which confirms that the patient was in cardiorenal syndrome. He denies any other active complaints. OBJECTIVE Vital signs: Temperature is 97.6 degrees Fahrenheit, blood pressure 141/80, pulse is 71, respiratory rate of 18, saturating 94% on room air. Intake and output: Urine output recorded is 3.3 liters yesterday and when I saw him, he had already made 2 liters of urine in the morning. Weight in the bed scale is 91.9 kg. PHYSICAL EXAMINATION General: The patient is awake, alert, oriented x3, laying in bed in no apparent distress. Head and neck exam extraocular muscles intact. Pupils equally round and reactive to light. Mucous membranes are moist. Neck is supple. He has significantly elevated JVD. His EJ is dilated. Cardiovascular: S1, S2, regular rate, 2+ edema of the bilateral lower extremities up to thighs. Respiratory: Mildly decreased breath sounds at the bases. However, his expiratory rhonchi is significantly better today. Abdomen is obese, positive bowel sounds. Abdominal wall edema was noted. He also has presacral edema. 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 Power is 5/5 in all extremities. LABORATORY REVIEW CBC showed WBC 11.5, hemoglobin 10.9, platelets of 157. BMP showed sodium of 135, potassium 3.9, chloride 104, bicarb 31, BUN 40, creatinine is 2.2, calcium 8.5, magnesium is 2.0, AST 100, ALT is 122. Troponin is 0.24. Albumin is 2.5. CURRENT INPATIENT MEDICATIONS The patient's medications were all reviewed by myself. He was started on IV ceftriaxone yesterday. He was also started on Coreg 6.25 mg p.o. twice a day, which he is tolerating well. He continues to be on Lasix 60 mg IV q. six hourly, and I have changed the next negative fluid balance target of 3 liters. He continues to be on hydralazine 25 mg p.o. q. eight hourly. I have restarted his levothyroxine 88 mcg p.o. daily and I gave him a dose of potassium chloride 20 mEq today morning. ASSESSMENT 1. Acute decompensated systolic congestive heart failure. The patient was started on Lasix, metolazone, and spironolactone yesterday. He is making a very good amount of urine. Renal function is improving. His shortness of breath is getting better. Continue the diuretics at this time. 2. Acute kidney injury superimposed on chronic kidney disease stage III. The patient was in cardiorenal syndrome. His creatinine was 2.4, which has improved to 2.2 today. Continue aggressive diuresis and monitor the renal function and daily intake and output. 3. Hypertension. Because of systolic heart failure, I have started him on Coreg and hydralazine. Blood pressure is acceptable. If his renal function improves back to baseline CKD III, I will try to introduce low-dose Entresto twice a day. 4. Atrial fibrillation. Heart rate is controlled. Continue Eliquis. Amiodarone was not restarted on admission. 5. Pneumonitis on imaging of the chest, most likely it might be fluid; however, because of leukocytosis, he is empirically getting ceftriaxone. 6. Elevated troponins secondary to stress and decompensated CHF. Troponin is trending down with diuresis. 7. Cirrhosis with anasarca. This is most likely secondary to congestive heart failure. Treatment is diuretics and he is responding well. MTDD
--- NOTE | 2019-09-23 11:06 | IPNPDOC ---
Text Note Date of Service The patient was seen on 09/23/19. NOTE Subjective: No CP/SOB/palpitations. No acute changes overnight. Objective: Vitals: (see below) General: No acute distress, laying comfortably in bed. HEENT: Moist mucous membranes. Neck: No JVD or lymphadenopathy Cardiac: RRR, No murmurs Pulm: Diminished at the bases b/l. No wheezing, rhonchi Abd: NT/ND + BS Ext: No edema or cyanosis Labs (see below) Images: Assessment/Plan 1. GRIFFIN on CKD - improving. Baseline Cr 1.6-2.0. Nephro consulted. Avoid nephrotoxins 2. HTN controlled. Started on hydralazine per nephro 3. Acute gastroenteritis resolved. Pt would like to advance diet. No further n/v/diarrhea 4. Acute Decompensated Systolic HF -(H/o AICD) restarted on diuretics by nephro. IVF d/c. Echo pending. 5. H/o CAD cont home meds 6. AF on Amiodarone and coreg, eliquis 7. PAD on ASA 8. HTN on BB 9. HLD on statin 10. Hypothyroidism on synthroid 11. BPH on flomax 12. GERD on PPI 13. Transaminitis - no abd pain; hepatitis panel negative. Trend in am. improcaryn g. ?2/2 HF 14. Renal cysts - f/u with urology outpt. 15. Hypokalemia replaced DVT prophy: Abhay PT recc rehab VS,Fishbone, I+O VS, Fishbone, I+O Laboratory Tests 09/23/19 05:12 Vital Signs Date Time Temp Pulse Resp B/P (MAP) Pulse Ox O2 Delivery O2 Flow Rate FiO2 09/23/19 08:25 73 138/65 09/23/19 08:00 98.1 18 95 Room Air I&O- Last 24 Hours up to 6 AM 09/23/19 06:00 Intake Total 1465 ml Output Total 2600 ml Balance -1135 ml SILVANO CASTILLO MD Sep 23, 2019 11:06
[2019-09-23] MEDS ORDERED: TORSEMIDE 10 MG TABLET PO SCH (17:00)
[2019-09-25] MEDS ORDERED: LEVOTHYROXINE 88MCG TABLET (0.088 MG) ONE (05:52)
[2019-09-25] MEDS ORDERED: CARVedilol 6.25 MG TAB ONE ×2 (08:24→21:32)
[2019-09-25] MEDS ORDERED: PANTOPRAZOLE 40MG VIAL (C9113 PER 1) ONE ×2 (08:24→21:32)
[2019-09-25] MEDS ORDERED: SPIRONOLACTONE 25 MG TAB ONE (08:24)
[2019-09-25] MEDS ORDERED: TORSEMIDE 10 MG TABLET ONE ×2 (08:24→17:23)
[2019-09-25] MEDS ORDERED: HumaLOG INSULIN (NovoLOG) PER UNIT ONE ×2 (08:24→17:23)
[2019-09-25] MEDS ORDERED: APIXABAN 5 MG TAB (ELIQUIS) ONE ×2 (08:24→21:32)
[2019-09-25] MEDS ORDERED: cefTRIAXone SOD 1GM VIAL (J0696 PER 250MG) ONE (21:32)
[2019-09-26] MEDS ORDERED: LEVOTHYROXINE 88MCG TABLET (0.088 MG) ONE (06:05)
[2019-09-26] MEDS ORDERED: SPIRONOLACTONE 25 MG TAB ONE (10:15)
[2019-09-26] MEDS ORDERED: PANTOPRAZOLE 40MG VIAL (C9113 PER 1) ONE (10:15)
[2019-09-26] MEDS ORDERED: CARVedilol 6.25 MG TAB ONE ×2 (10:15→12:19)
[2019-09-26] MEDS ORDERED: APIXABAN 5 MG TAB (ELIQUIS) ONE ×2 (10:15→12:19)
[2019-09-26] MEDS ORDERED: TORSEMIDE 10 MG TABLET ONE ×2 (10:15→12:19)
[2019-09-26] MEDS ORDERED: HumaLOG INSULIN (NovoLOG) PER UNIT ONE ×2 (10:15→12:19)
[2019-09-26] MEDS ORDERED: CEFUROXIME 500 MG TAB ONE (13:00)
[2019-09-27] MEDS ORDERED: CARVedilol 6.25 MG TAB ONE ×2 (06:33→06:35)
[2019-09-27] MEDS ORDERED: PANTOPRAZOLE 40MG TAB (PROTONIX) ONE (06:33)
[2019-09-27] MEDS ORDERED: TORSEMIDE 10 MG TABLET ONE ×2 (06:33→06:35)
[2019-09-27] MEDS ORDERED: HumaLOG INSULIN (NovoLOG) PER UNIT ONE ×2 (06:33→12:15)
[2019-09-27] MEDS ORDERED: APIXABAN 5 MG TAB (ELIQUIS) ONE ×2 (06:33→06:35)
[2019-09-27] MEDS ORDERED: LEVOTHYROXINE 88MCG TABLET (0.088 MG) ONE (06:33)
[2019-09-27] MEDS ORDERED: SPIRONOLACTONE 25 MG TAB ONE (06:33)
[2019-09-27] MEDS ORDERED: PANTOPRAZOLE 40MG TAB (PROTONIX) As Ordered ONE (09:43)
[2019-09-27] MEDS ORDERED: CEFUROXIME 500 MG TAB ONE (11:30)
[2019-09-28] MEDS ORDERED: LEVOTHYROXINE 88MCG TABLET (0.088 MG) ONE (07:01)
[2019-09-28] MEDS ORDERED: PANTOPRAZOLE 40MG TAB (PROTONIX) As Ordered ONE (08:56)
[2019-09-28] MEDS ORDERED: TORSEMIDE 10 MG TABLET ONE ×3 (08:56→18:19)
[2019-09-28] MEDS ORDERED: PANTOPRAZOLE 40MG TAB (PROTONIX) ONE (08:56)
[2019-09-28] MEDS ORDERED: SPIRONOLACTONE 25 MG TAB ONE (08:56)
[2019-09-28] MEDS ORDERED: HumaLOG INSULIN (NovoLOG) PER UNIT ONE ×2 (08:56→13:33)
[2019-09-28] MEDS ORDERED: CARVedilol 6.25 MG TAB ONE ×2 (08:56→19:59)
[2019-09-28] MEDS ORDERED: APIXABAN 5 MG TAB (ELIQUIS) ONE ×2 (08:56→19:59)
[2019-09-28] MEDS ORDERED: TAMSULOSIN 0.4 MG CAP ONE (18:19)
[2019-09-28] MEDS ORDERED: AMIODARONE 200 MG TAB (PACERONE) ONE (18:19)
[2019-09-28] MEDS ORDERED: TAMSULOSIN 0.4 MG CAP As Ordered ONE (18:19)
[2019-09-28] MEDS ORDERED: AMIODARONE 200 MG TAB (PACERONE) As Ordered ONE (18:20)
[2019-09-28] MEDS ORDERED: ROSUVASTATIN 10 MG TAB (CRESTOR) ONE (19:59)
[2019-09-28] MEDS ORDERED: ROSUVASTATIN 10 MG TAB (CRESTOR) As Ordered ONE (20:00)
[2019-09-29] MEDS ORDERED: LEVOTHYROXINE 88MCG TABLET (0.088 MG) ONE (06:51)
[2019-09-29] MEDS ORDERED: APIXABAN 5 MG TAB (ELIQUIS) ONE ×2 (07:58→20:16)
[2019-09-29] MEDS ORDERED: CARVedilol 6.25 MG TAB ONE ×2 (07:59→20:16)
[2019-09-29] MEDS ORDERED: SPIRONOLACTONE 25 MG TAB ONE (07:59)
[2019-09-29] MEDS ORDERED: TORSEMIDE 10 MG TABLET ONE (08:00)
[2019-09-29] MEDS ORDERED: HumaLOG INSULIN (NovoLOG) PER UNIT ONE ×3 (08:00→16:55)
[2019-09-29] MEDS ORDERED: TAMSULOSIN 0.4 MG CAP As Ordered ONE (08:01)
[2019-09-29] MEDS ORDERED: TAMSULOSIN 0.4 MG CAP ONE (08:01)
[2019-09-29] MEDS ORDERED: PANTOPRAZOLE 40MG TAB (PROTONIX) ONE (08:02)
[2019-09-29] MEDS ORDERED: PANTOPRAZOLE 40MG TAB (PROTONIX) As Ordered ONE (08:02)
[2019-09-29] MEDS ORDERED: CEFUROXIME 500 MG TAB ONE (09:00)
[2019-09-29] MEDS ORDERED: AMIODARONE 100MG TABLET (PACERONE) ONE (13:00)
[2019-09-29] MEDS ORDERED: ROSUVASTATIN 10 MG TAB (CRESTOR) As Ordered ONE (20:17)
[2019-09-29] MEDS ORDERED: ROSUVASTATIN 10 MG TAB (CRESTOR) ONE (20:17)
[2019-09-30] MEDS ORDERED: LEVOTHYROXINE 88MCG TABLET (0.088 MG) ONE (06:45)
[2019-09-30] MEDS ORDERED: CARVedilol 6.25 MG TAB ONE (08:10)
[2019-09-30] MEDS ORDERED: SPIRONOLACTONE 25 MG TAB ONE (08:10)
[2019-09-30] MEDS ORDERED: APIXABAN 5 MG TAB (ELIQUIS) ONE (08:10)
[2019-09-30] MEDS ORDERED: HumaLOG INSULIN (NovoLOG) PER UNIT ONE (08:10)
[2019-09-30] MEDS ORDERED: TORSEMIDE 10 MG TABLET ONE (08:10)
[2019-09-30] MEDS ORDERED: PANTOPRAZOLE 40MG VIAL (C9113 PER 1) ONE (08:10)
[2019-09-30] MEDS ORDERED: TAMSULOSIN 0.4 MG CAP As Ordered ONE (08:22)
[2019-09-30] MEDS ORDERED: PANTOPRAZOLE 40MG TAB (PROTONIX) As Ordered ONE (08:22)
[2019-09-30] MEDS ORDERED: AMIODARONE 200 MG TAB (PACERONE) As Ordered ONE (08:26)
[2019-11-03 10:48] LABS: HEMATOCRIT 40.1 % (42.0-52.0); HEMOGLOBIN 12.3 g/dl (13.5-17.5); MEAN CORPUSCULAR HEMOGLOBIN 25.6 pg (27.0-33.0); MEAN CORPUSCULAR HGB CONC 30.7 g/dl (32.0-36.5); MEAN CORPUSCULAR VOLUME 83.4 fl (80.0-96.0); PLATELET COUNT, AUTOMATED 183 10^3/uL (150-450); RED BLOOD COUNT 4.81 10^6/uL (4.30-6.10)
[2019-11-03 13:45] LABS: HEMATOCRIT 43.2 % (42.0-52.0); HEMOGLOBIN 13.3 g/dl (13.5-17.5); MEAN CORPUSCULAR HEMOGLOBIN 26.2 pg (27.0-33.0); MEAN CORPUSCULAR HGB CONC 30.8 g/dl (32.0-36.5); PLATELET COUNT, AUTOMATED 234 10^3/uL (150-450); RED BLOOD COUNT 5.08 10^6/uL (4.30-6.10); WHITE BLOOD COUNT 8.9 10^3/uL (4.0-10.0)
== END 2019-09-30 11:30 | disposition home health service (06) | DRG 683 ==
LOC: M ED 12:13 → EDBD 12:13 → M ED INP 21:29 → M PCU 09-21 01:49
PROVIDERS: ADMIT Internal Medicine; ATTEND Internal Medicine Nephrology
DX: N17.9 Acute kidney failure, unspecified (principal); I48.20 Chronic atrial fibrillation, unspecified; J44.1 Chronic obstructive pulmonary disease with (acute) exacerbation; I50.32 Chronic diastolic (congestive) heart failure; I13.0 Hypertensive heart and chronic kidney disease with heart failure and stage 1 through stage 4 chronic kidney disease, or unspecified chronic kidney disease; N39.0 Urinary tract infection, site not specified; E03.9 Hypothyroidism, unspecified; K21.9 Gastro-esophageal reflux disease without esophagitis; I25.10 Atherosclerotic heart disease of native coronary artery without angina pectoris; N18.3 Chronic kidney disease, stage 3 (moderate); E11.22 Type 2 diabetes mellitus with diabetic chronic kidney disease; Z79.899 Other long term (current) drug therapy; Z79.4 Long term (current) use of insulin; Z79.01 Long term (current) use of anticoagulants

== ENCOUNTER → 2019-10-15 | Outpatient (REF) ==
[~2019-10-15] MED LIST changes: -AMIO200T PO; +AMIO200T3 PO; +ASPI-161 PO; +ASPI-546 PO; -ASPI1TAB15 PO; +ASPI81CH48 PO; -ASPI81TA85 PO; +ASPI81TA86 PO; +CARV6.25 PO; +METF-839 PO; +PANT40TA29 PO; -PANT40TA3 PO
[2019-12-20 11:02] LABS: HEP C VIRUS AB INDEX SOURCE PT 0.3 INDEX (0.0-0.8)
[2019-12-20 11:03] LABS: HIV SCREEN CENTAUR SOURCE NEGATIVE (NEGATIVE)
== END ==
LOC: M LABDRWAD 10:55
PROVIDERS: ATTEND Physician Assistant Medical
DX: Z11.3 Encounter for screening for infections with a predominantly sexual mode of transmission (principal)

== ENCOUNTER 2019-10-19 22:06 | Inpatient (IN) | payer MEDICARE, MEDICAID ==
[~2019-10-19] VITALS: Ht 180.3 cm; Wt 88.0 kg
[2019-10-19] MEDS: HumaLOG INSULIN (NovoLOG) PER UNIT SC SCH (21:00)
[~2019-10-19 22:06] MED LIST changes: -ASPI-161 PO; -ASPI81CH48 PO; +FUROSEMIDE 40MG/4ML VIAL (J1940) As Ordered ONE; -METF-839 PO; +ZOSYN 3.375GM VIAL (J2543) As Ordered ONE; +methylPREDNISolone 125MG 2ML VIAL As Ordered ONE
[2019-10-19] MEDS ORDERED: ACETAMINOPHEN TAB 650MG DOSE (2X325MG) PO PRN (22:30)
[2019-10-19] MEDS ORDERED: GLUCOSE 4GM CHEW TABLET PO PRN (22:45)
[2019-10-19] MEDS ORDERED: IPRATROPIUM 0.5MG/ALBUTEROL 2.5MG INH SOL UD 3ML (DUONEB) NEB PRN (22:45)
[2019-10-19] MEDS ORDERED: GLUCAGON INJ 1MG VIAL SC PRN (22:45)
[2019-10-19] MEDS ORDERED: DEXTROSE 50% 50 ML SYRINGE IV PRN (22:45)
[2019-10-20] VITALS (8 sets, daily range): BP systolic 98–173; BP diastolic 50–98
[2019-10-20] MEDS ORDERED: ASPI-161 PO (00:46)
[2019-10-20] MEDS ORDERED: D5W/0.9% SODIUM CHLORIDE 1,000 ML IV SCH (01:30)
[2019-10-20] MEDS ORDERED: NITROGLYCERIN 0.4 MG SUBL TABLET SL PRN (01:30)
[2019-10-20] MEDS ORDERED: VANCOMYCIN HCL 750 MG, VIAL MATE ADAPTER 1 EACH in D5W 250 ML IV ONE ×2 (02:00→03:00)
[2019-10-20] MEDS: traZODone 50 MG TAB PO SCH ×2 (02:26→21:50)
[2019-10-20] MEDS: PIPERACILLIN/TAZOBACTAM SOD 3.375 GM in D5W MINI-BAG PLUS 50 ML IV SCH ×4 (04:39→21:51)
--- NOTE | 2019-10-20 05:42 | HPEPDOC ---
[facility] Medical History & Physical Date of Admission Oct 20, 2019 Date of Service: Oct 20, 2019 History and Physical Patient is 64 year old male with PMH CAD w/ hx PA s/p stents placement, HFrEF s/p AICD 2/2 ischemic cardiomyopathy, PAD, DM, HTN, HLD, COPD with home O2 that he has not use in 3 months, CKD3, neuropathy and R. sided diabetic foot ulcer presents to the ER with concern for LE edema. Patient states that he is not safe to live alone anymore, there was somebody who is concern for him because he is off. Per ER report, there was a concern for LE edema with BNP in 18,000 and there was a concern for CHF exacerbation needing admission. Patient himself does not complain of any complaints including any chest pain, SOB, fever, or chills. Of note, he has a RLE wound to the lateral aspect of his R. foot and follows with Dr. Sanders for it as outpatient. However, he state that he has not seen him for awhile. ER had done an XR of his foot with evidence of fragmentation and destructive changes at the 1st MTP with fracture in distal portion, cannot rule out osteo. He was given a dose of Zosyn. PMH-Refer to HPI PSH- amputation of R. 2nd digit, thrombectomy of LLE stent thrombosis, pacemaker/defibrillator placement, fem/pop bypass FH- reviewed and noncontributory SH- Foremr smoking. Deneis any current alcohol, drug or tobacco use. Lives alone. ALLERGIES: Please see below. REVIEW OF SYSTEMS: 10 point ROS negative except as above HOME MEDICATIONS: Please see below. Physical exam: - General: Lying in bed comfortably, Speaking in full sentences, AAOx3 - HEENT: NC, AT, PERRLA - CVS: +S1S2 - Lungs: Fair air entry bilaterally, No appreciable wheezing / rales / rhonchi - Abdomen: Soft, Non-distended, Non-tender - Extremities: 1+ pitting edema bilaterally, No calf tenderness - Neuro: No focal motor or sensory deficit - Skin: No visible rashes Assessment and Plan: 1.Acute on chronic HFrEF exacerbation - s/p AICD placement. Resume home medications. - Patient does not have significant SOB, LE edema 1+ b/l, not sure if this is significantly different from baseline. - Last BNP in September 13. Will continue IV diuresis. Fluid restriction, daily weights. - Do not see diuretics in his med rec? Patient noted to have received torsemide as well as bumex during previous admissions however. - Will start on Lasix 60 mg q8 hours. 2. R. foot wound cannot r/o osteomyelitis - Patient follows with Dr. Sanders but has not followed up in several weeks/months reportedly. Unsure if this particular wound was assessed and treated. - XR in ER shows evidence of distal fracture and bone fragmentation. Consult podiatry, please notify in AM. Will make patient NPO incase he will be taken for any procedures tomorrow. npo - c/w Zosyn and add vancomycin. Blood cultures x2 ordered in ER. 3. CKD 3 - monitor BMP. Avoid nephrotoxic meds when possible. - Repeat BMP in AM. 4. CAD - c/w ASA and statin. - No chest pain. 5. Afib - c/w Admiodarone, coreg. Hold eliquis incase patient needs surgical debridement/procedures. 6. PAD - ASA and statin. 7. HTN - c/w home meds. 8. HLD - rosuvastatin. 9. DM - ISS. Monitor BS. 10. Hypothyroidism - synthroid home dose 88 mcg daily. 11. Peripheral neuropathy - gabapentin 12. CKD III - Baseline Cr 1.7. Monitor. DVT ppx: SCD. Hold Eliquis at this time. Code status: DNR/DNI Vital Signs Vital Signs Date Time Temp Pulse Resp B/P (MAP) Pulse Ox O2 Delivery O2 Flow Rate FiO2 10/20/19 04:00 97.9 83 18 145/88 (107) 94 Room Air Home Medications Scheduled Amiodarone HCl (Amiodarone HCl) 200 Mg Tab, 300 MG PO DAILY Apixaban (Eliquis) 5 Mg Tablet, 5 MG PO BID Aspirin (Aspirin EC) 81 Mg Tablet.dr, 81 MG PO DAILY Budesonide/Formoterol (Symbicort 80-4.5 Mcg Inhaler) 6.9 Gm Hfa.aer.ad, 2 PUFF INH BID Carvedilol (Carvedilol) 6.25 Mg Tablet, 6.25 MG PO BID Gabapentin (Gabapentin) 100 Mg Capsule, 100 MG PO QHS Levothyroxine Sodium (Levothyroxine Sodium) 88 Mcg Tablet, 88 MCG PO DAILY Mexiletine HCl (Mexiletine HCl) 200 Mg Capsule, 200 MG PO BID Rosuvastatin Calcium (Rosuvastatin Calcium) 40 Mg Tablet, 40 MG PO DAILY Tamsulosin HCl (Flomax) 0.4 Mg Capsule, 0.4 MG PO DAILY Scheduled PRN Nitroglycerin (Nitrostat) 0.4 Mg Tab.subl, 0.4 MG SL NITRO PRN for CHEST PAIN Trazodone HCl (Trazodone HCl) 50 Mg Tablet, 50 MG PO QHS PRN for INSOMNIA Allergies Coded Allergies: No Known Allergies (Unverified , 08/02/12) A-FIB/CHADSVASC A-FIB History Current/History of A-Fib/PAF?: Yes Current PO Anticoag Therapy: Yes DESTIN KAUFFMAN MD Oct 20, 2019 05:42
--- NOTE | 2019-10-20 05:50 | PHACANCOPD ---
PHARMACY VANCOMYCIN DOSING Pt Demographics Demographics Patient Age:64 , Weight:88.200 , Gender: male Adjusted Body Weight Date: 10/20/19, Adjusted Body Weight: [80] Kg Vancomycin Vancomycin indication: DIABETIC FOOT INFECTION Vancomycin Target Ranges: 15-20 mcg/ml Vancomycin Load Y/N: Yes Load Dose Date Time Vancomycin Load Dose: 1.5GM Date: 10/19 Time: 2:-3:00AM Vancomycin Dose Date: 10/20/19. Current Vancomycin Dose: [1 GM Q12H] Intermittent Dosing?: No Labs Creatinine Clearance Date:10/20/19. Creatinine Clearance: [50]. Assessment and Plan Maintaining Current Dose?: Yes Reason for dose change: No Dose Change Pharmacist Note Pharmacist Note Date: 10/20/19. Pharmacist note:64 YOM With recurrent diabetic foot infection,wt:88.2kg,ht:5'11',scr=1.66,CRCL~50,RX INCLUDES Pip/Tazo 3.375 gm IV Q 6hours,and Pharmacy dosed Vancomycin. Vancomycin 1500mg loading dose 10/19 @ 2:00-3:00 am,followed by a 1 gram iv q12 hour regimen.Regimen will be adjusted based on patient renal function and drawn trough levels. First trough is scheduled for 10/20@12:00(prior to the 4th dose)will continue to follow [facility] Oct 20, 2019 05:50
[2019-10-20 06:13] LABS: HEMATOCRIT 37.6 % (42.0-52.0); HEMOGLOBIN 11.3 g/dl (13.5-17.5); MEAN CORPUSCULAR HEMOGLOBIN 25.9 pg (27.0-33.0); MEAN CORPUSCULAR HGB CONC 30.1 g/dl (32.0-36.5); MEAN CORPUSCULAR VOLUME 86.2 fl (80.0-96.0); PLATELET COUNT, AUTOMATED 205 10^3/uL (150-450); RED BLOOD COUNT 4.36 10^6/uL (4.30-6.10); WHITE BLOOD COUNT 4.5 10^3/uL (4.0-10.0)
[2019-10-20] MEDS: FUROSEMIDE 100MG/10ML VIAL (J1940) IV SCH ×2 (06:30→13:13)
[2019-10-20] MEDS: LEVOTHYROXINE 88MCG TABLET (0.088 MG) PO SCH (06:30)
[2019-10-20 06:45] LABS: CALCIUM LEVEL 8.1 MG/DL (8.8-10.2); CREATININE FOR GFR 1.55 MG/DL (0.70-1.30); GLOMERULAR FILTRATION RATE 48.5 (>49); POTASSIUM SERUM 4.1 MEQ/L (3.5-5.1)
[2019-10-20] MEDS: SYMBICORT 80/4.5MCG INHALER 6GM INH SCH ×2 (07:54→20:29)
[2019-10-20] MEDS: ROSUVASTATIN 10 MG TAB (CRESTOR) PO SCH (08:42)
[2019-10-20] MEDS: MEXILETINE 150 MG CAP PO SCH ×2 (08:43→21:50)
[2019-10-20] MEDS: CARVedilol 6.25 MG TAB PO SCH ×2 (08:44→21:51)
[2019-10-20] MEDS: ASPIRIN 81 MG ENTERIC TAB PO SCH (08:44)
[2019-10-20] MEDS: AMIODARONE 100MG TABLET (PACERONE) PO SCH (08:44)
[2019-10-20] MEDS: TAMSULOSIN 0.4 MG CAP PO SCH (08:44)
[2019-10-20] MEDS: HumaLOG INSULIN (NovoLOG) PER UNIT SC SCH ×4 (08:45→22:20)
[2019-10-20] MEDS ORDERED: APIXABAN 5 MG TAB (ELIQUIS) PO SCH (09:00)
[2019-10-20] MEDS: GENTAMICIN SULFATE 0.1% OINT 15 GM TOP SCH ×3 (09:00→21:52)
[2019-10-20] MEDS ORDERED: MEXILETINE 150 MG CAP PO SCH (09:00)
[2019-10-20] MEDS ORDERED: SLF 3 ML SYR IV PRN (11:15)
[2019-10-20] MEDS: VANCOMYCIN HCL 1,000 MG, VIAL MATE ADAPTER 1 EACH in D5W 250 ML IV SCH (13:13)
[2019-10-20] MEDS: SLF 3 ML SYR IV SCH ×2 (13:13→22:19)
--- NOTE | 2019-10-20 15:38 | IPNPDOC ---
Subjective Date Seen The patient was seen on 10/20/19. Subjective Chief Complaint/HPI right foot pain Events since last encounter patient seen this morning, chart reviewed. History and admission note review. He mentioned he came to hospital due to recommendation by his home health nurse regarding the nohealing ulcer on the right foot. He has not had ay recent antibiotics. He said it was about 1-2 weeks old wound, started out as a cut. He denies any dyspnea. No chest pain, no vomiting. he appears comfortable. denies any acute pain. Has leg swelling. right Objective Physical Examination General Exam: Positive: Alert, No Acute Distress Eye Exam: Positive: PERRLA, Conjunctiva & lids normal, EOMI; Negative: Sclera icteric ENT Exam: Positive: Atraumatic, Mucous membr. moist/pink, Pharynx Normal Neck Exam: Positive: Supple; Negative: JVD, thyromegaly Chest Exam: Positive: Clear to auscultation, Normal air movement Heart Exam: Positive: Rate Normal, Regular Rhythm, Normal S1, Normal S2; Negative: Murmurs, Rubs Telemetry: Positive: No significant arrhythmia Abdomen Exam: Positive: Normal bowel sounds, Soft; Negative: Tenderness, Hepatospenomegaly Male Exam: Positive: Normal Genital Exam Extremity Exam: Positive: Edema (Right leg edema, erythema on the dorsum, ankle, and right calf, warm to touch. there is an ulcer on the medial side of the right foot, just below the right big toe, about 1-2 cm diameter, no necrosis, no abscess, no enlargement of toe. ), Normal pulses, Other; Negative: Clubbing, Cyanosis Skin Exam: Positive: Nl turgor and temperature; Negative: Rash, Breakdown Neuro Exam: Positive: Normal Gait, Normal Speech, Cranial Nerves 3-12 NL, Reflexes 2+ Psych Exam: Positive: Mental status NL, Mood NL, Oriented x 3 Assessment /Plan Assessment ASSESSMENT: 1. Right foot cellulitis, with nonhealing ulcer, suspected osteomyelitis 2. fracture on the 1st metatarsophalangeal area, acuity unclear 3. Diabetes Mellitus type II, with hyperglycemia with nonhealing right foot ulcer 4. Atrial fibrillation,on chronic anticoagulation with eliquis 5. coronary artery disease, s/p CABD, AICD, 6. Acute on chronic congestive heart failure, HFrEF, AICD PLANS: * discussed with Dr. Sanders - podiatry surgeon,we both seen patient at bedside. Clinically, he does not think patient has active osteomyelitis, able to probe bone. No bone biopsy recommended at this time. Bone scan option discussed with him, and he does not recommend it at this time. * Agree with antibiotic treatment for cellulitis, wound care recommendation is gentamicin ointment. * Home medications reviewed -- no insulin dosing at home?, will check a1c. Note patient does not know what medication he takes * continue with Iv lasix. I did review CXR report - ?pneumonitis, or vascular congestion, no films to review. * Pulses noted by doppler. No ischemic signs, or cyanosis. * No surgical intervention needed at present, informed patient. PT and OT. * discussed with patient, nursing team. * DNR/DNI. Plan/VTE VTE Prophylaxis Ordered?: Yes VS, I&O, 24H, Fishbone Vital Signs/I&O Vital Signs Date Time Temp Pulse Resp B/P (MAP) Pulse Ox O2 Delivery O2 Flow Rate FiO2 10/20/19 08:44 94 145/84 10/20/19 08:00 97.4 20 91 Room Air I&O- Last 24 Hours up to 6 AM 10/20/19 06:00 Intake Total 0 ml Output Total 800 ml Balance -800 ml Laboratory Data 24H LABS Laboratory Tests 2 10/20/19 05:18: Nucleated Red Blood Cells % (auto) 0.0, Anion Gap 4L, Glomerular Filtration Rate 48.5L, Calcium Level 8.1L CBC/BMP Laboratory Tests 10/20/19 05:18 DEL SCOTT MD Oct 20, 2019 12:01
[2019-10-20 18:52] LABS: ERYTHROCYTE SEDIMENTATION RATE 33 mm/hr (0-20)
[2019-10-20 20:50] LABS: HEMOGLOBIN A1c 7.8 %
[2019-10-20] MEDS: GABAPENTIN 100 MG CAP PO SCH (21:50)
[2019-10-20] MEDS: LEVEMIR (INSULIN DETEMIR) 1 UNITS/0.01ML SC SCH (21:53)
[2019-10-21] VITALS (8 sets, daily range): BP systolic 112–135; BP diastolic 55–78; PULSE 74
[2019-10-21] MEDS: VANCOMYCIN HCL 1,000 MG, VIAL MATE ADAPTER 1 EACH in D5W 250 ML IV SCH ×2 (01:23→13:56)
[2019-10-21] MEDS: FUROSEMIDE 100MG/10ML VIAL (J1940) IV SCH ×2 (01:23→13:55)
[2019-10-21 02:35] LABS: HEMATOCRIT 34.6 % (42.0-52.0); HEMOGLOBIN 10.4 g/dl (13.5-17.5); MEAN CORPUSCULAR HEMOGLOBIN 25.6 pg (27.0-33.0); MEAN CORPUSCULAR HGB CONC 30.1 g/dl (32.0-36.5); PLATELET COUNT, AUTOMATED 208 10^3/uL (150-450); RED BLOOD COUNT 4.07 10^6/uL (4.30-6.10); WHITE BLOOD COUNT 14.5 10^3/uL (4.0-10.0)
[2019-10-21 03:00] LABS: ERYTHROCYTE SEDIMENTATION RATE 26 mm/hr (0-20)
[2019-10-21 03:03] LABS: TROPONIN I < 0.02 NG/ML (< 0.10)
[2019-10-21 03:24] LABS: ALBUMIN 2.2 GM/DL (3.2-5.2); ALT/SGPT 10 U/L (12-78); BILIRUBIN,TOTAL 0.4 MG/DL (0.2-1.0); BLOOD UREA NITROGEN 33 MG/DL (7-18); CALCIUM LEVEL 8.3 MG/DL (8.8-10.2); CARBON DIOXIDE LEVEL 33 MEQ/L (21-32); CHLORIDE LEVEL 102 MEQ/L (98-107); CREATININE FOR GFR 2.01 MG/DL (0.70-1.30); GLOMERULAR FILTRATION RATE 35.9 (>49); GLUCOSE, FASTING 258 MG/DL (70-100); NT-PRO BNP 19645 PG/ML (<125); POTASSIUM SERUM 4.2 MEQ/L (3.5-5.1); SODIUM LEVEL 138 MEQ/L (136-145); TOTAL PROTEIN 6.4 GM/DL (6.4-8.2)
[2019-10-21] MEDS: PIPERACILLIN/TAZOBACTAM SOD 3.375 GM in D5W MINI-BAG PLUS 50 ML IV SCH ×4 (04:29→21:15)
[2019-10-21] MEDS: SLF 3 ML SYR IV SCH ×3 (06:00→21:17)
[2019-10-21] MEDS: LEVOTHYROXINE 88MCG TABLET (0.088 MG) PO SCH (06:33)
[2019-10-21] MEDS: SYMBICORT 80/4.5MCG INHALER 6GM INH SCH ×2 (07:01→20:34)
--- NOTE | 2019-10-21 07:14 | REPVR ---
PROCEDURE INFORMATION: Exam: XR Chest, 1 View Exam date and time: 10/21/2019 6:42 AM Age: 64 years old Clinical indication: Shortness of breath; Additional info: Evaluate for improvement TECHNIQUE: Imaging protocol: XR of the chest Views: 1 view. COMPARISON: CT Chest without contrast 09/20/2019 7:52 PM FINDINGS: Tubes, catheters and devices: AICD. Lungs: COPD, interstitial prominence, and chronic granulomatous disease. Near complete interval resolution of left-sided airspace disease. Pleural space: No significant pleural effusion. Heart/Mediastinum: Cardiomegaly. Vasculature: Calcification of the thoracic aorta. Bones/joints: Osteopenia and degenerative change prior IMPRESSION: 1. COPD, interstitial prominence, and chronic granulomatous disease. 2. Near complete interval resolution of left-sided airspace disease. Electronically signed by: Óscar Suero On 10/21/2019 07:15:12 AM
[2019-10-21] MEDS: HumaLOG INSULIN (NovoLOG) PER UNIT SC SCH ×4 (09:41→20:24)
[2019-10-21] MEDS: TAMSULOSIN 0.4 MG CAP PO SCH (09:42)
[2019-10-21] MEDS: CARVedilol 6.25 MG TAB PO SCH ×2 (09:42→21:00)
[2019-10-21] MEDS: ASPIRIN 81 MG ENTERIC TAB PO SCH (09:42)
[2019-10-21] MEDS: MEXILETINE 150 MG CAP PO SCH ×2 (09:42→21:16)
[2019-10-21] MEDS: AMIODARONE 100MG TABLET (PACERONE) PO SCH (09:43)
[2019-10-21] MEDS: ROSUVASTATIN 10 MG TAB (CRESTOR) PO SCH (09:43)
[2019-10-21] MEDS: GENTAMICIN SULFATE 0.1% OINT 15 GM TOP SCH ×3 (09:44→21:17)
--- NOTE | 2019-10-21 16:58 | IPNPDOC ---
Subjective Date Seen The patient was seen on 10/21/19. Subjective Chief Complaint/HPI had chest pain last night Events since last encounter patient feels much better today, less right foot pain and swelling, ambulating ok. Had one episode of chest pain. no chest pain now. no vomiting. NO dyspnea. No dizziness noted. no fever General: Reports: Normal Appetite; Denies: Chills, Night Sweats, Fatigue, Malaise Objective Physical Examination General Exam: Positive: Alert, No Acute Distress Eye Exam: Positive: PERRLA, Conjunctiva & lids normal, EOMI; Negative: Sclera icteric ENT Exam: Positive: Atraumatic, Mucous membr. moist/pink, Pharynx Normal Neck Exam: Positive: Supple; Negative: JVD, thyromegaly Chest Exam: Positive: Clear to auscultation, Normal air movement Heart Exam: Positive: Rate Normal, Regular Rhythm, Normal S1, Normal S2; Negative: Murmurs, Rubs Telemetry: Positive: No significant arrhythmia Abdomen Exam: Positive: Normal bowel sounds, Soft; Negative: Tenderness, Hepatospenomegaly Male Exam: Positive: Normal Genital Exam Extremity Exam: Positive: Edema (edema much improved as well right leg, right leg erythema mch improved), Normal pulses, Other; Negative: Clubbing, Cyanosis Skin Exam: Positive: Nl turgor and temperature, Other skin issue (right foot ulcer, improving, no necoris, celluliis around much improved,) Neuro Exam: Positive: Normal Gait, Normal Speech, Cranial Nerves 3-12 NL, Reflexes 2+ Psych Exam: Positive: Mental status NL, Mood NL, Oriented x 3 Assessment /Plan Assessment Laboratory Tests 2 10/21/19 02:25: Nucleated Red Blood Cells % (auto) 0.0, Erythrocyte Sedimentation Rate 26H, Anion Gap 3L, Glomerular Filtration Rate 35.9L, Calcium Level 8.3L, Total Bilirubin 0.4, Aspartate Amino Transf (AST/SGOT) 9, Alanine Aminotransferase (ALT/SGPT) 10L, Alkaline Phosphatase 112, Troponin I < 0.02, EH-Mbd-M-Type Natriuretic Peptide 81615H, Total Protein 6.4, Albumin 2.2L, Albumin/Globulin Ratio 0.5 10/21/19 12:15: Vancomycin Level Trough 14.8 ASSESSMENT: 1. Right foot cellulitis, with nonhealing ulcer, suspected osteomyelitis 2. fracture on the 1st metatarsophalangeal area, acuity unclear 3. Diabetes Mellitus type II, with hyperglycemia with nonhealing right foot ulcer 4. Atrial fibrillation,on chronic anticoagulation with eliquis 5. coronary artery disease, s/p CABD, AICD, 6. Acute on chronic congestive heart failure, HFrEF, AICD PLANS: * continue with vanc and zosyn, clinically improving, wound looks better, cellulitis much improved. * BP stable, continue with diuresis. * No surgical intervention. * if no further events in next week, anticipate discharge next day or two. * OT and PT, and speech cognitive eval. Suspected patient has difficulty caring for himself. * Moderate risk Plan/VTE VTE Prophylaxis Ordered?: Yes VS, I&O, 24H, Fishbone Vital Signs/I&O Vital Signs Date Time Temp Pulse Resp B/P (MAP) Pulse Ox O2 Delivery O2 Flow Rate FiO2 10/21/19 16:00 97.7 74 17 135/76 (95) 97 10/21/19 12:00 Room Air I&O- Last 24 Hours up to 6 AM 10/21/19 06:00 Intake Total 1850 ml Output Total 4085 ml Balance -2235 ml Laboratory Data 24H LABS Laboratory Tests 2 10/21/19 02:25: Nucleated Red Blood Cells % (auto) 0.0, Erythrocyte Sedimentation Rate 26H, Anion Gap 3L, Glomerular Filtration Rate 35.9L, Calcium Level 8.3L, Total Bilirubin 0.4, Aspartate Amino Transf (AST/SGOT) 9, Alanine Aminotransferase (ALT/SGPT) 10L, Alkaline Phosphatase 112, Troponin I < 0.02, MQ-Yli-C-Type Natriuretic Peptide 79208L, Total Protein 6.4, Albumin 2.2L, Albumin/Globulin Ratio 0.5 10/21/19 12:15: Vancomycin Level Trough 14.8 CBC/BMP Laboratory Tests 10/21/19 02:25 DEL SCOTT MD Oct 21, 2019 16:58
[2019-10-21] MEDS: traZODone 50 MG TAB PO SCH (21:16)
[2019-10-21] MEDS: APIXABAN 5 MG TAB (ELIQUIS) PO SCH (21:16)
[2019-10-21] MEDS: LEVEMIR (INSULIN DETEMIR) 1 UNITS/0.01ML SC SCH (21:16)
[2019-10-21] MEDS: GABAPENTIN 100 MG CAP PO SCH (21:16)
[2019-10-22] MEDS: FUROSEMIDE 100MG/10ML VIAL (J1940) IV SCH (01:52)
[2019-10-22] MEDS: VANCOMYCIN HCL 1,000 MG, VIAL MATE ADAPTER 1 EACH in D5W 250 ML IV SCH ×2 (02:00→14:40)
[2019-10-22] MEDS: PIPERACILLIN/TAZOBACTAM SOD 3.375 GM in D5W MINI-BAG PLUS 50 ML IV SCH ×4 (03:49→23:02)
[2019-10-22 04:18] VITALS: BP 120/62
[2019-10-22] MEDS: SLF 3 ML SYR IV SCH ×3 (05:55→22:00)
[2019-10-22] MEDS: LEVOTHYROXINE 88MCG TABLET (0.088 MG) PO SCH (05:56)
[2019-10-22 08:00] VITALS: BP_SYST 136; BP_SYST 151; BP_DIAS 62; BP_DIAS 88
[2019-10-22] MEDS: SYMBICORT 80/4.5MCG INHALER 6GM INH SCH ×2 (08:17→20:28)
[2019-10-22] MEDS ORDERED: FUROSEMIDE 100MG/10ML VIAL (J1940) IV SCH (09:00)
[2019-10-22] MEDS: HumaLOG INSULIN (NovoLOG) PER UNIT SC SCH ×4 (09:19→21:00)
[2019-10-22] MEDS: ROSUVASTATIN 10 MG TAB (CRESTOR) PO SCH (09:20)
[2019-10-22] MEDS: ASPIRIN 81 MG ENTERIC TAB PO SCH (09:20)
[2019-10-22] MEDS: TAMSULOSIN 0.4 MG CAP PO SCH (09:20)
[2019-10-22] MEDS: GENTAMICIN SULFATE 0.1% OINT 15 GM TOP SCH ×3 (09:22→23:04)
[2019-10-22] MEDS: CARVedilol 6.25 MG TAB PO SCH ×2 (09:22→21:00)
[2019-10-22] MEDS: MEXILETINE 150 MG CAP PO SCH ×2 (09:22→22:58)
[2019-10-22] MEDS: APIXABAN 5 MG TAB (ELIQUIS) PO SCH ×2 (09:22→22:57)
[2019-10-22] MEDS: AMIODARONE 100MG TABLET (PACERONE) PO SCH (09:22)
[2019-10-22 09:29] LABS: HEMOGLOBIN 12.2 g/dl (13.5-17.5); MEAN CORPUSCULAR HEMOGLOBIN 26.1 pg (27.0-33.0); MEAN CORPUSCULAR HGB CONC 30.5 g/dl (32.0-36.5); MEAN CORPUSCULAR VOLUME 85.7 fl (80.0-96.0); PLATELET COUNT, AUTOMATED 230 10^3/uL (150-450); RED BLOOD COUNT 4.67 10^6/uL (4.30-6.10); WHITE BLOOD COUNT 11.4 10^3/uL (4.0-10.0)
[2019-10-22 09:56] LABS: ALBUMIN 2.5 GM/DL (3.2-5.2); ALT/SGPT 9 U/L (12-78); BILIRUBIN,TOTAL 0.3 MG/DL (0.2-1.0); BLOOD UREA NITROGEN 46 MG/DL (7-18); CALCIUM LEVEL 8.4 MG/DL (8.8-10.2); CARBON DIOXIDE LEVEL 35 MEQ/L (21-32); CHLORIDE LEVEL 104 MEQ/L (98-107); CREATININE FOR GFR 2.09 MG/DL (0.70-1.30); GLOMERULAR FILTRATION RATE 34.3 (>49); GLUCOSE, FASTING 129 MG/DL (70-100); POTASSIUM SERUM 4.7 MEQ/L (3.5-5.1); SODIUM LEVEL 138 MEQ/L (136-145); TOTAL PROTEIN 6.5 GM/DL (6.4-8.2)
[2019-10-22 12:00] VITALS: BP 129/75
[2019-10-22 16:20] VITALS: BP 143/73
--- NOTE | 2019-10-22 19:07 | IPNPDOC ---
Text Note Date of Service The patient was seen on 10/22/19. NOTE patient is doing well. no dyspnea, no chest pain. Right leg swelling improved, as well as the pain and redness. ambulating well Physical exam: Vital Sign - Last 24 Hours 10/21/19 10/21/19 10/21/19 10/22/19 20:00 20:00 21:00 04:18 Temp 98.1 98.1 97.3 Pulse 64 64 60 60 Resp 20 20 20 B/P (MAP) 112/66 (81) 112/66 (81) 112/66 120/62 (81) Pulse Ox 93 93 94 O2 Delivery Room Air Room Air 10/22/19 10/22/19 10/22/19 10/22/19 08:00 09:22 12:00 16:20 Temp 97.2 97.1 97.5 Pulse 64 68 65 66 Resp 18 18 18 B/P (MAP) 151/88 (109) 151/88 129/75 (93) 143/73 (96) Pulse Ox 93 93 94 O2 Delivery Room Air Room Air Room Air awake, alert, oriented x 3. not in any distress, sitting in bed HEENT: anicteric sclerae, no nasal discharges, no throat exudates, NECK: supple, no tenderness, CHEST: clear breath sounds, no rales or weakness noted CVS: s1 and s2 distinct, irregular, normal rate no murmurs noted Abdomen: soft, not tender, no rigidity, no tenderness Extremities: Right leg erythema and tenderness much improved, right foot ulcer healing well, no discharges, no swelling, no tenderness noted Laboratory Tests 2 10/22/19 08:50: Nucleated Red Blood Cells % (auto) 0.0, Anion Gap , Glomerular Filtration Rate 34.3L, Calcium Level 8.4L, Total Bilirubin 0.3, Aspartate Amino Transf (AST/SGOT) 14, Alanine Aminotransferase (ALT/SGPT) 9L, Alkaline Phosphatase 109, Total Protein 6.5, Albumin 2.5L, Albumin/Globulin Ratio 0.6 10/22/19 13:00: Vancomycin Level Trough 21.9H Labs reviewed. ASSESSMENT: 1. Right foot cellulitis, with nonhealing ulcer, unlikely osteomyelitis 2. fracture on the 1st metatarsophalangeal area, acuity unclear 3. Diabetes Mellitus type II, with hyperglycemia with nonhealing right foot ulcer 4. Atrial fibrillation,on chronic anticoagulation with eliquis 5. coronary artery disease, s/p CABD, AICD, 6. Acute on chronic congestive heart failure, HFrEF, AICD 7. CKD stage III plans: vanc trough is elevated. d/c vancomycin creatinine stable. change lasix to po, daily weight. He has diuresed well. social work on determining his home situation. I believe his family will get involved. Not able to get assisted living. If BP stable, creatinie stable, anticipate discharge tomorrow. discussed with patient Florina ARROYO, I+O Florina ARROYO I+O Laboratory Tests 10/22/19 08:50 Vital Signs Date Time Temp Pulse Resp B/P (MAP) Pulse Ox O2 Delivery O2 Flow Rate FiO2 10/22/19 16:20 97.5 66 18 143/73 (96) 94 Room Air I&O- Last 24 Hours up to 6 AM 10/22/19 05:59 Intake Total 2160 ml Output Total 3000 ml Balance -840 ml DEL SCOTT MD Oct 22, 2019 19:07
[2019-10-22 22:00] VITALS: BP 140/78
[2019-10-22] MEDS: traZODone 50 MG TAB PO SCH (22:58)
[2019-10-22] MEDS: GABAPENTIN 100 MG CAP PO SCH (22:58)
[2019-10-22] MEDS: LEVEMIR (INSULIN DETEMIR) 1 UNITS/0.01ML SC SCH (23:00)
[2019-10-23] MEDS: PIPERACILLIN/TAZOBACTAM SOD 3.375 GM in D5W MINI-BAG PLUS 50 ML IV SCH ×3 (04:07→16:23)
[2019-10-23 06:00] VITALS: BP 122/67
[2019-10-23] MEDS: SLF 3 ML SYR IV SCH ×3 (06:16→22:08)
[2019-10-23] MEDS: LEVOTHYROXINE 88MCG TABLET (0.088 MG) PO SCH (06:16)
[2019-10-23] MEDS: HumaLOG INSULIN (NovoLOG) PER UNIT SC SCH ×4 (07:30→21:00)
[2019-10-23] MEDS: SYMBICORT 80/4.5MCG INHALER 6GM INH SCH ×2 (08:37→20:09)
[2019-10-23] MEDS ORDERED: FUROSEMIDE 40MG/4ML VIAL (J1940) IV SCH (09:00)
[2019-10-23] MEDS: ASPIRIN 81 MG ENTERIC TAB PO SCH (09:31)
[2019-10-23] MEDS: CARVedilol 6.25 MG TAB PO SCH ×2 (09:32→22:06)
[2019-10-23] MEDS: TAMSULOSIN 0.4 MG CAP PO SCH (09:32)
[2019-10-23] MEDS: APIXABAN 5 MG TAB (ELIQUIS) PO SCH ×2 (09:32→22:05)
[2019-10-23] MEDS: MEXILETINE 150 MG CAP PO SCH ×2 (09:32→22:04)
[2019-10-23] MEDS: ROSUVASTATIN 10 MG TAB (CRESTOR) PO SCH (09:32)
[2019-10-23] MEDS: AMIODARONE 100MG TABLET (PACERONE) PO SCH (09:32)
[2019-10-23] MEDS: GENTAMICIN SULFATE 0.1% OINT 15 GM TOP SCH ×3 (09:33→22:07)
[2019-10-23 14:00] VITALS: BP 142/80
[2019-10-23 15:07] LABS: BLOOD UREA NITROGEN 44 MG/DL (7-18); CALCIUM LEVEL 8.5 MG/DL (8.8-10.2); CARBON DIOXIDE LEVEL 40 MEQ/L (21-32); CHLORIDE LEVEL 103 MEQ/L (98-107); CREATININE FOR GFR 1.95 MG/DL (0.70-1.30); GLOMERULAR FILTRATION RATE 37.2 (>49); GLUCOSE, FASTING 135 MG/DL (70-100); POTASSIUM SERUM 4.1 MEQ/L (3.5-5.1); SODIUM LEVEL 141 MEQ/L (136-145)
--- NOTE | 2019-10-23 16:42 | IPNPDOC ---
Text Note Date of Service The patient was seen on 10/23/19. NOTE patient denies any new complaint. No pain in the leg. right foot swelling has improved significantly he said. No vomiting, no dyspnea, no chest pain. Vital Sign - Last 24 Hours 10/22/19 10/22/19 10/23/19 10/23/19 21:00 22:00 06:00 09:32 Temp 97.9 98.1 Pulse 62 61 62 69 Resp 18 18 B/P (MAP) 140/78 140/78 (98) 122/67 (85) 150/85 Pulse Ox 92 91 O2 Delivery Room Air Room Air 10/23/19 14:00 Temp 97.0 Pulse 61 Resp 18 B/P (MAP) 142/80 (100) Pulse Ox 94 O2 Delivery Room Air awake, alert, oriented x 3. not in any distress, sitting in bed HEENT: anicteric sclerae, no nasal discharges, no throat exudates, NECK: supple, no tenderness, CHEST: clear breath sounds, no rales or weakness noted CVS: s1 and s2 distinct, irregular, normal rate no murmurs noted Abdomen: soft, not tender, no rigidity, no tenderness Extremities: no more right leg edema, erythema also much improved. Right foot ulcer is healing well, no surrounding erythema now, no discharges. Laboratory Tests 10/23/19 07:25 ASSESSMENT: 1. Right foot cellulitis, with nonhealing ulcer, unlikely osteomyelitis 2. fracture on the 1st metatarsophalangeal area, acuity unclear, no surgical internveion 3. Diabetes Mellitus type II, with hyperglycemia with nonhealing right foot ulcer 4. Atrial fibrillation,on chronic anticoagulation with eliquis 5. coronary artery disease, s/p CABD, AICD, 6. Acute on chronic congestive heart failure, HFrEF, AICD 7. CKD stage III PLANS: * Change zosyn to augmentin PO BID renal dosing x 6 more days with stop date. * Change IV lasix to PO 40 mg PO daily. * Renal function stable. * ALC status, not safe for discharge, no place to go. * Social work working on possibly getting him at assisted living. VS,Fishbone, I+O VS, Fishbone, I+O Laboratory Tests 10/23/19 07:25 Vital Signs Date Time Temp Pulse Resp B/P (MAP) Pulse Ox O2 Delivery O2 Flow Rate FiO2 10/23/19 14:00 97.0 61 18 142/80 (100) 94 Room Air I&O- Last 24 Hours up to 6 AM 10/23/19 06:00 Intake Total 1663 ml Output Total 3825 ml Balance -2162 ml DEL SCOTT MD Oct 23, 2019 16:42
[2019-10-23 18:48] LABS: ALBUMIN 2.5 GM/DL (3.2-5.2); BILIRUBIN,DIRECT 0.2 MG/DL (0.0-0.2); BILIRUBIN,TOTAL 0.5 MG/DL (0.2-1.0); C REACTIVE PROTEIN QUANTITATIV 3.76 MG/DL (0.00-0.30); CALCIUM LEVEL 8.2 MG/DL (8.8-10.2); CK-MB VALUE MASS 3.8 NG/ML (<3.6); CREATININE FOR GFR 1.66 MG/DL (0.70-1.30); GLOMERULAR FILTRATION RATE 44.8 (>49); MB/CK RELATIVE INDEX 2.44 (< OR =4); POTASSIUM SERUM 4.2 MEQ/L (3.5-5.1); TOTAL PROTEIN 6.6 GM/DL (6.4-8.2); TROPONIN I 0.02 NG/ML (< 0.10)
[2019-10-23 22:00] VITALS: BP 152/73
[2019-10-23] MEDS ORDERED: VANCOMYCIN HCL 750 MG, VIAL MATE ADAPTER 1 EACH in D5W 250 ML IV SCH (22:00)
[2019-10-23] MEDS: traZODone 50 MG TAB PO SCH (22:04)
[2019-10-23] MEDS: AUGMENTIN 500 MG TAB PO SCH (22:04)
[2019-10-23] MEDS: GABAPENTIN 100 MG CAP PO SCH (22:04)
[2019-10-23] MEDS: LEVEMIR (INSULIN DETEMIR) 1 UNITS/0.01ML SC SCH (22:08)
[2019-10-23] MEDS ORDERED: VANCOMYCIN HCL 500 MG in D5W MINI-BAG PLUS 100 ML IV SCH (23:00)
[2019-10-24] MEDS: SLF 3 ML SYR IV SCH (05:59)
[2019-10-24] MEDS: LEVOTHYROXINE 88MCG TABLET (0.088 MG) PO SCH (05:59)
[2019-10-24 06:00] VITALS: BP 140/80
[2019-10-24] MEDS: MEXILETINE 150 MG CAP PO SCH ×2 (08:10→21:47)
[2019-10-24] MEDS: CARVedilol 6.25 MG TAB PO SCH ×2 (08:11→21:46)
[2019-10-24] MEDS: APIXABAN 5 MG TAB (ELIQUIS) PO SCH ×2 (08:11→21:47)
[2019-10-24] MEDS: ASPIRIN 81 MG ENTERIC TAB PO SCH (08:11)
[2019-10-24] MEDS: ROSUVASTATIN 10 MG TAB (CRESTOR) PO SCH (08:11)
[2019-10-24] MEDS: AMIODARONE 100MG TABLET (PACERONE) PO SCH (08:11)
[2019-10-24] MEDS: AUGMENTIN 500 MG TAB PO SCH ×2 (08:12→21:46)
[2019-10-24] MEDS: FUROSEMIDE 40 MG TAB PO SCH (08:12)
[2019-10-24] MEDS: TAMSULOSIN 0.4 MG CAP PO SCH (08:12)
[2019-10-24] MEDS: GENTAMICIN SULFATE 0.1% OINT 15 GM TOP SCH ×3 (08:13→21:48)
[2019-10-24] MEDS: HumaLOG INSULIN (NovoLOG) PER UNIT SC SCH ×4 (08:13→21:00)
[2019-10-24] MEDS: SYMBICORT 80/4.5MCG INHALER 6GM INH SCH ×2 (08:49→19:47)
[2019-10-24 16:00] VITALS: BP 139/78
[2019-10-24] MEDS: GABAPENTIN 100 MG CAP PO SCH (21:47)
[2019-10-24] MEDS: traZODone 50 MG TAB PO SCH (21:47)
[2019-10-24] MEDS: LEVEMIR (INSULIN DETEMIR) 1 UNITS/0.01ML SC SCH (21:48)
[2019-10-24 22:00] VITALS: BP 138/77
[2019-10-25] MEDS: LEVOTHYROXINE 88MCG TABLET (0.088 MG) PO SCH (05:32)
[2019-10-25 06:00] VITALS: BP 144/82
[2019-10-25] MEDS: SYMBICORT 80/4.5MCG INHALER 6GM INH SCH ×2 (08:19→19:47)
[2019-10-25] MEDS: TAMSULOSIN 0.4 MG CAP PO SCH (08:32)
[2019-10-25] MEDS: MEXILETINE 150 MG CAP PO SCH ×2 (08:32→20:25)
[2019-10-25] MEDS: CARVedilol 6.25 MG TAB PO SCH ×2 (08:33→20:25)
[2019-10-25] MEDS: APIXABAN 5 MG TAB (ELIQUIS) PO SCH ×2 (08:33→20:25)
[2019-10-25] MEDS: ASPIRIN 81 MG ENTERIC TAB PO SCH (08:33)
[2019-10-25] MEDS: AMIODARONE 100MG TABLET (PACERONE) PO SCH (08:33)
[2019-10-25] MEDS: HumaLOG INSULIN (NovoLOG) PER UNIT SC SCH ×4 (08:34→20:08)
[2019-10-25] MEDS: ROSUVASTATIN 10 MG TAB (CRESTOR) PO SCH (08:34)
[2019-10-25] MEDS: FUROSEMIDE 40 MG TAB PO SCH (08:34)
[2019-10-25] MEDS: GENTAMICIN SULFATE 0.1% OINT 15 GM TOP SCH ×3 (08:35→20:26)
[2019-10-25] MEDS: AUGMENTIN 500 MG TAB PO SCH ×2 (10:53→20:25)
[2019-10-25 14:00] VITALS: BP 146/83
[2019-10-25] MEDS: LEVEMIR (INSULIN DETEMIR) 1 UNITS/0.01ML SC SCH (20:25)
[2019-10-25] MEDS: traZODone 50 MG TAB PO SCH (20:25)
[2019-10-25] MEDS: GABAPENTIN 100 MG CAP PO SCH (20:25)
[2019-10-25 22:00] VITALS: BP 149/85
[2019-10-26] MEDS: LEVOTHYROXINE 88MCG TABLET (0.088 MG) PO SCH (05:42)
[2019-10-26 06:00] VITALS: BP 130/65
[2019-10-26] MEDS: SYMBICORT 80/4.5MCG INHALER 6GM INH SCH ×2 (07:46→19:35)
[2019-10-26] MEDS: AUGMENTIN 500 MG TAB PO SCH ×2 (08:40→21:30)
[2019-10-26] MEDS: HumaLOG INSULIN (NovoLOG) PER UNIT SC SCH ×4 (08:40→21:00)
[2019-10-26] MEDS: CARVedilol 6.25 MG TAB PO SCH ×2 (08:40→21:30)
[2019-10-26] MEDS: MEXILETINE 150 MG CAP PO SCH ×2 (08:41→21:30)
[2019-10-26] MEDS: ROSUVASTATIN 10 MG TAB (CRESTOR) PO SCH (08:41)
[2019-10-26] MEDS: AMIODARONE 100MG TABLET (PACERONE) PO SCH (08:41)
[2019-10-26] MEDS: GENTAMICIN SULFATE 0.1% OINT 15 GM TOP SCH ×3 (08:41→21:31)
[2019-10-26] MEDS: TAMSULOSIN 0.4 MG CAP PO SCH (08:41)
[2019-10-26] MEDS: ASPIRIN 81 MG ENTERIC TAB PO SCH (08:41)
[2019-10-26] MEDS: FUROSEMIDE 40 MG TAB PO SCH (08:41)
[2019-10-26] MEDS: APIXABAN 5 MG TAB (ELIQUIS) PO SCH ×2 (08:41→21:30)
[2019-10-26 14:00] VITALS: BP 117/56
[2019-10-26] MEDS: GABAPENTIN 100 MG CAP PO SCH (21:30)
[2019-10-26] MEDS: traZODone 50 MG TAB PO SCH (21:30)
[2019-10-26] MEDS: LEVEMIR (INSULIN DETEMIR) 1 UNITS/0.01ML SC SCH (21:30)
[2019-10-26 22:00] VITALS: BP 130/68
[2019-10-27 06:00] VITALS: BP 122/65
[2019-10-27] MEDS: LEVOTHYROXINE 88MCG TABLET (0.088 MG) PO SCH (06:15)
[2019-10-27 06:44] LABS: HEMOGLOBIN 10.3 g/dl (13.5-17.5); MEAN CORPUSCULAR HEMOGLOBIN 26.1 pg (27.0-33.0); MEAN CORPUSCULAR HGB CONC 30.3 g/dl (32.0-36.5); MEAN CORPUSCULAR VOLUME 86.3 fl (80.0-96.0); PLATELET COUNT, AUTOMATED 205 10^3/uL (150-450); RED BLOOD COUNT 3.94 10^6/uL (4.30-6.10); WHITE BLOOD COUNT 10.3 10^3/uL (4.0-10.0)
[2019-10-27 07:11] LABS: ALBUMIN 2.4 GM/DL (3.2-5.2); BILIRUBIN,TOTAL 0.3 MG/DL (0.2-1.0); CALCIUM LEVEL 8.5 MG/DL (8.8-10.2); CREATININE FOR GFR 1.7 MG/DL (0.70-1.30); GLOMERULAR FILTRATION RATE 43.6 (>49); POTASSIUM SERUM 4.3 MEQ/L (3.5-5.1); TOTAL PROTEIN 5.9 GM/DL (6.4-8.2)
[2019-10-27] MEDS: SYMBICORT 80/4.5MCG INHALER 6GM INH SCH ×2 (08:04→19:16)
[2019-10-27] MEDS: HumaLOG INSULIN (NovoLOG) PER UNIT SC SCH ×4 (08:30→21:00)
[2019-10-27] MEDS: TAMSULOSIN 0.4 MG CAP PO SCH (11:27)
[2019-10-27] MEDS: AMIODARONE 100MG TABLET (PACERONE) PO SCH (11:27)
[2019-10-27] MEDS: AUGMENTIN 500 MG TAB PO SCH ×2 (11:27→21:48)
[2019-10-27] MEDS: ASPIRIN 81 MG ENTERIC TAB PO SCH (11:27)
[2019-10-27] MEDS: MEXILETINE 150 MG CAP PO SCH ×2 (11:28→21:49)
[2019-10-27] MEDS: ROSUVASTATIN 10 MG TAB (CRESTOR) PO SCH (11:28)
[2019-10-27] MEDS: FUROSEMIDE 40 MG TAB PO SCH (11:28)
[2019-10-27] MEDS: APIXABAN 5 MG TAB (ELIQUIS) PO SCH ×2 (11:28→21:49)
[2019-10-27] MEDS: CARVedilol 6.25 MG TAB PO SCH ×2 (11:30→21:49)
[2019-10-27] MEDS: GENTAMICIN SULFATE 0.1% OINT 15 GM TOP SCH ×3 (11:33→21:50)
[2019-10-27 14:00] VITALS: BP 150/90
[2019-10-27] MEDS: LEVEMIR (INSULIN DETEMIR) 1 UNITS/0.01ML SC SCH (21:00)
[2019-10-27] MEDS: traZODone 50 MG TAB PO SCH (21:49)
[2019-10-27] MEDS: GABAPENTIN 100 MG CAP PO SCH (21:49)
[2019-10-27 22:00] VITALS: BP 107/71
[2019-10-28 06:00] VITALS: BP 108/65
[2019-10-28] MEDS: LEVOTHYROXINE 88MCG TABLET (0.088 MG) PO SCH (06:56)
[2019-10-28] MEDS: SYMBICORT 80/4.5MCG INHALER 6GM INH SCH ×2 (08:36→20:26)
[2019-10-28] MEDS: HumaLOG INSULIN (NovoLOG) PER UNIT SC SCH ×4 (08:37→20:18)
[2019-10-28] MEDS: FUROSEMIDE 40 MG TAB PO SCH (08:38)
[2019-10-28] MEDS: AUGMENTIN 500 MG TAB PO SCH ×2 (08:39→20:28)
[2019-10-28] MEDS: AMIODARONE 100MG TABLET (PACERONE) PO SCH (08:39)
[2019-10-28] MEDS: ROSUVASTATIN 10 MG TAB (CRESTOR) PO SCH (08:39)
[2019-10-28] MEDS: CARVedilol 6.25 MG TAB PO SCH ×2 (08:40→20:29)
[2019-10-28] MEDS: ASPIRIN 81 MG ENTERIC TAB PO SCH (08:40)
[2019-10-28] MEDS: TAMSULOSIN 0.4 MG CAP PO SCH (08:40)
[2019-10-28] MEDS: APIXABAN 5 MG TAB (ELIQUIS) PO SCH ×2 (08:40→20:29)
[2019-10-28] MEDS: MEXILETINE 150 MG CAP PO SCH ×2 (08:41→20:29)
[2019-10-28] MEDS: GENTAMICIN SULFATE 0.1% OINT 15 GM TOP SCH ×3 (08:48→20:29)
[2019-10-28] MEDS ORDERED: MIRALAX *UNIT DOSE* 17GM PACKET PO PRN (11:15)
[2019-10-28] MEDS: DOCUSATE SODIUM 100 MG CAP PO SCH ×2 (12:13→20:28)
[2019-10-28 14:00] VITALS: BP 131/73
[2019-10-28 15:21] LABS: HEMATOCRIT 38.7 % (42.0-52.0); HEMOGLOBIN 11.5 g/dl (13.5-17.5); MEAN CORPUSCULAR HEMOGLOBIN 26.3 pg (27.0-33.0); MEAN CORPUSCULAR HGB CONC 29.7 g/dl (32.0-36.5); MEAN CORPUSCULAR VOLUME 88.6 fl (80.0-96.0); PLATELET COUNT, AUTOMATED 209 10^3/uL (150-450); RED BLOOD COUNT 4.37 10^6/uL (4.30-6.10); WHITE BLOOD COUNT 10.1 10^3/uL (4.0-10.0)
[2019-10-28] MEDS: LEVEMIR (INSULIN DETEMIR) 1 UNITS/0.01ML SC SCH (20:18)
[2019-10-28] MEDS: SENNA 8.6 MG TAB (SENOKOT) PO SCH (20:28)
[2019-10-28] MEDS: traZODone 50 MG TAB PO SCH (20:29)
[2019-10-28] MEDS: GABAPENTIN 100 MG CAP PO SCH (20:29)
[2019-10-29 03:40] LABS: HEMATOCRIT 35.5 % (42.0-52.0); HEMOGLOBIN 10.6 g/dl (13.5-17.5); MEAN CORPUSCULAR HEMOGLOBIN 25.7 pg (27.0-33.0); MEAN CORPUSCULAR HGB CONC 29.9 g/dl (32.0-36.5); PLATELET COUNT, AUTOMATED 189 10^3/uL (150-450); RED BLOOD COUNT 4.13 10^6/uL (4.30-6.10); WHITE BLOOD COUNT 8.9 10^3/uL (4.0-10.0)
[2019-10-29 04:08] LABS: ALBUMIN 2.4 GM/DL (3.2-5.2); BILIRUBIN,TOTAL 0.2 MG/DL (0.2-1.0); CALCIUM LEVEL 8.2 MG/DL (8.8-10.2); CREATININE FOR GFR 1.88 MG/DL (0.70-1.30); GLOMERULAR FILTRATION RATE 38.8 (>49); POTASSIUM SERUM 4.6 MEQ/L (3.5-5.1); TOTAL PROTEIN 5.9 GM/DL (6.4-8.2)
[2019-10-29] MEDS: LEVOTHYROXINE 88MCG TABLET (0.088 MG) PO SCH (05:40)
[2019-10-29 06:00] VITALS: BP 141/83
[2019-10-29] MEDS: SYMBICORT 80/4.5MCG INHALER 6GM INH SCH ×2 (07:30→19:50)
[2019-10-29] MEDS: AUGMENTIN 500 MG TAB PO SCH (08:20)
[2019-10-29] MEDS: DOCUSATE SODIUM 100 MG CAP PO SCH ×2 (08:20→21:19)
[2019-10-29] MEDS: FUROSEMIDE 40 MG TAB PO SCH (08:20)
[2019-10-29] MEDS: TAMSULOSIN 0.4 MG CAP PO SCH (08:20)
[2019-10-29] MEDS: AMIODARONE 100MG TABLET (PACERONE) PO SCH (08:20)
[2019-10-29] MEDS: ASPIRIN 81 MG ENTERIC TAB PO SCH (08:20)
[2019-10-29] MEDS: MEXILETINE 150 MG CAP PO SCH ×2 (08:20→21:18)
[2019-10-29] MEDS: APIXABAN 5 MG TAB (ELIQUIS) PO SCH ×2 (08:21→21:18)
[2019-10-29] MEDS: ROSUVASTATIN 10 MG TAB (CRESTOR) PO SCH (08:21)
[2019-10-29] MEDS: CARVedilol 6.25 MG TAB PO SCH ×2 (08:23→21:22)
[2019-10-29] MEDS: HumaLOG INSULIN (NovoLOG) PER UNIT SC SCH ×4 (08:24→21:00)
[2019-10-29] MEDS: GENTAMICIN SULFATE 0.1% OINT 15 GM TOP SCH ×3 (08:24→21:23)
[2019-10-29 13:21] LABS: HEMATOCRIT 38.8 % (42.0-52.0); HEMOGLOBIN 11.2 g/dl (13.5-17.5); MEAN CORPUSCULAR HEMOGLOBIN 25.9 pg (27.0-33.0); MEAN CORPUSCULAR HGB CONC 28.9 g/dl (32.0-36.5); MEAN CORPUSCULAR VOLUME 89.8 fl (80.0-96.0); PLATELET COUNT, AUTOMATED 225 10^3/uL (150-450); RED BLOOD COUNT 4.32 10^6/uL (4.30-6.10); WHITE BLOOD COUNT 9.7 10^3/uL (4.0-10.0)
[2019-10-29 19:26] LABS: HEMATOCRIT 36.2 % (42.0-52.0); HEMOGLOBIN 10.6 g/dl (13.5-17.5); MEAN CORPUSCULAR HEMOGLOBIN 25.5 pg (27.0-33.0); MEAN CORPUSCULAR HGB CONC 29.3 g/dl (32.0-36.5); PLATELET COUNT, AUTOMATED 199 10^3/uL (150-450); RED BLOOD COUNT 4.16 10^6/uL (4.30-6.10); WHITE BLOOD COUNT 9.8 10^3/uL (4.0-10.0)
[2019-10-29] MEDS: traZODone 50 MG TAB PO SCH ×2 (21:00→21:19)
[2019-10-29] MEDS: GABAPENTIN 100 MG CAP PO SCH (21:18)
[2019-10-29] MEDS: SENNA 8.6 MG TAB (SENOKOT) PO SCH (21:18)
[2019-10-29] MEDS: LEVEMIR (INSULIN DETEMIR) 1 UNITS/0.01ML SC SCH (21:19)
[2019-10-30] MEDS: LEVOTHYROXINE 88MCG TABLET (0.088 MG) PO SCH (05:51)
[2019-10-30 06:00] VITALS: BP 141/75
[2019-10-30] MEDS: SYMBICORT 80/4.5MCG INHALER 6GM INH SCH ×2 (08:00→19:24)
[2019-10-30] MEDS: ROSUVASTATIN 10 MG TAB (CRESTOR) PO SCH (10:11)
[2019-10-30] MEDS: HumaLOG INSULIN (NovoLOG) PER UNIT SC SCH ×4 (10:12→21:00)
[2019-10-30] MEDS: FUROSEMIDE 40 MG TAB PO SCH (10:12)
[2019-10-30] MEDS: TAMSULOSIN 0.4 MG CAP PO SCH (10:12)
[2019-10-30] MEDS: AMIODARONE 100MG TABLET (PACERONE) PO SCH (10:12)
[2019-10-30] MEDS: DOCUSATE SODIUM 100 MG CAP PO SCH ×2 (10:13→21:27)
[2019-10-30] MEDS: CARVedilol 6.25 MG TAB PO SCH ×2 (10:13→21:29)
[2019-10-30] MEDS: APIXABAN 5 MG TAB (ELIQUIS) PO SCH ×2 (10:13→21:27)
[2019-10-30] MEDS: MEXILETINE 150 MG CAP PO SCH ×2 (10:13→21:27)
[2019-10-30] MEDS: ASPIRIN 81 MG ENTERIC TAB PO SCH (10:13)
[2019-10-30] MEDS: GENTAMICIN SULFATE 0.1% OINT 15 GM TOP SCH ×3 (10:14→21:28)
--- NOTE | 2019-10-30 15:26 | IPNPDOC ---
Date Seen The patient was seen on 10/30/19. Progress Note SUBJECTIVE: Podiatry consulted to see patient regarding toenails impeding ambulation, f/u report. Patient denies any new complaint. OBJECTIVE: PHYSICAL EXAM: VS: Please see below GENERAL: awake, alert, oriented x 3. nad, pleasant HEENT: anicteric sclerae, no nasal discharges, no throat exudates NECK: supple, no tenderness, CHEST: clear breath sounds, no rales or weakness noted CVS: s1 and s2 distinct, irregular, normal rate no murmurs noted Abdomen: soft, not tender, no rigidity, no tenderness Extremities: no more right leg edema, erythema also much improved. Right foot ulcer is healing well, no surrounding erythema now, no discharges. LABORATORY: Please see below. CURRENT MEDICATIONS: please see below ASSESSMENT: 1. Right foot cellulitis, with nonhealing ulcer, unlikely osteomyelitis. completed abx treatment with aumentin on 10/29/19 2. fracture on the 1st metatarsophalangeal area, acuity unclear, no surgical intervention. Podiatry to see/fu 3. Diabetes Mellitus type II, with hyperglycemia with nonhealing right foot ulcer 4. Atrial fibrillation,on chronic anticoagulation with eliquis 5. coronary artery disease, s/p CABD, AICD, 6. Acute on chronic congestive heart failure, HFrEF, AICD 7. CKD stage III PLANS: * ALC status, not safe for discharge, no place to go. * Social work working on possibly getting him at assisted living. VS, I&O, 24H, Fishbone Vital Signs/I&O Vital Signs Date Time Temp Pulse Resp B/P (MAP) Pulse Ox O2 Delivery O2 Flow Rate FiO2 10/30/19 10:13 70 148/78 10/30/19 06:00 97.8 18 92 Room Air I&O- Last 24 Hours up to 6 AM 10/30/19 06:00 Intake Total 1870 ml Output Total 1800 ml Balance 70 ml Laboratory Data 24H LABS Laboratory Tests 2 10/29/19 19:08: Nucleated Red Blood Cells % (auto) 0.0 CBC/BMP Laboratory Tests 10/29/19 19:08 Current Medications Current Medications Medications (Trade) Dose Ordered Sig/Lucia Route PRN Reason Start Time Stop Time Status Last Admin Dose Admin Acetaminophen (Tylenol Tab) 650 mg Q4H PRN PO PAIN OR FEVER 10/19/19 22:30 Albuterol/ Ipratropium (Duoneb (Ipr 0.5mg/Alb 2.5mg)) 3 ml Q2HP PRN NEB SOB/WHEEZING 10/19/19 22:45 Amiodarone HCl (Pacerone, Cordarone) 300 mg DAILY PO 10/20/19 09:00 10/30/19 10:12 Amoxicillin/ Clavulanate Potassium (Augmentin) 500 mg Q12H PO 10/23/19 21:00 10/29/19 20:59 DC 10/29/19 08:20 Apixaban (Eliquis) 5 mg BID PO 10/20/19 09:00 10/20/19 05:48 DC Apixaban (Eliquis) 5 mg BID PO 10/21/19 21:00 10/30/19 10:13 Aspirin (Ecotrin) 81 mg DAILY PO 10/20/19 09:00 10/30/19 10:13 Budesonide/ Formoterol Fumarate (Symbicort 80/ 4.5mcg) 2 puff RBID INH 10/20/19 08:00 10/30/19 08:00 Carvedilol (COReg) 6.25 mg BID PO 10/20/19 09:00 10/30/19 10:13 Dextrose (Dextrose 50%) 25 ml ASDIRECTED PRN IV SEE LABEL COMMENTS 10/19/19 22:45 Dextrose/Sodium Chloride 1,000 ml @ 50 mls/hr Q20H IV 10/20/19 01:30 10/20/19 06:53 DC 10/20/19 02:26 Docusate Sodium (Colace) 100 mg BID PO 10/28/19 09:00 10/30/19 10:13 Furosemide (LASIX injection) 40 mg Q24H IV 10/23/19 09:00 10/23/19 16:34 DC 10/23/19 09:33 Furosemide (LASIX injection) 60 mg Q12H IV 10/21/19 02:00 10/22/19 08:05 DC 10/22/19 01:52 Furosemide (LASIX injection) 60 mg Q24H IV 10/22/19 09:00 10/22/19 19:09 DC 10/22/19 09:18 Furosemide (LASIX injection) 60 mg Q8H IV 10/20/19 06:00 10/20/19 17:46 DC 10/20/19 13:13 Furosemide (Lasix) 40 mg DAILY PO 10/24/19 09:00 10/30/19 10:12 Gabapentin (Neurontin) 100 mg QHS PO 10/20/19 21:00 10/29/19 21:18 Gentamicin Sulfate (Garamycin 0.1% Topical Ointment) 1 dose TID TOP 10/20/19 09:00 10/30/19 10:14 Glucagon (Glucagon) 1 mg ASDIRECTED PRN SC SEE LABEL COMMENTS 10/19/19 22:45 Glucose (Glucose) 16 GM ASDIRECTED PRN PO SEE LABEL COMMENTS 10/19/19 22:45 Home Med (Med Rec Complete!) ASDIRECTED XX 10/20/19 01:00 10/20/19 00:49 DC Insulin Detemir (Levemir Insulin) 10 units QHS SC 10/20/19 21:00 10/29/19 21:19 Insulin Human Lispro (HumaLOG INSULIN) SEE PROTOCOL TABLE AC SC 10/20/19 07:30 10/30/19 12:54 Insulin Human Lispro (HumaLOG INSULIN) SEE PROTOCOL TABLE QHS SC 10/19/19 21:00 10/20/19 22:20 Levothyroxine Sodium (Synthroid) 88 mcg DAILY@06 PO 10/20/19 06:00 10/30/19 05:51 Mexiletine HCl (Mexitil) 150 mg BID PO 10/20/19 09:00 10/30/19 10:13 Mexiletine HCl (Mexitil) 200 mg BID PO 10/20/19 09:00 10/20/19 03:21 DC Nitroglycerin (Nitrostat (1/ 150)) 0.4 mg Q5MP PRN SL CHEST PAIN 10/20/19 01:30 Piperacillin Sod/ Tazobactam Sod 3.375 gm/Dextrose 50 ml @ 50 mls/hr Q6H IV 10/20/19 04:00 10/23/19 16:35 DC 10/23/19 16:23 Polyethylene Glycol (Miralax) 1 pkt DAILYPRN PRN PO CONSTIPATION 10/28/19 11:15 Rosuvastatin Calcium (Crestor) 40 mg DAILY PO 10/20/19 09:00 10/30/19 10:11 Senna (Senokot) 2 tab QHS PO 10/28/19 21:00 10/29/19 21:18 Sodium Chloride (Saline Lock Flush) 2 ml ASDIRECTED PRN IV SEE LABEL COMMENTS 10/20/19 11:15 Cancel Sodium Chloride (Saline Lock Flush) 2 ml SLF IV 10/20/19 14:00 10/24/19 12:38 DC 10/24/19 05:59 Tamsulosin HCl (Flomax) 0.4 mg DAILY PO 10/20/19 09:00 10/30/19 10:12 Trazodone HCl (Desyrel) 50 mg QHS PO 10/20/19 02:00 10/28/19 20:29 Vancomycin HCl 500 mg/Dextrose 110 ml @ 110 mls/hr Q24H IV 10/23/19 23:00 10/22/19 19:09 DC Vancomycin HCl 750 mg/IV Miscellaneous Supplies 1 each/ Dextrose 275 ml @ 275 mls/hr Q24H IV 10/23/19 22:00 10/22/19 19:09 DC Vancomycin HCl 1000 mg/IV Miscellaneous Supplies 1 each/ Dextrose 270 ml @ 270 mls/hr Q12H IV 10/20/19 13:00 10/21/19 13:25 DC 10/21/19 01:23 Vancomycin HCl 1000 mg/IV Miscellaneous Supplies 1 each/ Dextrose 270 ml @ 270 mls/hr Q12H IV 10/21/19 14:00 10/22/19 16:14 DC 10/22/19 14:40 Allergies Coded Allergies: No Known Allergies (Unverified , 08/02/12) Kaylee Olson MD Oct 30, 2019 15:26
[2019-10-30] MEDS: traZODone 50 MG TAB PO SCH (21:00)
[2019-10-30] MEDS: SENNA 8.6 MG TAB (SENOKOT) PO SCH (21:27)
[2019-10-30] MEDS: GABAPENTIN 100 MG CAP PO SCH (21:27)
[2019-10-30] MEDS: LEVEMIR (INSULIN DETEMIR) 1 UNITS/0.01ML SC SCH (21:27)
[2019-10-31] MEDS: LEVOTHYROXINE 88MCG TABLET (0.088 MG) PO SCH (05:37)
[2019-10-31 06:00] VITALS: BP 137/72
[2019-10-31] MEDS: HumaLOG INSULIN (NovoLOG) PER UNIT SC SCH ×4 (07:30→20:34)
[2019-10-31] MEDS: SYMBICORT 80/4.5MCG INHALER 6GM INH SCH ×2 (08:05→19:36)
[2019-10-31] MEDS: GENTAMICIN SULFATE 0.1% OINT 15 GM TOP SCH ×3 (08:35→20:49)
[2019-10-31] MEDS: APIXABAN 5 MG TAB (ELIQUIS) PO SCH ×2 (08:35→20:44)
[2019-10-31] MEDS: MEXILETINE 150 MG CAP PO SCH ×2 (08:36→20:43)
[2019-10-31] MEDS: ASPIRIN 81 MG ENTERIC TAB PO SCH (08:36)
[2019-10-31] MEDS: FUROSEMIDE 40 MG TAB PO SCH (08:36)
[2019-10-31] MEDS: TAMSULOSIN 0.4 MG CAP PO SCH (08:36)
[2019-10-31] MEDS: DOCUSATE SODIUM 100 MG CAP PO SCH ×2 (08:36→20:44)
[2019-10-31] MEDS: AMIODARONE 100MG TABLET (PACERONE) PO SCH (08:37)
[2019-10-31] MEDS: ROSUVASTATIN 10 MG TAB (CRESTOR) PO SCH (08:42)
[2019-10-31] MEDS: CARVedilol 6.25 MG TAB PO SCH ×2 (08:45→20:44)
[2019-10-31] MEDS: SENNA 8.6 MG TAB (SENOKOT) PO SCH (20:43)
[2019-10-31] MEDS: GABAPENTIN 100 MG CAP PO SCH (20:44)
[2019-10-31] MEDS: LEVEMIR (INSULIN DETEMIR) 1 UNITS/0.01ML SC SCH (20:49)
[2019-10-31] MEDS: traZODone 50 MG TAB PO SCH (20:50)
[2019-11-01] MEDS: LEVOTHYROXINE 88MCG TABLET (0.088 MG) PO SCH (05:30)
[2019-11-01 06:00] VITALS: BP 125/69
[2019-11-01] MEDS: HumaLOG INSULIN (NovoLOG) PER UNIT SC SCH ×4 (07:30→21:00)
[2019-11-01] MEDS: SYMBICORT 80/4.5MCG INHALER 6GM INH SCH ×2 (08:44→19:29)
[2019-11-01] MEDS: DOCUSATE SODIUM 100 MG CAP PO SCH ×2 (08:53→22:08)
[2019-11-01] MEDS: TAMSULOSIN 0.4 MG CAP PO SCH (08:53)
[2019-11-01] MEDS: FUROSEMIDE 40 MG TAB PO SCH (08:54)
[2019-11-01] MEDS: ASPIRIN 81 MG ENTERIC TAB PO SCH (08:54)
[2019-11-01] MEDS: APIXABAN 5 MG TAB (ELIQUIS) PO SCH ×2 (08:54→22:08)
[2019-11-01] MEDS: ROSUVASTATIN 10 MG TAB (CRESTOR) PO SCH (08:54)
[2019-11-01] MEDS: CARVedilol 6.25 MG TAB PO SCH ×2 (08:56→22:09)
[2019-11-01] MEDS: MEXILETINE 150 MG CAP PO SCH ×2 (08:56→22:08)
[2019-11-01] MEDS: GENTAMICIN SULFATE 0.1% OINT 15 GM TOP SCH ×3 (08:56→22:11)
[2019-11-01] MEDS: AMIODARONE 100MG TABLET (PACERONE) PO SCH (08:56)
[2019-11-01] MEDS: traZODone 50 MG TAB PO SCH (21:00)
[2019-11-01] MEDS: SENNA 8.6 MG TAB (SENOKOT) PO SCH (22:08)
[2019-11-01] MEDS: GABAPENTIN 100 MG CAP PO SCH (22:09)
[2019-11-01] MEDS: LEVEMIR (INSULIN DETEMIR) 1 UNITS/0.01ML SC SCH (22:15)
[2019-11-02] MEDS: LEVOTHYROXINE 88MCG TABLET (0.088 MG) PO SCH (05:46)
[2019-11-02 06:00] VITALS: BP 145/82
[2019-11-02] MEDS: SYMBICORT 80/4.5MCG INHALER 6GM INH SCH ×2 (07:34→20:27)
[2019-11-02] MEDS: MEXILETINE 150 MG CAP PO SCH ×2 (09:15→21:57)
[2019-11-02] MEDS: HumaLOG INSULIN (NovoLOG) PER UNIT SC SCH ×4 (09:15→21:00)
[2019-11-02] MEDS: TAMSULOSIN 0.4 MG CAP PO SCH (09:15)
[2019-11-02] MEDS: DOCUSATE SODIUM 100 MG CAP PO SCH ×2 (09:16→21:57)
[2019-11-02] MEDS: ASPIRIN 81 MG ENTERIC TAB PO SCH (09:16)
[2019-11-02] MEDS: CARVedilol 6.25 MG TAB PO SCH ×2 (09:16→22:01)
[2019-11-02] MEDS: APIXABAN 5 MG TAB (ELIQUIS) PO SCH ×2 (09:17→21:57)
[2019-11-02] MEDS: FUROSEMIDE 40 MG TAB PO SCH (09:17)
[2019-11-02] MEDS: AMIODARONE 100MG TABLET (PACERONE) PO SCH (09:17)
[2019-11-02] MEDS: ROSUVASTATIN 10 MG TAB (CRESTOR) PO SCH (09:17)
[2019-11-02] MEDS: GENTAMICIN SULFATE 0.1% OINT 15 GM TOP SCH ×4 (09:18→21:58)
[2019-11-02] MEDS: SENNA 8.6 MG TAB (SENOKOT) PO SCH (21:57)
[2019-11-02] MEDS: GABAPENTIN 100 MG CAP PO SCH (21:57)
[2019-11-02] MEDS: traZODone 50 MG TAB PO SCH (21:57)
[2019-11-02] MEDS: LEVEMIR (INSULIN DETEMIR) 1 UNITS/0.01ML SC SCH (21:58)
[2019-11-03] MEDS: LEVOTHYROXINE 88MCG TABLET (0.088 MG) PO SCH (05:38)
[2019-11-03 06:00] VITALS: BP 142/81
[2019-11-03] MEDS: HumaLOG INSULIN (NovoLOG) PER UNIT SC SCH ×4 (07:30→21:00)
[2019-11-03] MEDS: SYMBICORT 80/4.5MCG INHALER 6GM INH SCH ×2 (07:37→20:08)
[2019-11-03] MEDS: CARVedilol 6.25 MG TAB PO SCH ×2 (09:00→21:41)
[2019-11-03] MEDS: AMIODARONE 100MG TABLET (PACERONE) PO SCH (10:36)
[2019-11-03] MEDS: TAMSULOSIN 0.4 MG CAP PO SCH (10:36)
[2019-11-03] MEDS: FUROSEMIDE 40 MG TAB PO SCH (10:36)
[2019-11-03] MEDS: ROSUVASTATIN 10 MG TAB (CRESTOR) PO SCH (10:37)
[2019-11-03] MEDS: APIXABAN 5 MG TAB (ELIQUIS) PO SCH ×2 (10:37→21:38)
[2019-11-03] MEDS: ASPIRIN 81 MG ENTERIC TAB PO SCH (10:37)
[2019-11-03] MEDS: MEXILETINE 150 MG CAP PO SCH ×2 (10:37→21:38)
[2019-11-03] MEDS: DOCUSATE SODIUM 100 MG CAP PO SCH ×2 (10:38→21:38)
[2019-11-03] MEDS: GENTAMICIN SULFATE 0.1% OINT 15 GM TOP SCH ×3 (10:45→21:43)
[2019-11-03] MEDS: LEVEMIR (INSULIN DETEMIR) 1 UNITS/0.01ML SC SCH (21:00)
[2019-11-03] MEDS: traZODone 50 MG TAB PO SCH (21:38)
[2019-11-03] MEDS: GABAPENTIN 100 MG CAP PO SCH (21:38)
[2019-11-03] MEDS: SENNA 8.6 MG TAB (SENOKOT) PO SCH (21:39)
[2019-11-04] MEDS: LEVOTHYROXINE 88MCG TABLET (0.088 MG) PO SCH (05:30)
[2019-11-04 06:00] VITALS: BP 142/85
[2019-11-04] MEDS: HumaLOG INSULIN (NovoLOG) PER UNIT SC SCH ×4 (07:30→21:00)
[2019-11-04] MEDS: SYMBICORT 80/4.5MCG INHALER 6GM INH SCH ×2 (07:41→18:35)
[2019-11-04] MEDS: MEXILETINE 150 MG CAP PO SCH ×2 (08:35→21:36)
[2019-11-04] MEDS: ASPIRIN 81 MG ENTERIC TAB PO SCH (08:35)
[2019-11-04] MEDS: AMIODARONE 100MG TABLET (PACERONE) PO SCH (08:35)
[2019-11-04] MEDS: TAMSULOSIN 0.4 MG CAP PO SCH (08:36)
[2019-11-04] MEDS: CARVedilol 6.25 MG TAB PO SCH ×3 (08:36→21:38)
[2019-11-04] MEDS: DOCUSATE SODIUM 100 MG CAP PO SCH ×2 (08:36→21:36)
[2019-11-04] MEDS: FUROSEMIDE 40 MG TAB PO SCH (08:36)
[2019-11-04] MEDS: ROSUVASTATIN 10 MG TAB (CRESTOR) PO SCH (08:36)
[2019-11-04] MEDS: APIXABAN 5 MG TAB (ELIQUIS) PO SCH ×2 (08:36→21:36)
[2019-11-04] MEDS: GENTAMICIN SULFATE 0.1% OINT 15 GM TOP SCH ×2 (12:00→21:42)
[2019-11-04] MEDS: LEVEMIR (INSULIN DETEMIR) 1 UNITS/0.01ML SC SCH (21:00)
[2019-11-04] MEDS: SENNA 8.6 MG TAB (SENOKOT) PO SCH (21:36)
[2019-11-04] MEDS: traZODone 50 MG TAB PO SCH (21:36)
[2019-11-04] MEDS: GABAPENTIN 100 MG CAP PO SCH (21:36)
[2019-11-04 22:00] VITALS: BP 147/79
[2019-11-05] MEDS: LEVOTHYROXINE 88MCG TABLET (0.088 MG) PO SCH (05:35)
[2019-11-05 06:00] VITALS: BP 150/91
[2019-11-05] MEDS: SYMBICORT 80/4.5MCG INHALER 6GM INH SCH ×2 (07:26→21:11)
[2019-11-05] MEDS: HumaLOG INSULIN (NovoLOG) PER UNIT SC SCH ×4 (08:57→20:38)
[2019-11-05] MEDS: ASPIRIN 81 MG ENTERIC TAB PO SCH (08:57)
[2019-11-05] MEDS: ROSUVASTATIN 10 MG TAB (CRESTOR) PO SCH (08:57)
[2019-11-05] MEDS: DOCUSATE SODIUM 100 MG CAP PO SCH ×2 (08:57→20:47)
[2019-11-05] MEDS: APIXABAN 5 MG TAB (ELIQUIS) PO SCH ×2 (08:58→20:47)
[2019-11-05] MEDS: FUROSEMIDE 40 MG TAB PO SCH (08:58)
[2019-11-05] MEDS: CARVedilol 6.25 MG TAB PO SCH ×2 (08:58→20:49)
[2019-11-05] MEDS: TAMSULOSIN 0.4 MG CAP PO SCH (08:58)
[2019-11-05] MEDS: AMIODARONE 100MG TABLET (PACERONE) PO SCH (10:18)
[2019-11-05] MEDS: MEXILETINE 150 MG CAP PO SCH ×2 (10:19→20:47)
[2019-11-05] MEDS: GENTAMICIN SULFATE 0.1% OINT 15 GM TOP SCH (12:47)
[2019-11-05] MEDS: traZODone 50 MG TAB PO SCH (20:47)
[2019-11-05] MEDS: GABAPENTIN 100 MG CAP PO SCH (20:47)
[2019-11-05] MEDS: SENNA 8.6 MG TAB (SENOKOT) PO SCH (20:47)
[2019-11-05] MEDS: LEVEMIR (INSULIN DETEMIR) 1 UNITS/0.01ML SC SCH (20:48)
[2019-11-06] MEDS: LEVOTHYROXINE 88MCG TABLET (0.088 MG) PO SCH (05:42)
[2019-11-06 06:00] VITALS: BP 154/80
--- NOTE | 2019-11-06 07:12 | CR ---
DATE OF CONSULTATION: 11/05/2019 CHIEF COMPLAINT: Patient seen for evaluation of an ulceration on the medial aspect of his right foot. PHYSICAL EXAMINATION: Bandage is present on his right foot. This bandage was removed. There is a healed area over the medial surface of his foot. No other ulcerations are noted on his foot. There is no drainage, no erythema, no increased temperature, and no signs of infection. ASSESSMENT: Healed ulceration medial surface right foot. PLAN: Discontinue Gentamicin since his ulcer is healed. We discussed with patient continuing daily diabetic foot care and monitoring. He will return to our office on discharge for evaluation. His questions were answered. GIO
[2019-11-06] MEDS: HumaLOG INSULIN (NovoLOG) PER UNIT SC SCH ×4 (07:30→21:00)
[2019-11-06] MEDS: SYMBICORT 80/4.5MCG INHALER 6GM INH SCH ×2 (08:02→19:53)
[2019-11-06] MEDS: ASPIRIN 81 MG ENTERIC TAB PO SCH (08:53)
[2019-11-06] MEDS: FUROSEMIDE 40 MG TAB PO SCH (08:54)
[2019-11-06] MEDS: MEXILETINE 150 MG CAP PO SCH ×2 (08:54→21:28)
[2019-11-06] MEDS: APIXABAN 5 MG TAB (ELIQUIS) PO SCH ×2 (08:54→21:29)
[2019-11-06] MEDS: DOCUSATE SODIUM 100 MG CAP PO SCH ×2 (08:54→21:28)
[2019-11-06] MEDS: TAMSULOSIN 0.4 MG CAP PO SCH (08:55)
[2019-11-06] MEDS: AMIODARONE 100MG TABLET (PACERONE) PO SCH (08:55)
[2019-11-06] MEDS: ROSUVASTATIN 10 MG TAB (CRESTOR) PO SCH (08:55)
[2019-11-06] MEDS: CARVedilol 6.25 MG TAB PO SCH ×2 (08:56→21:29)
[2019-11-06] MEDS: SENNA 8.6 MG TAB (SENOKOT) PO SCH (21:28)
[2019-11-06] MEDS: GABAPENTIN 100 MG CAP PO SCH (21:29)
[2019-11-06] MEDS: traZODone 50 MG TAB PO SCH (21:29)
[2019-11-06] MEDS: LEVEMIR (INSULIN DETEMIR) 1 UNITS/0.01ML SC SCH (21:29)
[2019-11-07] MEDS: LEVOTHYROXINE 88MCG TABLET (0.088 MG) PO SCH (05:34)
[2019-11-07 06:53] VITALS: BP 143/89
[2019-11-07] MEDS: HumaLOG INSULIN (NovoLOG) PER UNIT SC SCH ×4 (07:18→19:35)
[2019-11-07] MEDS: SYMBICORT 80/4.5MCG INHALER 6GM INH SCH ×2 (07:30→19:46)
[2019-11-07] MEDS: TAMSULOSIN 0.4 MG CAP PO SCH (07:55)
[2019-11-07] MEDS: FUROSEMIDE 40 MG TAB PO SCH (07:56)
[2019-11-07] MEDS: ASPIRIN 81 MG ENTERIC TAB PO SCH (07:56)
[2019-11-07] MEDS: APIXABAN 5 MG TAB (ELIQUIS) PO SCH ×2 (07:56→20:00)
[2019-11-07] MEDS: DOCUSATE SODIUM 100 MG CAP PO SCH ×2 (07:56→20:01)
[2019-11-07] MEDS: AMIODARONE 100MG TABLET (PACERONE) PO SCH (07:56)
[2019-11-07] MEDS: MEXILETINE 150 MG CAP PO SCH ×2 (07:56→20:00)
[2019-11-07] MEDS: CARVedilol 6.25 MG TAB PO SCH ×2 (07:57→20:01)
[2019-11-07] MEDS: ROSUVASTATIN 10 MG TAB (CRESTOR) PO SCH (07:57)
[2019-11-07] MEDS: LEVEMIR (INSULIN DETEMIR) 1 UNITS/0.01ML SC SCH (20:00)
[2019-11-07] MEDS: SENNA 8.6 MG TAB (SENOKOT) PO SCH (20:00)
[2019-11-07] MEDS: GABAPENTIN 100 MG CAP PO SCH (20:00)
[2019-11-07] MEDS: traZODone 50 MG TAB PO SCH (20:00)
[2019-11-08] MEDS: LEVOTHYROXINE 88MCG TABLET (0.088 MG) PO SCH (05:52)
[2019-11-08 06:00] VITALS: BP 138/78
[2019-11-08] MEDS: HumaLOG INSULIN (NovoLOG) PER UNIT SC SCH ×4 (07:30→21:00)
[2019-11-08] MEDS: SYMBICORT 80/4.5MCG INHALER 6GM INH SCH ×2 (08:03→19:37)
[2019-11-08] MEDS: MEXILETINE 150 MG CAP PO SCH ×2 (09:00→21:34)
[2019-11-08] MEDS: ROSUVASTATIN 10 MG TAB (CRESTOR) PO SCH (09:01)
[2019-11-08] MEDS: TAMSULOSIN 0.4 MG CAP PO SCH (09:01)
[2019-11-08] MEDS: ASPIRIN 81 MG ENTERIC TAB PO SCH (09:01)
[2019-11-08] MEDS: CARVedilol 6.25 MG TAB PO SCH ×2 (09:01→21:34)
[2019-11-08] MEDS: FUROSEMIDE 40 MG TAB PO SCH (09:01)
[2019-11-08] MEDS: DOCUSATE SODIUM 100 MG CAP PO SCH ×2 (09:01→21:33)
[2019-11-08] MEDS: APIXABAN 5 MG TAB (ELIQUIS) PO SCH ×2 (09:01→21:34)
[2019-11-08] MEDS: AMIODARONE 100MG TABLET (PACERONE) PO SCH (09:01)
[2019-11-08] MEDS: LEVEMIR (INSULIN DETEMIR) 1 UNITS/0.01ML SC SCH (21:32)
[2019-11-08] MEDS: GABAPENTIN 100 MG CAP PO SCH (21:33)
[2019-11-08] MEDS: SENNA 8.6 MG TAB (SENOKOT) PO SCH (21:33)
[2019-11-08] MEDS: traZODone 50 MG TAB PO SCH (21:33)
[2019-11-08 22:00] VITALS: BP 140/80
[2019-11-09] MEDS: LEVOTHYROXINE 88MCG TABLET (0.088 MG) PO SCH (05:56)
[2019-11-09 06:00] VITALS: BP 132/78
[2019-11-09] MEDS: SYMBICORT 80/4.5MCG INHALER 6GM INH SCH ×2 (07:31→19:01)
[2019-11-09] MEDS: ASPIRIN 81 MG ENTERIC TAB PO SCH (09:00)
[2019-11-09] MEDS: CARVedilol 6.25 MG TAB PO SCH ×2 (09:00→23:21)
[2019-11-09] MEDS: ROSUVASTATIN 10 MG TAB (CRESTOR) PO SCH (09:00)
[2019-11-09] MEDS: MEXILETINE 150 MG CAP PO SCH ×2 (09:00→23:21)
[2019-11-09] MEDS: HumaLOG INSULIN (NovoLOG) PER UNIT SC SCH ×4 (09:00→23:11)
[2019-11-09] MEDS: FUROSEMIDE 40 MG TAB PO SCH (09:00)
[2019-11-09] MEDS: DOCUSATE SODIUM 100 MG CAP PO SCH ×2 (09:00→23:20)
[2019-11-09] MEDS: TAMSULOSIN 0.4 MG CAP PO SCH (09:00)
[2019-11-09] MEDS: APIXABAN 5 MG TAB (ELIQUIS) PO SCH ×2 (09:00→23:21)
[2019-11-09] MEDS: AMIODARONE 100MG TABLET (PACERONE) PO SCH (09:00)
[2019-11-09] MEDS: traZODone 50 MG TAB PO SCH (23:21)
[2019-11-09] MEDS: GABAPENTIN 100 MG CAP PO SCH (23:21)
[2019-11-09] MEDS: SENNA 8.6 MG TAB (SENOKOT) PO SCH (23:22)
[2019-11-10] MEDS: LEVEMIR (INSULIN DETEMIR) 1 UNITS/0.01ML SC SCH ×2 (00:08→20:44)
[2019-11-10 05:00] VITALS: BP 143/81
[2019-11-10] MEDS: LEVOTHYROXINE 88MCG TABLET (0.088 MG) PO SCH (06:27)
[2019-11-10] MEDS: SYMBICORT 80/4.5MCG INHALER 6GM INH SCH ×2 (07:17→18:01)
[2019-11-10] MEDS: HumaLOG INSULIN (NovoLOG) PER UNIT SC SCH ×4 (08:25→20:38)
[2019-11-10] MEDS: DOCUSATE SODIUM 100 MG CAP PO SCH ×2 (08:26→20:35)
[2019-11-10] MEDS: CARVedilol 6.25 MG TAB PO SCH ×2 (08:26→20:36)
[2019-11-10] MEDS: ROSUVASTATIN 10 MG TAB (CRESTOR) PO SCH (08:27)
[2019-11-10] MEDS: APIXABAN 5 MG TAB (ELIQUIS) PO SCH ×2 (08:27→20:36)
[2019-11-10] MEDS: ASPIRIN 81 MG ENTERIC TAB PO SCH (08:27)
[2019-11-10] MEDS: TAMSULOSIN 0.4 MG CAP PO SCH (08:28)
[2019-11-10] MEDS: MEXILETINE 150 MG CAP PO SCH ×2 (08:28→20:35)
[2019-11-10] MEDS: FUROSEMIDE 40 MG TAB PO SCH (08:28)
[2019-11-10] MEDS: AMIODARONE 100MG TABLET (PACERONE) PO SCH (08:33)
[2019-11-10] MEDS: traZODone 50 MG TAB PO SCH (20:35)
[2019-11-10] MEDS: SENNA 8.6 MG TAB (SENOKOT) PO SCH (20:35)
[2019-11-10] MEDS: GABAPENTIN 100 MG CAP PO SCH (20:36)
[2019-11-11] MEDS: LEVOTHYROXINE 88MCG TABLET (0.088 MG) PO SCH (05:48)
[2019-11-11 06:00] VITALS: BP 124/73
[2019-11-11] MEDS: SYMBICORT 80/4.5MCG INHALER 6GM INH SCH ×2 (07:39→20:18)
[2019-11-11] MEDS: HumaLOG INSULIN (NovoLOG) PER UNIT SC SCH ×4 (09:20→21:00)
[2019-11-11] MEDS: MEXILETINE 150 MG CAP PO SCH ×2 (09:21→21:46)
[2019-11-11] MEDS: FUROSEMIDE 40 MG TAB PO SCH (09:21)
[2019-11-11] MEDS: AMIODARONE 100MG TABLET (PACERONE) PO SCH (09:22)
[2019-11-11] MEDS: CARVedilol 6.25 MG TAB PO SCH ×2 (09:22→21:00)
[2019-11-11] MEDS: DOCUSATE SODIUM 100 MG CAP PO SCH ×2 (09:23→21:46)
[2019-11-11] MEDS: APIXABAN 5 MG TAB (ELIQUIS) PO SCH ×2 (09:23→21:46)
[2019-11-11] MEDS: TAMSULOSIN 0.4 MG CAP PO SCH (09:23)
[2019-11-11] MEDS: ROSUVASTATIN 10 MG TAB (CRESTOR) PO SCH (09:23)
[2019-11-11] MEDS: ASPIRIN 81 MG ENTERIC TAB PO SCH (09:23)
[2019-11-11] MEDS: GABAPENTIN 100 MG CAP PO SCH (21:46)
[2019-11-11] MEDS: SENNA 8.6 MG TAB (SENOKOT) PO SCH (21:46)
[2019-11-11] MEDS: traZODone 50 MG TAB PO SCH (21:46)
[2019-11-11] MEDS: LEVEMIR (INSULIN DETEMIR) 1 UNITS/0.01ML SC SCH (21:47)
[2019-11-12] MEDS: LEVOTHYROXINE 88MCG TABLET (0.088 MG) PO SCH (05:34)
[2019-11-12 06:00] VITALS: BP 142/85
[2019-11-12] MEDS: HumaLOG INSULIN (NovoLOG) PER UNIT SC SCH (07:30)
[2019-11-12] MEDS: SYMBICORT 80/4.5MCG INHALER 6GM INH SCH (07:35)
[2019-11-12] MEDS ORDERED: FURO40TA2 PO (07:37)
[2019-11-12] MEDS ORDERED: METF-839 PO (08:11)
[2019-11-12] MEDS ORDERED: LISI10TA4 PO (08:11)
[2019-11-12] MEDS ORDERED: ASPI81CH48 PO (08:13)
[2019-11-12] MEDS: ROSUVASTATIN 10 MG TAB (CRESTOR) PO SCH (09:02)
[2019-11-12] MEDS: APIXABAN 5 MG TAB (ELIQUIS) PO SCH (09:03)
[2019-11-12] MEDS: FUROSEMIDE 40 MG TAB PO SCH (09:03)
[2019-11-12] MEDS: AMIODARONE 100MG TABLET (PACERONE) PO SCH (09:03)
[2019-11-12] MEDS: ASPIRIN 81 MG ENTERIC TAB PO SCH (09:03)
[2019-11-12] MEDS: MEXILETINE 150 MG CAP PO SCH (09:03)
[2019-11-12] MEDS: DOCUSATE SODIUM 100 MG CAP PO SCH (09:03)
[2019-11-12] MEDS: TAMSULOSIN 0.4 MG CAP PO SCH (09:03)
[2019-11-12 09:06] VITALS: BP 175/97
[2019-11-12] MEDS: CARVedilol 6.25 MG TAB PO SCH (09:06)
[2019-11-12 10:14] VITALS: BP 158/92
--- NOTE | 2019-11-12 14:56 | DS.PDOC ---
Discharge Summary General Date of Admission Oct 19, 2019 at 22:06 Date of Discharge 11/12/19 Discharge Summary PROCEDURES PERFORMED DURING STAY: [None]. ADMITTING DIAGNOSES: Acute on chronic HFrEF exacerbation R. foot wound cannot r/o osteomyelitis CKD 3 CAD Afib PAD HTN HLD DM Hypothyroidism Peripheral neuropathy CKD III DISCHARGE DIAGNOSES: Acute on chronic HFrEF exacerbation R. foot wound cannot r/o osteomyelitis CKD 3 CAD Afib PAD HTN HLD DM Hypothyroidism Peripheral neuropathy CKD III COMPLICATIONS/CHIEF COMPLAINT: Chf Exacerbation. HISTORY OF PRESENT ILLNESS: Patient is 64 year old male with PMH CAD w/ hx IA s/p stents placement, HFrEF s/p AICD 2/2 ischemic cardiomyopathy, PAD, DM, HTN, HLD, COPD with home O2 that he has not use in 3 months, CKD3, neuropathy and R. sided diabetic foot ulcer presents to the ER with concern for LE edema. Patient states that he is not safe to live alone anymore, there was somebody who is concern for him because he is off. Per ER report, there was a concern for LE edema with BNP in 18,000 and there was a concern for CHF exacerbation needing admission. Patient himself does not complain of any complaints including any chest pain, SOB, fever, or chills. Of note, he has a RLE wound to the lateral a spect of his R. foot and follows with Dr. Sanders for it as outpatient. However, he state that he has not seen him for awhile. ER had done an XR of his foot with evidence of fragmentation and destructive changes at the 1st MTP with fracture in distal portion, cannot rule out osteo. He was given a dose of Zosyn. HOSPITAL COURSE: During hospital stay following issue addressed 1. Right foot cellulitis, with nonhealing ulcer, unlikely osteomyelitis. completed abx treatment with aumentin on 10/29/19 2. fracture on the 1st metatarsophalangeal area, acuity unclear, no surgical intervention. Podiatry to see/fu 3. Diabetes Mellitus type II, with hyperglycemia with nonhealing right foot ulcer 4. Atrial fibrillation,on chronic anticoagulation with eliquis 5. coronary artery disease, s/p CABD, AICD, 6. Acute on chronic congestive heart failure, HFrEF, AICD 7. CKD stage III DISCHARGE MEDICATIONS: Please see below. ALLERGIES: Please see below. PHYSICAL EXAMINATION ON DISCHARGE: VITAL SIGNS: Please see below. - General: Lying in bed comfortably, Speaking in full sentences, AAOx3 - HEENT: NC, AT, PERRLA - CVS: +S1S2 - Lungs: Fair air entry bilaterally, No appreciable wheezing / rales / rhonchi - Abdomen: Soft, Non-distended, Non-tender - Extremities: 1+ pitting edema bilaterally, No calf tenderness - Neuro: No focal motor or sensory deficit - Skin: No visible rashes LABORATORY DATA: Please see below. IMAGING: [facility] NAME: MASON OLIVER DATE OF : 1955 BUSINESS NUMBER: [id number] AGE: 64 SEX: M REPORT #: [id number] ROOM: [facility] TECHNOLOGIST: RONEL DOCTOR: DEL SCOTT MD Ordered for Date&Time: 10/21/19 0700 cc: [~ rep ct ivnm] Service Date&Time: 10/21/19 0642 This report is in Signed status. Interpretation performed by [facility]. Thank you for having your radiology procedures performed at [facility] RADIOLOGY REPORT Date&Time printed: [~ rep prt dt last] [~ rep prt tm last] Page 2 of 2 [place] [id number] RADIOLOGY REPORT This report is in Signed status. Interpretation performed by [facility]. Thank you for having your radiology procedures performed at [facility] RADIOLOGY REPORT Date&Time printed: [~ rep prt dt last] [~ rep prt tm last] Page 1 of 1 Exam: XR Chest, 1 View Exam date and time: 10/21/2019 6:42 AM Age: 64 years old Clinical indication: Shortness of breath; Additional info: Evaluate for improvement TECHNIQUE: Imaging protocol: XR of the chest Views: 1 view. COMPARISON: CT Chest without contrast 09/20/2019 7:52 PM FINDINGS: Tubes, catheters and devices: AICD. Lungs: COPD, interstitial prominence, and chronic granulomatous disease. Near complete interval resolution of left-sided airspace disease. Pleural space: No significant pleural effusion. Heart/Mediastinum: Cardiomegaly. Vasculature: Calcification of the thoracic aorta. Bones/joints: Osteopenia and degenerative change prior IMPRESSION: 1. COPD, interstitial prominence, and chronic granulomatous disease. 2. Near complete interval resolution of left-sided airspace disease. Electronically signed by: Óscar Suero On 10/21/2019 07:15:12 AM DD: ÓSCAR SUERO MD 10/21/1941 DT: LYNN 10/21/19714 DS: ELTON 10/21/19714 [~ rep ct labl] PROGNOSIS: Fair ACTIVITY: [As tolerated]. DIET: Cardiac DISPOSITION: Sn[facility] Other [facility]. 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 TIME SPENT ON DISCHARGE: Greater than 40 minutes. Vital Signs/I&Os Vital Signs Date Time Temp Pulse Resp B/P (MAP) Pulse Ox O2 Delivery O2 Flow Rate FiO2 11/12/19 10:14 97.5 68 16 158/92 (114) Room Air 11/12/19 06:00 93 I&O- Last 24 Hours up to 6 AM 11/12/19 05:59 Intake Total 2015 ml Output Total 2050 ml Balance -35 ml Laboratory Data Labs 24H Laboratory Tests 2 11/11/19 16:48: Bedside Glucose (Misc Panel) 117H 11/11/19 20:02: Bedside Glucose (Misc Panel) 179H 11/12/19 06:18: Bedside Glucose (Misc Panel) 64L 11/12/19 08:06: Bedside Glucose (Misc Panel) 72L FSBS Laboratory Tests Test 11/11/19 16:48 11/11/19 20:02 11/12/19 06:18 11/12/19 08:06 Range/Units Bedside Glucose (Misc Panel) 117 179 64 72 80-115 MG/DL Discharge Medications Scheduled Amiodarone HCl (Amiodarone HCl) 200 Mg Tab, 300 MG PO DAILY, (Reported) Apixaban (Eliquis) 5 Mg Tablet, 5 MG PO BID, (Reported) Aspirin (Aspirin) 81 Mg Tab.chew, 1 TAB PO DAILY for pain Budesonide/Formoterol (Symbicort 80-4.5 Mcg Inhaler) 6.9 Gm Hfa.aer.ad, 2 PUFF INH BID, (Reported) Carvedilol (Carvedilol) 6.25 Mg Tablet, 6.25 MG PO BID, (Reported) Furosemide (Furosemide) 40 Mg Tablet, 40 MG PO DAILY Gabapentin (Gabapentin) 100 Mg Capsule, 100 MG PO QHS, (Reported) Levothyroxine Sodium (Levothyroxine Sodium) 88 Mcg Tablet, 88 MCG PO DAILY, (Reported) Lisinopril (Lisinopril) 10 Mg Tablet, 1 TAB PO DAILY Metformin HCl (Metformin HCl) 500 Mg Tablet, 1 TAB PO BID Mexiletine HCl (Mexiletine HCl) 200 Mg Capsule, 200 MG PO BID, (Reported) Rosuvastatin Calcium (Rosuvastatin Calcium) 40 Mg Tablet, 40 MG PO DAILY, (Reported) Tamsulosin HCl (Flomax) 0.4 Mg Capsule, 0.4 MG PO DAILY, (Reported) Scheduled PRN Nitroglycerin (Nitrostat) 0.4 Mg Tab.subl, 0.4 MG SL NITRO PRN for CHEST PAIN, (Reported) Trazodone HCl (Trazodone HCl) 50 Mg Tablet, 50 MG PO QHS PRN for INSOMNIA, (Repo rted) Allergies Coded Allergies: No Known Allergies (Unverified , 08/02/12) ANAIS FERNÁNDEZ DO Nov 12, 2019 14:56
--- NOTE | 2019-11-17 09:36 | ECGEPIP ---
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
--- NOTE | 2019-11-23 09:36 | CR ---
DATE: 10/20/2019 CHIEF COMPLAINT: A 64-year-old male seen for evaluation of ulceration on his right foot. SUBJECTIVE: The patient has been seen by me many times in the past, however he has not been seen in over a year. PAST MEDICAL HISTORY: Peripheral artery disease, diabetes mellitus, hypertension, hyperlipidemia, chronic obstructive pulmonary disease. PAST SURGICAL HISTORY: On his foot, includes an amputation distal aspect second toe right foot. AT HOME MEDICATIONS: 1. Amiodarone 300 mg daily. 2. Eliquis 5 mg p.o. b.i.d. 3. Aspirin 81 mg daily. 4. Symbicort. 5. Carvedilol 6.25 mg p.o. b.i.d. 6. Gabapentin 100 mg p.o. q. h.s. 7. Levothyroxine 88 mcg daily. 8. Mexiletine 200 mg daily. 9. Rosuvastatin 40 mg p.o. daily. 10. Flomax 0.4 mg daily. ALLERGIES: None. PHYSICAL EXAMINATION: An alert, well-oriented 64-year-old male in no acute distress. Evaluation of his right foot reveals an ulceration on the medial aspect of his foot. This ulceration measures approximately 5 mm x 2 mm x approximately 1 cm in depth. It does extend down to the first metatarsal. However, there is no erythema and no increased temperature. No purulence expressed from the foot. X-rays reveal first metatarsal fracture, osteomyelitis could not be ruled out. ASSESSMENT: Fractured first metatarsal right foot. Osteomyelitis unlikely. PLAN: We discussed local wound care consisting of Silvadene and a dressing b.i.d. Since there is no erythema, discharge or increased temperature, this can be monitored. However, if concerns arise would recommend culture and p.o. antibiotics. Patient can be seen in follow-up in my office after discharge. Most likely the patient has a chronic fracture of the first metatarsal. Since there is no increased temperature or erythema, this is most likely an old Charcot type fracture that has been slow to heal. The patient can be reassessed if his condition changes. Thank you for this consultation. GIO
--- NOTE | 2019-11-23 09:47 | IPN ---
DATE: 10/28/2019 at 12:03 p.m. CHIEF COMPLAINT: Patient seen for evaluation of thick and painful nails. Patient states that his nails are long and makes ambulation difficult. Therefore, he was having trouble with physical therapy. He is seen today for evaluation. Physical exam reveals the hallux nail plates to be 3 mm in thickness. Second toenail on the right foot measures 5 mm in thickness. It extends greater than 10 mm past the distal edge of the digit. They are dark yellow to brown in coloration. Pedal pulses are difficult to palpate. Patient has a bandage in place on the right foot. There is no breakthrough drainage. ASSESSMENT: 1. Onychomycosis times 10. 2. Diabetes with peripheral artery disease and neuropathy. PLAN: Debride nails manually with an electric bur times 10. Followup as needed as an outpatient. Patient has not been in our office for some time. His questions were answered. GIO
--- NOTE | 2019-11-25 15:25 | ECGEPIP ---
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
[2019-11-29 08:34] LABS: BASO # 0.1 10^3/uL (0.0-0.2); BASO % 0.8 % (0.0-1.0); EOS # 0.4 10^3/uL (0.0-0.5); HEMATOCRIT 36.9 % (42.0-52.0); HEMOGLOBIN 11.1 g/dl (13.5-17.5); LYMPH # 1.2 10^3/uL (1.5-5.0); LYMPH % 16.1 % (24.0-44.0); MEAN CORPUSCULAR HEMOGLOBIN 25.9 pg (27.0-33.0); MEAN CORPUSCULAR HGB CONC 30.1 g/dl (32.0-36.5); MEAN CORPUSCULAR VOLUME 86.2 fl (80.0-96.0); MONO % 12.8 % (0.0-5.0); NEUTROPHILS # 4.8 10^3/uL (1.5-8.5); NEUTROPHILS % 65.2 % (36.0-66.0); PLATELET COUNT, AUTOMATED 216 10^3/uL (150-450); RED BLOOD COUNT 4.28 10^6/uL (4.30-6.10); WHITE BLOOD COUNT 7.4 10^3/uL (4.0-10.0)
[2019-11-29 08:40] LABS: ERYTHROCYTE SEDIMENTATION RATE 47 mm/hr (0-20)
== END 2019-11-12 10:56 | DRG 637 ==
LOC: M ED INP 22:06 → M PCU 10-20 00:48 → M MSPAV 10-22 16:17
PROVIDERS: ADMIT Student in an Organized Health Care Education/Training Program; ATTEND Internal Medicine
DX: E11.621 Type 2 diabetes mellitus with foot ulcer (principal); I50.33 Acute on chronic diastolic (congestive) heart failure; I13.0 Hypertensive heart and chronic kidney disease with heart failure and stage 1 through stage 4 chronic kidney disease, or unspecified chronic kidney disease; L03.115 Cellulitis of right lower limb; L97.518 Non-pressure chronic ulcer of other part of right foot with other specified severity; I48.20 Chronic atrial fibrillation, unspecified; M84.674 Pathological fracture in other disease, right foot; E78.5 Hyperlipidemia, unspecified; E03.9 Hypothyroidism, unspecified; N18.3 Chronic kidney disease, stage 3 (moderate); J44.9 Chronic obstructive pulmonary disease, unspecified; Z66 Do not resuscitate; E11.51 Type 2 diabetes mellitus with diabetic peripheral angiopathy without gangrene; I25.10 Atherosclerotic heart disease of native coronary artery without angina pectoris; I25.5 Ischemic cardiomyopathy; Z95.5 Presence of coronary angioplasty implant and graft; Z99.81 Dependence on supplemental oxygen; E11.42 Type 2 diabetes mellitus with diabetic polyneuropathy; E11.65 Type 2 diabetes mellitus with hyperglycemia; Z89.421 Acquired absence of other right toe(s); Z95.0 Presence of cardiac pacemaker; Z95.820 Peripheral vascular angioplasty status with implants and grafts; Z79.01 Long term (current) use of anticoagulants; Z79.82 Long term (current) use of aspirin; Z79.899 Other long term (current) drug therapy; Z86.718 Personal history of other venous thrombosis and embolism